=== PATIENT | female | born 1965 | race Caucasian/White ===

== ENCOUNTER 2020-09-08 09:57 | Emergency (ER) | payer OTHER, SELFPAY ==
[2020-09-08 10:03] VITALS: BP 136/60; PULSE 66; RESP 16; TEMP 36.6; O2SAT 100; BMI 30.4
--- NOTE | 2020-09-08 10:04 | ED.GENADULT ---
HPI - General Adult General Chief complaint: Extremity Problem Stated complaint: left side upper shoulder area pain s/p cleaning Time Seen by Provider: 09/08/20 10:04 Source: patient Mode of arrival: ambulatory Limitations: no limitations History of Present Illness HPI narrative: 55-year-old female with below past medical history presenting complaint of left-sided paraspinous muscle pain over the cervical trapezius area. No neck or head pain. Pain sometimes will shoot down the left arm. Pain started couple days ago after some ADLs. No known injury. No upper extremity or lower extremity weakness. Onset (ago): day(s) Location: neck Radiation: extremity Quality: aching Exacerbating factors: none Treatments prior to arrival: none Related Data Previous Rx's Medication Instructions Recorded cyclobenzaprine 10 mg PO TID PRN #20 tab 09/08/20 lidocaine 1 patch TOPICAL Q24H PRN #10 ea 09/08/20 Allergies Allergy/AdvReac Type Severity Reaction Status Date / Time aspirin [Aspirin] Allergy Mild ABDOMINAL Unverified 07/04/20 16:41 PAIN, upset stomach tramadol [TRAMADOL] Allergy Unknown TONGUE Unverified 07/04/20 16:41 NUMBNESS Review of Systems Review of Systems: Constitutional: No Weight loss, No Fever, No Chills, No Night Sweats, No Fatigue, No Malaise ENT/Mouth: No Hearing loss, No Ear Pain, No Nasal Congestion, No Sinus Pain, No Hoarseness, No sore throat, No Rhinorrhea, No Swallowing Difficulty Eyes: No Eye Pain, No Swelling, No Redness, No Foreign Body, No Discharge, No Vision Changes Cardiovascular: No Chest Pain, No SOB, No Dyspnea on Exertion, No Orthopnea, No Edema, No Palpitations Respiratory: No Cough, No Sputum, No Wheezing, No Smoke Exposure, No Dyspnea Gastrointestinal: No Nausea, No Vomiting, No Diarrhea, No Constipation, No abdominal Pain, No Hematochezia, No Melena Genitourinary: no irregular bleeding, No Dysuria, No Urinary Frequency, No Hematuria, No Urinary Incontinence, No Urgency, No Flank Pain, No Urinary Flow Changes, No Hesitancy Musculoskeletal: No joint pain, No Myalgias, No Joint Swelling Skin: No Skin Lesions, No rash Neuro: No Weakness, No Numbness, No Paresthesias, No Loss of Consciousness, No Dizziness, No Headache Heme/Lymph: No Bruising, No Bleeding,No Lymphadenopathy Endocrine: No Polyuria, No Polydipsia, No Temperature Intolerance Yes all other systems are reviewed and are negative [facility] Past Medical History Medical History (Updated 09/09/20 @ 00:00 by Background Daemon) Arthritis Hypertension Social History Social History Alcohol intake: never Smoking Status: Never smoker Use of substances other than those prescribed or required for medical reasons: No Advance Directives: No Advance Directives Information Provided: Yes Physical Exam Vital Signs: Vital Signs: Last Vital Signs Temp 97.8 F 09/08/20 10:03 Pulse 66 09/08/20 10:03 Resp 16 09/08/20 10:03 BP 136/60 09/08/20 10:03 Pulse Ox 100 09/08/20 10:03 Body Mass Index 30.4 Reviewed Const: General: cooperative and healthy appearing; No acute distress or intoxicated appearing Nutritional Appearance: average body habitus Orientation/consciousness: patient oriented x3 HENMT: Head: Yes normal to inspection Ears: hearing grossly normal bilaterally Eyes: General: appearance normal, both eyes and all related structures Visual Beltran: normal visual beltran by confrontation Neck: Other: Slight tender palpation over the upper trapezius. No anterior lateral care palpation. Negative Spurling test. Neck: Yes normal visual inspection, No positive Brudzinski's sign, No positive Kernig's sign and Yes tender Thyroid: Thyroid normal Chest: Chest palpation & inspection: normal inspection of the chest Resp: Effort & Inspection: normal respiratory effort Cardio: Jugular venous distension: no JVD : General: Yes no CVA tenderness Back/Spine/Pelvis: Back: no CVA tenderness Skin: General skin exam: no rashes or lesions noted Neuro: General: patient oriented x3 Extrem: General: Yes normal to inspection Discharge Plan Discharge Clinical Impression: Cervical muscle strain Patient Disposition: Home, Self-Care Instructions: Cervical Strain (ED) Prescriptions: New cyclobenzaprine 10 mg tablet 10 mg PO TID PRN (Reason: muscle spasm) Qty: 20 RF: 0 lidocaine 4 % adhesive patch,medicated 1 patch topical Q24H PRN (Reason: pain) Qty: 10 RF: 0 Referrals: Roxanna Davis DO [Primary Care Provider] - 1 week Interventions: ED Discharge Assessment Last Done: 11/22/20 10:23 Discharge Date/Time: 09/08/20 10:24
== END 2020-09-08 10:24 | disposition home or self-care (01) ==
PROVIDERS: Emergency Provider Emergency Medicine; PCP Internal Medicine
DX: S16.1XXA Strain of muscle, fascia and tendon at neck level, initial encounter (principal); M25.512 Pain in left shoulder; M54.2 Cervicalgia; I10 Essential (primary) hypertension; X58.XXXA Exposure to other specified factors, initial encounter; Y93.9 Activity, unspecified; Y92.9 Unspecified place or not applicable; Y99.9 Unspecified external cause status; Z79.899 Other long term (current) drug therapy
CPT/HCPCS: 99283

== ENCOUNTER 2020-10-16 19:12 | Emergency (ER) | payer OTHER, SELFPAY ==
--- NOTE | 2020-10-16 21:07 | PC.NURSE ---
Provider bedside seeing patient. Plan for covid test and d/c.
[2020-10-16 21:08] VITALS: BP 131/64; PULSE 62; RESP 16; TEMP 37.6; O2SAT 96; BMI 68.3
--- NOTE | 2020-10-16 21:09 | ED.URI ---
HPI - URI/Sore Throat General Chief Complaint: Medical Clearance Stated Complaint: Flu like symptoms Time Seen by Provider: 10/16/20 20:55 Source: patient History of Present Illness HPI Narrative: This is a 55-year-old female who presents with complaints of throat pain and discomfort when breathing but denies any shortness of breath. She states that this is been going on for 2 days and is not associated with headache, dizziness, fevers, nausea, vomiting, or urinary symptoms. She states she is concerned because her has diabetes Related Data Previous Rx's Medication Instructions Recorded cyclobenzaprine 10 mg PO TID PRN #20 tab 09/08/20 lidocaine 1 patch TOPICAL Q24H PRN #10 ea 09/08/20 Allergies Allergy/AdvReac Type Severity Reaction Status Date / Time aspirin [Aspirin] Allergy Mild ABDOMINAL Unverified 10/16/20 21:19 PAIN, upset stomach tramadol [TRAMADOL] Allergy Unknown TONGUE Unverified 10/16/20 21:19 NUMBNESS Review of Systems Review of Systems: Pertinent positives and negatives as stated in HPI 10 point review of systems otherwise negative PMFSH Past Medical History Source: nursing notes reviewed Medical History Arthritis Hypertension Migraine Surgical History History of rectal surgery Social History Social History Alcohol intake: never Smoking Status: Never smoker Advance Directives: No Advance Directives Information Provided: No Physical Exam Vital Signs: Vital Signs: Last Vital Signs Temp 99.6 F 10/16/20 21:08 Pulse 62 10/16/20 21:08 Resp 16 10/16/20 21:08 BP 131/64 10/16/20 21:08 Pulse Ox 96 10/16/20 21:08 Body Mass Index 68.3 VITAL SIGNS: Reviewed. GENERAL: Well developed, well nourished, in no acute distress. HEAD: Normocephalic/atraumatic, EYES: PERRLA, EOMI intact without pain, no nystagmus/pallor/icterus noted EARS: Ext canals without abnormality, TMs non-bulging and non-erythematous NOSE: Nares patent bilateral OROPHARYNX: no oral lesions noted, posterior pharynx clear NECK: Supple, no adenopathy LUNGS: Normal breath sounds. No adventitious sounds or accessory muscle use. SpO2<96> CARDIOVASCULAR: Regular rate and rhythm without noted murmurs, no JVD or lower extremity edema. ABDOMEN: Soft, non-tender, non-distended with bowel sounds. No rigidity. No guarding. No palpable masses or hernias noted NEUROLOGIC: Alert and oriented x 4. Course Course Course Narrative: This is a 55-year-old female with history and clinical presentation consistent with viral infection and no evidence of hypoxia, tachypnea, and currently not febrile. Patient will be COVID-19 tested and instructed to self quarantine until the results are called her. Discharge Plan Discharge Clinical Impression: Encounter for laboratory testing for COVID-19 virus Patient Disposition: Home, Self-Care Instructions: COVID-19 (Coronavirus Disease 2019) (ED) Additional Instructions: 1. Tylenol 1000 mg, por v?a oral, cada 6 horas seg?n sea necesario para el dolor de carlo, ronna corporales, temperaturas superiores a 100,4?C. No exceda los 4000 mg en 24 horas. 2. Incrementar la hidrataci?n de los fluidos especialmente con agua. 3. Debe ponerse en cuarentena de acuerdo con las pautas del estado de [place] hasta que reciba los resultados de de la torre prueba COVID-19. [place] significa que no debe salir de compras ni involucrarse en situaciones sociales. 4. Por favor, no dude en regresar a trevor departamento de emergencias si experimenta un empeoramiento de la dificultad para respirar, fiebre no controlada por Tylenol. Prescriptions: No Action cyclobenzaprine 10 mg tablet 10 mg PO TID PRN (Reason: muscle spasm) Qty: 20 RF: 0 lidocaine 4 % adhesive patch,medicated 1 patch topical Q24H PRN (Reason: pain) Qty: 10 RF: 0 Print Language: Portuguese
--- NOTE | 2020-10-16 21:22 | PC.NURSE ---
Patient swabbed. Will receive d/c instructions with service officer.
== END 2020-10-16 21:31 | disposition home or self-care (01) ==
PROVIDERS: Emergency Provider Student in an Organized Health Care Education/Training Program; PCP Internal Medicine
DX: U07.1 COVID-19 (principal); I10 Essential (primary) hypertension
CPT/HCPCS: 99283; U0003

== ENCOUNTER 2021-06-17 10:40 | Outpatient (REF) | payer OTHER, SELFPAY ==
--- NOTE | ~2021-06-17 | MM_ITS ---
EXAMINATION: MM SCREENING DIGITAL BREAST TOMOSYNTHESIS, BILATERAL CLINICAL INFORMATION: Screening. Asymptomatic. The lifetime risk of breast cancer based on the Tyrer-Cuzick Model is 19%. COMPARISON: Mammography: 06/13/2020, 01/10/2019, 01/04/2018 TECHNIQUE: Digital breast tomosynthesis is performed in both the craniocaudal and mediolateral oblique views along with computer-aided detection (CAD). Synthesized 2D images are generated from the tomosynthesis. Additional left MLO view is provided. FINDINGS: The breasts are almost entirely fatty (ACR BI-RADS breast composition Category a). There are no significant masses, abnormal calcifications, or other abnormalities. Background stromal markings are stable. Low right axillary tail node is stable. Skin contours are smooth. No significant changes. MM/MM tomosynthesis screening BI IMPRESSION: No mammographic evidence of malignancy. ASSESSMENT: BI-RADS 2: Benign RECOMMENDATION: Routine annual mammography screening. This patient's information was entered into a reminder system with a target due date for their next mammogram.
== END 2021-06-17 10:41 | disposition home or self-care (01) ==
LOC: HO.MAMMO 10:40
PROVIDERS: Absent Provider Obstetrics & Gynecology; PCP Internal Medicine; Visit Provider Internal Medicine
DX: Z12.31 Encounter for screening mammogram for malignant neoplasm of breast (principal)
CPT/HCPCS: 77063; 77067

== ENCOUNTER 2021-09-20 13:13 | Emergency (ER) | payer OTHER, SELFPAY ==
[2021-09-20 15:09] VITALS: BP 137/50; PULSE 62; RESP 18; TEMP 35.9; O2SAT 100; BMI 32.8
== END 2021-09-20 19:48 | disposition left against medical advice (07) ==
PROVIDERS: Emergency Provider Emergency Medicine; PCP Internal Medicine
DX: M79.604 Pain in right leg (principal)
CPT/HCPCS: 99281; 99282

== ENCOUNTER 2021-09-22 08:22 | Emergency (ER) | payer OTHER, SELFPAY ==
--- NOTE | ~2021-09-22 | XR_ITS ---
EXAMINATION: XR HIP, RIGHT CLINICAL INFORMATION: Pain COMPARISON: None TECHNIQUE: Two views of the right hip and one view of the pelvis. FINDINGS: Bone alignment is normal. No fracture or dislocation is seen. The joint spaces are normal. Bones of the pelvis are normal. Soft tissues are normal. XR/XR hip RT w PEL1V IMPRESSION: Normal right hip.
[2021-09-22 09:09] VITALS: BP 132/62; PULSE 64; RESP 18; TEMP 36.7; O2SAT 96; BMI 32.8
--- NOTE | 2021-09-22 10:29 | ED_ITS ---
HPI - General Adult General Chief complaint: Extremity Problem Stated complaint: R LEG PAIN Time Seen by Provider: 09/22/21 09:22 Source: patient Mode of arrival: ambulatory History of Present Illness HPI narrative: 56-year-old female with a past medical history of arthritis, HTN, migraines presenting to the ED complaining of right hip pain radiating down right lower extremity times 5-6 days. Denies known injury/trauma fall. Denies numbness, tingling, weakness, urinary incontinence/retention Onset (ago): day(s) Location: lower extremity Radiation: extremity Severity: mild Pain Consistency: constant Related Data Previous Rx's Medication Instructions Recorded cyclobenzaprine 10 mg tablet 10 mg PO TID PRN #20 tab 09/08/20 lidocaine 4 % topical patch 1 patch TOPICAL Q24H PRN #10 ea 09/08/20 acetaminophen 500 mg tablet 500 mg PO Q6H PRN #20 tab 09/22/21 (Tylenol Extra Strength) cyclobenzaprine 5 mg tablet 5 mg PO Q8H PRN 5 Days #14 tab 09/22/21 lidocaine 5 % topical patch 1 patch TOPICAL DAILY PRN #30 ea 09/22/21 (Lidoderm) MDD remove after 12 hours Allergies Allergy/AdvReac Type Severity Reaction Status Date / Time aspirin [Aspirin] Allergy Mild ABDOMINAL Verified 09/20/21 15:09 PAIN, upset stomach tramadol [TRAMADOL] Allergy Unknown TONGUE Verified 09/20/21 15:09 NUMBNESS Review of Systems Review of Systems: Constitutional:No Fever, No Chills ENT/Mouth: No Ear Pain, No Nasal Congestion, No sore throat, No Rhinorrhea Cardiovascular: No Chest Pain, No SOB Respiratory: No Cough Gastrointestinal: No Nausea, No Vomiting, No Abdominal pain Genitourinary:, No Dysuria, No Hematuria, No Urinary Incontinence/retentionNo Flank Pain Musculoskeletal: + joint pain, No Myalgias, No Joint Swelling Skin: No Skin Lesions, No rash Neuro: No Weakness, No Numbness, No Paresthesias Yes all other systems are reviewed and are negative Neurologic: Denies Sensory deficit (Neuro) PENDING SALE TO [facility] Past Medical History Attestation statement: The following information was validated with the patient. Medical History Arthritis Hypertension Migraine Surgical History History of rectal surgery Social History Social History Alcohol intake: never Advance Directives: No Advance Directives Information Provided: Yes Patient : No Physical Exam Vital Signs: Vital Signs: Last Vital Signs Temp 98.0 F 09/22/21 09:09 Pulse 64 09/22/21 09:09 Resp 18 09/22/21 09:09 BP 132/62 09/22/21 09:09 Pulse Ox 96 09/22/21 09:09 BMI result Body Mass Index 32.8 Const: General: cooperative, healthy appearing and no acute distress Orientation/consciousness: patient oriented x3 Limitations: no limitations HENMT: Head: Yes normal to inspection and Yes atraumatic Ears: hearing grossly normal bilaterally General nose exam: Normal external nose present Face and sinus: Yes normal facial exam Eyes: General: appearance normal, both eyes and all related structures EOM: EOMs intact bilaterally Neck: Neck: Yes normal visual inspection and Yes no meningeal signs Resp: Effort & Inspection: normal respiratory effort and no respiratory distress Cardio: Rate: regular rate Peripheral pulses: dorsalis pedis present GI: Inspection: Yes normal to inspection Palpation (GI): Soft to palpation, nontender and no guarding : General: Yes no CVA tenderness Back/Spine/Pelvis: Other: No midline thoracic/lumbar spinous tenderness/step- off or deformity. Right buttock tenderness to palpation Back: no CVA tenderness Skin: Rashes: no rashes Wounds: no wounds Neuro: General: patient oriented x3, gait normal, tone normal, moves all extremities, no meningeal signs and no focal motor deficits Gait exam (Neuro): Normal gait present Motor exam (neuro): 5/5 motor strength present throughout Sensory Exam: No Sensory deficit (Neuro) Extrem: Other: Right hip mildly tender. No appreciable deformity. Active and passive ROM intact with pain elicited. Neurovascular intact distally. General: Yes normal to inspection Course Course Course Narrative: XR hip RT w PEL1V IMPRESSION: Normal right hip. >> results discussed with patient Medical Decision Making MDM Narrative Medical decision making narrative: 56-year-old female with a past medical history of arthritis, HTN, migraines presenting to the ED complaining of right hip pain radiating down right lower extremity times 5-6 days. On exam vital signs stable, NAD/nontoxic appearing physical exam as above. Rule out fracture. Concern for arthritic flare vs sciatica/MSK pain/muscle spasming. Low concern for septic joint/arthritis Plan: X-rays Discharge Plan Discharge Clinical Impression: Acute hip pain Qualifiers: Laterality: right Qualified Code(s): M25.551 - Pain in right hip Patient Disposition: Home, Self-Care Instructions: Hip Pain (ED) Additional Instructions: Your x-ray was unremarkable Please follow-up with her doctor Your pain is likely musculoskeletal Flexeril is a muscle relaxer, take at night as it makes you drowsy, do not drive, drink alcohol, or operate machinery while taking it Lidoderm patches are numbing patches, apply to painful area In addition take Tylenol at home If symptoms persist or worsen, pain becomes unbearable, you developed urinary retention or incontinence, or weakness return to the ED Tu radiograf?a no tuvo nada especial Por favor, jd un seguimiento con de la torre m?dico. Es probable que de la torre dolor sea musculoesquel?atif Flexeril es un relajante muscular, t?springer por la noche ya que le produce somnolencia, no conduzca, no kai alcohol ni maneje maquinaria mientras lo gregory. Los parches de Lidoderm son parches que adormecen, se aplican al ?essence dolorida Adem?s, tome Tylenol en casa. Si los s?ntomas persisten o empeoran, el dolor se vuelve insoportable, desarroll? retenci?n urinaria o incontinencia, o debilidad regrese al servicio de urgencias Prescriptions: New acetaminophen [Tylenol Extra Strength] 500 mg tablet 500 mg PO Q6H PRN (Reason: pain or fever) Qty: 20 RF: 0 lidocaine [Lidoderm] 5 % adhesive patch,medicated 1 patch topical DAILY MDD remove after 12 hours PRN (Reason: pain) Qty: 30 RF: 0 cyclobenzaprine 5 mg tablet 5 mg PO Q8H PRN (Reason: pain (scale score 7-10)) 5 Days Qty: 14 RF: 0 No Action cyclobenzaprine 10 mg tablet 10 mg PO TID PRN (Reason: muscle spasm) Qty: 20 RF: 0 lidocaine 4 % adhesive patch,medicated 1 patch topical Q24H PRN (Reason: pain) Qty: 10 RF: 0 Referrals: Sammy Blue MD [Primary Care Provider] - 2 days Interventions: ED Discharge Assessment Last Done: 09/22/21 10:40 Discharge Date/Time: 09/22/21 10:41 Print Language: Azeri
== END 2021-09-22 10:41 | disposition home or self-care (01) ==
PROVIDERS: Emergency Provider Emergency Medicine; PCP Internal Medicine
DX: M25.551 Pain in right hip (principal); I10 Essential (primary) hypertension
CPT/HCPCS: 73502; 99283

== ENCOUNTER → 2022-03-03 11:13 | Outpatient (BNVA) | payer OTHER, SELFPAY | PROVIDERS: PCP Internal Medicine; Visit Provider Nurse Practitioner Family | DX: G47.9 Sleep disorder, unspecified (principal); G47.30 Sleep apnea, unspecified; G43.909 Migraine, unspecified, not intractable, without status migrainosus | CPT/HCPCS: 99202 ==

== ENCOUNTER 2022-03-09 17:32 | Emergency (ER) | payer OTHER, SELFPAY ==
[2022-03-09 17:41] VITALS: BP 137/65; PULSE 59; RESP 18; TEMP 37; O2SAT 98; BMI 30.9
--- NOTE | 2022-03-09 19:30 | ED_ITS ---
HPI - Extremity Problem General Chief complaint: Extremity Problem Stated complaint: ? Sprain R Neck/Shoulder Area Time Seen by Provider: 03/09/22 19:21 Source: patient Mode of arrival: ambulatory Limitations: no limitations History of Present Illness HPI Narrative: 56-year-old female here with 1 month of right-sided neck pain which radiates down the right arm. Patient taking Motrin and using heat with continued pain. No weakness, no chest pain, no shortness of breath, no nausea, no diaphoresis. No sensation change. No fevers or chills or headache. No known injury or trauma. Related Data Home Medications Medication Instructions Recorded Confirmed hydrochlorothiazide 25 mg tablet 25 mg PO DAILY 03/03/22 03/03/22 omeprazole 20 mg capsule,delayed 20 mg PO DAILY 03/03/22 03/03/22 release Previous Rx's Medication Instructions Recorded cyclobenzaprine 10 mg tablet 10 mg PO TID PRN #20 tab 09/08/20 lidocaine 4 % topical patch 1 patch TOPICAL Q24H PRN #10 ea 09/08/20 acetaminophen 500 mg tablet 500 mg PO Q6H PRN #20 tab 09/22/21 (Tylenol Extra Strength) cyclobenzaprine 5 mg tablet 5 mg PO Q8H PRN 5 Days #14 tab 09/22/21 lidocaine 5 % topical patch 1 patch TOPICAL DAILY PRN #30 ea 09/22/21 (Lidoderm) MDD remove after 12 hours erenumab-aooe 140 mg/mL 140 mg SUBCUT .COMPLEX 30 Days #1 03/03/22 subcutaneous auto-injector ml (Aimovig Autoinjector) propranolol 60 mg capsule,24 60 mg PO DAILY 30 Days #30 cap 03/03/22 hr,extended release rizatriptan 10 mg tablet 10 mg PO Q2H 30 Days #360 tab 03/03/22 cyclobenzaprine 10 mg tablet 10 mg PO TID PRN #14 tab 03/09/22 prednisone 20 mg tablet 40 mg PO DAILY #10 tab 03/09/22 Allergies Allergy/AdvReac Type Severity Reaction Status Date / Time aspirin [Aspirin] Allergy Mild ABDOMINAL Verified 03/09/22 18:33 PAIN, upset stomach tramadol [TRAMADOL] Allergy Unknown TONGUE Verified 03/09/22 18:33 NUMBNESS Review of Systems Review of Systems: Yes all other systems are reviewed and are negative Constitutional: Constitutional: Reports no additional constitutional complaints, Denies body ache(s), Denies chills, Denies fever(s), Denies headache(s) and Denies weakness Eyes: Eyes: Reports no additional eye complaints and Denies change in vision ENT: Reports system reviewed and no additional complaints, except as documented, Denies dizziness, Denies headache(s), Denies nasal congestion, Denies nasal discharge and Reports neck pain Cardiovascular: Cardiovascular: Reports no additional cardiovascular complaints, Denies chest pain, Denies leg edema and Denies dyspnea Respiratory: Respiratory: Reports no additional respiratory complaints, Denies cough and Denies dyspnea Gastrointestinal: Gastrointestinal: Reports no additional gastrointestinal complaints, Denies abdominal pain, Denies diarrhea, Denies nausea and Denies vomiting Genitourinary: Genitourinary: Reports no additional female genitourinary complaints and Denies urinary incontinence Musculoskeletal: Musculoskeletal: Reports no additional musculoskeletal complaints, Denies back pain, Denies arthralgias, Denies joint swelling, Reports neck pain, Denies numbness, Reports radiating pain into limb and Denies tingling Integumentary/Breasts: Skin/Breast: Reports system reviewed and no additional complaints, except as docu and Denies rash Neurologic: Reports system reviewed and no additional complaints, except as documented, Denies Abnormal speech present, Denies dizziness, Denies headache(s), Denies numbness, Denies tingling and Denies weakness PMFSH Past Medical History Attestation statement: The following information was validated with the patient. Source: old records reviewed and nursing notes reviewed Medical History Arthritis HLD (hyperlipidemia) Hypertension Migraine Surgical History History of rectal surgery Family History Family History (Updated 03/03/22 @ 11:31 by Becky Doty) Father Congestive heart failure Mother Diabetes HTN (hypertension) Migraine Brother HTN (hypertension) Diabetes Social History Social History Alcohol intake: never Patient Tobacco Use Status: Never used Tobacco Advance Directives: No Advance Directives Information Provided: No Patient : No Physical Exam Vital Signs: Vital Signs: Last Vital Signs Temp 98.6 F 03/09/22 17:41 Pulse 59 03/09/22 17:41 Resp 18 03/09/22 17:41 BP 137/65 03/09/22 17:41 Pulse Ox 98 03/09/22 17:41 BMI result Body Mass Index 30.9 Const: General: cooperative, healthy appearing, comfortable and no acute distress Orientation/consciousness: patient oriented x3 Limitations: no limitations HEENT: Head: Yes normal to inspection Ears: hearing grossly normal bilaterally General nose exam: Normal external nose present Face and sinus: Yes normal facial exam Mouth: Normal oral and palatal mucosa present Throat: Yes posterior oropharynx normal Eyes: General: appearance normal, both eyes and all related structures Pupils: Equal, round and reactive pupils present Neck: Other: To the right trapezius there is tenderness, swelling, palpable muscle spasm. No cervical midline tenderness, step-offs deformities Neck: Yes normal visual inspection, Yes full ROM, Yes no lymphadenopathy and Yes no meningeal signs Chest: Chest palpation & inspection: normal inspection of the chest Resp: Effort & Inspection: normal respiratory effort Auscultation: clear to auscultation bilaterally Cardio: Rate: regular rate Rhythm: regular rhythm Peripheral pulses: Peripheral pulses 2+ throughout GI: Inspection: Yes normal to inspection Palpation (GI): Soft to palpation and nontender Auscultation: normal bowel sounds Back/Spine/Pelvis: Thoracic/Lumbar Spine: thoracic and lumbar spine normal to inspection Skin: General skin exam: no rashes or lesions noted Neuro: General: patient oriented x3, no meningeal signs, no focal motor deficits and normal sensation to monofilament Cranial nerves: Yes Equal, round and reactive pupils present Cognition (Neuro): normal cognition Speech: No Abnormal speech present Gait exam (Neuro): Normal gait present Motor exam (neuro): 5/5 motor strength present throughout Extrem: Other: Right upper extremity is normal in appearance. There is normal strength and sen sation with. Palpable distal pulses noted General: Yes normal to inspection Course Course Course Narrative: 4 weeks of her right-sided neck pain with radiation down the right arm unrelieved with heat and Advil at home. Exam is consistent with cervical radiculopathy. No weakness or sensation change. Will add Flexeril, prednisone. Recommend continue heat and ibuprofen. Reviewed worrisome signs and symptoms of when to return to the emergency department. Comfortable discharge home. MDM - Extremity (Nontraumatic) MDM Narrative Medical decision making narrative: Low concern for ACS with atypical symptoms that are greater than 4 weeks Low concern for PE with no clinical findings concerning for DVT, no tachypnea, no hypoxia, no tachycardia Low concern for cord compression with no weakness or sensation change on exam in the upper extremities Medical Records Attestation: I reviewed the patient's medical records. Lab Data Attestation: I reviewed the patient's lab results. Discharge Plan Discharge Clinical Impression: Cervical radiculopathy Patient Disposition: Home, Self-Care Instructions: Cervical Radiculopathy (ED) Additional Instructions: Heat or ice Gentle stretching Continue ibuprofen Prescriptions: New cyclobenzaprine 10 mg tablet 10 mg PO TID PRN (Reason: muscle spasm) Qty: 14 0RF prednisone 20 mg tablet 40 mg PO DAILY Qty: 10 0RF No Action cyclobenzaprine 10 mg tablet 10 mg PO TID PRN (Reason: muscle spasm) Qty: 20 0RF lidocaine 4 % adhesive patch,medicated 1 patch topical Q24H PRN (Reason: pain) Qty: 10 0RF Rx Instructions: may leave on for up to 12 hrs acetaminophen [Tylenol Extra Strength] 500 mg tablet 500 mg PO Q6H PRN (Reason: pain or fever) Qty: 20 0RF lidocaine [Lidoderm] 5 % adhesive patch,medicated 1 patch topical DAILY MDD remove after 12 hours PRN (Reason: pain) Qty: 30 0RF Rx Instructions: leave on most painful area for up to 12 hrs cyclobenzaprine 5 mg tablet 5 mg PO Q8H PRN (Reason: pain (scale score 7-10)) 5 Days Qty: 14 0RF hydrochlorothiazide 25 mg tablet 25 mg PO DAILY 0RF omeprazole 20 mg capsule,delayed release(DR/EC) 20 mg PO DAILY 0RF Aimovig Autoinjector 140 mg/mL auto-injector 140 mg subcut .COMPLEX 30 Days Qty: 1 6RF Rx Instructions: 140 mg subcut monthly; propranolol 60 mg capsule,extended release 24 hr 60 mg PO DAILY 30 Days Qty: 30 6RF rizatriptan 10 mg tablet 10 mg PO Q2H 30 Days Qty: 360 6RF Rx Instructions: 1 tab at onset of migraine, may repeat in 2 hours, max 2 tabs per day or 4 tabs per week. Referrals: Sammy Blue III, MD [Primary Care Provider] - 1 week (for persistent symptoms ) Print Language: Citizen [place]
== END 2022-03-09 20:18 | disposition home or self-care (01) ==
PROVIDERS: Emergency Provider Emergency Medicine; PCP Internal Medicine
DX: M54.12 Radiculopathy, cervical region (principal); M54.2 Cervicalgia; I10 Essential (primary) hypertension; E78.5 Hyperlipidemia, unspecified
CPT/HCPCS: 99283

== ENCOUNTER 2022-03-27 10:57 | Emergency (ER) | payer OTHER, SELFPAY ==
--- NOTE | 2022-03-27 | ECG_ITS ---
Test Reason : cp Blood Pressure : / mmHG Vent. Rate : 063 BPM Atrial Rate : 063 BPM P-R Int : 186 ms QRS Dur : 082 ms QT Int : 410 ms P-R-T Axes : 023 -04 028 degrees QTc Int : 419 ms Normal sinus rhythm Minimal voltage criteria for LVH, may be normal variant ( R in aVL ) Borderline ECG When compared with ECG of 07-JUN-2016 16:49, AR interval has decreased Referred By: Generic ED Physician Electronically Signed By:AMPARO HILL
--- NOTE | ~2022-03-27 | XR_ITS ---
EXAMINATION: XR CHEST CLINICAL INFORMATION: Chest pain COMPARISON: Chest x-ray 12/17/2016 TECHNIQUE: 2 views of the chest were obtained. FINDINGS: Cardiac silhouette is normal in size. The lungs are mildly hypoinflated. There is asymmetric elevation of the right hemidiaphragm. No lobar consolidation. No pleural effusion or pneumothorax. Mild degenerative changes of the spine. XR/XR chest 2V IMPRESSION: No acute pulmonary pathology.
[2022-03-27 11:17] VITALS: BP 113/72; PULSE 73; RESP 18; TEMP 36.7; O2SAT 99; BMI 30.9
--- NOTE | 2022-03-27 12:42 | ED_ITS ---
HPI - Chest Pain General Chief Complaint: Chest Pain Stated Complaint: chest pain l arm pain sob Time Seen by Provider: 03/27/22 12:25 Source: patient Mode of arrival: ambulatory Limitations: language barrier ( Slovak-speaking certified medical dosimetrist utilized) History of Present Illness HPI narrative: patient presents emergency department for evaluation of chest pain. She reports left anterior chest pain radiating down her left arm since 13:00 yesterday afternoon. It is described as pinching/ sharp/ stabbing. She states that the pain is constant but is made worse with movement such as walking, moving the arm or exertion. Has shortness of breath when walking up stairs. Denies any prior history of similar pain like this. Denies any precipitating injury. Denies fevers, chills, upper respiratory symptoms, neck pain, palpitations, nausea, vomiting, abdominal pain, numbness or tingling of the extremities, generalized weakness. Related Data Home Medications Medication Instructions Recorded Confirmed hydrochlorothiazide 25 mg tablet 25 mg PO DAILY 03/03/22 03/03/22 omeprazole 20 mg capsule,delayed 20 mg PO DAILY 03/03/22 03/03/22 release Previous Rx's Medication Instructions Recorded cyclobenzaprine 10 mg tablet 10 mg PO TID PRN muscle spasm #20 09/08/20 tabs lidocaine 4 % topical patch 1 patch topical Q24H PRN pain #10 09/08/20 ea acetaminophen 500 mg tablet 500 mg PO Q6H PRN pain or fever 09/22/21 (Tylenol Extra Strength) #20 tabs cyclobenzaprine 5 mg tablet 5 mg PO Q8H PRN pain (scale score 09/22/21 7-10) 5 days #14 tabs lidocaine 5 % topical patch 1 patch topical DAILY PRN pain #30 09/22/21 (Lidoderm) ea erenumab-aooe 140 mg/mL 140 mg subcut .COMPLEX 30 days #1 03/03/22 subcutaneous auto-injector mL (Aimovig Autoinjector) propranolol 60 mg capsule,24 60 mg PO DAILY 30 days #30 caps 03/03/22 hr,extended release rizatriptan 10 mg tablet 10 mg PO Q2H 30 days #360 tabs 03/03/22 cyclobenzaprine 10 mg tablet 10 mg PO TID PRN muscle spasm #14 03/09/22 tabs prednisone 20 mg tablet 40 mg PO DAILY #10 tabs 03/09/22 Allergies Allergy/AdvReac Type Severity Reaction Status Date / Time aspirin [Aspirin] Allergy Mild ABDOMINAL Verified 03/09/22 18:33 PAIN, upset stomach tramadol [TRAMADOL] Allergy Unknown TONGUE Verified 03/09/22 18:33 NUMBNESS Review of Systems Review of Systems: Constitutional : No Weight loss, No Fever, No Chills ENT/Mouth :? No sore throat, No Rhinorrhea Eyes: No Eye Pain, No Swelling Cardiovascular : pos Chest Pain, pos SOB on Exertion, No Orthopnea, No Edema, No Palpitations Respiratory : No Cough, No Sputum Gastrointestinal : pos Nausea, No Vomiting, No Diarrhea, No abdominal Pain, No Hematochezia, No Melena Genitourinary : No Dysuria, No Urinary Frequency Musculoskeletal : No joint pain, No Myalgias, No Joint Swelling Skin : No Skin Lesions, No rash Neuro : No Weakness, No Numbness, No Dizziness, No Headache Psych : No Anxiety/Panic, No Depression Heme/Lymph: No Bruising, No Lymphadenopathy Endocrine : No Polyuria, No Polydipsia Yes all other systems are reviewed and are negative [facility] Past Medical History Attestation statement: The following information was validated with the patient. Source: old records reviewed Medical History Arthritis Axial spondyloarthritis HLD (hyperlipidemia) Hypertension Migraine Surgical History History of rectal surgery Family History Family History Father Congestive heart failure Mother Diabetes HTN (hypertension) Migraine Brother HTN (hypertension) Diabetes Social History Social History Alcohol intake: never Patient Tobacco Use Status: Never used Tobacco Use of substances other than those prescribed or required for medical reasons: No Advance Directives: No Advance Directives Information Provided: Yes Patient : No Physical Exam Vital Signs: Vital Signs: Last Vital Signs Temp 98.5 F 03/27/22 14:36 Pulse 56 03/27/22 14:36 Resp 18 03/27/22 14:36 BP 113/60 03/27/22 14:36 Pulse Ox 98 03/27/22 14:36 O2 Del Method 03/27/22 14:36 BMI result Body Mass Index 30.9 Vital signs have been reviewed as normal and appeared to be correct. Blood pressure normal.? Heart rate normal.? Respiration rate normal. Temperature normal.? Oxygen saturation normal. Appearance: Alert.?Oriented to person, place and time. No acute distress.?Normal affect. Eyes: Pupils equal, round and reactive to light.? ENT: Pharynx normal.?? Neck: Normal inspection.? Neck supple.?? CVS: Heart sounds normal. Normal heart rate and rhythm.? Pulses normal.?? Respiratory: No respiratory distress.? Lung sounds clear to auscultation bilaterally?? Abdomen: Soft and non-tender. Normoactive bowel sounds. No pulsatile mass.?? Skin: Skin warm and dry.? Normal skin color. Extremities: No lower extremity edema.? No calf ttp? Neuro: Moves all extremities spontaneously. Sensation intact bilaterally. CN II- XII intact. No focal neuro deficits. Ambulates with normal steady gait. Course Course Course Narrative: The patient is a 56-year-old female with past medical history of hypertension, hyperlipidemia, migraines presented to the emergency department for evaluation of chest pain. Pain is reproducible to palpation of the left upper chest movem ent of her arm. She is overall well-appearing, hemodynamically stable. She does have risk factors including obesity, hypertension, hyperlipidemia, family history of CAD. Will obtain CBC to evaluate for leukocytosis/ anemia, CMP to evaluate for abnormal electrolytes /abnormal renal function/ abnormal hepatic function, EKG and troponin to evaluate for ischemia/ACS. Chest x-ray to evaluate for consolidation/ infiltrate/ mass/ pulmonary congestion. Will trial nitro 0.5 in paste for pain at this time. Reevaluation(s) Reevaluation #1: CBC is unremarkable. CMP is overall unremarkable. Troponin <3.5, EKG reveals normal sinus rhythm no acute ischemic changes, will obtained delta troponin. chest x-ray reveals no acute findings. Time: 13:54 Reevaluation #2: delta troponin is flat, HEART Score 3, unlikely ACS. Discussed these findings with patient. Advised pain is most likely to be muscular in nature given it is reproducible with movement. She is hemodynamically stable, afebrile no tachycardia hypoxia tachypnea, perc negative, unlikely PE. discussed plan of care for discharge home, outpatient follow-up with her primary care provider within 1-2 days, discussed reasons to return back to the emergency department, all questions were answered and she was discharged home in stable condition. Time: 15:10 [facility] - Chest Pain Medical Records Data Attestation: I reviewed the patient's medical records. Lab Data Attestation: I reviewed the patient's lab results. Result diagrams: 03/27/22 13:02 03/27/22 13:02 Labs: Lab Results 03/27/22 03/27/22 03/27/22 Range/Units 12:51 13:02 13:02 WBC 8.0 (4.8-10.8) X10*3/uL RBC 4.86 (4.20-5.50) X10*6/uL Hgb 13.9 (12.0-16.0) g/dl Hct 41.9 (37.0-47.0) % MCV 86.2 (80.0-98.0) fL MCH 28.6 (27.0-33.0) pg MCHC 33.2 (31.0-35.0) g/dl RDW 13.2 (11.0-16.0) % Plt Count 327 (160-400) X10*3/uL MPV 10.8 (9.4-12.3) fL Immature Gran % (Auto) 0.3 (0.0-0.4) % Neut % (Auto) 57.8 (45-73) % Lymph % (Auto) 32.3 (20-40) % Sargent % (Auto) 7.1 (2-11) % Eos % (Auto) 1.9 (0-4) % Baso % (Auto) 0.6 (0-2) % Lymph # (Auto) 2.6 (1.2-4.9) X10*3/uL Sargent # (Auto) 0.6 (0.1-1.2) X10*3/uL Eos # (Auto) 0.2 (0.0-0.4) X10*3/uL Baso # (Auto) 0.1 (0.0-0.2) X10*3/uL Abs Immat Gran (auto) 0.02 (0.00-0.03) X10*3/uL Absolute Neuts (auto) 4.6 (2.0-8.3) x10*3/uL Absolute Nucleated RBC 0.000 (0.0-0.012) X10*3/uL Nucleated RBC % (auto) 0.0 (0.0-0.2) /100WBC Sodium 142 (135-145) mmol/L Potassium 4.1 (3.3-5.1) mmol/L Chloride 102 (96-108) mmol/L Carbon Dioxide 31 H (22-29) mmol/L Anion Gap 13 (12-20) BUN 11 (9-16) mg/dL Creatinine 0.69 (0.5-1.4) mg/dL Estim Creat Clear Calc 85.9 Estimated GFR > 60 Random Glucose 95 (60-115) mg/dL Calcium 9.8 (8.4-10.2) mg/dL Magnesium 2.1 (1.6-2.6) mg/dL Total Bilirubin 1.4 H (0.0-1.0) mg/dL AST 18 (5-31) U/L ALT 17 (0-31) U/L Alkaline Phosphatase 82 (39-117) U/L Troponin I High Sens (<3.5-17.0) ng/L Total Protein 7.1 (6.5-8.0) g/dL Albumin 4.2 (3.5-5.0) g/dL COVID-19 ([facility]) Negative (Negative) COVID-19 Clin Com See Note 03/27/22 03/27/22 Range/Units 13:02 14:43 WBC (4.8-10.8) X10*3/uL RBC (4.20-5.50) X10*6/uL Hgb (12.0-16.0) g/dl Hct (37.0-47.0) % MCV (80.0-98.0) fL MCH (27.0-33.0) pg MCHC (31.0-35.0) g/dl RDW (11.0-16.0) % Plt Count (160-400) X10*3/uL MPV (9.4-12.3) fL Immature Gran % (Auto) (0.0-0.4) % Neut % (Auto) (45-73) % Lymph % (Auto) (20-40) % Sargent % (Auto) (2-11) % Eos % (Auto) (0-4) % Baso % (Auto) (0-2) % Lymph # (Auto) (1.2-4.9) X10*3/uL Sargent # (Auto) (0.1-1.2) X10*3/uL Eos # (Auto) (0.0-0.4) X10*3/uL Baso # (Auto) (0.0-0.2) X10*3/uL Abs Immat Gran (auto) (0.00-0.03) X10*3/uL Absolute Neuts (auto) (2.0-8.3) x10*3/uL Absolute Nucleated RBC (0.0-0.012) X10*3/uL Nucleated RBC % (auto) (0.0-0.2) /100WBC Sodium (135-145) mmol/L Potassium (3.3-5.1) mmol/L Chloride (96-108) mmol/L Carbon Dioxide (22-29) mmol/L Anion Gap (12-20) BUN (9-16) mg/dL Creatinine (0.5-1.4) mg/dL Estim Creat Clear Calc Estimated GFR Random Glucose (60-115) mg/dL Calcium (8.4-10.2) mg/dL Magnesium (1.6-2.6) mg/dL Total Bilirubin (0.0-1.0) mg/dL AST (5-31) U/L ALT (0-31) U/L Alkaline Phosphatase (39-117) U/L Troponin I High Sens < 3.5 < 3.5 (<3.5-17.0) ng/L Total Protein (6.5-8.0) g/dL Albumin (3.5-5.0) g/dL COVID-19 ([facility]) (Negative) COVID-19 Clin Com Imaging Data Chest x-ray: Radiologist's impression: FINDINGS: Cardiac silhouette is normal in size. The lungs are mildly hypoinflated. There is asymmetric elevation of the right hemidiaphragm. No lobar consolidation. No pleural effusion or pneumothorax. Mild degenerative changes of the spine. XR/XR chest 2V IMPRESSION: No acute pulmonary pathology. ECG Data ECG #1: Attestation: I personally reviewed and interpreted this ECG as follows: ECG interpretation date: 03/27/22 Prior ECG tracings: available for review Interpretation: Rate: 64 Rhythm:? normal sinus rhythm [place]:? normal Normal P waves.? Normal [place].?? Normal QRS complex.?? ST T wave :?? no ST elevation, no ST depression, no T-wave inversion qTC: 419 prior studies:? May 2016 The study has been interpreted contemporaneously by me. Discharge Plan Discharge Clinical Impression: Atypical chest pain Patient Disposition: Home, Self-Care Instructions: Noncardiac Chest Pain (ED) Additional Instructions: As we discussed you may use Tylenol or ibuprofen as needed for your pain. Please contact your primary care provider and schedule a follow-up visit within 1-2 days. You can return to the emergency department any new or worsening symptoms or concerns. Prescriptions: No Action cyclobenzaprine 10 mg tablet 10 mg PO TID PRN (Reason: muscle spasm) Qty: 20 0RF lidocaine 4 % adhesive patch,medicated 1 patch topical Q24H PRN (Reason: pain) Qty: 10 0RF Rx Instructions: may leave on for up to 12 hrs cyclobenzaprine 10 mg tablet 10 mg PO TID PRN (Reason: muscle spasm) Qty: 14 0RF prednisone 20 mg tablet 40 mg PO DAILY Qty: 10 0RF acetaminophen [Tylenol Extra Strength] 500 mg tablet 500 mg PO Q6H PRN (Reason: pain or fever) Qty: 20 0RF lidocaine [Lidoderm] 5 % adhesive patch,medicated 1 patch topical DAILY MDD remove after 12 hours PRN (Reason: pain) Qty: 30 0RF Rx Instructions: leave on most painful area for up to 12 hrs cyclobenzaprine 5 mg tablet 5 mg PO Q8H PRN (Reason: pain (scale score 7-10)) 5 Days Qty: 14 0RF hydrochlorothiazide 25 mg tablet 25 mg PO DAILY omeprazole 20 mg capsule,delayed release(DR/EC) 20 mg PO DAILY Aimovig Autoinjector 140 mg/mL auto-injector 140 mg subcut .COMPLEX 30 Days Qty: 1 6RF Rx Instructions: 140 mg subcut monthly; propranolol 60 mg capsule,extended release 24 hr 60 mg PO DAILY 30 Days Qty: 30 6RF rizatriptan 10 mg tablet 10 mg PO Q2H 30 Days Qty: 360 6RF Rx Instructions: 1 tab at onset of migraine, may repeat in 2 hours, max 2 tabs per day or 4 tabs per week. Referrals: Sammy Blue III, MD [Primary Care Provider] - 2 days Interventions: ED Discharge Assessment Last Done: 03/27/22 15:44 Discharge Date/Time: 03/27/22 15:44
[2022-03-27 13:06] LABS: MANUAL DIFF FLAG NO
[2022-03-27 13:08] VITALS: BP 114/63; PULSE 53; RESP 15; TEMP 37.1; O2SAT 97
[2022-03-27] MEDS: Nitroglycerin 2 % Oint 1 GM Packet 0.5 INCH TRANSDERMA (13:12)
[2022-03-27 13:16] LABS: COVID-19 Test Negative (Negative); IDNOW Serial# 16C4AD1C
[2022-03-27 13:21] LABS: Alanine Aminotransferase 17 U/L (0-31); Albumin Level 4.2 g/dL (3.5-5.0); Alkaline Phosphatase 82 U/L (39-117); Anion Gap 13 (12-20); Aspartate Amino Transferase 18 U/L (5-31); Bilirubin Total 1.4 mg/dL (0.0-1.0); Blood Urea Nitrogen 11 mg/dL (9-16); Calcium 9.8 mg/dL (8.4-10.2); Carbon Dioxide 31 mmol/L (22-29); Chloride 102 mmol/L (96-108); Creatinine Clr Calc Pharmacy 85.9; Estimated Glomerular Filt Rate > 60; Glucose Random 95 mg/dL (60-115); Magnesium 2.1 mg/dL (1.6-2.6); Potassium 4.1 mmol/L (3.3-5.1); Sodium 142 mmol/L (135-145); Total Protein 7.1 g/dL (6.5-8.0)
[2022-03-27 13:24] LABS: Basophils Absolute Auto 0.1 X10*3/uL (0.0-0.2); Basophils Percent Auto 0.6 % (0-2); Eosinophils Absolute Auto 0.2 X10*3/uL (0.0-0.4); Eosinophils Percent Auto 1.9 % (0-4); Hematocrit 41.9 % (37.0-47.0); Hemoglobin 13.9 g/dl (12.0-16.0); Imm Gran Abs Auto 0.02 X10*3/uL (0.00-0.03); Imm Gran Pct Auto 0.3 % (0.0-0.4); Lymphocytes Absolute Auto 2.6 X10*3/uL (1.2-4.9); Lymphocytes Percent Auto 32.3 % (20-40); Mean Corpuscular HGB Conc 33.2 g/dl (31.0-35.0); Mean Corpuscular Hemoglobin 28.6 pg (27.0-33.0); Mean Corpuscular Volume 86.2 fL (80.0-98.0); Mean Platelet Volume 10.8 fL (9.4-12.3); Monocytes Absolute Auto 0.6 X10*3/uL (0.1-1.2); Monocytes Percent Auto 7.1 % (2-11); Neutrophils Absolute Auto 4.6 x10*3/uL (2.0-8.3); Neutrophils Percent Auto 57.8 % (45-73); Platelet Count 327 X10*3/uL (160-400); Red Blood Count 4.86 X10*6/uL (4.20-5.50); Red Cell Distribution Width 13.2 % (11.0-16.0)
[2022-03-27 13:27] LABS: Troponin-I High Sensitivity < 3.5 ng/L (<3.5-17.0)
[2022-03-27 14:36] VITALS: BP 113/60; PULSE 56; RESP 18; TEMP 36.9; O2SAT 98
[2022-03-27 15:07] LABS: Troponin-I High Sensitivity < 3.5 ng/L (<3.5-17.0)
== END 2022-03-27 15:44 | disposition home or self-care (01) ==
PROVIDERS: Nurse Practitioner Family; Emergency Provider Emergency Medicine; PCP Internal Medicine
DX: R07.89 Other chest pain (principal); I10 Essential (primary) hypertension; Z20.822 Contact with and (suspected) exposure to COVID-19
CPT/HCPCS: 36415; 71046; 80053; 83735; 84484; 85025; 87635; 93005; 99283; 99285

== ENCOUNTER → 2022-04-15 14:30 | Outpatient (REF) | payer OTHER, SELFPAY | LOC: HO.SL 14:30 | PROVIDERS: PCP Internal Medicine; Visit Provider Nurse Practitioner Family | DX: G47.19 Other hypersomnia (principal); G47.30 Sleep apnea, unspecified; G47.9 Sleep disorder, unspecified; R06.83 Snoring | CPT/HCPCS: 95806 ==

== ENCOUNTER → 2022-06-02 11:11 | Outpatient (BNVA) | payer OTHER, SELFPAY | PROVIDERS: PCP Internal Medicine; Visit Provider Nurse Practitioner Family | DX: G47.9 Sleep disorder, unspecified (principal) | CPT/HCPCS: 99212 ==

== ENCOUNTER 2022-06-19 08:55 | Outpatient (REF) | payer OTHER, SELFPAY ==
--- NOTE | ~2022-06-19 | MM_ITS ---
EXAMINATION: MM SCREENING DIGITAL BREAST TOMOSYNTHESIS, BILATERAL CLINICAL INFORMATION: Screening. Asymptomatic. Family history breast cancer, sister. The lifetime risk of breast cancer based on the Tyrer-Cuzick Model is 10%. COMPARISON: Mammography: 06/17/2021, 06/13/2020, 01/10/2019 TECHNIQUE: Digital breast tomosynthesis is performed in both the craniocaudal and mediolateral oblique views along with computer-aided detection (CAD). Synthesized 2D images are generated from the tomosynthesis. FINDINGS: The breasts are almost entirely fatty (ACR BI-RADS breast composition Category a). Background stromal markings are similar to prior studies. No architectural abnormality or developing density. Incidental low right axillary tail node is stable. There are no significant masses, abnormal calcifications, or other abnormalities. MM/MM tomosynthesis screening BI IMPRESSION: No mammographic evidence of malignancy. ASSESSMENT: BI-RADS 2: Benign RECOMMENDATION: Routine annual mammography screening. This patient's information was entered into a reminder system with a target due date for their next mammogram.
== END 2022-06-19 08:56 | disposition home or self-care (01) ==
LOC: HO.MAMMO 08:55
PROVIDERS: PCP Internal Medicine; Visit Provider Internal Medicine
DX: Z12.31 Encounter for screening mammogram for malignant neoplasm of breast (principal)
CPT/HCPCS: 77063; 77067

== ENCOUNTER 2022-07-02 08:56 | Outpatient (REF) | payer OTHER, SELFPAY ==
[2022-07-02 09:38] LABS: D Dimer High Sensitivity < 150 NG/ML
== END 2022-07-02 08:57 | disposition home or self-care (01) ==
LOC: HO.LAB 08:56
PROVIDERS: PCP Internal Medicine; Visit Provider Internal Medicine Cardiovascular Disease
DX: M79.606 Pain in leg, unspecified (principal)
CPT/HCPCS: 36415; 85379

== ENCOUNTER → 2022-07-15 20:30 | Outpatient (REF) | payer OTHER, SELFPAY | LOC: HO.SL 20:30 | PROVIDERS: PCP Internal Medicine; Visit Provider Nurse Practitioner Family | DX: G47.33 Obstructive sleep apnea (adult) (pediatric) (principal) | CPT/HCPCS: 95810 ==

== ENCOUNTER → 2022-09-08 08:36 | Outpatient (BNVA) | payer OTHER, SELFPAY | PROVIDERS: PCP Nurse Practitioner Family; Visit Provider Nurse Practitioner Family | DX: G43.909 Migraine, unspecified, not intractable, without status migrainosus (principal); G47.33 Obstructive sleep apnea (adult) (pediatric); Z79.899 Other long term (current) drug therapy | CPT/HCPCS: 99212 ==

== ENCOUNTER 2022-09-17 12:07 | Emergency (ER) | payer OTHER, SELFPAY ==
--- NOTE | ~2022-09-17 | US_ITS ---
EXAMINATION: US VENOUS ULTRASOUND WITH DOPPLER LOWER EXTREMITY, RIGHT CLINICAL INFORMATION: Right calf pain with question of DVT COMPARISON: Prior DVT exams in the left lower extremity TECHNIQUE: Ultrasound of the deep veins is performed from the hip to the calf with compression sonography and color and pulse Doppler assessment. Spectral analysis with color-flow imaging is performed. FINDINGS: There is normal venous compression and respiratory variation and augmented flow. The visualized common femoral vein, superficial femoral vein, profunda femoral vein, popliteal vein, and the trifurcation region shows no evidence of deep venous thrombosis. There is no significant popliteal fossa cyst. Left common femoral vein appears normal. If the patient's symptoms persist, followup ultrasound in 5 days 7 days might be of value to exclude proximal propagation from a non-visualized calf vein. US/US venous duplex LE RT IMPRESSION: No DVT demonstrated in the right lower extremity.
[2022-09-17 12:32] VITALS: BP 151/77; PULSE 57; RESP 16; TEMP 36.6; O2SAT 97; BMI 31.7
--- NOTE | 2022-09-17 12:41 | ED.GENADULT ---
HPI - General Adult General Chief complaint: Extremity Problem <GISELE Cody - Last Filed: 09/20/22 09:45> Stated complaint: r leg pain <GISELE Cody - Last Filed: 09/20/22 09:45> Time Seen by Provider: 09/17/22 15:30 <GISELE Cody - Last Filed: 09/20/22 09:45> Source: patient <Jennifer Howell CNP - Last Filed: 09/17/22 16:47> Mode of arrival: ambulatory <Jennifer Howell CNP - Last Filed: 09/17/22 16:47> Limitations: language barrier (Fijian-speaking medical records custodian utilized) <Jennifer Howell CNP - Last Filed: 09/17/22 16:47> History of Present Illness HPI narrative: Patient is a 57-year-old female who presents emergency department for evaluation of right calf pain and ankle swelling. She reports the onset of her symptoms to have been in June 2022. She was evaluated at [facility] in [facility] and was advised that she has thrombus to the right leg. At that time she was discharged and given a new prescription for meloxicam and compression stockings. She received an appointment with vascular, doctor Talat, for 11/02/2022. She has recently been having increased pain to the right calf and swelling side right lateral ankle. Denies any injury or fall that may have provoked this. She states she was advised by her doctor to come to the emergency department for evaluation. <Jennifer Howell CNP - Last Filed: 09/17/22 16:47> Related Data Home medications: Home Medications Medication Instructions Recorded Confirmed hydrochlorothiazide 25 mg tablet 25 mg PO DAILY 03/03/22 09/08/22 omeprazole 20 mg capsule,delayed 20 mg PO DAILY 03/03/22 09/08/22 release fluoride (sodium) 1.1 % dental 1 appl PO DAILY 09/08/22 09/08/22 cream (Denta 5000 Plus) meloxicam 7.5 mg tablet 7.5 mg PO DAILY 09/08/22 09/08/22 ondansetron HCl 4 mg tablet 4 - 8 mg PO Q8H PRN nausea 09/08/22 09/08/22 Previous Rx's Medication Instructions Recorded acetaminophen 500 mg tablet 500 mg PO Q6H PRN pain or fever 09/22/21 (Tylenol Extra Strength) #20 tabs lidocaine 5 % topical patch 1 patch topical DAILY PRN pain #30 09/22/21 (Lidoderm) ea rizatriptan 10 mg tablet 10 mg PO Q2H 30 days #360 tabs 04/27/22 erenumab-aooe 140 mg/mL 140 mg subcut .COMPLEX 30 days #1 05/11/22 subcutaneous auto-injector mL (Aimovig Autoinjector) propranolol 80 mg capsule,24 80 mg PO BEDTIME 30 days #30 caps 06/02/22 hr,extended release meloxicam 15 mg tablet 15 mg PO DAILY #14 tabs 09/17/22 <GISELE Cody - Last Filed: 09/20/22 09:45> Allergies/adverse reactions: Allergies Allergy/AdvReac Type Severity Reaction Status Date / Time aspirin [Aspirin] Allergy Mild ABDOMINAL Verified 09/08/22 08:44 PAIN, upset stomach tramadol [TRAMADOL] Allergy Unknown TONGUE Verified 09/08/22 08:44 NUMBNESS <GISELE Cody - Last Filed: 09/20/22 09:45> Review of Systems Review of Systems: Constitutional: No weight loss, fever, chills, weakness or fatigue. Skin: No rash or itching. Cardiovascular: No chest pain, chest pressure or chest discomfort. No palpitations. Positive edema as noted in HPI Respiratory: No shortness of breath, cough or sputum production. Gastrointestinal: No nausea, vomiting or diarrhea. No abdominal pain Genitourinary: No burning micturition. No urinary frequency or incontinence. Musculoskeletal: Positive leg pain as noted in HPI Psychiatric: No depression or anxiety. <Jennifer Howell CNP - Last Filed: 09/17/22 16:47> Yes all other systems are reviewed and are negative <Jennifer Howell CNP - Last Filed: 09/17/22 16:47> [facility] Past Medical History Attestation statement: The following information was validated with the patient. <Jennifer Howell CNP - Last Filed: 09/17/22 16:47> Source: old records reviewed <Jennifer Howell CNP - Last Filed: 09/17/22 16:47> Medical History: Medical History Arthritis Axial spondyloarthritis HLD (hyperlipidemia) Hypertension Migraine <GISELE Cody - Last Filed: 09/20/22 09:45> Surgical History: Surgical History History of rectal surgery <GISELE Cody - Last Filed: 09/20/22 09:45> Family History Family History: Family History Father Congestive heart failure Mother Diabetes HTN (hypertension) Migraine Brother HTN (hypertension) Diabetes <GISELE Cody - Last Filed: 09/20/22 09:45> Social History Social History: Social History Alcohol intake: never Patient Tobacco Use Status: Never used Tobacco <GISELE Cody - Last Filed: 09/20/22 09:45> Physical Exam ED Vital Signs: Vital Signs - 24 hr 09/17/22 12:32 Temperature 98 F Pulse Rate 57 Respiratory Rate 16 Blood Pressure 151/77 H Pulse Oximetry 97 Oxygen Delivery Method Room Air BMI result Body Mass Index 31.7 <GISELE Cody - Last Filed: 09/20/22 09:45> Vital Signs - 24 hr 09/17/22 12:32 Temperature 98 F Pulse Rate 57 Respiratory Rate 16 Blood Pressure 151/77 H Pulse Oximetry 97 Oxygen Delivery Method Room Air BMI result Body Mass Index 31.7 <Jennifer Howell CNP - Last Filed: 09/17/22 16:47> Appearance: Alert.?Oriented to person, place and time. No acute distress.?Normal affect. Eyes: Pupils equal, round and reactive to light.? ENT: Pharynx normal.?? Neck: Normal inspection.? Neck supple.?? CVS: Heart sounds normal. Normal heart rate and rhythm.? Pulses normal.?? Respiratory: No respiratory distress.? Lung sounds clear to auscultation bilaterally?? Abdomen: Soft and non-tender. Normoactive bowel sounds. ?? Skin: Skin warm and dry.? Normal skin color.? Extremities: Localized swelling to the right lateral malleolus, no pitting edema to the bilateral lower extremities. 2+ DP/PT pulse bilaterally. No deformity..? Positive right calf tenderness to palpation Neuro: Moves all extremities spontaneously. Sensation intact bilaterally. Ambulates with normal steady gait. <Jennifer Howell CNP - Last Filed: 09/17/22 16:47> Course Course Course Narrative: RME: presents to the ED for right leg/calf pain and slight right ankle swelling without trauma. Symptoms for 3 days. patient had pmh of DVT. patient states no chest pain or shortness of breath. <GISELE Cody - Last Filed: 09/20/22 09:45> Reevaluation(s) Reevaluation #1: Patient is a 57-year-old female with a past medical history of arthritis, axial spondyloarthritis, HLD, hypertension, migraine presents emergency department for evaluation of atraumatic right calf pain and ankle swelling. Given her history of ?thrombosis? and only being prescribed NSAID in compression stockings I suspect that this was not a DVT and rather more likely a superficial thrombosis/phlebitis. Reviewed RME above. CBC and CMP are overall unremarkable. Coag studies are within normal limits. Ultrasound of the right lower extremity reveals no DVT. She is without tachycardia, tachypnea, or hypoxia. No chest pain or shortness of breath. No respiratory distress. Bilateral lower extremities neurovascularly intact distally. 2+ DP/PT pulse bilaterally. Advised continued use of compression stockings, acetaminophen for pain, advised will increase dose of meloxicam to 15 mg daily, advised outpatient follow-up with her primary care provider/vascular doctor as scheduled. Reviewed worrisome signs and symptoms to return back to the emergency department for. All questions answered. She is discharged in stable condition ambulatory with a steady gait. <Jennifer Howell CNP - Last Filed: 09/17/22 16:47> Time: 15:41 <Jennifer Howell CNP - Last Filed: 09/17/22 16:47> Medical Decision Making Lab Data Result diagrams: : 09/17/22 13:48 09/17/22 13:48 <GISELE Cody - Last Filed: 09/20/22 09:45> Labs: Lab Results 09/17/22 09/17/22 09/17/22 Range/Units 13:48 13:48 13:48 WBC 8.4 (4.8-10.8) X10*3/uL RBC 4.82 (4.20-5.50) X10*6/uL Hgb 13.7 (12.0-16.0) g/dl Hct 41.1 (37.0-47.0) % MCV 85.3 (80.0-98.0) fL MCH 28.4 (27.0-33.0) pg MCHC 33.3 (31.0-35.0) g/dl RDW 12.8 (11.0-16.0) % Plt Count 335 (160-400) X10*3/uL MPV 10.2 (9.4-12.3) fL Immature Gran % (Auto) 0.4 (0.0-0.4) % Neut % (Auto) 55.1 (45-73) % Lymph % (Auto) 34.2 (20-40) % Henderson % (Auto) 6.0 (2-11) % Eos % (Auto) 3.7 (0-4) % Baso % (Auto) 0.6 (0-2) % Lymph # (Auto) 2.9 (1.2-4.9) X10*3/uL Henderson # (Auto) 0.5 (0.1-1.2) X10*3/uL Eos # (Auto) 0.3 (0.0-0.4) X10*3/uL Baso # (Auto) 0.1 (0.0-0.2) X10*3/uL Abs Immat Gran (auto) 0.03 (0.00-0.03) X10*3/uL Absolute Neuts (auto) 4.6 (2.0-8.3) x10*3/uL Absolute Nucleated RBC 0.000 (0.0-0.012) X10*3/uL Nucleated RBC % (auto) 0.0 (0.0-0.2) /100WBC PT 11.2 (10.0-13.1) SEC INR 1.0 (0.9-1.1) APTT 32.6 (26.0-36.4) SEC Sodium 137 (135-145) mmol/L Potassium 3.8 (3.3-5.1) mmol/L Chloride 100 (96-108) mmol/L Carbon Dioxide 30 H (22-29) mmol/L Anion Gap 11 L (12-20) BUN 16 (9-16) mg/dL Creatinine 0.77 (0.5-1.4) mg/dL Estim Creat Clear Calc 77.1 Estimated GFR > 60 Random Glucose 113 (60-115) mg/dL Calcium 9.9 (8.4-10.2) mg/dL Total Bilirubin 1.0 (0.0-1.0) mg/dL AST 20 (5-31) U/L ALT 19 (0-31) U/L Alkaline Phosphatase 78 (39-117) U/L Total Protein 7.0 (6.5-8.0) g/dL Albumin 4.3 (3.5-5.0) g/dL <GISELE Cody - Last Filed: 09/20/22 09:45> Lab Results 09/17/22 09/17/22 09/17/22 Range/Units 13:48 13:48 13:48 WBC 8.4 (4.8-10.8) X10*3/uL RBC 4.82 (4.20-5.50) X10*6/uL Hgb 13.7 (12.0-16.0) g/dl Hct 41.1 (37.0-47.0) % MCV 85.3 (80.0-98.0) fL MCH 28.4 (27.0-33.0) pg MCHC 33.3 (31.0-35.0) g/dl RDW 12.8 (11.0-16.0) % Plt Count 335 (160-400) X10*3/uL MPV 10.2 (9.4-12.3) fL Immature Gran % (Auto) 0.4 (0.0-0.4) % Neut % (Auto) 55.1 (45-73) % Lymph % (Auto) 34.2 (20-40) % Henderson % (Auto) 6.0 (2-11) % Eos % (Auto) 3.7 (0-4) % Baso % (Auto) 0.6 (0-2) % Lymph # (Auto) 2.9 (1.2-4.9) X10*3/uL Henderson # (Auto) 0.5 (0.1-1.2) X10*3/uL Eos # (Auto) 0.3 (0.0-0.4) X10*3/uL Baso # (Auto) 0.1 (0.0-0.2) X10*3/uL Abs Immat Gran (auto) 0.03 (0.00-0.03) X10*3/uL Absolute Neuts (auto) 4.6 (2.0-8.3) x10*3/uL Absolute Nucleated RBC 0.000 (0.0-0.012) X10*3/uL Nucleated RBC % (auto) 0.0 (0.0-0.2) /100WBC PT 11.2 (10.0-13.1) SEC INR 1.0 (0.9-1.1) APTT 32.6 (26.0-36.4) SEC Sodium 137 (135-145) mmol/L Potassium 3.8 (3.3-5.1) mmol/L Chloride 100 (96-108) mmol/L Carbon Dioxide 30 H (22-29) mmol/L Anion Gap 11 L (12-20) BUN 16 (9-16) mg/dL Creatinine 0.77 (0.5-1.4) mg/dL Estim Creat Clear Calc 77.1 Estimated GFR > 60 Random Glucose 113 (60-115) mg/dL Calcium 9.9 (8.4-10.2) mg/dL Total Bilirubin 1.0 (0.0-1.0) mg/dL AST 20 (5-31) U/L ALT 19 (0-31) U/L Alkaline Phosphatase 78 (39-117) U/L Total Protein 7.0 (6.5-8.0) g/dL Albumin 4.3 (3.5-5.0) g/dL <Jennifer Howell CNP - Last Filed: 09/17/22 16:47> Discharge Plan Discharge Clinical Impression: Pedal edema, Chronic leg pain <GISELE Cody - Last Filed: 09/20/22 09:45> Patient Disposition: Home, Self-Care <GISELE Cody - Last Filed: 09/20/22 09:45> Additional Instructions: As discussed, your blood work was overall normal today. The ultrasound did not reveal any evidence of a blood clot to your right leg. This is very reassuring. You can take Tylenol 500 mg, 2 tablets (1,000mg) every 4-6 hours as needed for pain, but not to exceed 3 doses daily (3,000mg).? Prescription for meloxicam 15 mg was sent to pharmacy, you may use your current meloxicam and take 2 tablets daily until this runs out. Contact your primary care provider to arrange for a follow-up visit, and follow-up with vascular as scheduled. Return to the emergency department with any new or worsening symptoms or concerns. <GISELE Cody - Last Filed: 09/20/22 09:45> Prescriptions: New meloxicam 15 mg tablet 15 mg PO DAILY Qty: 14 0RF No Action rizatriptan 10 mg tablet 10 mg PO Q2H 30 Days Qty: 360 6RF Rx Instructions: 1 tab at onset of migraine, may repeat in 2 hours, max 2 tabs per day or 4 tabs per week. Aimovig Autoinjector 140 mg/mL auto-injector 140 mg subcut .COMPLEX 30 Days Qty: 1 6RF Rx Instructions: 140 mg subcut monthly; acetaminophen [Tylenol Extra Strength] 500 mg tablet 500 mg PO Q6H PRN (Reason: pain or fever) Qty: 20 0RF lidocaine [Lidoderm] 5 % adhesive patch,medicated 1 patch topical DAILY MDD remove after 12 hours PRN (Reason: pain) Qty: 30 0RF Rx Instructions: leave on most painful area for up to 12 hrs propranolol 80 mg capsule,extended release 24 hr 80 mg PO BEDTIME 30 Days Qty: 30 3RF meloxicam 7.5 mg tablet 7.5 mg PO DAILY fluoride (sodium) [Denta 5000 Plus] 1.1 % cream 1 appl PO DAILY ondansetron HCl 4 mg tablet 4 - 8 mg PO Q8H PRN (Reason: nausea) hydrochlorothiazide 25 mg tablet 25 mg PO DAILY omeprazole 20 mg capsule,delayed release(DR/EC) 20 mg PO DAILY <GISELE Cody - Last Filed: 09/20/22 09:45> Referrals: Para,Lynsey, ADDRESS CHANGE CLERK [Primary Care Provider] - <GISELE Cody - Last Filed: 09/20/22 09:45> Interventions: ED Discharge Assessment Last Done: 09/17/22 16:20 <GISELE Cody - Last Filed: 09/20/22 09:45> Discharge Date/Time: 09/17/22 16:20 <GISELE Cody - Last Filed: 09/20/22 09:45> Print Language: Fijian <GISELE Cody - Last Filed: 09/20/22 09:45>
[2022-09-17 13:54] LABS: MANUAL DIFF FLAG NO
[2022-09-17 13:57] LABS: Basophils Absolute Auto 0.1 X10*3/uL (0.0-0.2); Basophils Percent Auto 0.6 % (0-2); Eosinophils Absolute Auto 0.3 X10*3/uL (0.0-0.4); Eosinophils Percent Auto 3.7 % (0-4); Hematocrit 41.1 % (37.0-47.0); Hemoglobin 13.7 g/dl (12.0-16.0); Imm Gran Abs Auto 0.03 X10*3/uL (0.00-0.03); Imm Gran Pct Auto 0.4 % (0.0-0.4); Lymphocytes Absolute Auto 2.9 X10*3/uL (1.2-4.9); Lymphocytes Percent Auto 34.2 % (20-40); Mean Corpuscular HGB Conc 33.3 g/dl (31.0-35.0); Mean Corpuscular Hemoglobin 28.4 pg (27.0-33.0); Mean Corpuscular Volume 85.3 fL (80.0-98.0); Mean Platelet Volume 10.2 fL (9.4-12.3); Monocytes Absolute Auto 0.5 X10*3/uL (0.1-1.2); Neutrophils Absolute Auto 4.6 x10*3/uL (2.0-8.3); Neutrophils Percent Auto 55.1 % (45-73); Platelet Count 335 X10*3/uL (160-400); Red Blood Count 4.82 X10*6/uL (4.20-5.50); Red Cell Distribution Width 12.8 % (11.0-16.0); White Blood Count 8.4 X10*3/uL (4.8-10.8)
[2022-09-17 14:04] LABS: Prothrombin Time 11.2 SEC (10.0-13.1)
[2022-09-17 14:07] LABS: Partial Thromboplastin Time 32.6 SEC (26.0-36.4)
[2022-09-17 14:14] LABS: Alanine Aminotransferase 19 U/L (0-31); Albumin Level 4.3 g/dL (3.5-5.0); Alkaline Phosphatase 78 U/L (39-117); Anion Gap 11 (12-20); Aspartate Amino Transferase 20 U/L (5-31); Blood Urea Nitrogen 16 mg/dL (9-16); Calcium 9.9 mg/dL (8.4-10.2); Carbon Dioxide 30 mmol/L (22-29); Chloride 100 mmol/L (96-108); Creatinine Clr Calc Pharmacy 77.1; Estimated Glomerular Filt Rate > 60; Glucose Random 113 mg/dL (60-115); Potassium 3.8 mmol/L (3.3-5.1); Sodium 137 mmol/L (135-145)
== END 2022-09-17 16:20 | disposition home or self-care (01) ==
PROVIDERS: Physician Assistant; Emergency Provider Emergency Medicine; PCP Nurse Practitioner Family
DX: R60.0 Localized edema (principal); G89.29 Other chronic pain; M79.604 Pain in right leg; I10 Essential (primary) hypertension; E78.5 Hyperlipidemia, unspecified; Z79.899 Other long term (current) drug therapy
CPT/HCPCS: 36415; 80053; 85025; 85610; 85730; 93971; 99282; 99284

== ENCOUNTER 2022-09-29 10:00 | Outpatient (RCR) | payer OTHER, SELFPAY | END 2022-10-14 12:49 | disposition home or self-care (01) | LOC: HO.PT 10:00 | PROVIDERS: PCP Internal Medicine; Visit Provider Nurse Practitioner Family | DX: M75.31 Calcific tendinitis of right shoulder (principal); M54.12 Radiculopathy, cervical region | CPT/HCPCS: 97110; 97112; 97140; 97150; 97162 ==

== ENCOUNTER 2023-01-26 08:53 | Outpatient (REF) | payer OTHER, SELFPAY ==
--- NOTE | ~2023-01-26 | XR_ITS ---
EXAMINATION: XR KNEE, RIGHT CLINICAL INFORMATION: Pain COMPARISON: Previous x-ray 1999 and TECHNIQUE: Three views of the right knee. FINDINGS: Bone alignment is normal. No acute fracture or dislocation. Small well-corticated ossification adjacent to the fibular head, question related to old trauma. small osteophytes at the patellofemoral joint. Joint spaces are otherwise normal. No joint effusion. XR/XR knee RT 3V IMPRESSION: Small well-corticated ossification adjacent to the fibular head, question related to old trauma. Mild degenerative changes at the patellofemoral joint.
--- NOTE | ~2023-01-26 | XR_ITS ---
EXAMINATION: Left foot and ankle x-ray CLINICAL INFORMATION: Pain COMPARISON: Previous left foot x-ray December 2010 TECHNIQUE: 3 views of the left ankle and 3 views of the left foot FINDINGS: Left ankle: Bone alignment is normal. No fracture or dislocation. The ankle mortise is normal. Soft tissues are normal. Left foot: Bone alignment is normal. No fracture or dislocation. Joint spaces are normal. Small calcaneal spurs. Soft tissues are otherwise normal. XR/XR ankle LT min 3V IMPRESSION: Small calcaneal spurs.
--- NOTE | ~2023-01-26 | XR_ITS ---
EXAMINATION: Left foot and ankle x-ray CLINICAL INFORMATION: Pain COMPARISON: Previous left foot x-ray December 2010 TECHNIQUE: 3 views of the left ankle and 3 views of the left foot FINDINGS: Left ankle: Bone alignment is normal. No fracture or dislocation. The ankle mortise is normal. Soft tissues are normal. Left foot: Bone alignment is normal. No fracture or dislocation. Joint spaces are normal. Small calcaneal spurs. Soft tissues are otherwise normal. XR/XR foot LT min 3V IMPRESSION: Small calcaneal spurs.
== END 2023-01-26 08:54 | disposition home or self-care (01) ==
LOC: HO.XRAY 08:53
PROVIDERS: PCP Nurse Practitioner Family; Visit Provider Internal Medicine Rheumatology
DX: M79.606 Pain in leg, unspecified (principal); G89.29 Other chronic pain; M79.672 Pain in left foot; M25.561 Pain in right knee
CPT/HCPCS: 73562; 73610; 73630; 99212

== ENCOUNTER 2023-01-26 10:14 | Outpatient (REF) | payer OTHER, SELFPAY ==
[2023-01-26 11:15] LABS: C Reactive Protein 0.35 mg/dL (< or = 0.50); Rheumatoid Factor < 13.0 IU/mL (<15.0)
[2023-01-26 11:52] LABS: Erythrocyte Sedimentation Rate 11 MM/HR (0-20)
[2023-01-28 15:54] LABS: Cyclic Citrullinated Peptide <16 UNITS
== END 2023-01-26 10:15 | disposition home or self-care (01) ==
LOC: HO.10HDL 10:14
PROVIDERS: Visit Provider Internal Medicine Rheumatology
DX: G89.29 Other chronic pain (principal); M79.672 Pain in left foot
CPT/HCPCS: 36415; 85652; 86140; 86200; 86431

== ENCOUNTER 2023-02-18 09:08 | Outpatient (REF) | payer OTHER, SELFPAY ==
--- NOTE | ~2023-02-18 | XR_ITS ---
EXAMINATION: LEFT KNEE 2 VIEW RIGHT KNEE 2 VIEWS BILATERAL KNEES STANDING 1VIEW INDICATION: Bilateral knee pain TECHNIQUE: Lateral and sunrise view of the left knee Lateral and sunrise view of the right knee Standing bilateral frontal view of the knees COMPARISON: 06/30/2018 FINDINGS: Alignment is anatomic. Mineralization is normal. No significant joint space narrowing. Mild degenerative spurring from the lateral condyles bilaterally. Mild lateral patellar osteophytes bilaterally. No significant joint effusion. XR/XR knee LT 2V IMPRESSION: Mild patellofemoral and lateral compartment degenerative spurring.
--- NOTE | ~2023-02-18 | XR_ITS ---
EXAMINATION: LEFT KNEE 2 VIEW RIGHT KNEE 2 VIEWS BILATERAL KNEES STANDING 1VIEW INDICATION: Bilateral knee pain TECHNIQUE: Lateral and sunrise view of the left knee Lateral and sunrise view of the right knee Standing bilateral frontal view of the knees COMPARISON: 06/30/2018 FINDINGS: Alignment is anatomic. Mineralization is normal. No significant joint space narrowing. Mild degenerative spurring from the lateral condyles bilaterally. Mild lateral patellar osteophytes bilaterally. No significant joint effusion. XR/XR knee standing BI IMPRESSION: Mild patellofemoral and lateral compartment degenerative spurring.
--- NOTE | ~2023-02-18 | XR_ITS ---
EXAMINATION: LEFT KNEE 2 VIEW RIGHT KNEE 2 VIEWS BILATERAL KNEES STANDING 1VIEW INDICATION: Bilateral knee pain TECHNIQUE: Lateral and sunrise view of the left knee Lateral and sunrise view of the right knee Standing bilateral frontal view of the knees COMPARISON: 06/30/2018 FINDINGS: Alignment is anatomic. Mineralization is normal. No significant joint space narrowing. Mild degenerative spurring from the lateral condyles bilaterally. Mild lateral patellar osteophytes bilaterally. No significant joint effusion. XR/XR knee RT 2V IMPRESSION: Mild patellofemoral and lateral compartment degenerative spurring.
== END 2023-02-18 09:09 | disposition home or self-care (01) ==
LOC: HO.HOSX 09:08
PROVIDERS: Visit Provider Orthopaedic Surgery
DX: M17.0 Bilateral primary osteoarthritis of knee (principal); M79.672 Pain in left foot; Z79.899 Other long term (current) drug therapy
CPT/HCPCS: 73560; 73565; 99202

== ENCOUNTER 2023-05-16 11:32 | Emergency (ER) | payer OTHER, SELFPAY ==
--- NOTE | 2023-05-16 | ECG_ITS ---
Test Reason : CP Blood Pressure : / mmHG Vent. Rate : 061 BPM Atrial Rate : 061 BPM P-R Int : 188 ms QRS Dur : 082 ms QT Int : 406 ms P-R-T Axes : 036 -02 032 degrees QTc Int : 408 ms Normal sinus rhythm Minimal voltage criteria for LVH, may be normal variant ( R in aVL ) Borderline ECG When compared with ECG of 27-MAR-2022 11:00, No significant change was found Referred By: Generic ED Physician Electronically Signed By:AMPARO HILL
--- NOTE | ~2023-05-16 | XR_ITS ---
EXAMINATION: XR CHEST CLINICAL INFORMATION: Reason for Exam cough, chest discomfort COMPARISON: Chest radiograph 03/27/2022 TECHNIQUE: 2 views of the chest FINDINGS: Lines and tubes: None. Clear lungs. No pleural effusion. No pneumothorax. Unchanged cardiomediastinal silhouette. XR/XR chest 2V IMPRESSION: * Clear lungs.
[2023-05-16 11:48] VITALS: BP 134/69; PULSE 60; RESP 18; TEMP 36.7; O2SAT 96; BMI 32.9
--- NOTE | 2023-05-16 11:49 | ED_ITS ---
HPI - General Adult General Chief complaint: Upper Respiratory Symptoms Stated complaint: Sore throat/Chest pain Time Seen by Provider: 05/16/23 12:53 Source: patient and old records reviewed Mode of arrival: ambulatory Limitations: language barrier History of Present Illness HPI narrative: This is a 59-mvnj-jhp-female, HTN, migraines, OA, presenting to the ER with complaints of dry cough, sore throat, chest pain w/ coughing x 4-5 days. Pt admits to having nasal congestion. She has been taking OTC cold medication without any relief. She denies any fevers, chills, ear pain, shortness of breath, abdominal pain, nausea, vomiting or diarrhea. No known sick contacts. No other complaints or concerns at this time. MD complaint: Upper respiratory infection Onset (ago): day(s) Radiation: non-radiation Quality: aching Pain Consistency: constant Relieving factors: none Exacerbating factors: none Associated symptoms: denies other symptoms Treatments prior to arrival: none Related Data Home Medications Medication Instructions Recorded Confirmed hydrochlorothiazide 25 mg tablet 25 mg PO DAILY 03/03/22 02/18/23 omeprazole 20 mg capsule,delayed 20 mg PO DAILY 03/03/22 02/18/23 release fluoride (sodium) 1.1 % dental 1 appl PO DAILY 09/08/22 09/08/22 cream (Denta 5000 Plus) atogepant 30 mg tablet (Qulipta) 30 mg PO DAILY 02/18/23 02/18/23 Previous Rx's Medication Instructions Recorded acetaminophen 500 mg tablet 500 mg PO Q6H PRN pain or fever 09/22/21 (Tylenol Extra Strength) #20 tabs lidocaine 5 % topical patch 1 patch topical DAILY PRN pain #30 09/22/21 (Lidoderm) ea rizatriptan 10 mg tablet 10 mg PO Q2H 30 days #360 tabs 04/27/22 ondansetron HCl 4 mg tablet 4 - 8 mg PO Q8H PRN nausea 20 days 01/15/23 #30 tabs rimegepant 75 mg disintegrating 75 mg PO Q OTHER DAY 30 days #15 01/21/23 tablet (Nurtec ODT) tabs amitriptyline 10 mg tablet 10 - 20 mg PO BEDTIME 30 days #60 02/12/23 tabs propranolol 80 mg capsule,24 80 mg PO BEDTIME 30 days #30 caps 04/06/23 hr,extended release atogepant 30 mg tablet 30 mg PO DAILY 30 days #30 tabs 04/21/23 naproxen 500 mg tablet,delayed 500 mg PO BID PRN for pain #60 tabs 05/13/23 release (EC-Naproxen) acetaminophen 325 mg tablet (Pain 650 mg PO Q6H PRN pain #45 tabs 05/16/23 Reliever (acetaminophen)) benzonatate 200 mg capsule 200 mg PO TID PRN cough #20 caps 05/16/23 Allergies Allergy/AdvReac Type Severity Reaction Status Date / Time aspirin [Aspirin] Allergy Mild ABDOMINAL Verified 05/16/23 11:52 PAIN, upset stomach tramadol [TRAMADOL] Allergy Unknown TONGUE Verified 05/16/23 11:52 NUMBNESS Review of Systems Review of Systems: Yes all other systems are reviewed and are negative Constitutional: Constitutional: Reports as per [facility] Past Medical History Attestation statement: The following information was validated with the patient. Medical History Arthritis Axial spondyloarthritis HLD (hyperlipidemia) Hypertension Migraine Surgical History History of rectal surgery Family History Family History Father Congestive heart failure Mother Diabetes HTN (hypertension) Migraine Brother HTN (hypertension) Diabetes Social History Social History Alcohol intake: never Patient Tobacco Use Status: Never used Tobacco Advance Directives: No Advance Directives Information Provided: Yes Physical Exam ED Vital Signs: Vital Signs - 24 hr 05/16/23 11:48 Temperature 98.1 F Pulse Rate 60 Respiratory Rate 18 Blood Pressure 134/69 Pulse Oximetry 96 Oxygen Delivery Method Room Air BMI result Body Mass Index 32.9 Const General: cooperative, comfortable and no acute distress Orientation/consciousness: patient oriented x3 Limitations: no limitations HENMT Other: No frontal, maxillary, or ethmoid sinus tenderness Head: Yes normal to inspection, Yes normocephalic and Yes atraumatic Ears: hearing grossly normal bilaterally and TM's normal bilaterally General nose exam: Normal external nose present Face and sinus: Yes normal facial exam Mouth: Normal oral and palatal mucosa present, oropharynx normal and moist mucous membranes Throat: Yes posterior oropharynx normal Eyes General: appearance normal, both eyes and all related structures Eyelids: Yes eyelids normal Conjunctivae: conjunctivae normal Sclerae: sclerae normal Pupils: Equal, round and reactive pupils present EOM: EOMs intact bilaterally Neck Neck: Yes normal visual inspection, Yes full ROM and Yes no lymphadenopathy Lymphatic: no lymphadenopathy noted Chest Other: TTP over anterior chest wall Chest palpation & inspection: normal inspection of the chest Resp Effort & Inspection: normal respiratory effort and able to speak in complete sentences Auscultation: clear to auscultation bilaterally, no crackles, no rales, no rhonchi and no wheezes Cardio Rate: regular rate Rhythm: regular rhythm Heart sounds: S1 normal heart sound present and S2 normal heart sound present GI Other: abdomen is soft, nontender, nondistended. Inspection: Yes normal to inspection Palpation (GI): Soft to palpation Skin General skin exam: no rashes or lesions noted Trauma: no lacerations or abrasions Wounds: no wounds Neuro General: patient oriented x3 and moves all extremities Cranial nerves: Yes Equal, round and reactive pupils present Extrem General: Yes normal to inspection Right upper extremity: normal to inspection Left upper extremity: normal to inspection Right lower extremity: normal to inspection Left lower extremity: normal to inspection Course Course Course Narrative: This is a rapid medical exam. Deferred additional HPI, ROS, PE to primary provider. 58 yo female with history HTN, migraines, OA here with cough, sore throat, chest pain w/ coughing x 4-5 days. Had EKG prior to triage. Will check covid/influenza/strep testing, CXR, VSS Reevaluation(s) Reevaluation #1: cxr normal, EKG nondiagnostic, viral swabs negative. VSS. SXS likely viral, will tx conservatively. D/C with tessalon. Hx of some opiate allergies - deferring hycodan rx at this time. Given return precautions. Pt understands and agrees with plan. Stable for d/c. Medical Decision Making Medical Decision Making MDM Narrative: This is a 58 y/o F presenting to the emergency department for evaluation of cough, reproducible chest wall pain, nasal congestion x 5 days - likely viral URI. Differential diagnosis includes viral URI, bronchitis, pneumonia, viral syndrome. Presentation not consistent with acute bacterial pneumonia, influenza, asthma. Presentation not consistent with chronic causes of cough (including GERD, asthma, postnasal discharge, medication side effect, CHF, lung cancer or mass). Lungs CTAB, vital signs stable. Anterior chest wall tenderness to palpaation, chest pain only with coughing - likely costochondritis. EKG NSR with no st elevation or depression. Plan: EKG, viral swabs, CXR Differential Diagnosis Differential Diagnoses: The differential diagnosis associated with the presentation includes See above Admission/Observation Consideration of admission/observation: Escalation of care including admission/observation considered Patient would have been admitted to the hospital had her work up had any findings where hospital admission was appropriate and her clinical presentation warranted hospital admission. Lab Data MDM Lab Attestation statement: I reviewed the patient's lab results. negative Labs: Lab Results 05/16/23 05/16/23 05/16/23 Range/Units 12:04 12:04 12:04 COVID-19 ([place]) Negative (Negative) COVID-19 Clin Com See Note Influenza Type A ([place]) Negative (Negative) Influenza Type B ([place]) Negative (Negative) Influenza A & B Note See Note S. pyogenes GrpA [place] Negative (Negative) Independent Interpretation I performed an independent interpretation of an: EKG Interpretation: EKG NSR at a ventricular rate of 61bpm, no st elevation or depression. [place] interval 188, QTC 408. Similar appearing EKG from previous 03/2022 Radiology Impression Discussion of test interpretation with radiology: I have reviewed the radiologist's reading. Radiologist Impression: [address] [address] XRay Report Signed Patient: Darcy Vides MR#: [id number] : 1965 Acct:[id number] Age/Sex: 58 / F ADM Date: 05/16/23 Loc: .ED Attending Dr: Ordering Physician: Jessica Hawkins NP Date of Service: 05/16/23 Procedure(s): XR chest 2V Accession Number(s): [id number] cc: Jessica Hawkins NP~ EXAMINATION: XR CHEST CLINICAL INFORMATION: Reason for Exam cough, chest discomfort COMPARISON: Chest radiograph? 03/27/2022 TECHNIQUE: 2 views of the chest FINDINGS: Lines and tubes: None. Clear lungs. No pleural effusion. No pneumothorax. Unchanged cardiomediastinal silhouette. XR/XR chest 2V IMPRESSION: ? *? Clear lungs. ? Dictated By: Fabiola Wilson MD External Record Review External record reviewed: Inpatient record, Office record, Outpatient record, Prior outpatient labs, Prior outpatient radiology, Primary care record and Outside ED record Discharge Plan Discharge Clinical Impression: Acute upper respiratory infection Patient Disposition: Home, Self-Care Instructions: Upper Respiratory Infection (ED) Additional Instructions: You tested negative for COVID today. You tested negative for strep throat today. You tested negative for flu today. Your chest x-ray was unremarkable. Your chest pain is likely due to a condition called costochondritis. This causes inflammation in between the rib cages. Take ibuprofen or Tylenol for relief. Please take prescribed medication as directed. Your EKG was reassuring. Please take prescribed medication as directed. Please be aware that the cough syrup I am prescribing you contains codeine, this will cause drowsiness, do not drink alcohol or drive while taking this med ication. Take this at bedtime. If any new or worsening symptoms occur please return for re-evaluation. Usted seng negativo para COVID hoy. Hoy diste negativo para faringitis estreptoc?cica. Usted seng negativo para la gripe hoy. Vragas radiograf?a de t?rax fue normal. Es probable que vargas dolor de pecho se deba a ceferino afecci?n llamada costocondritis. [place] causa inflamaci?n entre las marii tor?cicas. [place] ibuprofeno o Tylenol para aliviarse. [place] los medicamentos recetados seg?n las indicaciones. [place] electrocardiograma fue tranquilizador. [place] los medicamentos recetados seg?n las indicaciones. Tenga en cuenta que el jarabe para la tos que le estoy recetando contiene code?na, esto causar? somnolencia, no kai alcohol ni conduzca mientras gregory trevor medicamento. [place] esto a la hora de acostarse. Si se presentan s?ntomas nuevos o que empeoran, regrese para ceferino reevaluaci?n. Prescriptions: New benzonatate 200 mg capsule 200 mg PO TID PRN (Reason: cough) Qty: 20 0RF acetaminophen [Pain Reliever (acetaminophen)] 325 mg tablet 650 mg PO Q6H PRN (Reason: pain) Qty: 45 0RF No Action rizatriptan 10 mg tablet 10 mg PO Q2H 30 Days Qty: 360 6RF Rx Instructions: 1 tab at onset of migraine, may repeat in 2 hours, max 2 tabs per day or 4 tabs per week. ondansetron HCl 4 mg tablet 4 - 8 mg PO Q8H PRN (Reason: nausea) 20 Days Qty: 30 3RF Nurtec ODT 75 mg tablet,disintegrating 75 mg PO Q OTHER DAY 30 Days Qty: 15 6RF amitriptyline 10 mg tablet 10 - 20 mg PO BEDTIME 30 Days Qty: 60 3RF propranolol 80 mg capsule,extended release 24hr 80 mg PO BEDTIME 30 Days Qty: 30 3RF atogepant 30 mg tablet 30 mg PO DAILY 30 Days Qty: 30 6RF Rx Instructions: take at bedtime naproxen [EC-Naproxen] 500 mg tablet,delayed release (DR/EC) 500 mg PO BID PRN (Reason: for pain) Qty: 60 0RF acetaminophen [Tylenol Extra Strength] 500 mg tablet 500 mg PO Q6H PRN (Reason: pain or fever) Qty: 20 0RF lidocaine [Lidoderm] 5 % adhesive patch,medicated 1 patch topical DAILY MDD remove after 12 hours PRN (Reason: pain) Qty: 30 0RF Rx Instructions: leave on most painful area for up to 12 hrs fluoride (sodium) [Denta 5000 Plus] 1.1 % cream 1 appl PO DAILY hydrochlorothiazide 25 mg tablet 25 mg PO DAILY omeprazole 20 mg capsule,delayed release(DR/EC) 20 mg PO DAILY Qulipta 30 mg tablet 30 mg PO DAILY Interventions: ED Discharge Assessment Last Done: 05/16/23 15:04 Discharge Date/Time: 05/16/23 15:04
[2023-05-16 12:26] LABS: IDNOW Serial# 08D9AD1C; Strep A Nucleic Acid Negative (Negative)
[2023-05-16 12:33] LABS: COVID-19 Test Negative (Negative); IDNOW Serial# 9DD0AD1C; IDNOW Serial# BCCEAD1C; Influenza A Negative (Negative); Influenza B2 Negative (Negative)
== END 2023-05-16 15:04 | disposition home or self-care (01) ==
PROVIDERS: Nurse Practitioner Family; Emergency Provider Student in an Organized Health Care Education/Training Program; PCP Nurse Practitioner Family
DX: R07.89 Other chest pain (principal); J02.8 Acute pharyngitis due to other specified organisms; Z20.822 Contact with and (suspected) exposure to COVID-19; Z20.828 Contact with and (suspected) exposure to other viral communicable diseases; Z79.899 Other long term (current) drug therapy
CPT/HCPCS: 71046; 87502; 87635; 87651; 93005; 99284

== ENCOUNTER → 2023-05-16 11:44 | Outpatient (BNV) | payer OTHER, SELFPAY | PROVIDERS: Emergency Provider Student in an Organized Health Care Education/Training Program; PCP Nurse Practitioner Family; Visit Provider Internal Medicine | DX: R07.9 Chest pain, unspecified (principal) | CPT/HCPCS: 93010 ==

== ENCOUNTER 2023-06-25 08:58 | Outpatient (REF) | payer OTHER, SELFPAY | END 2023-06-25 08:59 | disposition home or self-care (01) | LOC: HO.MAMMO 08:58 | PROVIDERS: PCP Internal Medicine; Visit Provider Internal Medicine | DX: Z12.31 Encounter for screening mammogram for malignant neoplasm of breast (principal) | CPT/HCPCS: 77063; 77067 ==

== ENCOUNTER → 2023-06-25 09:15 | Outpatient (BNV) | payer OTHER, SELFPAY | PROVIDERS: PCP Internal Medicine; Visit Provider Radiology Diagnostic Radiology | DX: Z12.31 Encounter for screening mammogram for malignant neoplasm of breast (principal) | CPT/HCPCS: 77063; 77067 ==

== ENCOUNTER 2023-07-16 11:17 | Outpatient (AMB) | payer OTHER, SELFPAY ==
--- NOTE | 2023-07-16 11:24 | A.OFFVIS_ITS ---
Intake Vital Signs 07/16/23 11:41 Height 5 ft 1 in Weight 177 lb BMI 33.4 BP 100/62 Blood Pressure Location Lt brachial Position Sitting Pulse 68 Pulse Source Pulse Oximeter Pulse Oximetry (%) 98 Oxygen Delivery Method Room Air Intake Visit Reasons: 4 mnts f/u appt-LVM Intake Note: Patient presents for 4 month follow up. Patient states 2-3 headaches a week, normally in am Allergies aspirin [Aspirin] Allergy (Mild, Verified 07/16/23 11:43) ABDOMINAL PAIN, upset stomach tramadol [TRAMADOL] Allergy (Unknown, Verified 07/16/23 11:43) TONGUE NUMBNESS Medication List - Last Reconciled 07/18/23 by ELDER Sauceda acetaminophen (Pain Reliever (acetaminophen)) 650 mg (2 x 325 mg) PO Q6H PRN amitriptyline 10 - 20 mg (1 - 2 x 10 mg) PO BEDTIME 30 days atogepant 30 mg PO DAILY 30 days fluoride (sodium) 1.1% (Denta 5000 Plus) 1 appl PO DAILY hydrochlorothiazide 25 mg PO DAILY naproxen (EC-Naproxen) 500 mg PO BID PRN omeprazole 20 mg PO DAILY propranolol ER 80 mg PO BEDTIME 30 days rizatriptan 10 mg PO Q2H 30 days HPI HPI Comments History of Present Illness Details 58-yr-old female presents for f/u visit. Since the last visit, Aimovig became less effective. Pt was then tried on Nurtec 75mg qod, which was ineffective for rpevention. Then, as pt was having daily migraine attack, she was switched to Qulipta 30mg qhs. Since starting Qulipta, pt has had a decrease in her migraine days to 2-3 days per week. She is also concerned about her sleep. She is not sleeping well. Has sleep initiation and maintenance difficulties. Typically sleeps on her back but sometimes her side. Previous in-lab PSG showed AHI 12/hr, REM AHI 39/hr, O2 ishan 76%, PLMS 1/hr, PLMS arousal inex 0/hr. She did not toelrtae PAP tx during the study. [facility] Medical History Axial spondyloarthritis HLD (hyperlipidemia) Migraine Arthritis Hypertension Surgical History History of rectal surgery Family History Father Congestive heart failure Mother Diabetes HTN (hypertension) Migraine Brother HTN (hypertension) Diabetes Social History (Updated 07/16/23 @ 11:46 by Waleska Jameson) Alcohol intake: never Patient Tobacco Use Status: Never used Tobacco Review of Systems Const All systems reviewed & are unremarkable except as noted in HPI and below Physical Exam Vital Signs: Last Vital Signs Pulse 68 07/16/23 11:41 BP 100/62 07/16/23 11:41 Pulse Ox 98 07/16/23 11:41 Oxygen Delivery Method Room Air 07/16/23 11:41 BMI result Body Mass Index 33.4 Const General: cooperative and no acute distress Orientation/consciousness: patient oriented x3 HEENT Head: Yes normocephalic Resp Effort & Inspection: normal respiratory effort and able to speak in complete sentences Neuro General: patient oriented x3, gait normal and CN's II-XI intact bilaterally Cognition (Neuro): normal cognition Motor exam (neuro): 5/5 motor strength present throughout Psych Appearance: grossly normal Mental Status: mental status grossly normal Speech and movement: Normal speech and movement present Affect: normal affect Attitude: cooperative Thought process: Normal thought process present Thought content: Normal thought content present Insight: Good insight present (Psych) Judgement: Good judgement present (Psych) Assessment & Plan Assessment & Plan (1) Migraine: Code(s): G43.909 - Migraine, unspecified, not intractable, without status migrainosus (2) Sleep disorder, unspecified: Comment: ESS 10 Code(s): G47.9 - Sleep disorder, unspecified (3) Mild obstructive sleep apnea: Comment: 07/24/22: In-lab PSG: AHI 12/hr, REM AHI 39/hr with O2 ishan 76% (SpO2 < 88% for 4.5 min of study). Code(s): G47.33 - Obstructive sleep apnea (adult) (pediatric) Plan For GIGI: Reviewed In-lab PSG- Mild GIGI with severe REM stage sleep apnea and nocturnal hypoxemia. Pt did not tolerate CPAP during the sleep study. Pt is not interested in starting CPAP at this time. Pt does not meet criteria for Inspire at this time, as minimal AHI to qualify for Inspire is 15/hr. Sleep hygiene information shared w/ pt. Avoid sleeping supine. Increase physical activity. Pt advised to sleep on her side or head elevated slightly. Pt is not interested in mandibular device at this time Will refer to ENT to see if pt is a candidate for alternate GIGI tx. Could consider pulmonary consult in f/u. ? For migraine: Continue Qulipta 30mg qhs. Continue Amitriptyline 10-20mg qhs. Continue Propranolol ER 80mg qhs Continue prn Rizatriptan. Previous tx trials- Aimovig- lost effectiveness. Nurtec ODT qod for prevention- ineffective. Orders: Referrals Ear/Nose/Throat Referral G47.33 - Obstructive sleep apnea (adult) (pediatric) Coding Level of Care Code Est Pt Level 4 (03832) Diagnoses Migraine G43.909 Sleep disorder, unspecified G47.9 Mild obstructive sleep apnea G47.33
[2023-07-16 11:41] VITALS: BP 100/62; PULSE 68; O2SAT 98; BMI 33.4
== END 2023-07-16 12:17 | disposition home or self-care (01) ==
PROVIDERS: Visit Provider Nurse Practitioner Family
DX: G43.909 Migraine, unspecified, not intractable, without status migrainosus (principal); G47.9 Sleep disorder, unspecified; G47.33 Obstructive sleep apnea (adult) (pediatric)
CPT/HCPCS: 99214

== ENCOUNTER → 2023-07-16 11:17 | Outpatient (BNVA) | payer OTHER, SELFPAY | PROVIDERS: Visit Provider Nurse Practitioner Family | DX: G43.909 Migraine, unspecified, not intractable, without status migrainosus (principal); G47.9 Sleep disorder, unspecified; G47.33 Obstructive sleep apnea (adult) (pediatric) | CPT/HCPCS: 99212 ==

== ENCOUNTER 2023-11-11 10:42 | Outpatient (AMB) | payer OTHER, SELFPAY ==
--- NOTE | 2023-11-11 11:01 | A.OFFVIS_ITS ---
Intake Vital Signs 11/11/23 11:02 Height 5 ft 1 in Weight 176 lb BMI 33.3 Intake Visit Reasons: 4 mnts f/u appT - LVM Intake Note: Patient presents for 4 month follow up. She sent me to see ENT and I havent gotten a call yet. Allergies aspirin [Aspirin] Allergy (Mild, Verified 11/11/23 11:05) ABDOMINAL PAIN, upset stomach tramadol [TRAMADOL] Allergy (Unknown, Verified 11/11/23 11:05) TONGUE NUMBNESS Medication List - Last Reconciled 11/11/23 by ELDER Sauceda acetaminophen (Pain Reliever (acetaminophen)) 650 mg (2 x 325 mg) PO Q6H PRN amitriptyline 10 - 20 mg (1 - 2 x 10 mg) PO BEDTIME 30 days atogepant 30 mg PO DAILY 30 days fluoride (sodium) 1.1% (Denta 5000 Plus) 1 appl PO DAILY hydrochlorothiazide 25 mg PO DAILY naproxen (EC-Naproxen) 500 mg PO BID PRN omeprazole 20 mg PO DAILY propranolol ER 80 mg PO BEDTIME 30 days rizatriptan 10 mg PO Q2H 30 days HPI HPI Comments History of Present Illness Details 58-year-old female presents for f/u visi t of migraine and obstructive sleep apnea. Pt states she has not heard from the ENT office yet. She is not sleeping well overall. Has sleep initiation and maintenance difficulties. She has been having increasing headaches. Now almost daily again. Baseline headache characteristics: Aura- sees start. Mod-severe pulsating/pressure in bilateral temples a/w photophobia, phoniphobia, osmophobia, nausea, rarely vomiting, difficulty concentrating. AJ can also be a/w bilateral ear and neck pain, feeling of being off-balance. ] [facility] Medical History Axial spondyloarthritis HLD (hyperlipidemia) Migraine Arthritis Hypertension Surgical History History of rectal surgery Family History Father Congestive heart failure Mother Diabetes HTN (hypertension) Migraine Brother HTN (hypertension) Diabetes Social History (Reviewed 11/11/23 @ 11:06 by LOR Zarco Alcohol intake: never Patient Tobacco Use Status: Never used Tobacco Physical Exam Vital Signs: BMI result Body Mass Index 33.3 Const General: cooperative and no acute distress Orientation/consciousness: patient oriented x3 Resp Effort & Inspection: normal respiratory effort and able to speak in complete sentences Neuro General: patient oriented x3 Cranial nerves: Yes CN's II-XII intact bilaterally Cognition (Neuro): normal cognition Psych Appearance: grossly normal Mental Status: mental status grossly normal Speech and movement: Normal speech and movement present Affect: normal affect Attitude: cooperative Assessment & Plan Assessment & Plan (1) Migraine with aura: Code(s): G43.109 - Migraine with aura, not intractable, without status migrainosus (2) Mild obstructive sleep apnea: Comment: 07/24/22: In-lab PSG: AHI 12/hr, REM AHI 39/hr with O2 ishan 76% (SpO2 < 88% for 4.5 min of study). Code(s): G47.33 - Obstructive sleep apnea (adult) (pediatric) Plan ? For GIGI: Reviewed In-lab PSG- Mild GIGI with severe REM stage sleep apnea and nocturnal hypoxemia. Pt did not tolerate CPAP during the sleep study. Pt is not interested in starting CPAP at this time. Pt does not meet criteria for Inspire at this time, as minimal AHI to qualify for Inspire is 15/hr. Avoid sleeping supine. Sleep on her side or head elevated slightly. Increase physical activity. Pt is not interested in mandibular device at this time Patient is on wait list for ENT consult- to see if pt is a candidate for alternate GIGI tx. Future considerations: pulmonary consult in f/u. ? For migraine: Increase Qulipta from 30mg to 60mg qhs. Monitor constipation. Continue Amitriptyline 10-20mg qhs. Continue Propranolol ER 80mg qhs Continue prn Rizatriptan. Previous tx trials- Aimovig- lost effectiveness. Nurtec ODT qod for prevention- ineffective. Follow-up in 3 months or sooner as needed. This note is constructed using voice recognition software. While every effort has been made to ensure accuracy, bus and sys integration senior manager errors may have been included. Medications: New atogepant 60 mg PO DAILY 30 days 30 tabs 3RF Changed From propranolol ER 80 mg PO BEDTIME 30 days 30 caps 3RF To propranolol ER 80 mg PO DAILY 30 days 30 caps 3RF Refilled rizatriptan 1 tab at onset of migraine, may repeat in 2 hours, max 2 tabs per day or 4 tabs per week. 10 mg PO Q2H 30 days 21 tabs 6RF Discontinued atogepant take at bedtime Discontinued Reason: Doctor's Order 30 mg PO DAILY 30 days 30 tabs 6RF Coding Level of Care Code Est Pt Level 4 (11175) Diagnoses Migraine with aura G43.109 Mild obstructive sleep apnea G47.33
[2023-11-11 11:02] VITALS: BMI 33.3
== END 2023-11-11 11:57 | disposition home or self-care (01) ==
PROVIDERS: PCP Internal Medicine; Visit Provider Nurse Practitioner Family
DX: G43.109 Migraine with aura, not intractable, without status migrainosus (principal); G47.33 Obstructive sleep apnea (adult) (pediatric)
CPT/HCPCS: 99214

== ENCOUNTER → 2023-11-11 10:42 | Outpatient (BNVA) | payer OTHER, SELFPAY | PROVIDERS: PCP Internal Medicine; Visit Provider Nurse Practitioner Family | DX: G43.109 Migraine with aura, not intractable, without status migrainosus (principal); G47.33 Obstructive sleep apnea (adult) (pediatric) | CPT/HCPCS: 99212 ==

== ENCOUNTER 2024-01-13 14:07 | Outpatient (AMB) | payer OTHER, SELFPAY ==
[2024-01-13 14:12] VITALS: BP 114/68; PULSE 60; O2SAT 96; BMI 32.8
--- NOTE | 2024-01-13 14:12 | A.OFFVIS_ITS ---
Intake Vital Signs 01/13/24 14:12 Height 5 ft 1 in Weight 173 lb 8.061 oz BMI 32.8 BP 114/68 Blood Pressure Location Rt brachial Position Sitting Pulse 60 Pulse Source Pulse Oximeter Pulse Oximetry (%) 96 Intake Visit Reasons: Arthritis/CONFIRMED Intake Note: Patient last seen 01/26/23 presents today for follow up and test results. Pipe Smoking Machine Offbearer Required: Yes Pipe Smoking Machine Offbearer Name: Bang [id number] Accompanied by: Self / Same As Patient Allergies aspirin [Aspirin] Allergy (Mild, Verified 01/13/24 14:17) ABDOMINAL PAIN, upset stomach tramadol [TRAMADOL] Allergy (Unknown, Verified 01/13/24 14:17) TONGUE NUMBNESS Medication List - Last Reconciled 01/13/24 by Onel Cardenas MD acetaminophen (Pain Reliever (acetaminophen)) 650 mg (2 x 325 mg) PO Q6H PRN amitriptyline 10 - 20 mg (1 - 2 x 10 mg) PO BEDTIME 30 days atogepant 60 mg PO DAILY fluoride (sodium) 1.1% (Denta 5000 Plus) 1 appl PO DAILY hydrochlorothiazide 25 mg PO DAILY omeprazole 20 mg PO DAILY ondansetron HCl mg PO propranolol ER 80 mg PO DAILY 30 days rizatriptan 10 mg PO Q2H 30 days HPI HPI Comments History of Present Illness Details 58-year-old female previously diagnosed with axial spondyloarthropathy returns for follow-up. She was last seen by Dr. Meng 01/2023. She states that she continues to have low back pain and bilateral knee pain. She states that she received an injection by Pain Management about 14 years ago and it did not help. She has not been evaluated by pain management since then. She continues to have bilateral lower back pain radiating outwards. She was evaluated by Orthopedics for her patellofemoral arthritis and prescribed a knee brace. She stated that a knee brace was too big and did not fit. Most recent history by Dr. Meng 01/2023.: The patient presents with pain in the left foot and right knee. We used the [employer] translating service to joshua enrique. The knee has had off and on pain for a few months. There was no injury in involved. The foot has been hurting she says for about a week, again with no recent injury. I had seen her a couple of years ago at [place]. She had SI joint sclerosis and we trialed her with Humira. She said she took it for about 5 months without any improvement. Subsequent to that she had some neck pain that was accompanying some right shoulder pain. That was helped with a corticosteroid injection in the shoulder area apparently in Orthopedics. She was also on meloxicam for the shoulder. That did not seem to help the right knee. She has had problems with heartburn and stomach pain taking ibuprofen or Aleve in the past. She does not have any skin rash, eye pain or redness, diarrhea. [facility] Medical History (Updated 01/13/24 @ 14:58 by Onel Cardenas MD) Axial spondyloarthritis HLD (hyperlipidemia) Migraine Arthritis Hypertension Surgical History History of rectal surgery Family History Father Congestive heart failure Mother Diabetes HTN (hypertension) Migraine Brother HTN (hypertension) Diabetes Social History Alcohol intake: never Patient Tobacco Use Status: Never used Tobacco Review of Systems [facility] [place] and Reports arthralgias Physical Exam Vital Signs: Last Vital Signs Pulse 60 01/13/24 14:12 BP 114/68 01/13/24 14:12 Pulse Ox 96 01/13/24 14:12 BMI result Body Mass Index 32.8 Const General: cooperative, healthy appearing and comfortable Nutritional Appearance: obese Orientation/consciousness: patient oriented x3 Limitations: no limitations HEENT Head: Yes normocephalic and Yes atraumatic Resp Effort & Inspection: normal respiratory effort and able to speak in complete sentences Auscultation: clear to auscultation bilaterally Back/Spine/Pelvis Other: No paraspinal muscle tenderness elicited Bilateral positive straight leg raise test Michelle test 10-15 cm Normal lateral flexion test bilaterally Neuro General: patient oriented x3 Extrem Other: No active synovitis Results Reviewed Results Reviewed: [facility] Result Report Patient: Darcy Vides Date of Service: 03/06/20 ? ? Patient Gender: Female Ordering Provider: Mohsen Meng : 1965 ? ? ? Final MRI PELVIS; W/WO CONTRAST MAT Exam Date: 03/06/2020 10:44 AM Ordering Diagnosis: Chronic left-sided low back pain without sciaticaTeratomaCyst near coccyxSacroiliitis (HCC) Addendum to the report. ? MRI of the pelvis without and with intravenous contrast. ? Examination was performed on 1.5 Yamilka magnet without administration of intravenous contrast followed by postcontrast study after administration of 7.5 mL of GADAVIST. ? Addended by: Monica Garcia MD on 04/30/2020 7:22 PM ? MRI of the pelvis. ? History persistent back pain more to the right. 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 Personal history of hysterectomy.. ? Examination was performed on arm 1.5 Yamilka magnet with attention to the sacrum and sacroiliac joints. Anteriorly coronal images were conducted posterior to the level of aortic bifurcation examination. No prior images are available for comparison. Sagittal images were also note obtained. ? Sacral was visualized without evidence of focal signal abnormalities or abnormal enhancement. There are sclerotic changes in the SI joints without evidence of abnormal enhancement. There is no visible masses or abnormal enhancing lesions in the visualized portion of the pelvis. There is irregularity of the fat with some stranding and enhancement posterior to the rectosigmoid region of uncertain nature. Could be postsurgical There are hypertrophic degenerative changes in the. Facet joints at L4-5 and L5-S1 levels. There is no spinal stenosis or obvious nerve root compression. However evaluation of the lumbar spine is limited due to lack of sagittal images. Uterus is surgically absent ovaries were not visualized. Visualized portion of the bladder is unremarkable. ? CONCLUSIONS: Sclerotic lesions in the arm SI joints without evidence of enhancement. Stranding and thumb mild enhancement in the fat posterior to the rectosigmoid colon of uncertain nature. No visible masses or focal fluid collections. Degenerative changes in the low lumbar spine incompletely characterized on this study. ? ? Reading Radiologist: 0 Assessment & Plan Assessment & Plan (1) Lumbar degenerative disc disease: Comment: Sclerosis seen on SI joints on hip films and MRI Sulfasalazine started 06/06(insurance refused Humira) -patient decided against taking because of her frequent migraine headaches.2020 - Humira approved. Took it for 5 months without improvement Code(s): M51.36 - Other intervertebral disc degeneration, lumbar region Plan: This is a 58-year-old female previously diagnosed with axial spondyloarthropathy based on sclerosis seen on SI joints MRI. She has been on numerous NSAIDs in the past. She was also on Humira for about 5 months without improvement. Her clinical picture today's rather consistent with lumbar degenerative arthritis. Patient was evaluated by Pain Management about 14 years ago and received an injection that did not help. I suggested re-evaluation by Pain Management. Referred patient to pain management (2) Bilateral primary osteoarthritis of knee: Code(s): M17.0 - Bilateral primary osteoarthritis of knee Plan: Follow-up with orthopedics Plan I spent 35 minutes reviewing patient's chart, reviewing old records from the [place] chart, evaluating patient, placing orders, counseling patient and documenting in the chart Orders: Referrals Pain Management Referral M51.36 - Other intervertebral disc degeneration, lumbar region Coding Level of Care Code Est Pt Level 4 (77487) Diagnoses Lumbar degenerative disc disease M51.36 Bilateral primary osteoarthritis of knee M17.0
== END 2024-01-13 14:54 | disposition home or self-care (01) ==
PROVIDERS: PCP Internal Medicine; Visit Provider Student in an Organized Health Care Education/Training Program
DX: M51.36 Other intervertebral disc degeneration, lumbar region (principal); M17.0 Bilateral primary osteoarthritis of knee
CPT/HCPCS: 99214

== ENCOUNTER → 2024-01-13 14:07 | Outpatient (BNVA) | payer OTHER, SELFPAY | PROVIDERS: PCP Internal Medicine; Visit Provider Student in an Organized Health Care Education/Training Program | DX: M51.36 Other intervertebral disc degeneration, lumbar region (principal); M17.0 Bilateral primary osteoarthritis of knee | CPT/HCPCS: 99212 ==

== ENCOUNTER 2024-01-27 08:17 | Outpatient (REF) | payer OTHER, SELFPAY ==
--- NOTE | ~2024-01-27 | XR_ITS ---
EXAMINATION: XR CERVICAL SPINE XR THORACIC SPINE CLINICAL INFORMATION: Spondylosis unspecified. TECHNIQUE: 3 views of the thoracic spine. 8 views of the cervical spine inclusive of flexion and extension views. COMPARISON: Chest 05/16/2023. FINDINGS: THORACIC SPINE: Minimal dextroscoliosis of the thoracic spine. Multilevel degenerative changes with osteophyte formation in the thoracic spine. CERVICAL SPINE: Limited visualization of C7 due to overlying soft tissues. Cervical spondylosis with hypertrophic change most notable at C5-C6. Mild loss of disc space height at C6-C7. Alignment preserved on flexion and extension views. XR/XR cervical spine w flex/ext IMPRESSION: 1. Multilevel degenerative changes in the thoracic spine. 2. Cervical spondylosis most notable at C5-C6.
--- NOTE | ~2024-01-27 | XR_ITS ---
EXAMINATION: XR CERVICAL SPINE XR THORACIC SPINE CLINICAL INFORMATION: Spondylosis unspecified. TECHNIQUE: 3 views of the thoracic spine. 8 views of the cervical spine inclusive of flexion and extension views. COMPARISON: Chest 05/16/2023. FINDINGS: THORACIC SPINE: Minimal dextroscoliosis of the thoracic spine. Multilevel degenerative changes with osteophyte formation in the thoracic spine. CERVICAL SPINE: Limited visualization of C7 due to overlying soft tissues. Cervical spondylosis with hypertrophic change most notable at C5-C6. Mild loss of disc space height at C6-C7. Alignment preserved on flexion and extension views. XR/XR thoracic spine 3V IMPRESSION: 1. Multilevel degenerative changes in the thoracic spine. 2. Cervical spondylosis most notable at C5-C6.
== END 2024-01-27 08:18 | disposition home or self-care (01) ==
LOC: HO.XRAY 08:17
PROVIDERS: PCP Internal Medicine; Visit Provider Registered Nurse Emergency
DX: M47.9 Spondylosis, unspecified (principal); M54.50 Low back pain, unspecified; M54.2 Cervicalgia
CPT/HCPCS: 72052; 72072; 99202

== ENCOUNTER 2024-01-27 08:17 | Outpatient (AMB) | payer OTHER, SELFPAY ==
--- NOTE | 2024-01-27 08:19 | MHC.OFFVIS ---
Intake Vital Signs 01/27/24 08:32 Height 5 ft 1 in Weight 171 lb 2 oz BMI 32.3 BP 140/63 H Blood Pressure Location Rt brachial Position Sitting Pulse 57 Pulse Source Pulse Oximeter Pulse Oximetry (%) 99 Oxygen Delivery Method Room Air Intake Visit Reasons: Lumbar pain Intake Note: Pain today 04/26 Stacker Straightener Required: Yes Stacker Straightener Language: Capital Project Engineer Name: Mercy [id number] Accompanied by: Self / Same As Patient Allergies aspirin [Aspirin] Allergy (Mild, Verified 01/27/24 08:33) ABDOMINAL PAIN, upset stomach tramadol [TRAMADOL] Allergy (Unknown, Verified 01/27/24 08:33) TONGUE NUMBNESS HPI HPI Comments History of Present Illness Details Darcy is a very pleasant 58-year-old female who presented to the office today for evaluation management of her chronic back pain. Patient is Danish-speaking, visit was completed with parts washer Mercy #[id number]. She was referred to the office for 4 lower back but today she would like to focus on her neck pain. Reports pain midline cervical across the tops of both shoulders. Worse with movement and palpation. Denies radiation of the pain down either extremity. Denies burning, shooting pain down either upper extremity. Denies upper extremity weakness Recently completed physical therapy, she continues with home exercise program. This did not improve her pain. Patient has been to the chiropractor but this was many years ago. Has never tried acupuncture or massage. She has undergone previous steroid injections but this was greater than 10 years ago. Patient has also tried Motrin, naproxen, tramadol, Percocet and Tylenol without improvement of her pain Patient finds moderate relief with hot packs and hot showers. Pain today is rated as a 7/10, constant. In terms of muscle damage condition is described as stabbing and sharp. Pain is negatively impacting patient's enjoyment of life, general activity, recreational activities, work and mood [facility] Medical History (Updated 01/27/24 @ 15:22 by Georgie Santoyo APRN, RANGE MECHANIC) Axial spondyloarthritis HLD (hyperlipidemia) Migraine Arthritis Hypertension Surgical History History of rectal surgery Family History Father Congestive heart failure Mother Diabetes HTN (hypertension) Migraine Brother HTN (hypertension) Diabetes Social History Alcohol intake: never Patient Tobacco Use Status: Never used Tobacco Review of Systems Const All systems reviewed & are unremarkable except as noted in HPI and below Physical Exam Vital Signs: Last Vital Signs Pulse 57 01/27/24 08:32 BP 140/63 H 01/27/24 08:32 Pulse Ox 99 01/27/24 08:32 Oxygen Delivery Method Room Air 01/27/24 08:32 BMI result Body Mass Index 32.3 General: awake, alert, oriented. Answers questions appropriately. Fully engaged in examination. Skin: warm, dry, intact HEENT: Normocephalic. Hearing intact. Cardiac: External chest normal in appearance. Respiratory: No cough, audible wheezing or stridor. Abdomen: without gross distension. MS: No obvious swelling or deformities. Able to transition from scu-as-lorne unassisted Tenderness to palpation midline cervical vertebrae, cervical paraspinal muscles and trapezius bilaterally Spurling positive Decreased cervical range of motion in all planes Bilateral upper extremity strength 5/5, DTRs intact Neurological: Oriented to person, place, time and situation. Thought process intact. No gait abnormalities appreciated. Psychiatric: Appropriate mood and affect. Good judgment and insight. Assessment & Plan Assessment & Plan (1) Spondylosis: Code(s): M47.9 - Spondylosis, unspecified (2) Myofascial neck pain: Code(s): M54.2 - Cervicalgia Plan Patient presents the office today for evaluation management of her chronic back pain She requested to focus on her neck area History, physical exam and provocative testing consistent with cervical spondylosis and myofascial upper back pain X-ray thoracic spine, x-ray cervical spine ordered for evaluation She is unable to tolerate oral anti-inflammatory medications, will try diclofenac 3% topical apply to most painful area twice daily as needed Cyclobenzaprine 5 mg p.o. t.i.d. as needed Lidocaine 5% patches, on for 12 hours off for 12 hours do not use with the diclofenac gel Patient has recently completed PT and continues with home exercise program without improvement of her symptoms. She does not wish to retry physical therapy at this time She would like to start with conservative treatment, will follow up in 1 month and if pain persists will further discuss injections. Plan for bilateral C4-C5 C6 medial branch blocks with local anesthetic if patient does not find improvement with topical medications and muscle relaxers. All questions and concerns were answered, patient agrees to the plan. Follow up in 1 month, sooner if needed Orders: Orders XR thoracic spine 3V Today M47.9 - Spondylosis, unspecified XR cervical spine w flex/ext Today M47.9 - Spondylosis, unspecified Medications: New diclofenac sodium 3% apply to most painful area twice daily as needed for pain 1 appl topical BID 100 grams 0RF cyclobenzaprine 5 mg PO TID PRN 90 tabs 1RF muscle spasm lidocaine 5% leave on most painful area for up to 12 hrs 1 patch topical DAILY 30 ea 3RF pain Coding Level of Care Code New Pt Level 4 (67265) Diagnoses Spondylosis M47.9 Myofascial neck pain M54.2
[2024-01-27 08:32] VITALS: BP 140/63; PULSE 57; O2SAT 99; BMI 32.3
== END 2024-01-27 08:58 | disposition home or self-care (01) ==
PROVIDERS: PCP Internal Medicine; Visit Provider Registered Nurse Emergency
DX: M47.9 Spondylosis, unspecified (principal); M54.2 Cervicalgia
CPT/HCPCS: 99204

== ENCOUNTER 2024-02-24 08:57 | Outpatient (AMB) | payer OTHER, SELFPAY ==
--- NOTE | 2024-02-24 08:58 | MHC.OFFVIS ---
Vital Signs 02/24/24 09:03 Height 5 ft 1 in Weight 171 lb BMI 32.3 BP 122/71 Blood Pressure Location Rt brachial Position Sitting Pulse 64 Pulse Source Pulse Oximeter Pulse Oximetry (%) 97 Oxygen Delivery Method Room Air Intake Visit Reasons: 1 MONTH FOLLOW UP Intake Note: Pain today 810 Exceptional Children Teacher Assistant Required: Yes Exceptional Children Teacher Assistant Language: Delinquent Notice Machine Operator Name: Cindy # [id number] Accompanied by: Self / Same As Patient Allergies aspirin [Aspirin] Allergy (Mild, Verified 02/24/24 09:04) ABDOMINAL PAIN, upset stomach tramadol [TRAMADOL] Allergy (Unknown, Verified 02/24/24 09:04) TONGUE NUMBNESS HPI Comments Details: Patient presents back to the office today for follow up cervical neck pain. Cameroonian-speaking, visit was completed with account manager employee benefits Cindy #[id number]. She continues with pain. Has been doing HEP, taking muscle relaxant and using topical NSAIDs without improvement of her pain. Recent XR was reviewed, results as per below. Prior: Darcy is a very pleasant 58-year-old female who presented to the office today for evaluation management of her chronic back pain. Patient is Cameroonian-speaking, visit was completed with account manager employee benefits Mercy #[id number]. She was referred to the office for 4 lower back but today she would like to focus on her neck pain. Reports pain midline cervical across the tops of both shoulders. Worse with movement and palpation. Denies radiation of the pain down either extremity. Denies burning, shooting pain down either upper extremity. Denies upper extremity weakness Recently completed physical therapy, she continues with home exercise program. This did not improve her pain. Patient has been to the chiropractor but this was many years ago. Has never tried acupuncture or massage. She has undergone previous steroid injections but this was greater than 10 years ago. Patient has also tried Motrin, naproxen, tramadol, Percocet and Tylenol without improvement of her pain Patient finds moderate relief with hot packs and hot showers. Pain today is rated as a 7/10, constant. In terms of muscle damage condition is described as stabbing and sharp. Pain is negatively impacting patient's enjoyment of life, general activity, recreational activities, work and mood [facility] Medical History (Updated 02/24/24 @ 09:52 by Georgie Santoyo, RESIDENTIAL REAL ESTATE ASSISTANT, EQUIPMENT MAINTENANCE SUPERINTENDENT) Axial spondyloarthritis HLD (hyperlipidemia) Migraine Arthritis Hypertension Surgical History History of rectal surgery Family History Father Congestive heart failure Mother Diabetes HTN (hypertension) Migraine Brother HTN (hypertension) Diabetes Social History Alcohol intake: never Patient Tobacco Use Status: Never used Tobacco Review of Systems Const All systems reviewed & are unremarkable except as noted in HPI and below Physical Exam Vital Signs: Last Vital Signs Pulse 64 02/24/24 09:03 BP 122/71 02/24/24 09:03 Pulse Ox 97 02/24/24 09:03 Oxygen Delivery Method Room Air 02/24/24 09:03 BMI result Body Mass Index 32.3 General: awake, alert, oriented. Answers questions appropriately. Fully engaged in examination. Skin: warm, dry, intact HEENT: Normocephalic. Hearing intact. Cardiac: External chest normal in appearance. Respiratory: No cough, audible wheezing or stridor. Abdomen: without gross distension. MS: No obvious swelling or deformities. Able to transition from [id number] unassisted Tenderness to palpation midline cervical vertebrae, cervical paraspinal muscles and trapezius bilaterally Spurling positive Decreased cervical range of motion in all planes Bilateral upper extremity strength 5/5, DTRs intact Neurological: Oriented to person, place, time and situation. Thought process intact. No gait abnormalities appreciated. Psychiatric: Appropriate mood and affect. Good judgment and insight. Results Reviewed Results Reviewed: 01/27/24 THORACIC SPINE: Minimal dextroscoliosis of the thoracic spine. Multilevel degenerative changes with osteophyte formation in the thoracic spine. CERVICAL SPINE: Limited visualization of C7 due to overlying soft tissues. Cervical spondylosis with hypertrophic change most notable at C5-C6. Mild loss of disc space height at C6-C7. Alignment preserved on flexion and extension views. IMPRESSION: 1. Multilevel degenerative changes in the thoracic spine. 2. Cervical spondylosis most notable at C5-C6. Assessment & Plan Assessment & Plan (1) Spondylosis: Code(s): M47.9 - Spondylosis, unspecified Category: Medical (2) Myofascial neck pain: Code(s): M54.2 - Cervicalgia Category: Medical (3) Cervical spondylosis: Code(s): M47.812 - Spondylosis without myelopathy or radiculopathy, cervical region Category: Medical Plan Patient presents the office today for follow up cervical neck pain Recent xray reviewed, results as per above. Unable to tolerate oral anti-inflammatory medications, C/W diclofenac 3% topical apply to most painful area twice daily as needed New RX Gabapentin 100mg po TID, patient advised on cautions for use. Patient has exhausted conservative therapy including PT, home exercise program, nonsteroidal anti-inflammatory medications, muscle relaxers and lidocaine patches without improvement in her pain. Discussed options for treatment including diagnostic interventional testing, steroid injections, peripheral nerve stimulation with Sprint, RFA and more permanent neuromodulation. Informational pamphlets provided. Plan for bilateral C4-C5 C6 medial branch blocks with local anesthetic, she is requesting ativan prior to procedure. All questions and concerns have been answered and patient agrees with the plan. Follow up after injections and sooner if needed. Medications: New gabapentin 100 mg PO TID 90 caps 0RF Coding Level of Care Code Est Pt Level 4 (22232) Diagnoses Spondylosis M47.9 Myofascial neck pain M54.2 Cervical spondylosis M47.812
[2024-02-24 09:03] VITALS: BP 122/71; PULSE 64; O2SAT 97; BMI 32.3
== END 2024-02-24 09:26 | disposition home or self-care (01) ==
PROVIDERS: PCP Internal Medicine; Visit Provider Registered Nurse Emergency
DX: M47.9 Spondylosis, unspecified (principal); M54.2 Cervicalgia; M47.812 Spondylosis without myelopathy or radiculopathy, cervical region
CPT/HCPCS: 99214

== ENCOUNTER → 2024-02-24 08:57 | Outpatient (BNVA) | payer OTHER, SELFPAY | PROVIDERS: PCP Internal Medicine; Visit Provider Registered Nurse Emergency | DX: M47.9 Spondylosis, unspecified (principal); M54.2 Cervicalgia; M47.812 Spondylosis without myelopathy or radiculopathy, cervical region | CPT/HCPCS: 99212 ==

== ENCOUNTER 2024-05-12 10:00 | Outpatient (RCR) | payer OTHER, SELFPAY ==
--- NOTE | 2024-04-13 14:42 | MHC.PT.EP ---
[facility] [place] Office [place] Office [place] Office [address] Latonya Abreu [address] [phone] F: [phone] F: [phone] F: [phone] F: [phone] Physical Therapy Plan of Care Date of Evaluation: 04/13/24 Date of Surgery: N/A Diagnosis: midline cervical across the tops of both shoulder (RL) Assessment: pt is a 58 y/o female presenting to physical therapy w/ referring diagnosis of midline cervical across the tops of both shoulder. Impairments include pain, decreased range of motion, decreased strength, impaired functional mobility, impaired postural awareness, and altered ambulation mechanics. pt is a good candidate for skilled PT due to age, potential remediation of impairments, typical disease/condition progression and prognosis, comorbidities, and motivation. pt would benefit from skilled PT intervention to provide a tailored strengthening and stretching exercise program, functional training, gait training, postural re-training, neuromuscular re-education, modalities as needed for pain, equipment safety demonstration. Frequency and Duration: The patient will be seen 2x/wk for 4 wks Short Term Goals: pt will be I w/ HEP to promote self-management of condition. pt will improve B cervical rotation by at least 10 degrees to promote safety w/ head turns for driving. Household Appliance Installer Goals: pt will report a statistically significant improvement in self-reported outcome measure to promote return to PLOF. pt will report <3/10 neck pain w/ upper body ADLs to promote full return to self-care. Treatment Plan: Modalities to reduce pain, spasms and effusion. Manual therapy to restore motion and function. Therapeutic exercise to improve strength and flexibility. Neuromuscular re-education for posture and balance. Therapeutic activities to return to functional activities of daily living. Electronically signed by: Roberta Frost PT, DPT Please sign and return to therapist. Thank you for your referral.
--- NOTE | 2024-06-07 14:43 | MHC.PT.DC ---
[facility] [place] Office [place] Office [place] Office [address] Latonya Abreu [address] [phone] F: [phone] F: [phone] F: [phone] F: [phone] Physical Therapy Discharge Report Diagnosis: midline cervical across the tops of both shoulder (RL) Date of Surgery: N/A Date of Evaluation: 04/13/24 Date of Discharge: 06/07/24 Treatments to Date: 7 Cancellations to Date: 0 No Shows to Date: 0 Discharge Status: Improved Function Independent with HEP Visit Non-compliance Discharge Summary: Pt has not been seen in 26 days. Per last treatment note on 05/12, Darcy is presenting with reduction in tension in her cervical musculature and shows improving posture, remaining closer to neutral and her shoulder girdle is not elevated. She reports the most relief with manual cervical traction. May try mechanical traction next visit. Electronically signed by: Roberta Frost PT, DPT Please sign and return to therapist. Thank you for your referral.
== END 2024-06-07 14:43 | disposition home or self-care (01) ==
LOC: HO.PT 10:00
PROVIDERS: PCP Internal Medicine; Visit Provider Registered Nurse Emergency
DX: M47.812 Spondylosis without myelopathy or radiculopathy, cervical region (principal); M54.2 Cervicalgia
CPT/HCPCS: 97110; 97140; 97162

== ENCOUNTER 2024-06-15 11:40 | Outpatient (AMB) | payer OTHER, SELFPAY ==
--- NOTE | 2024-06-15 11:48 | MHC.OFFWIV ---
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 While every effort has been made to ensure accuracy, thread machine operator errors may have been included. The patient is a 59 year old female who presents to the clinic today with one-week history of rash. She notes small spots that start as slightly red, slightly raised, and itchy that dry out, flattened out, and go away. She has tried [id number] Neosporin, which seems to help moisturize the skin and help the rash to go away quicker. She has spots to her bilateral arms, and abdomen, and no other areas. Her 1st spot was on her left hand, and remain small throughout. She has no history of eczema. He has no new soaps, lotions, detergents, or other topical exposures. She has not had any new foods recently. She denies fever, chills, or other URI symptoms. [facility] Medical History (Updated 02/24/24 @ 09:52 by Georgie Santoyo, TOXICS PROGRAM OFFICER, COMBAT SYSTEMS OPERATOR) Axial spondyloarthritis HLD (hyperlipidemia) Migraine Arthritis Hypertension Surgical History History of rectal surgery Family History Father Congestive heart failure Mother Diabetes HTN (hypertension) Migraine Brother HTN (hypertension) Diabetes Social History Alcohol intake: never Patient Tobacco Use Status: Never used Tobacco Review of Systems Const All systems reviewed & are unremarkable except as noted in HPI and below Physical Exam Vital Signs: Last Vital Signs Pulse 56 06/15/24 11:49 BP 110/78 06/15/24 11:49 Pulse Ox 98 06/15/24 11:49 Oxygen Delivery Method Room Air 06/15/24 11:49 BMI result Body Mass Index 32.5 Const General: cooperative, healthy appearing, comfortable, no acute distress and well developed Orientation/consciousness: patient oriented x3 Limitations: no limitations Eyes General: appearance normal, both eyes and all related structures Resp Effort & Inspection: normal respiratory effort and able to speak in complete sentences Skin Other: Slightly raised erythematous plaques approximately 0.4 mm in diameter scattered on bilateral arms and abdomen, with no surrounding erythema, no discharge, no warmth. Neuro General: patient oriented x3 Assessment & Plan Assessment & Plan (1) Dermatitis: Code(s): L30.9 - Dermatitis, unspecified Plan: No signs of secondary bacterial infection. Etiology unclear, given response to ifzm-nwf-ztneoxy antibiotic ointment, likely responding to hydration. We will treat itch with hydroxyzine, and steroid topically for symptomatic management. Advised patient to follow up with worsening or failure to resolve including erythematous streaking. Plan See above for full details and plan. Medications: New hydroxyzine HCl 10 mg PO TID PRN 10 tabs 0RF itching triamcinolone acetonide 0.1% 1 appl topical BID 15 grams 0RF rash Coding Level of Care Code Est Pt Level 3 (05953) Diagnoses Dermatitis L30.9
[2024-06-15 11:49] VITALS: BP 110/78; PULSE 56; O2SAT 98; BMI 32.5
== END 2024-06-15 12:33 | disposition home or self-care (01) ==
PROVIDERS: PCP Internal Medicine; Visit Provider Registered Nurse
DX: L30.9 Dermatitis, unspecified (principal)
CPT/HCPCS: 99213

== ENCOUNTER 2024-06-30 09:08 | Outpatient (REF) | payer OTHER, SELFPAY ==
--- NOTE | ~2024-06-30 | MM_ITS ---
EXAMINATION: MM SCREENING DIGITAL BREAST TOMOSYNTHESIS, BILATERAL CLINICAL INFORMATION: Screening. Asymptomatic. COMPARISON: Mammography: Comparison is made with available priors TECHNIQUE: Digital breast mammography with tomosynthesis is performed in both the craniocaudal and mediolateral oblique views along with computer-aided detection (CAD). FINDINGS: There are scattered areas of fibroglandular density (ACR BI-RADS breast composition Category b). There are no significant masses, abnormal calcifications, or other abnormalities. MM/MM tomosynthesis screening BI IMPRESSION: No mammographic evidence of malignancy. ASSESSMENT: BI-RADS BI-RADS 1 - Negative RECOMMENDATION: Routine annual mammography screening. 1 year F/U This examination should not preclude the clinical evaluation of a suspicious palpable abnormality. This patient's information was entered into a reminder system with a target due date for their next mammogram. Electronically signed by: Elizabeth Mendes DO 07/13/2024 08:07 PM EDT
== END 2024-06-30 09:09 | disposition home or self-care (01) ==
LOC: HO.MAMMO 09:08
PROVIDERS: PCP Internal Medicine; Visit Provider Internal Medicine
DX: Z12.31 Encounter for screening mammogram for malignant neoplasm of breast (principal)
CPT/HCPCS: 77063; 77067

== ENCOUNTER → 2024-06-30 09:30 | Outpatient (BNV) | payer OTHER, SELFPAY | PROVIDERS: PCP Internal Medicine; Visit Provider Internal Medicine | DX: Z12.31 Encounter for screening mammogram for malignant neoplasm of breast (principal) | CPT/HCPCS: 77063; 77067 ==

== ENCOUNTER 2024-11-02 10:50 | Outpatient (AMB) | payer OTHER, SELFPAY ==
[2024-11-02 10:58] VITALS: BP 114/76; PULSE 56; O2SAT 97; BMI 31.6
--- NOTE | 2024-11-02 10:58 | MHC.OFFVIS ---
Vital Signs 11/02/24 10:58 Height 5 ft 1 in Weight 167 lb BMI 31.6 BP 114/76 Blood Pressure Location Rt brachial Position Sitting Pulse 56 Pulse Source Pulse Oximeter Pulse Oximetry (%) 97 Oxygen Delivery Method Room Air Intake Visit Reasons: Follow up Allergies aspirin [Aspirin] Allergy (Mild, Verified 11/02/24 11:06) ABDOMINAL PAIN, upset stomach tramadol [TRAMADOL] Allergy (Unknown, Verified 11/02/24 11:06) TONGUE NUMBNESS Medication List - Last Reconciled 11/02/24 by ELDER Sauceda acetaminophen (Pain Reliever (acetaminophen)) 650 mg (2 x 325 mg) PO Q6H PRN atogepant 60 mg PO DAILY 30 days diclofenac sodium 3% 1 appl topical BID estradiol (Vivelle-Dot) 1 patch transdermal 2XW estradiol 1 packet transdermal DAILY gabapentin 100 mg PO TID hydrochlorothiazide 25 mg PO DAILY hydroxyzine HCl 10 mg PO TID PRN lidocaine 5% 1 patch topical DAILY omeprazole 20 mg PO DAILY ondansetron HCl mg PO propranolol ER 80 mg PO DAILY 30 days rizatriptan 10 mg PO Q2H 30 days triamcinolone acetonide 0.1% 1 appl topical BID HPI Comments Details: 59-year-old female presents for f/u visit of migraine and obstructive sleep apnea. Pt reports she is feeling better overall. States this is likely because she is now sleeping better since she was started on HRT for management postmenopausal s/s, such as hot flashes. She does continue to snore. She states she has not heard from the ENT office yet. She has been having 2-3 migraines a week, usually this is a typical migraine which occurs in the middle of the night between 2-3am. Rizatriptan is helpful for this. Pt notes that the Rizatriptan helps but does cause increased urination. However, this is not bothersome enough to make her want to change it. She reports that atogepant 60 mg q.h.s. has been most effective in preventing frequent migraine attacks. She states she is tolerating atogepant well. Has baseline constipation at times, which is not any worse. Baseline headache characteristics: Aura- sees stars. Mod-severe pulsating/pressure in bilateral temples a/w photophobia, phonophobia, osmophobia, nausea, rarely vomiting, difficulty concentrating. AJ can also be a/w bilateral ear and neck pain, feeling of being off-balance. PFSH Medical History Axial spondyloarthritis HLD (hyperlipidemia) Migraine Arthritis Hypertension Surgical History History of rectal surgery Family History Father Congestive heart failure Mother Diabetes HTN (hypertension) Migraine Brother HTN (hypertension) Diabetes Social History Alcohol intake: never Patient Tobacco Use Status: Never used Tobacco Physical Exam Vital Signs: Last Vital Signs Pulse 56 11/02/24 10:58 BP 114/76 11/02/24 10:58 Pulse Ox 97 11/02/24 10:58 Oxygen Delivery Method Room Air 11/02/24 10:58 BMI result Body Mass Index 31.6 Const General: cooperative and no acute distress Orientation/consciousness: patient oriented x3 Resp Effort & Inspection: normal respiratory effort and able to speak in complete sentences Neuro General: patient oriented x3 Cranial nerves: Yes CN's II-XII intact bilaterally Cognition (Neuro): normal cognition Psych Appearance: grossly normal Mental Status: mental status grossly normal Speech and movement: Normal speech and movement present Affect: normal affect Attitude: cooperative Assessment & Plan Assessment & Plan (1) Migraine with aura: Code(s): G43.109 - Migraine with aura, not intractable, without status migrainosus Category: Medical (2) Snoring: Code(s): R06.83 - Snoring Category: Medical (3) Mild obstructive sleep apnea: Comment: 07/24/22: In-lab PSG: AHI 12/hr, REM AHI 39/hr with O2 ishan 76% (SpO2 < 88% for 4.5 min of study). Code(s): G47.33 - Obstructive sleep apnea (adult) (pediatric) Category: Medical Plan ? For GIGI: 07/15/2022 In-lab PSG- Mild GIGI with severe REM stage sleep apnea and nocturnal hypoxemia. Pt did not tolerate CPAP during the sleep study. Pt is not interested in starting CPAP or mandibular device. Pt his tremor Thedoes not meet criteria for Inspire at this time, as minimal AHI to qualify for Inspire is 15/hr. Avoid sleeping supine. Sleep on her side or head elevated slightly. We will follow-up on referral for ENT consult- to see if pt is a candidate for alternate GIGI and snoring tx intervention. Future considerations: pulmonary consult in f/u. ? For migraine: Continue Qulipta 60mg qhs, as patient, as patient has had greater than 50% reduction in migraine frequency from use. Continue to monitor constipation. Patient has stopped Amitriptyline 10-20mg qhs. Continue Propranolol ER 80mg qhs Continue prn Rizatriptan. Previous tx trials- Aimovig- lost effectiveness. Nurtec ODT qod for prevention- ineffective. Amitriptyline 10-20 mg q.h.s.-ineffective Follow-up in 6 months or sooner as needed. This note is constructed using voice recognition software. While every effort has been made to ensure accuracy, automobile club membership sales agent errors may have been included. Orders: Referrals Ear/Nose/Throat Referral G47.33 - Obstructive sleep apnea (adult) (pediatric), R06.83 - Snoring Coding Level of Care Code Est Pt Level 4 (08075) Diagnoses Migraine with aura G43.109 Snoring R06.83 Mild obstructive sleep apnea G47.33
== END 2024-11-02 11:51 | disposition home or self-care (01) ==
PROVIDERS: PCP Internal Medicine; Visit Provider Nurse Practitioner Family
DX: G43.109 Migraine with aura, not intractable, without status migrainosus (principal); R06.83 Snoring; G47.33 Obstructive sleep apnea (adult) (pediatric)
CPT/HCPCS: 99214

== ENCOUNTER → 2024-11-02 10:50 | Outpatient (BNVA) | payer OTHER, SELFPAY | PROVIDERS: PCP Internal Medicine; Visit Provider Nurse Practitioner Family | DX: G47.33 Obstructive sleep apnea (adult) (pediatric) (principal); G43.109 Migraine with aura, not intractable, without status migrainosus; R06.83 Snoring | CPT/HCPCS: 99212 ==

== ENCOUNTER 2025-05-11 08:16 | Outpatient (AMB) | payer OTHER, SELFPAY ==
[2025-05-11 08:16] VITALS: BP 120/78; PULSE 51; O2SAT 98; BMI 30.8
--- NOTE | 2025-05-11 08:16 | MHC.OFFVIS ---
Vital Signs 05/11/25 08:16 Height 5 ft 1 in Weight 163 lb BMI 30.8 BP 120/78 Blood Pressure Location Rt brachial Position Sitting Pulse 51 Pulse Source Pulse Oximeter Pulse Oximetry (%) 98 Oxygen Delivery Method Room Air Intake Visit Reasons: Follow Up 6mo Intake Note: Patient presents follow up migraine/GIGI. ENT booked 07/17/25 Natural History Collections Curator Required: Yes Natural History Collections Curator Name: Branden Accompanied by: Self / Same As Patient Allergies aspirin (Aspirin) Allergy (Mild, Verified 05/11/25 08:31) ABDOMINAL PAIN, upset stomach tramadol (TRAMADOL) Allergy (Unknown, Verified 05/11/25 08:31) TONGUE NUMBNESS Medication List - Last Reconciled 05/11/25 by ELDER Sauceda acetaminophen (Pain Reliever (acetaminophen)) 650 mg (2 x 325 mg) PO Q6H PRN amitriptyline 10 mg PO BEDTIME 90 days atogepant 60 mg PO DAILY 30 days diclofenac sodium 3% 1 appl topical BID estradiol (Vivelle-Dot) 1 patch transdermal 2XW estradiol 1 packet transdermal DAILY gabapentin 100 mg PO TID hydrochlorothiazide 25 mg PO DAILY hydroxyzine HCl 10 mg PO TID PRN lidocaine 5% 1 patch topical DAILY omeprazole 20 mg PO DAILY ondansetron HCl mg PO propranolol ER 80 mg PO DAILY 30 days rizatriptan 10 mg PO Q2H 30 days triamcinolone acetonide 0.1% 1 appl topical BID HPI Comments Details: 60-year-old female presents for f/u visit of migraine and obstructive sleep apnea. Patient is scheduled to see ENT for eval for alternate GIGI treatments in June. She notes, she is again not sleeping as well. Reports she is having arthritic pain in her neck shoulders and especially her right knee. She is scheduled to see Rheumatology in July. To previously had gastritis side effect from aspirin, but denies a true aspirin allergy. She believes in the past, she had tried Celebrex, this is not recall effect. She is having 2 migraine days per week, and is asking if there are additional treatment options that can help her to better manage her migraine attacks than her current Qulipta 60 mg and amitriptyline 10 mg q.h.s., and propranolol ER 80 mg daily preventative treatment. She expresses pill burden fatigue. She does continue to use rizatriptan 1st sign of an attack Baseline headache characteristics: Aura- sees stars. Mod-severe pulsating/pressure in bilateral temples a/w photophobia, phonophobia, osmophobia, nausea, rarely vomiting, difficulty concentrating. AJ can also be a/w bilateral ear and neck pain, feeling of being off-balance. [facility] Medical History Axial spondyloarthritis HLD (hyperlipidemia) Migraine Arthritis Hypertension Surgical History History of rectal surgery Family History Father Congestive heart failure Mother Diabetes HTN (hypertension) Migraine Brother HTN (hypertension) Diabetes Social History Alcohol intake: never Patient Tobacco Use Status: Never used Tobacco Physical Exam Vital Signs: Last Vital Signs Pulse 51 05/11/25 08:16 BP 120/78 05/11/25 08:16 Pulse Ox 98 05/11/25 08:16 Oxygen Delivery Method Room Air 05/11/25 08:16 BMI result Body Mass Index 30.8 Const General: cooperative and no acute distress Orientation/consciousness: patient oriented x3 Resp Effort & Inspection: normal respiratory effort and able to speak in complete sentences Neuro General: patient oriented x3 Cranial nerves: Yes CN's II-XII intact bilaterally Cognition (Neuro): normal cognition Psych Appearance: grossly normal Mental Status: mental status grossly normal Speech and movement: Normal speech and movement present Affect: normal affect Attitude: cooperative Assessment & Plan Assessment & Plan (1) Migraine with aura: Code(s): G43.109 - Migraine with aura, not intractable, without status migrainosus Category: Medical Qualifiers: Status migrainosus presence: without status migrainosus Intractability: not intractable Qualified Code(s): G43.109 - Migraine with aura, not intractable, without status migrainosus (2) Snoring: Code(s): R06.83 - Snoring Category: Medical (3) Mild obstructive sleep apnea: Comment: 07/24/22: In-lab PSG: AHI 12/hr, REM AHI 39/hr with O2 ishan 76% (SpO2 < 88% for 4.5 min of study). Code(s): G47.33 - Obstructive sleep apnea (adult) (pediatric) Category: Medical Plan ? For GIGI and sleep difficulties: Trial Celebrex 100 mg twice a day, as joint pain is interfering with sleep quality, until she is able to see rheumatology. 07/15/2022 In-lab PSG- Mild GIGI with severe REM stage sleep apnea and nocturnal hypoxemia. Pt did not tolerate CPAP during the sleep study. Pt is not interested in starting CPAP or mandibular device. Pt is not Inspire at this time, as minimal AHI to qualify for Inspire is 15/hr. Avoid sleeping supine. Sleep on her side or head elevated slightly. ENT consult as scheduled- to see if pt is a candidate for alternate GIGI and snoring tx intervention. Future considerations: pulmonary consult in f/u. ? For migraine: As patient continues to have 2 migraine days per week despite being on Qulipta, max tolerated dose of amitriptyline and propranolol, we will trial patient on Vyepti in place of Qulipta. Start Vyepti 100 mg IV infusion every 90 days. Vyepti is infused over 30 minutes at the [facility] infusion clinic Possible side effects of eptinezumab-jjmr (Vyepti) include but are not limited to: hypersensitivity reaction including: ?pruritus, flushing/hot flush, angioedema Nasopharyngitis Hypertension Raynaud's disease Vyepti will require insurance prior authorization prior to your 1st infusion appointment being scheduled. It is important that you update us with any change in your insurance between your clinic visits and/or infusion visits Prior to starting Vyepti, stop Qulipta 60mg qhs order. Continue amitriptyline 10 mg daily at bedtime-would not increase further as this causes residual daytime sleepiness. Continue Propranolol ER 80mg qhs- can not increase further due to patient already has bradycardia on current dose. Continue prn Rizatriptan. Previous tx trials- Aimovig- lost effectiveness. Nurtec ODT qod for prevention- ineffective. Amitriptyline 10-20 mg q.h.s.-ineffective Follow-up in 6 months or sooner as needed. Medications: New amitriptyline 10 mg PO BEDTIME 90 tabs 1RF 90 days eptinezumab-jjmr (Vyepti) administer over 30 mins 100 mg IV [id number] celecoxib (Celebrex) 100 mg PO BID PRN 60 caps 3RF pain 30 days Coding Level of Care Code Est Pt Level 4 (40633) Diagnoses Migraine with aura and without status migrainosus, not intractable G43.109 Status migrainosus presence: without status migrainosus Intractability: not intractable Snoring R06.83 Mild obstructive sleep apnea G47.33
--- OUTSIDE RECORDS SUMMARY | 2025-05-11 08:22 | XMS_ITS | Encounter Summary ---
Author Organization [facility] Address [address] [place] [address] Care Team Providers Care Sorter Pricer Name Role Phone Penny Olivas MD Primary Care Prov ider Reason for Referral * Consultation (Routine) - Authorized Specialty Diagnoses / Procedures Referred By Contac t Referred To Contact Orthopaedics / Orthopaedic Surgery Diagnoses Bilateral shoulder pain, unspecified chronicity Penny Olivas MD [address] [place] [address] Phone: tel: fax: Isaura Flynn MD [address] [place] [id number] Phone: tel: fax: Referral ID Status Reason Start Date Expiration Date Visits Requested Visits Authorized [id number] Authorized Specialty Services Required 05/05/2025 05/05/2026 1 1 Reason for Visit * Reason Onset Date Comments Referral 05/03/2025 Encounter Details Date Type Department Care Team ([facility] Contact Info) Description 05/03/2025 Telephone Adult Medicine [address] [phone] Penny Olivas MD [address] [place] [address] Referral Social History Tobacco Use Types Packs/Day Years Used Date Smoking Tobacco: Never Smokeless Tobacco: Never Alcohol Use Standard Drinks/Week Comments No 0 (1 standard drink = 0.6 oz pur e alcohol) Housing Instability Answer Date Recorde d Are you worried that in the next 2 months you may not have stable housing? No 04/05/2025 Food Access & Nutrition Answer Date Rec orded Do you have access to a vari ety of food including fruits and vegetables? Yes 04/05/2025 Health Literacy Answer Date Recorded How often do you need to hav e someone help you when you read instructions, pamphlets, or other written material from your doctor or pharmacy? Never 04/05/2025 Caregiver: How often do you need to have someone help you when you read instructions, pamphlets, or other written material from your doctor or pharmacy? Not on file 04/05/2025 Financial Risk Answer Date Recorded How hard is it for you to pa y for the very basics like food, housing, medical care, and air conditioning / heating? Not very hard 04/05/2025 Transportation Answer Date Recorded Has the lack of transportati on kept you from meetings, work, or from getting things needed for daily living? No Has the lack of transportati on kept you from medical appointments or from getting medications? No 04/05/2025 Social Isolation Answer Date Recorded How often do you feel lonely or isolated from th ose around you? Never 04/05/2025 Food Risk Answer Date Recorded Within the past 12 months we worried whether our food would run out before we got money to buy more. Never true 04/05/2025 Within the past 12 months th e food we bought just didn't last and we didn't have money to get more. Never true 04/05/2025 Dependent Care Answer Date Recorded Do you need help finding or paying for care for your loved ones. For example, attendant children's institution or elderly care for an older adult? No 04/05/2025 Education Answer Date Recorded Do you think completing more education or training, like finishing a GED, going to college, or learning a trade, would be helpful for you? No 04/05/2025 Employment and Income Answer Date Recor ded During the last four weeks, have you been actively looking for work? No 04/05/2025 Living Situation Answer Date Recorded What is your living situation? 0 04/05/2025 Comments No Sex and Gender Information Value Date Recorded Sex Assigned at Not on file Legal Sex Female 11:35 PM EST Gender Identity Not on file Sexual Orientation Not on file documented as of this encounter Progress Notes * Lynsey Emi - 05/03/2025 12:21 PM EDT Referral Request: What insurance does the patient have today? [facility] Referrals cannot be processed if the insurance is not accurate. If the insurance listed above in red is NO BILLING INFORMATION FOUND FOR THIS ENCOUTNER The patients correct insurance must be obtained and registered in [facility] or their referral can not be processed. Who is calling to request this referral? Patients Daughter If the caller is not the patient, what is their name? Delinet Ask the patient WHO referred them to this specialty: Patient self referred FIRST and LAST NAME of SPECIALIST PATIENT is seeing: Herb Flynn What specialty is this? Orthopedic DIAGNOSIS Patient is being seen for (Not a body part or a procedure): Both shoulder pain Have you seen this SPECIALIST for this PROBLEM/DX before? If YES, when? No Have you checked REVIEW or the APPT DESK to see if this referral has already been done or has visits left? yes Is this visit: Follow Up Address of Specialist: [address] [place] [address] Phone # of Specialist: [phone] Fax #: (if applicable): [phone] Does patient have an appointment scheduled?: no Date of appointment- (including a retro-request): Is this appointment related to: Not MVA, worker compensation, or surgery related documented in this encounter Plan of Treatment Upcoming Encounters Date Type Department Care Team (Late st Contact Info) Description 10/05/2025 9:30 AM EST Office Visit Adult Medicine [address] [phone] Penny Olivas MD [address] [place] [address] Scheduled Referrals Name Type Priority Associated Diagnoses Order Schedule Ambulatory referral to Orthopedic Outpatient Referral Routine Bilateral shoulder pain, unspecified chronicity 1 Occurrences starting 05/05/2025 until 05/03/2026 documented as of this encounter Visit Diagnoses Diagnosis Bilateral shoulder pain, unspecified chronicity- Primary documented in this encounter Additional Health Concerns Assessment Noted Time PHQ-9 Depression Total Score: 0 04/05/20 1:36 PM EDT documented as of this encounter Care Teams Sorter Pricer Relationship Specialty Start Date End Date Penny Olivas MD [address] [place] [id number] PCP - General Internal Medicine 04/05/25 documented as of this encounter
--- OUTSIDE RECORDS SUMMARY | 2025-05-11 08:22 | XMS_ITS | Patient Health Record ---
Demographics Address [address] [place] [address] Preferred Language Unknown Marital Status unmarried Hinduism Affiliation Unknown Race Unknown Ethnic Group Unknown Author Organization [facility] [employer] [facility] Address [address] [place] [address] Care Team Providers Care Director Of Parks And Recreation Name Role Phone Jerman Mcelroy Unavailable [phone] Reason For Referral No Information Plan Of Treatment No Information
--- OUTSIDE RECORDS SUMMARY | 2025-05-11 08:22 | XMS_ITS ---
Author Name [facility] Organization Unknown Care Team Organization Name Specialty Phone Email Start Date End Da te [facility] Penny Acosta Primary Care 03/26/2023 06/05/2024 [facility] ZAHRA SHEPHERD Primary Care 08/25/2022
== END 2025-05-11 09:07 | disposition home or self-care (01) ==
LOC: HO.HSMS 08:17
PROVIDERS: PCP Internal Medicine; Visit Provider Nurse Practitioner Family
DX: G43.109 Migraine with aura, not intractable, without status migrainosus (principal); R06.83 Snoring; G47.33 Obstructive sleep apnea (adult) (pediatric)
CPT/HCPCS: 99214

== ENCOUNTER → 2025-05-11 08:16 | Outpatient (BNVA) | payer OTHER, SELFPAY | PROVIDERS: PCP Internal Medicine; Visit Provider Nurse Practitioner Family | DX: G43.109 Migraine with aura, not intractable, without status migrainosus (principal); R06.83 Snoring; G47.33 Obstructive sleep apnea (adult) (pediatric) | CPT/HCPCS: 99212 ==

== ENCOUNTER 2025-08-02 08:07 | Outpatient (AMB) | payer OTHER, SELFPAY ==
--- OUTSIDE RECORDS SUMMARY | 2025-08-02 08:13 | XMS_ITS | Clinical Summary ---
Demographics Address [address] [facility] [place] [address] Home Phone Mobile Phone Home Phone Email Address Preferred Language es Marital Status Episcopalian Affiliation Unknown Race Unknown Ethnic Group or Author Organization [facility] [address] [facility] Address [address] [place] [address] Phone Care Team Providers Care Logistics Lead Name Role Phone Penny Olivas MD Primary Care Prov ider Allergies Active Allergy Reactions Criticality Noted Date Comments Aspirin 03/14/2015 Other Reaction(s): OTHER GI UPSET Atorvastatin 04/07/2018 Teeth pain Tramadol 03/14/2015 ITCH Medications gabapentin (NEURONTIN) 100 mg capsule TAKE 1 CAPSULE BY MOUTH THREE TIMES A DAY 4 Active amitriptyline (ELAVIL) 10 mg tablet TAKE 1 OR 2 TABLETS BY MOUTH EVERY DAY AT BEDTIME 3 Active atogepant (Qulipta) 30 mg tablet TAKE 1 TABLET BY MOUTH EVERYDAY AT BEDTIME 3 Active omeprazole (PriLOSEC) [address] capsule Take 1 Capsule by mouth daily. 3 Active rizatriptan (MAXALT) 10 mg tablet PLEASE SEE ATTACHED FOR DETAILED DIRECTIONS 2 Active propranolol LA (INDERAL LA) 80 mg 24 hr capsule TAKE 1 CAPSULE BY MOUTH EVERYDAY AT BEDTIME 2 Active Vivelle-Dot 0.0375 mg/[address] 1 patch on the skin 2 (two) times a week. 5 Active hydroCHLOROthia zide (HYDRODIURIL) 25 mg tablet Take 1 tablet (25 mg total) by mouth 1 (one) time each day. 90 tablet 1 5 Active baclofen (LIORESAL) 10 mg tablet Take 1 tablet (10 mg total) by mouth every 12 (twelve) hours if needed for muscle spasms. 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 Depression 03/14/2015 Back pain 03/14/2015 Encounters Date Type Department Care Team Description 05/03/2025 Telephone Adult Medicine [address] [phone] Penny Olivas MD from Last 3 Months Immunizations Immunization Administration Dates Next Due Influenza Quadravalent, MDCK , 0.5ml, preservative free (Flucelvax) 6mo and older 07/23/2020 MMR, measles mumps and rubel la Live (Priorix; M-M-R II) 12mo and older 09/27/1998 Td Tetanus diptheria (Tdvax) 7yo and older 09/17,06/16/2000 Tdap Tetanus diptheria acell ular pertussis (Boostrix; Adacel) 7yo and older 01/07/2017 Surgical History Surgery Date Site/Laterality Comments OTHER SURGICAL HISTORY PROCEDURE: UPPER GASTROINTESTINAL ENDOSCOPY, I; COMMENT: moderate gastritis with biopsy SECTION PROCEDURE: HISTORICAL DELIVERY TUBAL LIGATION PROCEDURE: HISTORICAL TUBAL LIGATION HYSTERECTOMY 2006 PROCEDURE: HISTORICAL HYSTERECTOMY; COMMENT: + left ooforectomy OTHER SURGICAL HISTORY PROCEDURE: ---- OTHER ----; COMMENT: history of teratoma resection x 2, last surgery 05/2017 CARPAL TUNNEL RELEASE Right PROCEDURE: HISTORICAL CARPAL TUNNEL REL Medical History Medical History Date Comments Tubular adenoma 03/14/2015 DX:Tubular adeno ma Migraine 03/14/2015 DX:Migraine; COM MENT: dr taylor mohan Depression 03/14/2015 DX:Depression Hyperlipemia 03/14/2015 DX:Hyperlipemia Hypertension 03/14/2015 DX:Hypertension Chronic low back pain 03/14/2015 DX:Chronic low back pain GERD (gastroesophageal reflu x disease) 03/14/2015 DX:GERD (gastroesophageal re flux disease) Prediabetes DX:Prediabetes GIGI on CPAP DX:GIGI on CPAP; COMMENT: [facility] ASCUS of cervix with negativ e high risk HPV 07/22/2016 DX:ASCUS of cervix with nega tive high risk HPV H/O bone density study 2015 DX:H/O yesi ne density study; COMMENT: normal History of colonoscopy 04/28/2017 DX:Histor y of colonoscopy; COMMENT: Dr. 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 DX:Neoplasm of uncertain beh avior of presacral region Teratoma 05/28/2017 DX:Teratoma; COM MENT: Presacral mass resected twice, last sx 05/2017 Endometriosis 04/07/2018 DX:Endometriosis Back pain 03/14/2015 DX:Back pain Axial spondyloarthritis (CMS /HCC V24, CMS/HCC V28) 05/21/2020 DX:Axial spondyloarthritis ( HCC) Family History Medical History Relation Name Comments Hypertension Brother x 7 HLD, seizures Heart failure Father CVA Diabetes Mother HLD, migraines Asthma Paternal Grandfather Breast cancer Sister x 5 unilateral Throat cancer Uncle maternal non-smoker Relation Name Status Comments Brother x 7 Alive Father Maternal Grandfather Maternal Grandmother Mother Paternal Grandfather Paternal Grandmother Sister x 5 Alive Uncle maternal Alive Social History Tobacco Use Types Packs/Day Years Used Date Smoking Tobacco: Never Smokeless Tobacco: Never Tobacco Cessation:Counseling Given: Not Answered Alcohol Use Standard Drinks/Week Comments No 0 [...] care for your loved ones. For example, children's tutor or elderly care for an older adult? [...] Date Recorded What is your living situation? Unrecognized valu e 04/05/2025 Comments No Sex and Gender Information Value Date Recorded Sex Assigned at Not on file Legal Sex Female 11:35 PM EST Gender Identity Not on file Sexual Orientation Not on file Obstetrics History Last Filed Vital Signs Vital Sign Reading Time Taken Comments Blood Pressure 100/60 04/05/2025 1:32 PM EDT Pulse 68 04/05/2025 1:32 PM EDT Temperature 36 C (96.8 F) 04/05/2025 1:32 PM EDT Respiratory Rate 13 04/05/2025 1:32 PM EDT Oxygen Saturation 97% 04/05/2025 1:32 PM EDT Inhaled Oxygen Concentration - - Weight 80.6 kg (177 lb 9.6 oz) 04/05/2025 1:32 P M EDT Height 154.9 cm (5' 1 ) 04/05/2025 1:32 PM EDT Body Mass Index 33.56 04/05/2025 1:32 PM EDT Plan of Treatment Upcoming Encounters Date Type Department Care Team (Late st Contact Info) Description 10/05/2025 9:30 AM EST Office Visit Adult Medicine [address] [phone] Penny Olivas MD [address] [place] [address] Health Maintenance Due Date Last Done Comments Breast Cancer Screening 1965 Cervical Cancer Screening: Pap Smear 07/16/2019 07/16/2016 Influenza Vaccine (#1) 2025 07/23/2020 Hepatitis B Vaccines (1 of 3 - 19+ 3-dose series) 04/05/2026 Postponed from 1986 (Patient Refused) Pneumococcal Vaccine: 50+ Years (1 of 1 - PCV) 04/05/2026 Postponed from 2017 (Patient Refused) Social Influencers of Health Screening 04/05/2026 04/05/2025 Zoster Vaccines (1 of 2) 04/05/2026 Pos tponed from 2017 (Patient Refused) Hypertension/CHF/CAD Annual BMP Blood Test 04/12/2026 04/12/2025, 09/02/2023 DTaP,Tdap,and Td Vaccines (4 - Td or Tdap) 01/07/2027 01/07/2017, 09/17/2013, 06/16/2000 Colorectal Cancer Screening: Colonoscopy 05/19/2029 05/19/2024, 04/28/2017 Cholesterol Screening (Lipid Panel) 04/12/2030 04/12/2025, 09/02/2023 RSV Immunization Adult Patients (1 - 1-dose 75+ series) 2042 MMR Vaccines Aged Out 09/27/1998 No longer eligi ble based on patient's age to complete this topic Hepatitis C Screening Completed 03/22/2020 COVID-19 Vaccine Discontinued 07/09/2021, 06/18/2021 Depression Screening Completed 04/05/2025, 03/30/2024 HIB Vaccines Aged Out No longer eligi ble based on patient's age to complete this topic HIV Screening Discontinued HPV Vaccines Aged Out No longer eligi ble based on patient's age to complete this topic Hepatitis A Vaccines Aged Out No long er eligible based on patient's age to complete this topic IPV Vaccines Aged Out No longer eligi ble based on patient's age to complete this topic Meningococcal ACWY Vaccine Aged Out N o longer eligible based on patient's age to complete this topic Meningococcal B Vaccine Aged Out No l onger eligible based on patient's age to complete this topic RSV Immunization Patients Under 20 months Aged Out No longer eligible b ased on patient's age to complete this topic Varicella Vaccines Aged Out No longer eligible based on patient's age to complete this topic Procedures Procedure Name Priority Date/Time Associated Diagnosis Comments COMPREHENSIVE METABOLIC PANEL Routine 04/12/2025 9:02 AM EDT Primary hypertension Mixed hyperlipidemia LIPID PANEL WITH REFLEX TO DIRECT LDL Routine 04/12/2025 9:02 AM EDT Primary hypertension Mixed hyperlipidemia COLONOSCOPY Routine 05/19/2024 2:16 PM EDT HM DEPRESSION SCREENING Routine 03/30/2024 HEPATITIS C SCREENING Routine 03/22/2020 PAP SMEAR Routine 07/16/2016 from Last 3 Months or Most Recently Relevant to Health Maintenance Results * (ABNORMAL) Lipid panel with reflex to direct LDL (04/12/2025 9:02 AM EDT) Cholesterol 240(H) 0 - 200 mg/dL LAB CHEMISTRY METHOD 04/12/2025 2:04 PM EDT [facility] Triglycerides 260(H) 0 - 150 mg/dL LAB CHEMISTRY METHOD 04/12/2025 2:04 PM EDT [facility] HDL 48 >=40 mg/dL LAB CHEMISTRY METHOD 04/12/2025 2:04 PM EDT [facility] LDL Calculated 140(H) 0 - 100 mg/dL LAB CHEMISTRY METHOD 04/12/2025 2:04 PM EDT [facility] VLDL Cholesterol Carlos Manuel 52 mg/dL LAB CHEMISTRY METHOD 04/12/2025 2:04 PM EDT [facility] Non HDL Chol. (LDL+VLDL) 192(H) <145 mg/dL LAB CHEMISTRY METHOD 04/12/2025 2:04 PM EDT [facility] Chol/HDL Ratio 5.0(H) 0.0 - 4.4 LAB CHEMISTRY METHOD 04/12/2025 2:04 PM EDT [facility] Blood Venous blood specimen / Unknown Venipuncture / Unknown 04/12/2025 9:02 AM EDT 04/12/2025 9:02 AM EDT us Lynsey JAQUEZ LAB BLOOD ORDERABLES Final Resu lt [facility] [address] [place] [address], * (ABNORMAL) Comprehensive metabolic panel (04/12/2025 9:02 AM EDT) Sodium 137 133 - 145 mmol/L LAB CHEMISTRY METHOD 04/12/2025 2:[address] [facility] Potassium 4.1 3.5 - 5.5 mmol/L LAB CHEMISTRY METHOD 04/12/2025 2:[address] [facility] Chloride 101 96 - 110 mmol/L LAB CHEMISTRY METHOD 04/12/2025 2:[address] [facility] CO2 27 21 - 32 mmol/L LAB CHEMISTRY METHOD 04/12/2025 2:[address] [facility] Anion Gap 9 3 - 11 LAB CHEMISTRY METHOD 04/12/2025 2:[address] [facility] Glucose 105(H) 70 - 100 mg/dL LAB CHEMISTRY METHOD 04/12/2025 2:[address] [facility] BUN 13 5 - 25 mg/dL LAB CHEMISTRY METHOD 04/12/2025 2:[address] [facility] Creatinine 0.74 0.50 - 1.10 mg/dL LAB CHEMISTRY METHOD 04/12/2025 2:[address] [facility] eGFR 95 >=60 mL/min/1. 73m2 LAB CHEMISTRY METHOD 04/12/2025 2:[address] [facility] Comment:Calculation based on the Chronic Kidney Disease Epidemiology Collaboration (CKD-EPI) equation refit without adjustment for race. BUN/Creatinine Ratio 17.6 LAB CHEMISTRY METHOD 04/12/2025 2:[address] [facility] Calcium 9.5 8.5 - 10.5 mg/dL LAB CHEMISTRY METHOD 04/12/2025 2:[address] [facility] AST (SGOT) 13 10 - 42 unit/L LAB CHEMISTRY METHOD 04/12/2025 2:04 PM EDT [facility] ALT (SGPT) 20 10 - 60 unit/L LAB CHEMISTRY METHOD 04/12/2025 2:04 PM EDT [facility] Alkaline Phosphatase 68 42 - 121 unit/L LAB CHEMISTRY METHOD 04/12/2025 2:04 PM EDT [facility] Total Protein 7.1 6.0 - 8.0 g/dL LAB CHEMISTRY METHOD 04/12/2025 2:04 PM EDT [facility] Albumin 4.1 3.2 - 5.0 g/dL LAB CHEMISTRY METHOD 04/12/2025 2:04 PM EDT [facility] Total Bilirubin 1.2 0.0 - 1.4 mg/dL LAB CHEMISTRY METHOD 04/12/2025 2:04 PM EDT [facility] Blood Venous blood specimen / Unknown Venipuncture / Unknown 04/12/2025 9:02 AM EDT 04/12/2025 9:02 AM EDT Lynsey JAQUEZ LAB BLOOD ORDERABLES Final Resu lt [facility] [address] [place] [address], * COLONOSCOPY (05/19/2024 2:16 PM EDT) Anatomical Region Laterality Modality Endoscopy Historical Provider GI~PROCEDURE ORDERABLES F inal Result * Depression Screening (03/30/2024) Depression Screening Abstracted Historical Provider HEALTH MAINTENANCE Final Result * Hepatitis C Screening (03/22/2020) Pathologist [facility] Hepatitis C Screening Abstracted Historical Provider HEALTH MAINTENANCE Final Result * Pap Smear (07/16/2016) HM Pap smear Abstracted, No interpretation us Historical Provider HEALTH MAINTENANCE Final Result from Last 3 Months or Most Recently Relevant to Health Maintenance Insurance * Guarantor: Darcy Dowling Account Type Relation to Patient Date of Phone Billing Address Personal/Family Self 1965 [address] [place] [address] [facility] Care Teams Logistics Lead Relationship Specialty Start Date End Date Penny Olivas MD [address] [place] [phone] PCP - General Internal Medicine 04/05/25
--- OUTSIDE RECORDS SUMMARY | 2025-08-02 08:13 | XMS_ITS | Patient Health Record ---
Demographics Address [address] [place] [address] Preferred Language Unknown Marital Status unmarried Baptism Affiliation Unknown Race Unknown Ethnic Group Unknown Author Organization [facility] Address [address] [place] [address] Care Team Providers Care Rn Pool Name Role Phone Jerman Mcelroy Unavailable [phone] Reason For Referral No Information Plan Of Treatment No Information
--- NOTE | 2025-08-02 08:24 | A.OFFVIS_ITS ---
Vital Signs 08/02/25 08:27 Height 5 ft 1 in Weight 173 lb 6 oz BMI 32.8 BP 127/67 Blood Pressure Location Rt brachial Position Sitting Pulse 59 Pulse Source Pulse Oximeter Pulse Oximetry (%) 100 Oxygen Delivery Method Room Air Intake Visit Reasons: Follow up/ Med refill Intake Note: Pain today 05/27 Environmental Health Safety Manager Required: Yes Environmental Health Safety Manager Language: Cylinder Valve Repairer Name: Kendrick #[id number] Accompanied by: Self / Same As Patient Allergies aspirin (Aspirin) Allergy (Mild, Verified 08/02/25 08:33) ABDOMINAL PAIN, upset stomach tramadol (TRAMADOL) Allergy (Unknown, Verified 08/02/25 08:33) TONGUE NUMBNESS HPI Comments Details: The patient is a 60-year-old female presenting with musculoskeletal pain. She reports experiencing pain in her shoulders which has been persistent despite previous interventions. The pain was initially managed with physical therapy, which provided minimal relief. Additionally, she was prescribed a topical cream and gabapentin, which offered limited benefit. The patient describes the pain as muscular in nature, likely exacerbated by activities such as cooking and cleaning. She has been advised to continue home exercises, including stretching with bands, and to apply ice and heat as needed. - Onset: Persistent pain in shoulders - Quality: Muscular pain - Exacerbating factors: Activities such as cooking and cleaning. Tenderness to palpation. - Relieving factors: Physical therapy, topical cream, gabapentin, ice, and heat - Affect: Pain impacts daily activities such as cooking and cleaning - Analgesia: Gabapentin 100 mg three times a day, Diclofenac Topical - Adverse Effects: Denies - Activities of Daily Living: Pain affects ability to perform household tasks - Aberrant Drug Related Behaviors: None reported [facility] Medical History Axial spondyloarthritis HLD (hyperlipidemia) Migraine Arthritis Hypertension Surgical History History of rectal surgery Family History Father Congestive heart failure Mother Diabetes HTN (hypertension) Migraine Brother HTN (hypertension) Diabetes Social History Alcohol intake: never Patient Tobacco Use Status: Never used Tobacco Review of Systems Const Details: - Musculoskeletal: Reports pain in shoulders Physical Exam Exam Exam: General: awake, alert, oriented. Answers questions appropriately. Fully engaged in examination. Skin: warm, dry, intact HEENT: Normocephalic. Hearing intact. Cardiac: External chest normal in appearance. Respiratory: No cough, audible wheezing or stridor. Abdomen: without gross distension. MS: No obvious swelling or deformities. Able to transition from [id number] unassisted Tenderness to palpation trapezius bilaterally Decreased cervical range of motion in all planes Bilateral upper extremity strength 5/5, DTRs intact Neurological: Oriented to person, place, time and situation. Thought process intact. No gait abnormalities appreciated. Psychiatric: Appropriate mood and affect. Good judgment and insight. Vital Signs: Last Vital Signs Pulse 59 08/02/25 08:27 BP 127/67 08/02/25 08:27 Pulse Ox 100 08/02/25 08:27 Oxygen Delivery Method Room Air 08/02/25 08:27 BMI result Body Mass Index 32.8 Results Reviewed Results Reviewed: 01/27/24 THORACIC SPINE: Minimal dextroscoliosis of the thoracic spine. Multilevel degenerative changes with osteophyte formation in the thoracic spine. CERVICAL SPINE: Limited visualization of C7 due to overlying soft tissues. Cervical spondylosis with hypertrophic change most notable at C5-C6. Mild loss of disc space height at C6-C7. Alignment preserved on flexion and extension views. IMPRESSION: 1. Multilevel degenerative changes in the thoracic spine. 2. Cervical spondylosis most notable at C5-C6. Assessment & Plan Assessment & Plan (1) Spondylosis: Code(s): M47.9 - Spondylosis, unspecified Category: Medical (2) Myofascial neck pain: Code(s): M54.2 - Cervicalgia Category: Medical (3) Cervical spondylosis: Code(s): M47.812 - Spondylosis without myelopathy or radiculopathy, cervical region Category: Medical Plan I discussed with the patient the nature of her musculoskeletal pain, emphasizing that it is muscular rather than arthritic in origin. We reviewed the treatment p nadiya, including the increase in gabapentin dosage and the continuation of HEP. I advised her on the potential side effects of the medication and the importance of monitoring her response, particularly regarding drowsiness. We agreed on a follow-up plan to reassess her condition in three months, with the option for an earlier visit if necessary. Offered option to schedule TPI but she would like to hold on injections at this time. The patient will continue with an increased dose of gabapentin, starting at 300 mg three times a day, with initial administration at bedtime to monitor tolerance. She is advised to avoid driving while taking this medication. Patient declined referral to repeat PT. HEP will be continued, focusing on exercises that do not exacerbate her symptoms, and she should maintain the use of ice and heat. Follow-up is scheduled in three months to assess the effectiveness of the treatment, with the option to return sooner if symptoms worsen or are intolerable. Patient was informed and verbally consented to the use of an ambient scribe for clinic note documentation during this visit. Medications: Changed From gabapentin 100 mg PO TID 90 caps 3RF To gabapentin 300 mg PO TID 90 caps 6RF Coding Level of Care Code Est Pt Level 3 (96567) Complex EM visit Add On G2211 Diagnoses Spondylosis M47.9 Myofascial neck pain M54.2 Cervical spondylosis M47.812
[2025-08-02 08:27] VITALS: BP 127/67; PULSE 59; O2SAT 100; BMI 32.8
== END 2025-08-02 08:54 | disposition home or self-care (01) ==
LOC: HO.PMC 08:07
PROVIDERS: PCP Internal Medicine; Visit Provider Registered Nurse Emergency
DX: M47.9 Spondylosis, unspecified (principal); M54.2 Cervicalgia; M47.812 Spondylosis without myelopathy or radiculopathy, cervical region
CPT/HCPCS: 99213

== ENCOUNTER → 2025-08-02 08:07 | Outpatient (BNVA) | payer OTHER, SELFPAY | PROVIDERS: PCP Internal Medicine; Visit Provider Registered Nurse Emergency | DX: Z76.0 Encounter for issue of repeat prescription (principal); M54.2 Cervicalgia; M47.812 Spondylosis without myelopathy or radiculopathy, cervical region | CPT/HCPCS: 99212 ==

== ENCOUNTER 2025-08-09 09:29 | Outpatient (REF) | payer OTHER, SELFPAY ==
--- OUTSIDE RECORDS SUMMARY | 2025-08-09 10:40 | XMS_ITS | Clinical Summary ---
Demographics Address [address] [facility] [address] Home Phone Mobile Phone Home Phone Email Address Preferred Language es Marital Status Pentecostal Affiliation Unknown Race Unknown Ethnic Group or Author Organization [facility] [address] [place] [address] [address] [place] [address] Phone Care Team Providers Care Peoplesoft Consultant Name Role Phone Penny Olivas MD Primary [...] Overview (07/21/2024): UNTREATED (Jul 2022) Axial spondyloarthritis (CMS/[facility] V24, CMS/[facility] V2 8) 05/21/2020 Overview (07/21/2024): Sclerosis seen [...] biopsy 03/29/2014. Depression 03/14/2015 Back pain 03/14/2015 Immunizations Immunization Administration Dates Next Due Influenza [...] care for your loved ones. For example, child specialist or elderly care for an older adult? [...] 9:30 AM EST Office Visit Adult Medicine [address] [phone] Penny Olivas MD [address] [place] [address] Health Maintenance Due Date Last Done Comments [...] hyperlipidemia COLONOSCOPY Routine 05/19/2024 2:16 PM EDT DEPRESSION SCREENING Routine 03/30/2024 HEPATITIS C SCREENING [...] 4.4 LAB CHEMISTRY METHOD 04/12/2025 2:04 PM [facility] Blood Venous blood specimen / Unknown Venipuncture / Unknown 04/12/2025 9:02 AM EDT 04/12/2025 9:02 AM EDT us Lynsey JAQUEZ LAB BLOOD ORDERABLES Final Resu lt [facility] [address] [place] [address], * (ABNORMAL) Comprehensive metabolic panel (04/12/2025 9:02 AM EDT) Sodium 137 133 - 145 mmol/L LAB CHEMISTRY METHOD 04/12/2025 2:04 PM [facility] Potassium 4.1 3.5 - 5.5 mmol/L LAB CHEMISTRY METHOD 04/12/2025 2:04 PM [facility] Chloride 101 96 - 110 mmol/L LAB CHEMISTRY METHOD 04/12/2025 2:04 PM [facility] CO2 27 21 - 32 mmol/L LAB CHEMISTRY METHOD 04/12/2025 2:04 PM [facility] Anion Gap 9 3 - 11 LAB CHEMISTRY METHOD 04/12/2025 2:04 PM [facility] Glucose 105(H) 70 - 100 mg/dL LAB CHEMISTRY METHOD 04/12/2025 2:04 PM [facility] BUN 13 5 - 25 mg/dL LAB CHEMISTRY METHOD 04/12/2025 2:04 PM [facility] Creatinine 0.74 0.50 - 1.10 mg/dL LAB CHEMISTRY METHOD 04/12/2025 2:04 PM [facility] eGFR 95 >=60 mL/min/1. 73m2 LAB CHEMISTRY METHOD 04/12/2025 2:04 PM [facility] Comment:Calculation based on the Chronic Kidney Disease Epidemiology Collaboration (CKD-EPI) equation refit without adjustment for race. BUN/Creatinine Ratio 17.6 LAB CHEMISTRY METHOD 04/12/2025 2:04 PM [facility] Calcium 9.5 8.5 - 10.5 mg/dL LAB CHEMISTRY METHOD 04/12/2025 2:04 PM [facility] AST (SGOT) 13 10 - 42 unit/L LAB CHEMISTRY METHOD 04/12/2025 2:04 PM [facility] ALT (SGPT) 20 10 - 60 unit/L LAB CHEMISTRY METHOD 04/12/2025 2:04 PM [facility] Alkaline Phosphatase 68 42 [...] 9:02 AM EDT 04/12/2025 9:02 AM EDT Result [facility] Lynsey JAQUEZ LAB BLOOD ORDERABLES Final Resu lt [facility] [address] [place] [address], [place] [phone] * COLONOSCOPY (05/19/2024 2:16 PM EDT) Anatomical Region Laterality Modality Endoscopy Result [facility] Provider GI~PROCEDURE ORDERABLES F inal Result * Depression Screening (03/30/2024) Pathologist [facility] Depression Screening Abstracted Result [facility] Historical Provider HEALTH MAINTENANCE Final Result * Hepatitis C Screening (03/22/2020) Pathologist [facility] Hepatitis C Screening Abstracted Historical Provider HEALTH MAINTENANCE Final Result * Pap Smear (07/16/2016) [facility] Pap smear Abstracted, No interpretation Historical Provider HEALTH MAINTENANCE Final Result from Last 3 Months or Most Recently Relevant to Health Maintenance Insurance * Guarantor: Darcy Dowling Account Type Relation to Patient Date of Phone Billing Address Personal/Family Self 1965 [address] [place] [address] [facility] Care Teams Peoplesoft Consultant Relationship Specialty Start Date End Date Penny Olivas MD [address] [place] [phone] PCP - General Internal Medicine 04/05/25
== END 2025-08-09 09:30 | disposition home or self-care (01) ==
LOC: HO.MAMMO 09:29
PROVIDERS: PCP Internal Medicine; Visit Provider Internal Medicine
DX: Z12.31 Encounter for screening mammogram for malignant neoplasm of breast (principal)
CPT/HCPCS: 77063; 77067

== ENCOUNTER → 2025-08-09 09:45 | Outpatient (BNV) | payer OTHER, SELFPAY | PROVIDERS: PCP Internal Medicine; Visit Provider Radiology Body Imaging | DX: Z12.31 Encounter for screening mammogram for malignant neoplasm of breast (principal) | CPT/HCPCS: 77063; 77067 ==

== ENCOUNTER 2025-08-20 09:25 | Emergency (ER) | payer OTHER, SELFPAY ==
--- NOTE | ~2025-08-20 | XR_ITS ---
EXAMINATION: XR KNEE, RIGHT CLINICAL INFORMATION: pain COMPARISON: None available. TECHNIQUE: Two views of the right knee. FINDINGS: Alignment is anatomic. No visible acute fracture or dislocation. No significant joint space narrowing. Small marginal spurring in the medial and lateral compartment. No suspicious bony lesion. No effusion. No abnormal soft tissue calcification. XR/XR knee RT 2V IMPRESSION: Mild medial and lateral compartment arthritis. Electronically signed by: Ari Butts MD 08/20/2025 12:37 PM DENISE
[2025-08-20 09:32] VITALS: BP 149/67; PULSE 62; RESP 16; TEMP 36.1; O2SAT 97; BMI 32.5
[2025-08-20 11:05] VITALS: BP 117/66; PULSE 85; RESP 18; TEMP 36.7; O2SAT 96
--- NOTE | 2025-08-20 11:19 | ED.GENADULT ---
HPI - General Adult General Chief complaint: General Medical Stated complaint: L eye pain Time Seen by Provider: 08/20/25 11:14 Source: patient and translator interpreter Mode of arrival: ambulatory Limitations: no limitations History of Present Illness ED Provider: DR. Barton HPI narrative: 60-year-old female came in for evaluation of multiple symptoms. Left eye pain from likely infected stye in the left upper eyelid, no photophobia, no eye discharge, no exposure to foreign body in the eye, no fever, no chills, no recent eye surgery, no blurry vision, no change vision. Patient also is complaining of right knee pain that is started 4 days ago, no trauma, no injury, no twisting to the right knee, patient is known to have arthritis, patient tried NSAIDs and gabapentin at home with no relief of the pain. Related Data Home Medications ?Medication ?Instructions ?Recorded ?Confirmed hydrochlorothiazide 25 mg tablet 25 mg PO DAILY 03/03/22 05/11/25 omeprazole 20 mg capsule,delayed 20 mg PO DAILY 03/03/22 05/11/25 release ondansetron HCl 4 mg tablet mg PO 01/13/24 05/11/25 estradiol 0.0375 mg/24 hr 1 patch transdermal 2XW 11/02/24 05/11/25 semiweekly transdermal patch (Vivelle-Dot) estradiol 1 mg/gram (0.1 %) 1 packet transdermal DAILY 11/02/24 05/11/25 transdermal gel packet Previous Rx's ?Medication ?Instructions ?Recorded acetaminophen 325 mg tablet (Pain 650 mg (2 x 325 mg) PO Q6H PRN 05/16/23 Reliever (acetaminophen)) pain #45 tabs lidocaine 5 % topical patch 1 patch topical DAILY pain #30 ea 01/27/24 hydroxyzine HCl 10 mg tablet 10 mg PO TID PRN itching #10 tabs 06/15/24 triamcinolone acetonide 0.1 % 1 appl topical BID rash #15 grams 06/15/24 topical cream rizatriptan 10 mg tablet 10 mg PO Q2H 30 days #21 tabs 12/15/24 amitriptyline 10 mg tablet 10 mg PO BEDTIME 90 days #90 tabs 05/11/25 celecoxib 100 mg capsule (Celebrex) 100 mg PO BID PRN pain 30 days #60 05/11/25 caps eptinezumab-jjmr 100 mg/mL 100 mg IV [id number] 05/11/25 intravenous solution (Vyepti) diclofenac sodium 3 % topical gel 1 appl topical BID #100 grams 08/02/25 gabapentin 300 mg capsule 300 mg PO TID #90 caps 08/02/25 propranolol 80 mg capsule,24 80 mg PO DAILY #90 caps 08/03/25 hr,extended release atogepant 60 mg tablet 60 mg PO DAILY 30 days #30 tabs 08/17/25 erythromycin 5 mg/gram (0.5 %) eye 0.5 inch ophthalmic (eye) QID #3.5 08/20/25 ointment grams Allergies Allergy/AdvReac Type Severity Reaction Status Date / Time aspirin (Aspirin) Allergy Mild ABDOMINAL Verified 08/20/25 09:35 PAIN, upset stomach tramadol (TRAMADOL) Allergy Unknown TONGUE Verified 08/20/25 09:35 NUMBNESS Review of Systems Review of Systems: all other systems are reviewed and are negative Constitutional: Reports as per HPI and Reports no additional constitutional complaints Eyes: Reports as per HPI and Reports no additional eye complaints Reports system reviewed and no additional complaints, except as documented Cardiovascular: Reports as per HPI and Reports no additional cardiovascular complaints Respiratory: Reports as per HPI and Reports no additional respiratory complaints Gastrointestinal: Reports as per HPI and Reports no additional gastrointestinal complaints Genitourinary: Reports no additional female genitourinary complaints Musculoskeletal: Reports no additional musculoskeletal complaints Skin/Breast: Reports system reviewed and no additional complaints, except as docu Psychiatric: Reports no additional psychiatric complaints Endocrine: Reports no additional endocrine complaints Hematologic/Lymphatic: Reports no additional hematologic/lymphatic complaints Allergic/Immunologic: Reports no additional allergic/immunologic complaints Reports system reviewed and no additional complaints, except as documented and Reports Abnormal speech present [facility] Past Medical History Medical History Axial spondyloarthritis HLD (hyperlipidemia) Migraine Arthritis Hypertension Surgical History History of rectal surgery Family History Family History Father Congestive heart failure Mother Diabetes HTN (hypertension) Migraine Brother HTN (hypertension) Diabetes Social History Social History Alcohol intake: never Patient Tobacco Use Status: Never used Tobacco Advance Directives: No Advance Directives Information Provided: Yes Physical Exam ED Vital Signs: Vital Signs - 24 hr 08/20/25 09:32 08/20/25 11:05 Temperature 96.9 F 98.1 F Pulse Rate 62 85 Respiratory Rate 16 18 Blood Pressure 149/67 H 117/66 Pulse Oximetry 97 96 Oxygen Delivery Method Room Air Room Air BMI result Body Mass Index 32.5 Vital signs have been reviewed and appear to be correct. Blood pressure elevated. Heart rate normal. Respiratory rate normal. Temperature normal. Oxygen saturation normal. Appearance: Alert. Oriented X3. No acute distress. Head: Normal external exam. Normocephalic. Atraumatic. No Edwards signs noted. No raccoon eyes noted Eyes: General: appearance normal, both eyes and all related structures Visual Solomon: normal visual solomon by confrontation Alignment and Position: alignment normal and position normal Periorbital: periorbital findings normal Eyelids: Left upper eyelid stye with redness and swelling, no fluctuation, no discharge. Conjunctivae: conjunctivae normal Sclerae: sclerae normal Corneas: corneas normal Pupils: Equal, round and reactive pupils present and Pupil accommodation reflex normal EOM: EOM abnormal (Limited abduction of right eye) and No Nystagmus present Direct Ophthalmoscopy: normal light reflex, no photophobia, no papilledema and fundi normal bilaterally ENT: TM's Normal. Pharynx normal. Uvula midline. Moist mucous membranes. No trismus noted. No drooling noted. No muffled voice noted. Neck: Normal inspection. Neck supple. FROM. No adenopathy. Thyroid Normal. No meningeal signs. No neck mass noted. CVS: Normal heart rate and rhythm. Heart sound normal. No murmurs noted. Pulses normal throughout. Respiratory: No respiratory distress. Painless inspiration. Breath sounds normal. No wheezes/rales/rhonchi noted. Chest nontender. No accessory muscle usage noted or decreased air movement noted. Abdomen: Soft and nontender. Bowel sounds normal in all 4 quadrants. No distention noted. No organomegaly noted. No visible injury noted. Back: No CVA tenderness. Full range of motion noted. Skin: Skin warm and dry. Normal skin color. Normal skin turgor. No rashes/lesions/lacerations noted. Extremities: No lower extremity edema. Extremities exhibit normal range of motion. Extremities nontender. Neuro: Oriented X 3. Cranial nerve exam: II-XII are grossly intact No motor deficit. No sensory deficit. Reflexes normal. Course Reevaluation(s) Reevaluation #1: This is a 60-year-old female came in for evaluation of multiple complaints left eye pain which is secondary to infected stye will start the patient on erythromycin patient was instructed to follow-up with her eye doctor. Right knee pain which is likely secondary to arthritis patient to continue rest NSAIDs PRN at home. Time: 12:51 Medications Administered Discontinued Medications Generic Name Dose Route Start Last Admin Trade Name Freq PRN Reason Stop Dose Admin Oxycodone HCl 5 mg 08/20/25 11:41 08/20/25 11:50 Oxycodone Hcl Immed Release 5 Mg Tablet PO 08/20/25 11:42 5 mg ONCE ONE Administration Medical Decision Making Differential Diagnosis Differential Diagnoses: The differential diagnosis associated with the presentation includes ( Blepharitis, infected stye right knee arthritis, right knee injury.) Admission/Observation Consideration of admission/observation: Escalation of care including admission/observation considered Independent Interpretation I performed an independent interpretation of an: Plain X-Ray ( Right knee x-ray: No acute fracture or dislocation.Mild medial and lateral compartment arthritis. ) Radiology Impression Discussion of test interpretation with radiology: I have reviewed the radiologist's reading. Discharge Plan Discharge Clinical Impression: Hordeolum externum left upper eyelid, Arthritis of right knee Patient Disposition: Home, Self-Care Instructions: Stye (ED), Osteoarthritis (ED) Prescriptions: New erythromycin 5 mg/gram (0.5 %) ointment 0.5 inch ophthalmic (eye) QID Qty: 3.5 0RF No Action rizatriptan 10 mg tablet 10 mg PO Q2H 30 Days Qty: 21 6RF Rx Instructions: 1 tab at onset of migraine, may repeat in 2 hours, max 2 tabs per day or 4 tabs per week. diclofenac sodium 3 % gel 1 appl topical BID Qty: 100 0RF Rx Instructions: apply to most painful area twice daily as needed for pain gabapentin 300 mg capsule 300 mg PO TID Qty: 90 6RF propranolol 80 mg capsule,extended release 24 hr 80 mg PO DAILY Qty: 90 2RF atogepant 60 mg tablet 60 mg PO DAILY 30 Days Qty: 30 6RF acetaminophen [Pain Reliever (acetaminophen)] 325 mg tablet 650 mg PO Q6H PRN (Reason: pain) Qty: 45 0RF hydroxyzine HCl 10 mg tablet 10 mg PO TID PRN (Reason: itching) Qty: 10 0RF triamcinolone acetonide 0.1 % cream 1 appl topical BID Qty: 15 0RF hydrochlorothiazide 25 mg tablet 25 mg PO DAILY omeprazole 20 mg capsule,delayed release(DR/EC) 20 mg PO DAILY ondansetron HCl 4 mg tablet PO lidocaine 5 % adhesive patch,medicated 1 patch topical DAILY Qty: 30 3RF Rx Instructions: leave on most painful area for up to 12 hrs estradiol [Vivelle-Dot] 0.0375 mg/24 hr patch semiweekly 1 patch transdermal 2XW Rx Instructions: apply 1 patch for 3 days alternating with 1 patch for 4 days each week for 3 wks per 4-wk cycle estradiol 1 mg/gram (0.1 %) gel in packet 1 packet transdermal DAILY amitriptyline 10 mg tablet 10 mg PO BEDTIME 90 Days Qty: 90 1RF celecoxib [Celebrex] 100 mg capsule 100 mg PO BID PRN (Reason: pain) 30 Days Qty: 60 3RF Vyepti 100 mg/mL solution 100 mg IV [id number] Rx Instructions: administer over 30 mins Referrals: Penny Acosta MD [Primary Care Provider, Internal Medicine] Print Language: Nepali
[2025-08-20] MEDS: oxyCODONE HCl Immed Release 5 MG TABLET PO (11:50)
--- OUTSIDE RECORDS SUMMARY | 2025-08-20 12:42 | XMS_ITS | Encounter Summary ---
Demographics Address [address] [place] [address] Mobile Phone Home Phone Work Phone Email Address Preferred Language Canadian Marital Status Uatsdin Affiliation Unknown Race Unknown Ethnic Group or Author Organization [facility] Address [address] [place] [address] Care Team Providers Care Wire Coiler Name Role Phone Roxanna Davis DO Primary Care Pro vider Unavailable Alison Andrews MD Primary Care Provider Un available Samym Blue MD Primary Care Provider [phone] Roxanna Davis DO Primary Care Pro vider Unavailable Sammy Blue MD Primary Care Provider [phone] Penny Acosta MD Primary Care Prov ider Gregory Go MD, PHD Unavailable Unava Charles Wong PA-C Unavailable [phone] Reason for Visit * Reason Comments E-prescribe Rx Request Encounter Details Date Type Department Care Team Description 05/28/2015 [place] [facility] [place] [place] [address] [place] [address] Roxanna Davis DO E-prescribe Rx Request Social History Tobacco Use Types Packs/Day Years Used Date Smoking Tobacco: Never Alcohol Use Standard Drinks/Week Comments Not Asked 0 (1 standard drink = 0.6 oz pur e alcohol) Sex Assigned at Date Recorded Female 09/04/2022 12:03 PM EST Job Start Date Occupation Industry Not on file Not on file Not on file documented as of this encounter Miscellaneous Notes * Telephone Encounter - Roxanna Ngo DO - 05/29/2015 9:16 AM EDT This isn't a keno terminal operator med * Telephone Encounter - Ernestina Romero M.A. - 05/29/2015 9:13 AM EDT Last refill 04/25/15 * Telephone Encounter - Priscilla Santos - 05/29/2015 8:14 AM EDT Patient would like script to be: E-PRESCRIBED/FAXED TO PHARMACY WHEN WAS THE PATIENT'S LAST APPOINTMENT IN ADULT MEDICINE? 04/25/15 WHEN WAS THE LAST TIME THE PATIENT SAW THEIR PCP? Same as above Does patient have an upcoming appointment? No-unable to reach left [facility] to call for appointment due to refill request. Appt due (THE MEDICATION REQUESTED IS ON THE MED LIST ABOVE) All of the medications requested were on the CURRENT MEDS list Did you check the Pharmacy information above?: YES Patient wants: 30 -day supply Is this a mail order prescription request ? NO Patients current insurance carrier is: Payor: [facility] MEDICAID / Plan: [facility] MEDICAID HMO $0 [place] / Product Type: HMO [id number] documented in this encounter Plan of Treatment Not on file documented as of this encounter Visit Diagnoses Not on filedocumented in this encounter Care Teams Wire Coiler Relationship Specialty Start Date End Date Roxanna Davis DO PCP - General Internal Medicine 03/05/15 04/25/18 Alison Andrews MD PCP - General Internal Medicine 04/26/1808/08 Sammy Blue MD [address] [place] [address] PCP - General Internal Medicine 08/09/19 02/12/20 Roxanna Davis DO PCP - General Internal Medicine 02/13/20 03/31/21 Sammy Blue MD [address] [place] [address] PCP - General Internal Medicine 04/01/21 08/10/22 Penny Acosta MD [address] [place] [address] PCP - General Internal Medicine 08/11/22 Gregory Go MD, PHD [address] [place] [address] 78017 Surgeon Neurosurgery 09/24/22 Charles Bravo PA-C [address] [place] [address] Specialist Neurosurgery 09/24/22 documented as of this encounter
--- OUTSIDE RECORDS SUMMARY | 2025-08-20 12:42 | XMS_ITS | Encounter Summary ---
Demographics Address [address] [place] [address] Mobile Phone Home Phone Work Phone Email Address Preferred Language Bermudian Marital Status Mormonism Affiliation Unknown Race Unknown Ethnic Group or Author Organization [facility] Address [address] [place] [address] Care Team Providers Care Valver Name Role Phone Sammy Blue MD Primary Care Provider [phone] Penny Acosta MD Primary Care Prov ider Gregory Go MD, PHD Unavailable Unava Charles Wong PA-C Unavailable [phone] Reason for Visit * Reason Comments E-prescribe Rx Request Encounter Details Date Type Department Care Team Description 09/19/2021 Refill Adult Medicine [address] [id number] Jennifer Rosales PA-C E-prescribe Rx Request Social History Tobacco Use Types Packs/Day Years Used Date Smoking Tobacco: Never Smokeless Tobacco: Never Alcohol Use Standard Drinks/Week Comments No 0 (1 standard drink = 0.6 oz pur e alcohol) Sex Assigned at Date Recorded Female 09/04/2022 12:03 PM EST Job Start Date Occupation Industry Not on file Not on file Not on file documented as of this encounter Plan of Treatment Not on file documented as of this encounter Visit Diagnoses Not on filedocumented in this encounter Care Teams Valver Relationship Specialty Start Date End Date Sammy Blue MD [address] [place] [address] [id number] PCP - General Internal Medicine 04/01/21 08/10/22 Penny Acosta MD [address] [place] [address]757 PCP - General Internal Medicine 08/11/22 Gregory Go MD, PHD [address] [place] [address] 8[address]26 Surgeon Neurosurgery 09/24/22 Charles Bravo PA-C [address] [place] [address] Specialist Neurosurgery 09/24/22 documented as of this encounter
--- OUTSIDE RECORDS SUMMARY | 2025-08-20 12:42 | XMS_ITS | Encounter Summary ---
Demographics Address [address] [place] [address] Mobile Phone Home Phone Work Phone Email Address Preferred Language Nauruan Marital Status Anabaptism Affiliation Unknown Race Unknown Ethnic Group or Author Organization [facility] Address [address] [place] [address] Care Team Providers Care Timber Selector Name Role Phone Alison Andrews MD Primary Care Provider Un available Sammy Blue MD Primary Care Provider [phone] Roxanna Davis DO Primary Care Pro vider Unavailable Sammy Blue MD Primary Care Provider [phone] Penny Acosta MD Primary Care Prov ider Gregory Go MD, PHD Unavailable Unava Charles Wong PA-C Unavailable [phone] Reason for Visit * Reason Comments E-prescribe Rx Request Encounter Details Date Type Department Care Team Description 09/11/2018 Refill Adult Medicine [address] [address] Nadiya Shah PA-C E-prescribe Rx Request Social History Tobacco [...] encounter Miscellaneous Notes * Telephone Encounter - Ansley Shore M.A. - 09/11/2018 2:03 PM EST Last rx 06/22/18 with Nadiya #30 with 1 refill please advise on refill request * Telephone Encounter - Shea Duran - 09/11/2018 10:58 AM EST Patient would like script to be: E-PRESCRIBED/FAXED TO PHARMACY WHEN WAS THE PATIENT'S LAST APPOINTMENT IN ADULT MEDICINE? 06/21/18 WHEN WAS THE LAST TIME THE PATIENT SAW THEIR PCP? 04/07/18 Does patient have an upcoming appointment? No-unable to reach left [facility] to call for appointment due to refill request. Appt due December (THE MEDICATION REQUESTED IS ON THE MED LIST ABOVE) All of the medications requested were on the CURRENT MEDS list Did you check the Pharmacy information above?: YES Patient wants: 30 -day supply Is this a mail order prescription request ? NO If the refill is from a FAXED refill request what is the RX # listed on the fax? N/A Patients current insurance carrier is: Payor: [employer] FFS / Plan: [email or web address]IANCE / Product Type: MEDICAID RISK documented in this encounter Plan of Treatment Not on file documented as of this encounter Visit Diagnoses Not on filedocumented in this encounter Care Teams Timber Selector Relationship Specialty Start Date End Date Alison Andrews MD PCP - General Internal Medicine 04/26/1808/08 Sammy Blue MD [address] [place] [address] PCP - General Internal Medicine 08/09/19 02/12/20 Roxanna Davis DO [address] [place] [address] PCP - General Internal Medicine 02/13/20 03/31/21 Sammy Blue MD [address] [place] [address] PCP - General Internal Medicine 04/01/21 08/10/22 Penny Acosta MD [address] [place] [address] PCP - General Internal Medicine 08/11/22 Gregory Go MD, PHD [address] [place] [address] 17162 Surgeon Neurosurgery 09/24/22 Charles Bravo PA-C [address] [place] [address] Specialist Neurosurgery 09/24/22 documented as of this encounter
--- OUTSIDE RECORDS SUMMARY | 2025-08-20 12:42 | XMS_ITS | Encounter Summary ---
Demographics Address [address] [place] [address] Mobile Phone Home Phone Work Phone Email Address Preferred Language Qatari Marital Status Druze Affiliation Unknown Race Unknown Ethnic Group or Author Organization [facility] Address [address] [place] [address] Care Team Providers Care Tube Rebuilder Name Role Phone Alison Andrews MD Primary Care Provider Un available Sammy Blue MD Primary Care Provider [phone] Roxanna Davis DO Primary Care Pro vider Unavailable Sammy Blue MD Primary Care Provider [phone] Penny Acosta MD Primary Care Prov ider Gregory Go MD, PHD Unavailable Unava Charles Wong PA-C Unavailable [phone] Encounter Details Date Type Department Care Team Description 09/27/2018 Collar Starcher Report Medical Records [address] [place] [address] Lynsey Adames Social History Tobacco Use Types Packs/Day Years [...] on filedocumented in this encounter Care Teams Tube Rebuilder Relationship Specialty Start Date End Date Alison Andrews MD PCP - General Internal Medicine 04/26/1808/08 Sammy Blue MD [address] [place], [place] [phone] PCP - General Internal Medicine 08/09/19 02/12/20 Roxanna Davis DO [address] [place] [address] PCP - General Internal Medicine 02/13/20 03/31/21 Sammy Blue MD [address] [place], [place] [phone] PCP - General Internal Medicine 04/01/21 08/10/22 Penny Acosta MD [address] [place] [address] PCP - General Internal Medicine 08/11/22 Gregory Go MD, PHD [address] [place] [address] 12482 Surgeon Neurosurgery 09/24/22 Charles Bravo PA-C [address] [place] [address] Specialist Neurosurgery 09/24/22 documented as of this encounter
--- OUTSIDE RECORDS SUMMARY | 2025-08-20 12:42 | XMS_ITS | Encounter Summary ---
Demographics Address [address] [address] [place] [address] Mobile Phone Home Phone Work Phone Email Address Preferred Language Tuvaluan Marital Status Yazdanism Affiliation Unknown Race Unknown Ethnic Group or Author Organization [facility] Address [address] [place] [address] Care Team Providers Care Manager Of Corporate Name Role Phone Sammy Blue MD Primary Care Provider [phone] Penny Acosta MD Primary Care Prov ider Gregory Go MD, PHD Unavailable Unava Charles Wong PA-C Unavailable [phone] Encounter Details Date Type Department Care Team Description 03/03/2022 Communications Engineering Technician Report Medical Records [address] [place] [address] Radha Leyva Social History Tobacco Use Types Packs/Day Years [...] on filedocumented in this encounter Care Teams Manager Of Corporate Relationship Specialty Start Date End Date Sammy Blue MD [address] [place] [address] PCP - General Internal Medicine 04/01/21 08/10/22 Penny Acosta MD [address] [place] [address] PCP - General Internal Medicine 08/11/22 Gregory Go MD, PHD [address] [place] [address] Surgeon Neurosurgery 09/24/22 Charles Bravo PA-C [address] [place] [address]365 Specialist Neurosurgery 09/24/22 documented as of this encounter
--- OUTSIDE RECORDS SUMMARY | 2025-08-20 12:42 | XMS_ITS | Encounter Summary ---
Demographics Address [address] [facility] [facility] [address] [place] [address] Mobile Phone Home Phone Work Phone Email Address Preferred Language East Timorese Marital Status Mosque Affiliation Unknown Race Unknown Ethnic Group or Author Organization [facility] Address [address] [place] [address] Care Team Providers Care Washer Off Name Role Phone Sammy Blue MD Primary Care Provider [phone] Penny Acosta MD Primary Care Prov ider Gregory Go MD, PHD Unavailable Unava Charles Wong PA-C Unavailable [phone] Reason for Visit * Reason Comments E-prescribe Rx Request Encounter Details Date Type Department Care Team Description 05/26/2022 Refill Adult Medicine [address] [phone] Jennifer Rosales PA-C E-prescribe Rx Request Social [...] on filedocumented in this encounter Care Teams Washer Off Relationship Specialty Start Date End Date Sammy Blue MD [address] [place] [address] [phone] PCP - General Internal Medicine 04/01/21 08/10/22 Penny Acosta MD [address] [place] [address] PCP - General Internal Medicine 08/11/22 Gregory Go MD, PHD [address] [place] [address] 65[address] Surgeon Neurosurgery 09/24/22 Charles Bravo PA-C [address] [place] [address] Specialist Neurosurgery 09/24/22 documented as of this encounter
--- OUTSIDE RECORDS SUMMARY | 2025-08-20 12:42 | XMS_ITS | Encounter Summary ---
Demographics Address [address] [facility] [place] [address] Mobile Phone Home Phone Work Phone Email Address Preferred Language Senegalese Marital Status Hinduism Affiliation Unknown Race Unknown Ethnic Group or Author Organization [facility] Address [address] [place] [address] Care Team Providers Care Ice Cream Machine Operator Name Role Phone Alison Andrews MD Primary Care Provider Un available Sammy Blue MD Primary Care Provider [phone] Roxanna Davis DO Primary Care Pro vider Unavailable Sammy Blue MD Primary Care Provider [phone] Penny Acosta MD Primary Care Prov ider Gregory Go MD, PHD Unavailable Unava Charles Wong PA-C Unavailable [phone] Reason for Visit * Reason Onset Date Comments Medication 02/09/2019 Encounter Details Date Type Department Care Team Description 02/09/2019 Telephone Adult Medicine [address] [address] Emily Bryson PA-C Medication Social History Tobacco Use Types Packs/Day Years [...] encounter Miscellaneous Notes * Telephone Encounter - Tiffany Batista M.A. - 02/09/2019 4:30 PM EDT Last seen 02/07/19, next OV 07/06/19 patient only receive 7 tablets on 02/06/19, so she only has a fewdays left. Please review. vf documented in this encounter Plan of Treatment Not on file documented as of this encounter Visit Diagnoses Not on filedocumented in this encounter Care Teams Ice Cream Machine Operator Relationship Specialty Start Date End Date Alison Andrews MD PCP - General Internal Medicine 04/26/1808/08 Sammy Blue MD [address] [place], [place] [id number] PCP - General Internal Medicine 08/09/19 02/12/20 Roxanna Davis DO [address] [place] [address] PCP - General Internal Medicine 02/13/20 03/31/21 Sammy Blue MD [address] [place] [address] PCP - General Internal Medicine 04/01/21 08/10/22 Penny Acosta MD [address] [place] [address] PCP - General Internal Medicine 08/11/22 Gregory Go MD, PHD [address] [place], [place] [phone] Surgeon Neurosurgery 09/24/22 Charles Bravo PA-C [address] [facility] [address] [place] [address] Specialist Neurosurgery 09/24/22 documented as of this encounter
--- OUTSIDE RECORDS SUMMARY | 2025-08-20 12:42 | XMS_ITS | Encounter Summary ---
Demographics Address [address] [place] [address] Mobile Phone Home Phone Work Phone Email Address Preferred Language Prydeinig Marital Status Latter Day Affiliation Unknown Race Unknown Ethnic Group or Author Organization [facility] Address [address] [place] [address] Care Team Providers Care Waiter Name Role Phone Penny Acosta MD Primary Care Prov ider Gregory Go MD, PHD Unavailable Unava ilable Charles Bravo PA-C Unavailable [phone] Reason for Referral * Non RUDI (Routine) - Authorized/Booked Specialty Diagnoses / Procedures Referred By Alejandro webber Referred To Contact Neurosurgery Procedures REFERRAL TO NEUROSURGERY Brittni Brunner APRN [address] [place] [address] Gregory Go MD, PHD [address] [place] [address] [place] [address] Referral ID Status Reason Start Date Expiration Date V isits Requested Visits Authorized [id number] Authorized/B ooked 08/11/2022 08/11/2023 1 1 Reason for Visit * Reason Onset Date Comments radiology 08/11/2022 Cspine MRI / Ref erral Neurosurgery Encounter Details Date Type Department Care Team Description 08/11/2022 Telephone [facility] [address] [place] [address] [place] [phone] Brittni Brunner APRN radiology (Cspine MRI / Referral Neurosurgery ) Social History Tobacco Use Types Packs/Day Years Used Date Smoking Tobacco: Never Smokeless Tobacco: Never Alcohol Use Standard Drinks/Week Comments No 0 (1 standard drink = 0.6 oz pur e alcohol) Education Answer Date Recorded What is the highest level of school you have completed or the highest degree you have received? 11th grade 08/11/2022 Sex Assigned at Date Recorded Female 09/04/2022 12:03 PM EST Job Start Date Occupation Industry Not on file Not on file Not on file COVID-19 Exposure Response Date Recorded In the last 10 days, have yo u been in contact with someone who was confirmed or suspected to have Coronavirus/COVID-19? No / Unsure 08/11/2022 10:52 AM EDT documented as of this encounter Plan of Treatment Not on file documented as of this encounter Visit Diagnoses Diagnosis Radicular pain in right arm- Primary Neuralgia, neuritis, and radiculitis, unspecified Cervical spinal stenosis Spinal stenosis in cervical region documented in this encounter Care Teams Waiter Relationship Specialty Start Date End Date Penny Acosta MD [address] [place] [address] PCP - General Internal Medicine 08/11/22 Gregory Go MD, PHD [address] [place] [address] Surgeon Neurosurgery 09/24/22 Charles Bravo PA-C [address] [place] [address] [place] [address] Specialist Neurosurgery 09/24/22 documented as of this encounter
--- OUTSIDE RECORDS SUMMARY | 2025-08-20 12:42 | XMS_ITS | Encounter Summary ---
Demographics Address [address] [place] [address] Mobile Phone Home Phone Work Phone Email Address Preferred Language Ugandan Marital Status Episcopal Affiliation Unknown Race Unknown Ethnic Group or Author Organization [facility] Address [address] [place] [address] Care Team Providers Care Web Programmer Name Role Phone Alison Andrews MD Primary Care Provider Un available Sammy lBue MD Primary Care Provider [phone] Roxanna Davis DO Primary Care Pro vider Unavailable Sammy Blue MD Primary Care Provider [phone] Penny Acosta MD Primary Care Prov ider Gregory Go MD, PHD Unavailable Unava Charles Wong PA-C Unavailable [phone] Reason for Visit * Reason Comments E-prescribe Rx Request Encounter Details Date Type Department Care Team Description 06/05/2018 Refill Adult Medicine [address] [address] Roxanna Davis DO E-prescribe Rx Request Social [...] encounter Miscellaneous Notes * Telephone Encounter - Sol Smith PA-C - 06/06/2018 6:22 PM EDT Ok to fill. Onur, Angelique * Telephone Encounter - Tierney Ivory - 06/06/2018 11:19 AM EDT Patient would like script to be: E-PRESCRIBED/FAXED TO PHARMACY WHEN WAS THE PATIENT'S LAST APPOINTMENT IN ADULT MEDICINE? 04/26/18 WHEN WAS THE LAST TIME THE PATIENT SAW THEIR PCP? 04/07/18 Does patient have an upcoming appointment? Will call to book (THE MEDICATION REQUESTED IS ON THE MED [...] N/A Patients current insurance carrier is: Payor: [employer] FFS / Plan: [employer] [facility] / Product Type: MEDICAID RISK documented in this encounter Plan of Treatment Not on file documented as of this encounter Visit Diagnoses Not on filedocumented in this encounter Care Teams Web Programmer Relationship Specialty Start Date End Date Alison Andrews MD PCP - General Internal Medicine 04/26/1808/08 Sammy Blue MD [address] [place] [address] PCP - General Internal Medicine 08/09/19 02/12/20 Roxanna Davis DO [address] [place] [address] PCP - General Internal Medicine 02/13/20 03/31/21 Sammy Blue MD [address] [place] [address] PCP - General Internal Medicine 04/01/21 08/10/22 Penny Acosta MD [address] [place] [address] PCP - General Internal Medicine 08/11/22 Gregory Go MD, PHD [address] [place] [address] Surgeon Neurosurgery 09/24/22 Charles Bravo PA-C [address] [place] [address] Specialist Neurosurgery 09/24/22 documented as of this encounter
--- OUTSIDE RECORDS SUMMARY | 2025-08-20 12:42 | XMS_ITS | Encounter Summary ---
Demographics Address [address] [facility] [address] [place] [address] Mobile Phone Home Phone Work Phone Email Address Preferred Language Algerian Marital Status Alevism Affiliation Unknown Race Unknown Ethnic Group or Author Organization [facility] Address [address] [place] [address] Care Team Providers Care Road Machine Runner Name Role Phone Alison Andrews MD Primary Care Provider Un available Sammy Blue MD Primary Care Provider [phone] Roxanna Davis DO Primary Care Pro vider Unavailable Sammy Blue MD Primary Care Provider [phone] Penny Acosta MD Primary Care Prov ider Gregory Go MD, PHD Unavailable Unava Charles Wong PA-C Unavailable [phone] Reason for Visit * Reason Onset Date Comments TEST RESULTS 06/26/2019 Encounter Details Date Type Department Care Team Description 06/26/2019 Telephone Adult Medicine [address] [address] Alison Andrews MD TEST RESULTS Social History Tobacco Use Types Packs/Day Years [...] encounter Miscellaneous Notes * Telephone Encounter - Sammy Blue MD - 06/28/2019 1:48 PM EDT Called juanita dtr (+) VR No answer left message Xray shows Degenerative discogenic disease and possible right neural foraminal narrowing at C5-6. Pt had noted numbness in the right arm Pt was rx'ed zanflex and diclofenac In message as for call back if no improvement as pt appears to have spinal stenosis we will need mri this may be a surgical issue * Telephone Encounter - Jaycee Walden - 06/28/2019 12:32 PM EDT Still waiting for response from dr blue [phone] (Juanita) daughter * Telephone Encounter - Vickie Hagan - 06/26/2019 4:24 PM EDT Inform patient: ANY URGENT OR ABNORMAL RESULTS WIILL RESULT IN A CALL BACK TO THE PATIENT PAULO. Type of test: : Xray of neck Date test was performed: 06/25/19 Where was the test performed: [facility] Who ordered this test?: Dr Blue Is the doctor here today?: YES Can the message wait until the doctor returns?: YES IF PATIENT'S PCP IS NOT IN INSTRUCT PATIENT THAT THEY WILL RECEIVE A CALL BACK WHEN THE PCP IS IN THE OFFICE NEXT. documented in this encounter Plan of Treatment Not on file documented as of this encounter Visit Diagnoses Not on filedocumented in this encounter Care Teams Road Machine Runner Relationship Specialty Start Date End Date Alison Andrews MD PCP - General Internal Medicine 04/26/1808/08 Sammy Blue MD [address] [place] [address] PCP - General Internal Medicine 08/09/19 02/12/20 Roxanna Davis DO [address] [place] [address] [place] [address] PCP - General Internal Medicine 02/13/20 03/31/21 Sammy Blue MD [address] [place] [address] PCP - General Internal Medicine 04/01/21 08/10/22 Penny Acosta MD [address] [place] [address] PCP - General Internal Medicine 08/11/22 Gregory Go MD, PHD [address] [place] [address] Surgeon Neurosurgery 09/24/22 Charles Bravo PA-C [address] [place] [address] Specialist Neurosurgery 09/24/22 documented as of this encounter
--- OUTSIDE RECORDS SUMMARY | 2025-08-20 12:42 | XMS_ITS | Encounter Summary ---
Demographics Address [address] [address] [place] [address] Mobile Phone Home Phone Work Phone Email Address Preferred Language Citizen Of [place] Marital Status Mormon Affiliation Unknown Race Unknown Ethnic Group or Author Organization [facility] Address [address] [place] [address] Care Team Providers Care Cognos Developer Name Role Phone Alison Andrews MD Primary Care Provider Un available Sammy Blue MD Primary Care Provider [phone] Roxanna Davis DO Primary Care Pro vider Unavailable Sammy Blue MD Primary Care Provider [phone] Penny Acosta MD Primary Care Prov ider Gregory Go MD, PHD Unavailable Unava Charles Wong PA-C Unavailable Encounter Details Date Type Department Care Team Description 05/27/2018 Appian Bpm Developer Report Medical Records [address] [place] [address] Nirav Carter MD Social History Tobacco Use Types Packs/Day Years [...] on filedocumented in this encounter Care Teams Cognos Developer Relationship Specialty Start Date End Date Alison Andrews MD PCP - General Internal Medicine 04/26/1808/08 Sammy Blue MD [address] [place], [place] [phone] PCP - General Internal Medicine 08/09/19 02/12/20 Roxanna Davis DO [address] [place] [address] PCP - General Internal Medicine 02/13/20 03/31/21 Sammy Blue MD [address] [place] [address] PCP - General Internal Medicine 04/01/21 08/10/22 Penny Acosta MD [address] [place] [address] PCP - General Internal Medicine 08/11/22 Gergory Go MD, PHD [address] [place] [address] Surgeon Neurosurgery 09/24/22 Charles Bravo PA-C [address] [place] [address] Specialist Neurosurgery 09/24/22 documented as of this encounter
--- OUTSIDE RECORDS SUMMARY | 2025-08-20 12:42 | XMS_ITS | Encounter Summary ---
Demographics Address [address] [facility] [address] [place] [address] Mobile Phone Home Phone Work Phone Email Address Preferred Language Gambian Marital Status Buddhist Affiliation Unknown Race Unknown Ethnic Group or Author Organization [facility] Address [address] [place] [address] Care Team Providers Care Finishing Supervisor Plastic Sheets Name Role Phone Sammy Blue MD Primary Care Provider [phone] Penny Acosta MD Primary Care Prov ider Gregory Go MD, PHD Unavailable Unava Charles Wong PA-C Unavailable [phone] Reason for Visit * Reason Comments E-prescribe Rx Request Encounter Details Date Type Department Care Team Description 04/16/2022 Refill Adult Medicine [address] [phone] Sammy Blue MD [address] [place] [id number] E-prescribe Rx Request Social History Tobacco Use [...] encounter Miscellaneous Notes * Telephone Encounter - Judy Qiu - 04/16/2022 3:15 PM EDT Bipin 08/05/21 Ov 07/24/22 * Telephone Encounter - Juanita Galvan - 04/16/2022 3:14 PM EDT Patient would like script to be: E-PRESCRIBED/FAXED TO PHARMACY WHEN WAS THE PATIENT'S LAST APPOINTMENT IN ADULT MEDICINE? 08/05/21 WHEN WAS THE LAST TIME THE PATIENT SAW THEIR PCP? Same as above Does patient have an upcoming appointment? Yes 07/24/22 (THE MEDICATION REQUESTED IS ON THE MED LIST ABOVE) All of the medications requested were on the CURRENT MEDS list Did you check the Pharmacy information above?: YES Patient wants: 90 -day supply Is this a mail order prescription request ? NO If the refill is from a FAXED refill request what is the RX # listed on the fax? N/A Patients current insurance carrier is: Payor: [employer] FFS / Plan: [facility] / Product Type: MEDICAID RISK documented in this encounter Plan of Treatment Not on file documented as of this encounter Visit Diagnoses Not on filedocumented in this encounter Care Teams Finishing Supervisor Plastic Sheets Relationship Specialty Start Date End Date Sammy Blue MD [address] [place] [address] PCP - General Internal Medicine 04/01/21 08/10/22 Penny Acosta MD [address] [place] [address] PCP - General Internal Medicine 08/11/22 Gregory Go MD, PHD [address] [place] [address] Surgeon Neurosurgery 09/24/22 Charles Bravo PA-C [address] [place] [address] Specialist Neurosurgery 09/24/22 documented as of this encounter
--- OUTSIDE RECORDS SUMMARY | 2025-08-20 12:42 | XMS_ITS | Encounter Summary ---
Demographics Address [address] [facility] [address] [place] [address] Mobile Phone Home Phone Work Phone Email Address Preferred Language Australian Marital Status Confucianist Affiliation Unknown Race Unknown Ethnic Group or Author Organization [facility] Address [address] [place] [address] Care Team Providers Care Asbestos Shingle Roofer Name Role Phone Sammy Blue MD Primary Care Provider Penny Acosta MD Primary Care Prov ider Gregory Go MD, PHD Unavailable Unava Charles Wong PA-C Unavailable Encounter Details Date Type Department Care Team Description 06/02/2022 Shirt Ironer Report Medical Records [address] [place] [address] Radha Leyva Social History Tobacco Use Types [...] on filedocumented in this encounter Care Teams Asbestos Shingle Roofer Relationship Specialty Start Date End Date Sammy Blue MD [address] [place] [address] PCP - General Internal Medicine 04/01/21 08/10/22 Penny Acosta MD [address] [place] [address] PCP - General Internal Medicine 08/11/22 Gregory Go MD, PHD [address] [place] [address] Surgeon Neurosurgery 09/24/22 Charles Bravo PA-C [address] [place] [address] Specialist Neurosurgery 09/24/22 documented as of this encounter
--- OUTSIDE RECORDS SUMMARY | 2025-08-20 12:42 | XMS_ITS | Encounter Summary ---
Demographics Address [address] [facility] [address] [place] [address] Mobile Phone Home Phone Work Phone Email Address Preferred Language Moldovan Marital Status Christian Affiliation Unknown Race Unknown Ethnic Group or Author Organization [facility] Address [address] [place] [address] Care Team Providers Care Fur Sewer Name Role Phone Sammy Blue MD Primary Care Provider [phone] Penny Acosta MD Primary Care Prov ider Gregory Go MD, PHD Unavailable Unava Charles Wong PA-C Unavailable [phone] Encounter Details Date Type Department Care Team Description 06/23/2022 Orders Only Medical Records [address] [place] [address] Sammy Blue MD [address] [place], [place] [phone] Social History Tobacco Use Types Packs/Day Years [...] suspected to have Coronavirus/COVID-19? No / Unsure 06/25/2022 3:04 PM EDT documented as of this encounter Plan of Treatment Not on file documented as of this encounter Procedures Procedure Name Priority Date/Time Associated Diagnosis Comments OUTSIDE MAMMO Routine 06/19/2022 documented in this encounter Results * OUTSIDE MAMMO (06/19/2022) Sammy Blue MD RADIOLOGY documented in this encounter Visit Diagnoses Not on filedocumented in this encounter Care Teams Fur Sewer Relationship Specialty Start Date End Date Sammy Blue MD [address] [place] [address] PCP - General Internal Medicine 04/01/21 08/10/22 Penny Acosta MD [address] [place] [address] PCP - General Internal Medicine 08/11/22 Gregory Go MD, PHD [address] [place] [address] Surgeon Neurosurgery 09/24/22 Charles Bravo PA-C [address] [place] [address] Specialist Neurosurgery 09/24/22 documented as of this encounter
--- OUTSIDE RECORDS SUMMARY | 2025-08-20 12:42 | XMS_ITS | Encounter Summary ---
Demographics Address [address] [facility] [address] [place] [address] Mobile Phone Home Phone Work Phone Email Address Preferred Language Tongan Marital Status Spiritism Affiliation Unknown Race Unknown Ethnic Group or Author Organization [facility] Address [address] [place] [address] Care Team Providers Care Grease Monkey Name Role Phone Alison Andrews MD Primary Care Provider Un available Sammy Blue MD Primary Care Provider [phone] Roxanna Davis DO Primary Care Pro vider Unavailable Sammy Blue MD Primary Care Provider [phone] Penny Acosta MD Primary Care Prov ider Gregory Go MD, PHD Unavailable Unava Charles Wong PA-C Unavailable [phone] Encounter Details Date Type Department Care Team Description 07/29/2018 Wire Bound Box Machine Helper Report Medical Records [address] [place] [address] Grayson Sunshine Social History Tobacco Use Types Packs/Day Years [...] on filedocumented in this encounter Care Teams Grease Monkey Relationship Specialty Start Date End Date Alison Andrews MD PCP - General Internal Medicine 04/26/1808/08 Sammy Blue MD [address] [place] [address] PCP - General Internal Medicine 08/09/19 02/12/20 Rxoanna Davis DO [address] [place] [address] PCP - General Internal Medicine 02/13/20 03/31/21 Sammy Blue MD [address] [place] [address] PCP - General Internal Medicine 04/01/21 08/10/22 Penny Acosta MD [address] [place] [address] PCP - General Internal Medicine 08/11/22 Gregory Go MD, PHD [address] [place] [address] Surgeon Neurosurgery 09/24/22 Charles Bravo PA-C [address] [place] [address] Specialist Neurosurgery 09/24/22 documented as of this encounter
--- OUTSIDE RECORDS SUMMARY | 2025-08-20 12:43 | XMS_ITS | Encounter Summary ---
Demographics Address [address] [facility] [address] [place] [address] Mobile Phone Home Phone Work Phone Email Address Preferred Language Guatemalan Marital Status Episcopalian Affiliation Unknown Race Unknown Ethnic Group or Author Organization [facility] Address [address] [place] [address] Care Team Providers Care Manufacturing Mechanic Name Role Phone Penny Acosta MD Primary Care Prov ider Gregory Go MD, PHD Unavailable Unava Charles Wong PA-C Unavailable [phone] Encounter Details Date Type Department Care Team Description 07/13/2023 Orders Only Medical Records [address] [place] [address] Abstract, Provider Social History Tobacco Use Types Packs/Day Years [...] Date/Time Associated Diagnosis Comments OUTSIDE MAMMO Routine 06/25/2023 documented in this encounter Results * OUTSIDE MAMMO (06/25/2023) Sammy Blue MD RADIOLOGY documented in this encounter Visit Diagnoses Not on filedocumented in this encounter Care Teams Manufacturing Mechanic Relationship Specialty Start Date End Date Penny Acosta MD [address] [place] [address] PCP - General Internal Medicine 08/11/22 Gregory Go MD, PHD [address] [place] [address] Surgeon Neurosurgery 09/24/22 Charles Bravo PA-C [address] [place] [address] Specialist Neurosurgery 09/24/22 documented as of this encounter
--- OUTSIDE RECORDS SUMMARY | 2025-08-20 12:43 | XMS_ITS | Encounter Summary ---
Demographics Address [address] [facility] [address] [place] [address] Mobile Phone Home Phone Work Phone Email Address Preferred Language Burmese Marital Status Christianity Affiliation Unknown Race Unknown Ethnic Group or Author Organization [facility] Address [address] [place] [address] Care Team Providers Care Adjuster Electrical Contacts Name Role Phone Alison Andrews MD Primary Care Provider Un available Sammy Blue MD Primary Care Provider [phone] Roxanna Davis DO Primary Care Pro vider Unavailable Sammy Blue MD Primary Care Provider [phone] Penny Acosta MD Primary Care Prov ider Gregory Go MD, PHD Unavailable Unava Charles Wong PA-C Unavailable [phone] Encounter Details Date Type Department Care Team Description 07/14/2019 Old Medical Records Medical Records [address] [place] [address] Abstract, Provider Social History Tobacco Use Types [...] on filedocumented in this encounter Care Teams Adjuster Electrical Contacts Relationship Specialty Start Date End Date Alison Andrews MD PCP - General Internal Medicine 04/26/1808/08 Sammy Blue MD [address] [place] [address] PCP - General Internal Medicine 08/09/19 02/12/20 Roxanna Davis DO [address] [place] [address] PCP - General Internal Medicine 02/13/20 03/31/21 Sammy Blue MD [address] [place] [address] PCP - General Internal Medicine 04/01/21 08/10/22 Penny Acosta MD [address] [place] [address] PCP - General Internal Medicine 08/11/22 Gregory Go MD, PHD [address] [place] [address] Surgeon Neurosurgery 09/24/22 Charles Bravo PA-C [address] [place] [address] [place] [address] Specialist Neurosurgery 09/24/22 documented as of this encounter
--- OUTSIDE RECORDS SUMMARY | 2025-08-20 12:43 | XMS_ITS | Patient Health Record ---
Demographics Address [address] [facility] [address] [place] [address] Preferred Language Unknown Marital Status unmarried Gnosticism Affiliation Unknown Race Unknown Ethnic Group Unknown Author Organization [facility] Address [address] [place] [address] Care Team Providers Care Desulphuring Operator Name Role Phone Jerman Mcelroy Unavailable [phone] Reason For Referral No Information Plan Of Treatment No Information
--- OUTSIDE RECORDS SUMMARY | 2025-08-20 12:43 | XMS_ITS | Encounter Summary ---
Demographics Address [address] [facility] [facility] [address] [place] [address] Mobile Phone Home Phone Work Phone Email Address Preferred Language Kosovan Marital Status Amish Affiliation Unknown Race Unknown Ethnic Group or Author Organization [facility] Address [address] [place] [address] Care Team Providers Care Blood Bank Calendar Control Clerk Name Role Phone Roxanna Davis DO Primary Care Pro vider Unavailable Sammy Blue MD Primary Care Provider [phone] Penny Acosta MD Primary Care Prov ider Gregory Go MD, PHD Unavailable Unava Charles Wong PA-C Unavailable [phone] Reason for Visit * Reason Comments E-prescribe Rx Request Encounter Details Date Type Department Care Team Description 04/27/2020 Refill Adult Medicine [address] [address] Ivette Reed PA-C E-prescribe Rx Request Social History Tobacco [...] encounter Miscellaneous Notes * Telephone Encounter - Lily Qiu - 04/29/2020 1:25 PM EDT Last office visit: 03.12.20 Lab Results Component Value Date NA 141 03/22/2020 K 3.4 03/22/2020 CO2 29 03/22/2020 CL 105 03/22/2020 BUN 18 03/22/2020 CREAT 0.75 03/22/2020 GLU 107 03/22/2020 CA 9.8 03/22/2020 GFR > 60 03/22/2020 * Telephone Encounter - Lory Galvan - 04/29/2020 9:42 AM EDT Patient would like script to be: E-PRESCRIBED/FAXED TO PHARMACY WHEN WAS THE PATIENT'S LAST APPOINTMENT IN ADULT MEDICINE? 03/12/20 WHEN WAS THE LAST TIME THE PATIENT SAW THEIR PCP? 01/09/20 Does patient have an upcoming appointment? Yes 06/18/20 (THE MEDICATION REQUESTED IS ON THE MED [...] N/A Patients current insurance carrier is: Payor: [employer] FFS / Plan: [employer] / Product Type: MEDICAID RISK documented in this encounter Plan of Treatment Not on file documented as of this encounter Visit Diagnoses Not on filedocumented in this encounter Care Teams Blood Bank Calendar Control Clerk Relationship Specialty Start Date End Date Roxanna Davis DO PCP - General Internal Medicine 02/13/20 03/31/21 Sammy Blue MD [address] [place] [address] PCP - General Internal Medicine 04/01/21 08/10/22 Penny Acosta MD [address] [place] [address] PCP - General Internal Medicine 08/11/22 Gregory Go MD, PHD [address] [place] [address] Surgeon Neurosurgery 09/24/22 Charles Bravo PA-C [address] [place] [address] Specialist Neurosurgery 09/24/22 documented as of this encounter
--- OUTSIDE RECORDS SUMMARY | 2025-08-20 12:43 | XMS_ITS | Encounter Summary ---
Demographics Address [address] [facility] [address] [place] [address] Mobile Phone Home Phone Work Phone Email Address Preferred Language Djiboutian Marital Status Church Affiliation Unknown Race Unknown Ethnic Group or Author Organization [facility] Address [address] [place] [address] Care Team Providers Care Linen Keeper Name Role Phone Penny Acosta MD Primary Care Prov ider Gregory Go MD, PHD Unavailable Unava Charles Wong PA-C Unavailable [phone] Encounter Details Date Type Department Care Team Description 01/13/2024 Botany Professor Report Medical Records [address] [place] [address] Onel Cardenas MD Social History Tobacco Use Types Packs/Day [...] on filedocumented in this encounter Care Teams Linen Keeper Relationship Specialty Start Date End Date Penny Acosta MD [address] [place], [place] [address] PCP - General Internal Medicine 08/11/22 Gregory Go MD, PHD [address] [place] [address] Surgeon Neurosurgery 09/24/22 Charles Bravo PA-C [address] [place] [address] Specialist Neurosurgery 09/24/22 documented as of this encounter
--- OUTSIDE RECORDS SUMMARY | 2025-08-20 12:43 | XMS_ITS | Encounter Summary ---
Demographics Address [address] [facility] [address] [place] [address] Mobile Phone Home Phone Work Phone Email Address Preferred Language Stateless Marital Status Cheondoism Affiliation Unknown Race Unknown Ethnic Group or Author Organization [facility] Address [address] [place] [address] Care Team Providers Care Accountant Auditor Name Role Phone Penny Acosta MD Primary Care Prov ider Gregory Go MD, PHD Unavailable Unava Charles Wong PA-C Unavailable [phone] Reason for Visit * Reason Comments E-prescribe Rx Request Encounter Details Date Type Department Care Team Description 09/29/2022 Refill Adult Medicine [address] [address] Monica Martinez PA-C E-prescribe Rx Request Social History Tobacco [...] suspected to have Coronavirus/COVID-19? No / Unsure 09/25/2022 9:35 AM EST documented as of this encounter Miscellaneous Notes * Telephone Encounter - Francisco Yang M.A. - 09/29/2022 2:52 PM EST Lab Results Component Value Date NA 138 08/28/2022 K 4.1 08/28/2022 CO2 30 08/28/2022 CL 103 08/28/2022 BUN 19 08/28/2022 CREAT 0.75 08/28/2022 GLU 110 08/28/2022 CA 9.4 08/28/2022 GFR 94 08/28/2022 ZHOU w/Gayle Becerril 08/11/2022 ZHOU w/PCP not on file Next OV w/PCP 02/09/2023 documented in this encounter Plan of Treatment Not on file documented as of this encounter Visit Diagnoses Not on filedocumented in this encounter Care Teams Accountant Auditor Relationship Specialty Start Date End Date Penny Acosta MD [address] [place] [address] PCP - General Internal Medicine 08/11/22 Gregory Go MD, PHD [address] [place] [address] Surgeon Neurosurgery 09/24/22 Charles Bravo PA-C [address] [facility] [address] [place] [address] Specialist Neurosurgery 09/24/22 documented as of this encounter
--- OUTSIDE RECORDS SUMMARY | 2025-08-20 12:43 | XMS_ITS | Encounter Summary ---
Demographics Address [address] [facility] [address] [place] [address] Mobile Phone Home Phone Work Phone Email Address Preferred Language Mauritanian Marital Status Rastafarian Affiliation Unknown Race Unknown Ethnic Group or Author Organization [facility] Address [address] [place] [address] Care Team Providers Care Environmental Specialist Name Role Phone Penny Acosta MD Primary Care Prov ider Gregory Go MD, PHD Unavailable Unava Charles Wong PA-C Unavailable [phone] Encounter Details Date Type Department Care Team Description 05/20/2023 Telephone Adult Medicine [facility] [address] [place] [address] Penny Acosta MD [address] [place], [place] [id number] Social History Tobacco Use Types Packs/Day Years [...] on filedocumented in this encounter Care Teams Environmental Specialist Relationship Specialty Start Date End Date Penny Acosta MD [address] [place] [address] PCP - General Internal Medicine 08/11/22 Gregory Go MD, PHD [address] [place] [address] Surgeon Neurosurgery 09/24/22 Charles Bravo PA-C [address] [place] [address] Specialist Neurosurgery 09/24/22 documented as of this encounter
--- OUTSIDE RECORDS SUMMARY | 2025-08-20 12:43 | XMS_ITS | Encounter Summary ---
Demographics Address [address] [facility] [place] [facility] [address] [place] [address] Mobile Phone Home Phone Work Phone Email Address Preferred Language Danish Marital Status Taoism Affiliation Unknown Race Unknown Ethnic Group or Author Organization [facility] Address [address] [place] [address] Care Team Providers Care Bullet Lubricating Machine Operator Name Role Phone Penny Acosta MD Primary Care Prov ider Gregory Go MD, PHD Unavailable Unava Charles Wong PA-C Unavailable [phone] Reason for Visit * Reason Onset Date Comments TEST RESULTS 09/04/2022 Encounter Details Date Type Department Care Team Description 09/04/2022 Pt. Non Urgent Medical Question Adult Medicine [facility] [address] [place] [address] Gayle Becerril PA-C [address] [place] [address] [id number] Social History Tobacco Use Types Packs/Day Years [...] suspected to have Coronavirus/COVID-19? No / Unsure 08/28/2022 8:05 AM EST documented as of this encounter Miscellaneous Notes * Telephone Encounter - Jeanine Boykin M.A. - 09/04/2022 11:42 AM ESTFrom: Darcy Vides To: Eduardo Becerril Sent: 09/04/2022 11:37 AM EST Subject: Cholesterol Med Good morning, This is Juanita Vides, daughter of Darcy Vides. I created this portal profile due to the fact that it is nearly impossible to reach the office and hold times are extremely unreasonable for things as simple as Rx refills. We ask that if in the future there are any abnormal results my motheris guille saravia by a Danish speaking staff member or translator and interpreter who can assist. She is not tech savvy and was only aware she had abnormal results because of a letter she just received. As noted in her lipid panel, you are wondering why she is no longer on cholesterol treating meds. Idiscussed this with her and she states she was told after previous lipid profile that her cholesterol levels were good and she no longer needed to continue her statin. If you feel otherwise she will need a new [place] [address]. If you have any further questions or concerns she can be reached at [phone]. If you do not have a Danish speakingperson available I can be reached at [phone]. Thank you. documented in this encounter Plan of Treatment Not on file documented as of this encounter Visit Diagnoses Not on filedocumented in this encounter Care Teams Bullet Lubricating Machine Operator Relationship Specialty Start Date End Date Penny Acosta MD [address] [place] [address] PCP - General Internal Medicine 08/11/22 Gregory Go MD, PHD [address] [place] [address] Surgeon Neurosurgery 09/24/22 Charles Bravo PA-C [address] [facility] [address] [place], [place] [address] Specialist Neurosurgery 09/24/22 documented as of this encounter
--- OUTSIDE RECORDS SUMMARY | 2025-08-20 12:43 | XMS_ITS | Encounter Summary ---
Demographics Address [address] [facility] [address] [place] [address] Mobile Phone Home Phone Work Phone Email Address Preferred Language Taiwanese Marital Status Scientologist Affiliation Unknown Race Unknown Ethnic Group or Author Organization [facility] Address [address] [place] [address] Care Team Providers Care Gumming Machine Operator Name Role Phone Sammy Blue MD Primary Care Provider [phone] Roxanna Davis DO Primary Care Pro vider Unavailable Sammy Blue MD Primary Care Provider [phone] Penny Acosta MD Primary Care Prov ider Gregory Go MD, PHD Unavailable Unava Charles Wong PA-C Unavailable [phone] Encounter Details Date Type Department Care Team Description 09/19/2019 Release of Information Medical Records [address] [place] [address] Abstract, Provider Social History Tobacco Use Types [...] on filedocumented in this encounter Care Teams Gumming Machine Operator Relationship Specialty Start Date End Date Sammy Blue MD [address] [place] [address] PCP - General Internal Medicine 08/09/19 02/12/20 Roxanna Davis DO [address] [place], [place] [phone] PCP - General Internal Medicine 02/13/20 03/31/21 Sammy Blue MD [address] [place] [address] PCP - General Internal Medicine 04/01/21 08/10/22 Penny Acosta MD [address] [place], [place] [address] PCP - General Internal Medicine 08/11/22 Gregory Go MD, PHD [address] [place], [place] [phone] Surgeon Neurosurgery 09/24/22 Charles Bravo PA-C [address] [place] [address] Specialist Neurosurgery 09/24/22 documented as of this encounter
--- OUTSIDE RECORDS SUMMARY | 2025-08-20 12:43 | XMS_ITS | Encounter Summary ---
Demographics Address [address] [facility] [address] [place] [address] Mobile Phone Home Phone Work Phone Email Address Preferred Language Hong Konger Marital Status Adventist Affiliation Unknown Race Unknown Ethnic Group or Author Organization [facility] Address [address] [place] [address] Care Team Providers Care Quality Assurance Intern Name Role Phone Penny Acosta MD Primary Care Prov ider Gregory Go MD, PHD Unavailable Unava Charles Wong PA-C Unavailable [phone] Encounter Details Date Type Department Care Team Description 09/25/2022 [facility] Medical [facility] Neurosurgery [place] [address] [place] [address] Gregory Go MD, PHD Social History Tobacco Use Types Packs/Day Years [...] AM EST documented as of this encounter Plan of Treatment Not on file documented as of this encounter Visit Diagnoses Not on filedocumented in this encounter Care Teams Quality Assurance Intern Relationship Specialty Start Date End Date Penny Acosta MD [address] [place] [address] PCP - General Internal Medicine 08/11/22 Gregory Go MD, PHD [address] [place] [address] Surgeon Neurosurgery 09/24/22 Charles Bravo PA-C [address] [place] [address] Specialist Neurosurgery 09/24/22 documented as of this encounter
--- OUTSIDE RECORDS SUMMARY | 2025-08-20 12:43 | XMS_ITS | Encounter Summary ---
Demographics Address [address] [facility] [address] [place] [address] Mobile Phone Home Phone Work Phone Email Address Preferred Language Iranian Marital Status Restorationist Affiliation Unknown Race Unknown Ethnic Group or Author Organization [facility] Address [address] [place] [address] Care Team Providers Care Seafood Fisherman Name Role Phone Roxanna Davis DO Primary Care Pro vider Unavailable Alison Andrews MD Primary Care Provider Un available Sammy Blue MD Primary Care Provider [phone] Roxanna Davis DO Primary Care Pro vider Unavailable Sammy Bleu MD Primary Care Provider Penny Acosta MD Primary Care Prov ider Gregory Go MD, PHD Unavailable Unava Charles Wong PA-C Unavailable [phone] Encounter Details Date Type Department Care Team Description 05/14/2017 Hospital Medical Records [address] [place] [address] Georige Carpenter MD Social History Tobacco Use Types Packs/Day [...] on filedocumented in this encounter Care Teams Seafood Fisherman Relationship Specialty Start Date End Date Roxanna Davis DO PCP - General Internal Medicine 03/05/15 04/25/18 Alison Andrews MD PCP - General Internal Medicine 04/26/1808/08 Sammy Blue MD [address] [place] [address] PCP - General Internal Medicine 08/09/19 02/12/20 Roxanna Davis DO PCP - General Internal Medicine 02/13/20 03/31/21 Sammy Blue MD [address] [place] [address] PCP - General Internal Medicine 04/01/21 08/10/22 Penny Acosta MD [address] [place] [address] PCP - General Internal Medicine 08/11/22 Gregory Go MD, PHD [address] [place] [address] Surgeon Neurosurgery 09/24/22 Charles Bravo PA-C [address] [place] [address] Specialist Neurosurgery 09/24/22 documented as of this encounter
--- OUTSIDE RECORDS SUMMARY | 2025-08-20 12:43 | XMS_ITS | Encounter Summary ---
Demographics Address [address] [facility] [address] [place] [address] Mobile Phone Home Phone Work Phone Email Address Preferred Language Tristanian Marital Status Faith Affiliation Unknown Race Unknown Ethnic Group or Author Organization [facility] Address [address] [place] [address] Care Team Providers Care Car Icer Name Role Phone Alison Andrews MD Primary Care Provider Un available Sammy Blue MD Primary Care Provider [phone] Roxanna Davis DO Primary Care Pro vider Unavailable Sammy Blue MD Primary Care Provider [phone] Penny Acosta MD Primary Care Prov ider Gregory Go MD, PHD Unavailable Unava Charles Wong PA-C Unavailable [phone] Reason for Visit * Reason Comments E-prescribe Rx Request Encounter Details Date Type Department Care Team Description 01/05/2019 Refill Adult Medicine [address] [address] Alison Andrews MD E-prescribe Rx Request Social History Tobacco Use [...] encounter Miscellaneous Notes * Telephone Encounter - Mariela Garcia C.M.A. - 01/05/2019 4:08 PM EDT Message left for patient to return my call. Overdue for visit, 7 days supply pending for approval. * Telephone Encounter - Tania Gutiérrez - 01/05/2019 9:57 AM EDT Patient would like script to be: E-PRESCRIBED/FAXED TO PHARMACY WHEN WAS THE PATIENT'S LAST APPOINTMENT IN ADULT MEDICINE? 06/21/2018 WHEN WAS THE LAST TIME THE PATIENT SAW THEIR PCP? 04/07/2018 Does patient have an upcoming appointment? No-unable to reach left voicemaill to call for appointment due to refill request. Appt due next available (THE MEDICATION REQUESTED IS ON THE MED [...] N/A Patients current insurance carrier is: [facility] / Plan: [employer] / Product Type: MEDICAID RISK documented in this encounter Plan of Treatment Not on file documented as of this encounter Visit Diagnoses Not on filedocumented in this encounter Care Teams Car Icer Relationship Specialty Start Date End Date Alison Andrews MD PCP - General Internal Medicine 04/26/1808/08 Sammy Blue MD [address] [place] [address] PCP - General Internal Medicine 08/09/19 02/12/20 Roxanna Davis DO [address] [place] [address] PCP - General Internal Medicine 02/13/20 03/31/21 Sammy Blue MD [address] [place] [address] PCP - General Internal Medicine 04/01/21 08/10/22 Penny Acosta MD [address] [place] [address] PCP - General Internal Medicine 08/11/22 Gregory Go MD, PHD [address] [place] [address] Surgeon Neurosurgery 09/24/22 Charles Bravo PA-C [address] [place] [address] Specialist Neurosurgery 09/24/22 documented as of this encounter
--- OUTSIDE RECORDS SUMMARY | 2025-08-20 12:43 | XMS_ITS | Encounter Summary ---
Demographics Address [address] [facility] [address] [place] [address] Mobile Phone Home Phone Work Phone Email Address Preferred Language Chadian Marital Status Scientologist Affiliation Unknown Race Unknown Ethnic Group or Author Organization [facility] Address [address] [place] [address] Care Team Providers Care Deburrer Machine Name Role Phone Roxanna Davis DO Primary Care Pro vider Unavailable Sammy Blue MD Primary Care Provider [phone] Penny Acosta MD Primary Care Prov ider Gregory Go MD, PHD Unavailable Unava Charles Wong PA-C Unavailable [phone] Encounter Details Date Type Department Care Team Description 05/16/2020 Structural Engineering Drafting Officer Report Medical Records [address] [place] [address] Nirav Carter MD Social History Tobacco Use [...] on filedocumented in this encounter Care Teams Deburrer Machine Relationship Specialty Start Date End Date Roxanna Davis DO PCP - General Internal Medicine 02/13/20 03/31/21 Sammy Blue MD [address] [place] [address] PCP - General Internal Medicine 04/01/21 08/10/22 Penny Acosta MD [address] [place] [address] PCP - General Internal Medicine 08/11/22 Gregory Go MD, PHD [address] [place] [address] Surgeon Neurosurgery 09/24/22 Charles Bravo PA-C [address] [place] [address] Specialist Neurosurgery 09/24/22 documented as of this encounter
--- OUTSIDE RECORDS SUMMARY | 2025-08-20 12:43 | XMS_ITS | Encounter Summary ---
Demographics Address [address] [facility] [address] [place] [address] Mobile Phone Home Phone Work Phone Email Address Preferred Language Bermudian Marital Status Islam Affiliation Unknown Race Unknown Ethnic Group or Author Organization [facility] Address [address] [place] [address] Care Team Providers Care Physician Vice President Name Role Phone Roxanna Davis DO Primary Care Pro vider Unavailable Alison Andrews MD Primary Care Provider Un available Sammy Blue MD Primary Care Provider [phone] Roxanna Davis DO Primary Care Pro vider Unavailable Sammy Blue MD Primary Care Provider [phone] Penny Acosta MD Primary Care Prov ider Gregory Go MD, PHD Unavailable Unava Charles Wong PA-C Unavailable [phone] Encounter Details Date Type Department Care Team Description 05/06/2016 Child Abuse Worker Report Medical Records [address] [place] [address] Jerman Villeda MD Social History Tobacco Use Types Packs/Day [...] on filedocumented in this encounter Care Teams Physician Vice President Relationship Specialty Start Date End Date Roxanna Davis DO PCP - General Internal Medicine 03/05/15 04/25/18 Alison Andrews MD PCP - General Internal Medicine 04/26/1808/08 Sammy Blue MD [address] [place] [address] PCP - General Internal Medicine 08/09/19 02/12/20 Roxanna Davis DO PCP - General Internal Medicine 02/13/20 03/31/21 Sammy Blue MD [address] [place] [phone] PCP - General Internal Medicine 04/01/21 08/10/22 Penny Acosta MD [address] [place] [address] PCP - General Internal Medicine 08/11/22 Gregory Go MD, PHD [address] [place] [address] Surgeon Neurosurgery 09/24/22 Charles Bravo PA-C [address] [place] [address] Specialist Neurosurgery 09/24/22 documented as of this encounter
--- OUTSIDE RECORDS SUMMARY | 2025-08-20 12:43 | XMS_ITS | Encounter Summary ---
Demographics Address [address] [facility] [address] [place] [address] Mobile Phone Home Phone Work Phone Email Address Preferred Language Rwandan Marital Status Religion Affiliation Unknown Race Unknown Ethnic Group or Author Organization [facility] Address [address] [place] [address] Care Team Providers Care Program Rep Name Role Phone Penny Acosta MD Primary Care Prov ider Gregory Go MD, PHD Unavailable Unava Charles Wong PA-C Unavailable [phone] Encounter Details Date Type Department Care Team Description 08/21/2022 [facility] FORMS Medical Records [address] [place] [address] Abstract, Provider Social History Tobacco Use Types [...] on filedocumented in this encounter Care Teams Program Rep Relationship Specialty Start Date End Date Penny Acosta MD [address] [place] [address] PCP - General Internal Medicine 08/11/22 Gregory Go MD, PHD [address] [place] [address] Surgeon Neurosurgery 09/24/22 Charles Bravo PA-C [address] [place] [address] Specialist Neurosurgery 09/24/22 documented as of this encounter
--- OUTSIDE RECORDS SUMMARY | 2025-08-20 12:43 | XMS_ITS | Encounter Summary ---
Demographics Address [address] [place] [address] Mobile Phone Home Phone Work Phone Email Address Preferred Language Lao Marital Status Yazidism Affiliation Unknown Race Unknown Ethnic Group or Author Organization [facility] Address [address] [place] [address] Care Team Providers Care Pharmacy Director Name Role Phone Penny Acosta MD Primary Care Prov ider Gregory Go MD, PHD Unavailable Unava Charles Wong PA-C Unavailable [phone] Reason for Visit * Reason Onset Date Comments refill request 10/01/2022 Encounter Details Date Type Department Care Team Description 10/01/2022 Telephone Adult Medicine [facility] [address] [place] [address] Penny Acosta MD [address] [place] [address] refill request Social History Tobacco Use Types Packs/Day Years [...] Recorded In the last 10 days, have maggie montana been in contact with someone who was confirmed or suspected to have Coronavirus/COVID-19? No / Unsure 09/25/2022 9:35 AM EST documented as of this encounter Miscellaneous Notes * Telephone Encounter - Ansley Shore M.A. - 10/01/2022 3:16 PM EST Refused already sent * Telephone Encounter - Lynsey Arthur - 10/01/2022 11:58 AM EST Patient would like script to be: E-PRESCRIBED/FAXED TO PHARMACY WHEN WAS THE PATIENT'S LAST APPOINTMENT IN ADULT MEDICINE? 08/11/22 WHEN WAS THE LAST TIME THE PATIENT SAW THEIR PCP? Does patient have an upcoming appointment? Yes 02/09/23 (THE MEDICATION REQUESTED IS ON THE MED [...] N/A Patients current insurance carrier is: Payor: [facility] FFS / Plan: [facility] / Product Type: MEDICAID RISK documented in this encounter Plan of Treatment Not on file documented as of this encounter Visit Diagnoses Not on filedocumented in this encounter Care Teams Pharmacy Director Relationship Specialty Start Date End Date Penny Acosta MD [address] [place] [address] PCP - General Internal Medicine 08/11/22 Gregory Go MD, PHD [address] [place] [address] Surgeon Neurosurgery 09/24/22 Charles Bravo PA-C [address] [place] [address] Specialist Neurosurgery 09/24/22 documented as of this encounter
--- OUTSIDE RECORDS SUMMARY | 2025-08-20 12:43 | XMS_ITS | Encounter Summary ---
Demographics Address [address] [facility] [address] [address] [place] [address] Mobile Phone Home Phone Work Phone Email Address Preferred Language Pitcairn Islander Marital Status Congregation Affiliation Unknown Race Unknown Ethnic Group or Author Organization [facility] Address [address] [place] [address] Care Team Providers Care Smoke Tester Name Role Phone Penny Acosta MD Primary Care Prov ider Gregory Go MD, PHD Unavailable Unava Charles Wong PA-C Unavailable [phone] Encounter Details Date Type Department Care Team Description 11/11/2023 Rhia Report Medical Records [address] [place] [address] Radha Leyva Social History Tobacco Use Types [...] on filedocumented in this encounter Care Teams Smoke Tester Relationship Specialty Start Date End Date Penny Acosta MD [address] [place], [place] [id number] PCP - General Internal Medicine 08/11/22 Gregory Go MD, PHD [address] [place] [address] Surgeon Neurosurgery 09/24/22 Charles Bravo PA-C [address] [place] [address] Specialist Neurosurgery 09/24/22 documented as of this encounter
--- OUTSIDE RECORDS SUMMARY | 2025-08-20 12:43 | XMS_ITS | Encounter Summary ---
Demographics Address [address] [address] [place] [address] Mobile Phone Home Phone Work Phone Email Address Preferred Language Malagasy Marital Status Gnosticist Affiliation Unknown Race Unknown Ethnic Group or Author Organization [facility] Address [address] [place] [address] Care Team Providers Care Vice Provost Name Role Phone Roxanna Davis DO Primary Care Pro vider Unavailable Alison Andrews MD Primary Care Provider Un available Sammy Blue MD Primary Care Provider [phone] Roxanna Davis DO Primary Care Pro vider Unavailable Sammy Blue MD Primary Care Provider [phone] Penny Acosta MD Primary Care Prov ider Gregory Go MD, PHD Unavailable Unava Charles Wong PA-C Unavailable [phone] Encounter Details Date Type Department Care Team Description 05/21/2017 Hospital Medical Records [address] [place] [address] Social History Tobacco Use Types Packs/Day Years [...] on filedocumented in this encounter Care Teams Vice Provost Relationship Specialty Start Date End Date Roxanna Davis DO PCP - General Internal Medicine 03/05/15 04/25/18 Alison Andrews MD PCP - General Internal Medicine 04/26/1808/08 Sammy Blue MD [address] [place] [address] PCP - General Internal Medicine 08/09/19 02/12/20 Roxanna Davis DO PCP - General Internal Medicine 02/13/20 03/31/21 Sammy Blue MD [address] [place] [address] PCP - General Internal Medicine 04/01/21 08/10/22 Penny Acosta MD [address] [place] [address] PCP - General Internal Medicine 08/11/22 Gregory Go MD, PHD [address] [place] [address] Surgeon Neurosurgery 09/24/22 Chrales Bravo PA-C [address] [place] [address] Specialist Neurosurgery 09/24/22 documented as of this encounter
--- OUTSIDE RECORDS SUMMARY | 2025-08-20 12:44 | XMS_ITS | Encounter Summary ---
Demographics Address [address] [facility] [address] [place] [address] Mobile Phone Home Phone Work Phone Email Address Preferred Language Citizen Of [place] Marital Status Restorationist Affiliation Unknown Race Unknown Ethnic Group or Author Organization [facility] Address [address] [place] [address] Care Team Providers Care Audiometrist Name Role Phone Roxanna Davis DO Primary Care Pro vider Unavailable Sammy Blue MD Primary Care Provider [phone] Penny Acosta MD Primary Care Prov ider Gregory Go MD, PHD Unavailable Unava Charles Wong PA-C Unavailable [phone] Reason for Visit * Reason Onset Date Comments Prior Authorization 01/09/2021 Encounter Details Date Type Department Care Team Description 01/09/2021 Telephone [facility] - [address] [address] Mohsen Meng MD Prior Authorization Social History Tobacco Use Types Packs/Day Years Used Date Smoking Tobacco: Never Smokeless Tobacco: Never Alcohol Use Standard Drinks/Week Comments No 0 (1 standard drink = 0.6 oz pur e alcohol) Sex Assigned at Date Recorded Female 09/04/2022 12:03 PM EST Job Start Date Occupation Industry Not on file Not on file Not on file COVID-19 Exposure Response Date Recorded In the last month, have you been in contact with someone who was confirmed or suspected to have Coronavirus / COVID-19? No / Unsure 01/09/2021 10:02 AM EDT documented as of this encounter Miscellaneous Notes * Telephone Encounter - Fariba Brandon L.P.N. - 02/06/2021 9:37 AM EDT Patient has been called, she has not received the medication as of yet and does not know what to do, informed her to call the pharmacy for Humira, phone number given so she can set up delivery I Called [facility] specialty pharmacy- they have tried to reach pt x 3 Requested they call her now since she is at home and a nigerien speaking senior mainframe developer would be helpful hr representative agreed and will have someone call her Message to Dr Meng * Telephone Encounter - Mohsen Meng MD - 02/06/2021 7:35 AM EDT Abida, please call patient [phone] (home) [phone] (work) Did she get the Humira yet? Dr. Meng * Telephone Encounter - Mohsen Meng MD - 02/05/2021 9:07 PM EDT Do we have confirmation she received the Humira yet? Does she need a teaching session? Mohsen Meng MD * Telephone Encounter - Fariba Brandon L.P.N. - 01/28/2021 2:41 PM EDT Spoke with patient, she has not received Humira from [facility] was told it was Refused Spoke with rep from [facility], Humira is approved, cost is $320.00 but is waived due to [facility] They cannot reach patient, confirmed phone number, they will have nigerien speaking hr representative call her to set up delivery I called pt back, explained all mentioned She will call me when she receives it / prn * Telephone Encounter - Fariba Roma Veloz - 01/09/2021 11:30 AM EDT Patient was seen today by Dr Meng She states she has not heard from [facility]acy for her Humira injections [facility] was notified , they were unable to contact pt, they suggested she call them to set up delivery Patient notified to call with phone number given She will call prn fyi to Dr Meng documented in this encounter Plan of Treatment Not on file documented as of this encounter Visit Diagnoses Not on filedocumented in this encounter Care Teams Audiometrist Relationship Specialty Start Date End Date Roxanna Davis DO PCP - General Internal Medicine 02/13/20 03/31/21 Sammy Blue MD [address] [place] [address] PCP - General Internal Medicine 04/01/21 08/10/22 Penny Acosta MD [address] [place] [address] PCP - General Internal Medicine 08/11/22 Gregory Go MD, PHD [address] [place] [address] Surgeon Neurosurgery 09/24/22 Charles Bravo PA-C [address] [place] [address] [place] [address] Specialist Neurosurgery 09/24/22 documented as of this encounter
--- OUTSIDE RECORDS SUMMARY | 2025-08-20 12:44 | XMS_ITS | Encounter Summary ---
Demographics Address [address] [facility] [address] [address] [place] [address] Mobile Phone Home Phone Work Phone Email Address Preferred Language Uzbek Marital Status Congregation Affiliation Unknown Race Unknown Ethnic Group or Author Organization [facility] Address [address] [place] [address] Care Team Providers Care Crayon Sorting Machine Feeder Name Role Phone Sammy Blue MD Primary Care Provider [phone] Penny Acosta MD Primary Care Prov ider Gregory Go MD, PHD Unavailable Unava Charles Wong PA-C Unavailable [phone] Reason for Visit * Reason Comments E-prescribe Rx Request Encounter Details Date Type Department Care Team Description 07/18/2021 Refill Adult Medicine [address] [phone] Sammy Blue MD [address] [place] [address] [phone] E-prescribe Rx Request Social History Tobacco Use [...] Telephone Encounter - Tiffany Batista M.A. - 07/18/2021 3:18 PM EDT Rx to pharmacy. vf * Telephone Encounter - Shaye Nassar M.A. - 07/18/2021 1:32 PM EDT Lab Results Component Value Date NA 141 03/22/2020 K 3.4 03/22/2020 CO2 29 03/22/2020 CL 105 03/22/2020 BUN 18 03/22/2020 CREAT 0.75 03/22/2020 GLU 107 03/22/2020 CA 9.8 03/22/2020 GFR > 60 03/22/2020 * Telephone Encounter - Aydin Payne - 07/18/2021 1:27 PM EDT Patient would like script to be: E-PRESCRIBED/FAXED TO PHARMACY WHEN WAS THE PATIENT'S LAST APPOINTMENT IN ADULT MEDICINE? 12/31/2020 WHEN WAS THE LAST TIME THE PATIENT SAW THEIR PCP? Not seen by new PCP Does patient have an upcoming appointment? Yes 08/05/2021 (THE MEDICATION REQUESTED IS ON THE MED [...] N/A Patients current insurance carrier is: Payor: [employer] FFS / Plan: [employer] / Product Type: MEDICAID RISK documented in this encounter Plan of Treatment Not on file documented as of this encounter Visit Diagnoses Not on filedocumented in this encounter Care Teams Crayon Sorting Machine Feeder Relationship Specialty Start Date End Date Sammy Blue MD [address] [place] [address] PCP - General Internal Medicine 04/01/21 08/10/22 Penny Acosta MD [address] [place] [address] PCP - General Internal Medicine 08/11/22 Gregory Go MD, PHD [address] [place] [address] Surgeon Neurosurgery 09/24/22 Charles Bravo PA-C [address] [place] [address] Specialist Neurosurgery 09/24/22 documented as of this encounter
--- OUTSIDE RECORDS SUMMARY | 2025-08-20 12:44 | XMS_ITS | Encounter Summary ---
Demographics Address [address] [facility] [address] [address] [place] [address] Mobile Phone Home Phone Work Phone Email Address Preferred Language Italian Marital Status Jewish Affiliation Unknown Race Unknown Ethnic Group or Author Organization [facility] Address [address] [place] [address] Care Team Providers Care Grief Counsellor Name Role Phone Sammy Blue MD Primary Care Provider [phone] Penny Acosta MD Primary Care Prov ider Gregory Go MD, PHD Unavailable Unava Charles Wong PA-C Unavailable [phone] Encounter Details Date Type Department Care Team Description 06/18/2021 Orders Only Medical Records [address] [place] [address] Sammy Blue MD [address] [place], [place] [phone] Social History Tobacco Use Types Packs/Day Years [...] Date/Time Associated Diagnosis Comments OUTSIDE MAMMO Routine 06/17/2021 documented in this encounter Results * OUTSIDE MAMMO (06/17/2021) Sammy Blue MD RADIOLOGY documented in this encounter Visit Diagnoses Not on filedocumented in this encounter Care Teams Grief Counsellor Relationship Specialty Start Date End Date Sammy Blue MD [address] [place] [address] PCP - General Internal Medicine 04/01/21 08/10/22 Penny Acosta MD [address] [place] [address] PCP - General Internal Medicine 08/11/22 Gregory Go MD, PHD [address] [place] [address] Surgeon Neurosurgery 09/24/22 Charles Bravo PA-C [address] [place] [address] Specialist Neurosurgery 09/24/22 documented as of this encounter
--- OUTSIDE RECORDS SUMMARY | 2025-08-20 12:44 | XMS_ITS | Encounter Summary ---
Demographics Address [address] [facility] [facility] [address] [place] [address] Mobile Phone Home Phone Work Phone Email Address Preferred Language South Korean Marital Status Church Affiliation Unknown Race Unknown Ethnic Group or Author Organization [facility] Address [address] [place] [address] Care Team Providers Care Churn Drill Operator Name Role Phone Roxanna Davis DO Primary Care Pro vider Unavailable Alison Andrews MD Primary Care Provider Un available Sammy Blue MD Primary Care Provider [phone] Roxanna Davis DO Primary Care Pro vider Unavailable Sammy Blue MD Primary Care Provider [phone] Penny Acosta MD Primary Care Prov ider Gregory Go MD, PHD Unavailable Unava Charles Wong PA-C Unavailable [phone] Encounter Details Date Type Department Care Team Description 06/08/2017 Valve Repairer Report Medical Records [address] [place] [address] Lynsey Adames Social History Tobacco Use Types [...] on filedocumented in this encounter Care Teams Churn Drill Operator Relationship Specialty Start Date End Date Roxanna Davis DO PCP - General Internal Medicine 03/05/15 04/25/18 Alison Andrews MD PCP - General Internal Medicine 04/26/1808/08 Sammy Blue MD [address] [place] [address] PCP - General Internal Medicine 08/09/19 02/12/20 Roxanna Davis DO PCP - General Internal Medicine 02/13/20 03/31/21 Sammy Blue MD [address] [place] [address] [id number] PCP - General Internal Medicine 04/01/21 08/10/22 Penny Acosta MD [address] [place] [address] PCP - General Internal Medicine 08/11/22 Gregory Go MD, PHD [address] [place] [address] Surgeon Neurosurgery 09/24/22 Charles Bravo PA-C [address] [place] [address] Specialist Neurosurgery 09/24/22 documented as of this encounter
--- OUTSIDE RECORDS SUMMARY | 2025-08-20 12:44 | XMS_ITS | Encounter Summary ---
Demographics Address [address] [facility] [address] [place] [address] Mobile Phone Home Phone Work Phone Email Address Preferred Language Yemeni Marital Status Shinto Affiliation Unknown Race Unknown Ethnic Group or Author Organization [facility] Address [address] [place] [address] Care Team Providers Care Public Health Epidemiologist Name Role Phone Roxanna Davis DO Primary Care Pro vider Unavailable Sammy Blue MD Primary Care Provider [phone] Penny Acosta MD Primary Care Prov ider Gregory Go MD, PHD Unavailable Unava Charles Wong PA-C Unavailable [phone] Encounter Details Date Type Department Care Team Description 11/27/2020 Transfer Records Medical Records [address] [place] [address] Abstract, Provider Social History Tobacco Use Types [...] on filedocumented in this encounter Care Teams Public Health Epidemiologist Relationship Specialty Start Date End Date Roxanna Davis DO PCP - General Internal Medicine 02/13/20 03/31/21 Sammy Blue MD [address] [place] [address] PCP - General Internal Medicine 04/01/21 08/10/22 Penny Acosta MD [address] [place] [address] PCP - General Internal Medicine 08/11/22 Gregory Go MD, PHD [address] [place] [address] Surgeon Neurosurgery 09/24/22 Charles Bravo PA-C [address] [place] [address] Specialist Neurosurgery 09/24/22 documented as of this encounter
--- OUTSIDE RECORDS SUMMARY | 2025-08-20 12:44 | XMS_ITS | Encounter Summary ---
Demographics Address [address] [facility] [address] [place] [address] Mobile Phone Home Phone Work Phone Email Address Preferred Language Vietnamese Marital Status Confucianist Affiliation Unknown Race Unknown Ethnic Group or Author Organization [facility] Address [address] [place] [address] Care Team Providers Care Stone Engraver Name Role Phone Sammy Blue MD Primary Care Provider [phone] Penny Acosta MD Primary Care Prov ider Gregory Go MD, PHD Unavailable Unava Charles Wong PA-C Unavailable [phone] Encounter Details Date Type Department Care Team Description 05/12/2021 Telephone Adult Medicine [address] [address] Sammy Blue MD [address] [place] [address] [phone] Social History Tobacco Use Types Packs/Day Years [...] on filedocumented in this encounter Care Teams Stone Engraver Relationship Specialty Start Date End Date Sammy Blue MD [address] [place] [address] PCP - General Internal Medicine 04/01/21 08/10/22 Penny Acosta MD [address] [place] [address] PCP - General Internal Medicine 08/11/22 Gregory Go MD, PHD [address] [place] [address] Surgeon Neurosurgery 09/24/22 Charles Bravo PA-C [address] [place] [address] Specialist Neurosurgery 09/24/22 documented as of this encounter
--- OUTSIDE RECORDS SUMMARY | 2025-08-20 12:44 | XMS_ITS | Encounter Summary ---
Demographics Address [address] [facility] [address] [place] [address] Mobile Phone Home Phone Work Phone Email Address Preferred Language Qatari Marital Status Congregational Affiliation Unknown Race Unknown Ethnic Group or Author Organization [facility] Address [address] [place] [address] Care Team Providers Care Military Administrative Technician Name Role Phone Roxanna Davis DO Primary Care Pro vider Unavailable Alison Andrews MD Primary Care Provider Un available Sammy Blue MD Primary Care Provider [phone] Roxanna Davis DO Primary Care Pro vider Unavailable Sammy Blue MD Primary Care Provider [phone] Penny Acosta MD Primary Care Prov ider Gregory Go MD, PHD Unavailable Unava Charles Wong PA-C Unavailable [phone] Encounter Details Date Type Department Care Team Description 09/25/2016 Adult Remedial Education Instructor Report Medical Records [address] [place] [address] Franco Mayer NP Social History Tobacco Use Types Packs/Day Years [...] on filedocumented in this encounter Care Teams Military Administrative Technician Relationship Specialty Start Date End Date Roxanna Davis DO PCP - General Internal Medicine 03/05/15 04/25/18 Alison Andrews MD PCP - General Internal Medicine 04/26/1808/08 Sammy Blue MD [address] [place] [address] PCP - General Internal Medicine 08/09/19 02/12/20 Roxanna Davis DO PCP - General Internal Medicine 02/13/20 03/31/21 Sammy Blue MD [address] [place] [address] [id number] PCP - General Internal Medicine 04/01/21 08/10/22 Penny Acosta MD [address] [place] [address] PCP - General Internal Medicine 08/11/22 Gregory Go MD, PHD [address] [place] [address] Surgeon Neurosurgery 09/24/22 Charles Bravo PA-C [address] [place] [address] Specialist Neurosurgery 09/24/22 documented as of this encounter
--- OUTSIDE RECORDS SUMMARY | 2025-08-20 12:44 | XMS_ITS | Encounter Summary ---
Demographics Address [address] [facility] [address] [place] [address] Mobile Phone Home Phone Work Phone Email Address Preferred Language Faroese Marital Status Moravian Affiliation Unknown Race Unknown Ethnic Group or Author Organization [facility] Address [address] [place] [address] Care Team Providers Care Manager Net Name Role Phone Roxanna Davis DO Primary Care Pro vider Unavailable Alison Andrews MD Primary Care Provider Un available Sammy Blue MD Primary Care Provider [phone] Roxanna Davis DO Primary Care Pro vider Unavailable Sammy Blue MD Primary Care Provider Penny Acosta MD Primary Care Prov ider Gregory Go MD, PHD Unavailable Unava Charles Wong PA-C Unavailable [phone] Reason for Referral * EXTERNAL (Routine) - Authorized/Booked Specialty Diagnoses / Procedures Referred By Contjasmyn t Referred To Contact Chiropractor / Chiropractic Procedures REFERRAL TO CHIROPRACTIC Alison Andrews MD [address] [place] [address] Default, Provider Referral ID Status Reason Start Date Expiration Date V isits Requested Visits Authorized SEE NOTE Authorized/B ooked 04/21/2018 07/22/2018 1 1 Reason for Visit * Reason Onset Date Comments Appointment-Internal Referral 04/21/2018 Encounter Details Date Type Department Care Team Description 04/21/2018 Telephone Chiropractic - [address] [address] Mohsen Velasquez D.C. Appointment-Internal Referral Social History Tobacco Use Types Packs/Day [...] encounter Miscellaneous Notes * Telephone Encounter - Alison Andrews MD - 04/21/2018 12:32 PM EDT Switched referral to chiro in [place] per pt request, thanks * Telephone Encounter - Magdalena Grimes - 04/21/2018 11:45 AM EDT After 3 calls and a letter with no response FYI to provider documented in this encounter Plan of Treatment Not on file documented as of this encounter Visit Diagnoses Not on filedocumented in this encounter Care Teams Manager Net Relationship Specialty Start Date End Date Roxanna Davis DO PCP - General Internal Medicine 03/05/15 04/25/18 Alison Andrews MD PCP - General Internal Medicine 04/26/1808/08 Sammy Blue MD [address] [place] [address] PCP - General Internal Medicine 08/09/19 02/12/20 Roxanna Davis DO PCP - General Internal Medicine 02/13/20 03/31/21 Sammy Blue MD [address] [place] [address] PCP - General Internal Medicine 04/01/21 08/10/22 Penny Acosta MD [address] [place] [address] PCP - General Internal Medicine 08/11/22 Gregory Go MD, PHD [address] [place] [address] Surgeon Neurosurgery 09/24/22 Charles Bravo PA-C [address] [place] [address] Specialist Neurosurgery 09/24/22 documented as of this encounter
--- OUTSIDE RECORDS SUMMARY | 2025-08-20 12:44 | XMS_ITS | Encounter Summary ---
Demographics Address [address] [facility] [address] [place] [address] Mobile Phone Home Phone Work Phone Email Address Preferred Language Mosotho Marital Status Mormon Affiliation Unknown Race Unknown Ethnic Group or Author Organization [facility] Address [address] [place] [address] Care Team Providers Care Land Surveyor Manager Name Role Phone Penny Acosta MD Primary Care Prov ider Gregory Go MD, PHD Unavailable Unava Charles Wong PA-C Unavailable [phone] Encounter Details Date Type Department Care Team Description 02/24/2024 Jig Grinder Set Up Operator Report Medical Records [address] [place] [address] [facility] Social History Tobacco Use Types Packs/Day Years [...] on filedocumented in this encounter Care Teams Land Surveyor Manager Relationship Specialty Start Date End Date Penny Acosta MD [address] [place] [address] PCP - General Internal Medicine 08/11/22 Gregory Go MD, PHD [address] [place] [address] Surgeon Neurosurgery 09/24/22 Charles Bravo PA-C [address] [place] [address] Specialist Neurosurgery 09/24/22 documented as of this encounter
--- OUTSIDE RECORDS SUMMARY | 2025-08-20 12:44 | XMS_ITS | Clinical Summary ---
Demographics Address [address] [place] [address] Home Phone Mobile Phone Home Phone Email Address Preferred Language es Marital Status Taoism Affiliation Unknown Race Unknown Ethnic Group or Author Organization [facility] [address] [place] [address] [address] [place] [address] Phone Care Team Providers Care Dynamite Reclaimer Name Role Phone Penny Olivas MD Primary [...] Overview (07/21/2024): UNTREATED (Jul 2022) Axial spondyloarthritis (CMS/[facility] V24, CMS/[facility] V2 8) 05/21/2020 Overview (07/21/2024): Sclerosis seen [...] care for your loved ones. For example, salesperson children's shoes or elderly care for an older adult? [...] Team (Late st Contact Info) Description 10/05/2025 11:30 AM EST Office Visit Adult Medicine [facility] [address], [place] [phone] Annamaria March PA [address] [place], [place] Health Maintenance Due Date Last Done Comments [...] Routine 03/30/2024 HEPATITIS C SCREENING Routine 03/22/2020 HM PAP SMEAR Routine 07/16/2016 from Last 3 Months or Most Recently Relevant to Health Maintenance Results * (ABNORMAL) Lipid panel with reflex to direct LDL (04/12/2025 9:02 AM EDT) Cholesterol 240(H) 0 - 200 mg/dL LAB CHEMISTRY METHOD 04/12/2025 2:[address] [facility] Triglycerides 260(H) 0 - 150 mg/dL LAB CHEMISTRY METHOD 04/12/2025 2:[address] [facility] HDL 48 >=40 mg/dL LAB CHEMISTRY METHOD 04/12/2025 2:[address] [facility] LDL Calculated 140(H) 0 - 100 mg/dL LAB CHEMISTRY METHOD 04/12/2025 2:[address] [facility] VLDL Cholesterol Carlos Manuel 52 mg/dL LAB CHEMISTRY METHOD 04/12/2025 2:[address] [facility] Non HDL Chol. (LDL+VLDL) 192(H) <145 mg/dL LAB CHEMISTRY METHOD 04/12/2025 2:[address] [facility] Chol/HDL Ratio 5.0(H) 0.0 - 4.4 LAB CHEMISTRY METHOD 04/12/2025 2:[address] [facility] Blood Venous blood specimen / Unknown Venipuncture / Unknown 04/12/2025 9:02 AM EDT 04/12/2025 9:02 AM EDT us Lynsey JAQUEZ LAB BLOOD ORDERABLES Final Resu lt [facility] [address] [place] [address], [place] [phone] * (ABNORMAL) Comprehensive metabolic panel (04/12/2025 9:02 AM EDT) Sodium 137 133 - 145 mmol/L LAB CHEMISTRY METHOD 04/12/2025 2:04 PM [facility] Potassium 4.1 3.5 - 5.5 mmol/L LAB CHEMISTRY METHOD 04/12/2025 2:04 PM [facility] Chloride 101 96 - 110 mmol/L LAB CHEMISTRY METHOD 04/12/2025 2:04 PM [facility] CO2 27 21 - 32 mmol/L LAB CHEMISTRY METHOD 04/12/2025 2:04 PM [facility] Anion Gap 9 3 - 11 LAB CHEMISTRY METHOD 04/12/2025 2:04 PM [facility] Glucose 105(H) 70 - 100 mg/dL LAB CHEMISTRY METHOD 04/12/2025 2:04 PM [facility] BUN 13 5 - 25 mg/dL LAB CHEMISTRY METHOD 04/12/2025 2:04 PM [facility] Creatinine 0.74 0.50 - 1.10 mg/dL LAB CHEMISTRY METHOD 04/12/2025 2:04 PM [facility] eGFR 95 >=60 mL/min/1. 73m2 LAB CHEMISTRY METHOD 04/12/2025 2:04 PM [facility] Comment:Calculation based on the Chronic Kidney Disease Epidemiology Collaboration (CKD-EPI) equation refit without adjustment for race. BUN/Creatinine Ratio 17.6 LAB CHEMISTRY METHOD 04/12/2025 2:04 PM [facility] Calcium 9.5 8.5 - 10.5 mg/dL LAB CHEMISTRY METHOD 04/12/2025 2:04 PM [facility] AST (SGOT) 13 10 - 42 unit/L LAB CHEMISTRY METHOD 04/12/2025 2:04 PM [facility] ALT (SGPT) 20 10 - 60 unit/L LAB CHEMISTRY METHOD 04/12/2025 2:04 PM [facility] Alkaline Phosphatase 68 42 - 121 unit/L LAB CHEMISTRY METHOD 04/12/2025 2:[address] [facility] Total Protein 7.1 6.0 - 8.0 g/dL LAB CHEMISTRY METHOD 04/12/2025 2:[address] [facility] Albumin 4.1 3.2 - 5.0 g/dL LAB CHEMISTRY METHOD 04/12/2025 2:[address] [facility] Total Bilirubin 1.2 0.0 - 1.4 mg/dL LAB CHEMISTRY METHOD 04/12/2025 2:[address] [facility] Blood Venous blood specimen / Unknown Venipuncture / Unknown 04/12/2025 9:02 AM EDT 04/12/2025 9:02 AM EDT Lynsey JAQUEZ LAB BLOOD ORDERABLES Final Resu lt [facility] [address] [place] [address], [place] [phone] * COLONOSCOPY (05/19/2024 2:16 PM EDT) Anatomical Region Laterality Modality Endoscopy [facility] Provider GI~PROCEDURE ORDERABLES F inal Result * Depression Screening (03/30/2024) Depression Screening Abstracted Historical Provider HEALTH MAINTENANCE Final Result * Hepatitis C Screening (03/22/2020) Pathologist [facility] Hepatitis C Screening Abstracted Historical Provider HEALTH MAINTENANCE Final Result * Pap Smear (07/16/2016) Pathologist [facility] Pap smear Abstracted, No interpretation Historical Provider HEALTH MAINTENANCE Final Result from Last 3 Months or Most Recently Relevant to Health Maintenance Insurance * Guarantor: Darcy Dowling Account Type Relation to Patient Date of Phone Billing Address Personal/Family Self 1965 [address] [place] [address] [facility] PLAN Care Teams Dynamite Reclaimer Relationship Specialty Start Date End Date Penny Olivas MD [address] [place] [phone] PCP - General Internal Medicine 04/05/25
--- OUTSIDE RECORDS SUMMARY | 2025-08-20 12:44 | XMS_ITS | Encounter Summary ---
Demographics Address [address] [place] [address] Mobile Phone Home Phone Work Phone Email Address Preferred Language Botswanan Marital Status Congregation Affiliation Unknown Race Unknown Ethnic Group or Author Organization [facility] Address [address] [place] [address] Care Team Providers Care Contact Centre Supervisor Name Role Phone Penny Acosta MD Primary Care Prov ider Gregory Go MD, PHD Unavailable Unava Charles Wong PA-C Unavailable [phone] Encounter Details Date Type Department Care Team Description 01/27/2024 Fly Fishing Guide Report Medical Records [address] [place] [address] [facility] Social History Tobacco Use Types Packs/Day Years [...] on filedocumented in this encounter Care Teams Contact Centre Supervisor Relationship Specialty Start Date End Date Penny Acosta MD [address] [place] [address] PCP - General Internal Medicine 08/11/22 Gregory Go MD, PHD [address] [place] [id number] Surgeon Neurosurgery 09/24/22 Charles Bravo PA-C [address] [place] [address] Specialist Neurosurgery 09/24/22 documented as of this encounter
--- OUTSIDE RECORDS SUMMARY | 2025-08-20 12:44 | XMS_ITS | Encounter Summary ---
Demographics Address [address] [place] [address] Mobile Phone Home Phone Work Phone Email Address Preferred Language Anguillan Marital Status Church Affiliation Unknown Race Unknown Ethnic Group or Author Organization [facility] Address [address] [place] [address] Care Team Providers Care Stereo Operator Name Role Phone Roxanna Davis DO Primary Care Pro vider Unavailable Alison Andrews MD Primary Care Provider Un available Sammy Blue MD Primary Care Provider [phone] Roxanna Davis DO Primary Care Pro vider Unavailable Sammy Blue MD Primary Care Provider [phone] Penny Acosta MD Primary Care Prov ider Gregory Go MD, PHD Unavailable Unava Charles Wong PA-C Unavailable [phone] Encounter Details Date Type Department Care Team Description 06/01/2017 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 Medical Records [address] [place] [address] Lynsey Adames Social History Tobacco Use Types [...] on filedocumented in this encounter Care Teams Stereo Operator Relationship Specialty Start Date End Date Roxanna Davis DO PCP - General Internal Medicine 03/05/15 04/25/18 Alison Andrews MD PCP - General Internal Medicine 04/26/1808/08 Sammy Blue MD [address] [place] [address] PCP - General Internal Medicine 08/09/19 02/12/20 Roxanna Davis DO PCP - General Internal Medicine 02/13/20 03/31/21 Sammy Blue MD [address] [place] [phone] PCP - General Internal Medicine 04/01/21 08/10/22 Penny Acosta MD [address] [place] [address] PCP - General Internal Medicine 08/11/22 Gregory Go MD, PHD [address] [place] [address] Surgeon Neurosurgery 09/24/22 Charles Bravo PA-C [address] [place] [address] Specialist Neurosurgery 09/24/22 documented as of this encounter
--- OUTSIDE RECORDS SUMMARY | 2025-08-20 12:44 | XMS_ITS | Encounter Summary ---
Demographics Address [address] [place] [address] Mobile Phone Home Phone Work Phone Email Address Preferred Language Swiss Marital Status Jain Affiliation Unknown Race Unknown Ethnic Group or Author Organization [facility] Address [address] [place] [address] Care Team Providers Care Director Of Undergraduate Admissions Name Role Phone Roxanna Davis DO Primary Care Pro vider Unavailable Sammy Blue MD Primary Care Provider [phone] Penny Acosta MD Primary Care Prov ider Gregory Go MD, PHD Unavailable Unava Charles Wong PA-C Unavailable [phone] Reason for Visit * Reason Onset Date Comments Medication 02/11/2021 Encounter Details Date Type Department Care Team Description 02/11/2021 Telephone Rheumatology - [address] [address] Mohsen Meng MD Medication Social History Tobacco Use Types Packs/Day [...] Telephone Encounter - Fariba Brandon L.P.N. - 02/11/2021 4:36 PM EDT Spoke with patients daughter re if Darcy received medication from the specialty pharmacy She did and received the first injection on 02/10/21 at home, her daughter is a [place] who knows how to give an injection Proper use was discussed re alcohol wipes, washing hands rotating skin area for injections, also donot give if she is not feeling well, elevated temp, anyinfection, sore throat, any planned surgeries etc [place] is leaving the country week of March 08 and returning 03/22/21 F/u appt with Dr Meng made She will be receiving Covid vaccine before her trip and was advised to hold the Humira for 7 days after the vaccine is given She will call prn. connie to Dr Meng documented in this encounter Plan of Treatment Not on file documented as of this encounter Visit Diagnoses Not on filedocumented in this encounter Care Teams Director Of Undergraduate Admissions Relationship Specialty Start Date End Date Roxanna Davis DO PCP - General Internal Medicine 02/13/20 03/31/21 Sammy Blue MD [address] [place] [id number] PCP - General Internal Medicine 04/01/21 08/10/22 Penny Acosta MD [address] [place] [address] PCP - General Internal Medicine 08/11/22 Gregory Go MD, PHD [address] [place] [address] Surgeon Neurosurgery 09/24/22 Charles Bravo PA-C [address] [place] [address] [place] [id number] Specialist Neurosurgery 09/24/22 documented as of this encounter
[2025-08-20 13:26] VITALS: BP 117/66; PULSE 85; RESP 18; TEMP 36.7; O2SAT 96
== END 2025-08-20 13:26 | disposition home or self-care (01) ==
PROVIDERS: Emergency Provider Emergency Medicine; PCP Internal Medicine
DX: H00.014 Hordeolum externum left upper eyelid (principal); M17.11 Unilateral primary osteoarthritis, right knee; I10 Essential (primary) hypertension; Z79.899 Other long term (current) drug therapy
CPT/HCPCS: 73560; 99283

== ENCOUNTER 2025-09-16 13:56 | Emergency (ER) | payer OTHER, SELFPAY ==
--- NOTE | ~2025-09-16 | CT_ITS ---
CLINICAL HISTORY: LLQ abd pain, n v CT abdomen and pelvis with contrast Comparison: None provided Findings: No consolidation or effusion. Unremarkable gallbladder and solid organs. No urolithiasis. No bowel obstruction, pneumoperitoneum, or pneumatosis. Pelvic contents unremarkable. Normal appendix. Scattered diverticulosis of the distal descending colon and sigmoid colon. Mild fat stranding surrounding distal descending colon diverticula consistent with acute uncomplicated diverticulitis. No acute fracture. IMPRESSION: Findings are consistent with distal descending colon acute uncomplicated diverticulitis. This document has been electronically signed by: Izzy Dent MD on 09/16/2025 19:21:39
[2025-09-16 14:16] VITALS: BP 115/68; PULSE 60; RESP 16; TEMP 37; O2SAT 98; BMI 32.2
--- NOTE | 2025-09-16 14:49 | ED.GENADULT ---
HPI - General Adult General Chief complaint: Abdominal Pain Stated complaint: Nausea Vomiting Diarrhea Time Seen by Provider: 09/16/25 17:03 History of Present Illness ED Provider: Ria Moore NP HPI narrative: 60-year-old primarily Lithuanian-speaking female presents to the ED with her daughter for evaluation of left lower quadrant pain that began acutely this morning, associated with nausea without vomiting. Denies any fever, chills. Does endorse some constipation, last BM was about 3 days ago. She took a Zofran ODT at home at around 10:00 a.m. this morning with no improvement. Denies any diarrhea. Otherwise tolerating p.o.. Denies any chest pain or pressure, shortness of breath. No urinary complaints, vaginal bleeding or abnormal discharge. Related Data Home Medications ?Medication ?Instructions ?Recorded ?Confirmed hydrochlorothiazide 25 mg tablet 25 mg PO DAILY 03/03/22 05/11/25 omeprazole 20 mg capsule,delayed 20 mg PO DAILY 03/03/22 05/11/25 release ondansetron HCl 4 mg tablet mg PO 01/13/24 05/11/25 estradiol 0.0375 mg/24 hr 1 patch transdermal 2XW 11/02/24 05/11/25 semiweekly transdermal patch (Vivelle-Dot) estradiol 1 mg/gram (0.1 %) 1 packet transdermal DAILY 11/02/24 05/11/25 transdermal gel packet Previous Rx's ?Medication ?Instructions ?Recorded acetaminophen 325 mg tablet (Pain 650 mg (2 x 325 mg) PO Q6H PRN 05/16/23 Reliever (acetaminophen)) pain #45 tabs lidocaine 5 % topical patch 1 patch topical DAILY pain #30 ea 01/27/24 hydroxyzine HCl 10 mg tablet 10 mg PO TID PRN itching #10 tabs 06/15/24 triamcinolone acetonide 0.1 % 1 appl topical BID rash #15 grams 06/15/24 topical cream rizatriptan 10 mg tablet 10 mg PO Q2H 30 days #21 tabs 12/15/24 amitriptyline 10 mg tablet 10 mg PO BEDTIME 90 days #90 tabs 05/11/25 celecoxib 100 mg capsule (Celebrex) 100 mg PO BID PRN pain 30 days #60 05/11/25 caps eptinezumab-jjmr 100 mg/mL 100 mg IV [id number] 05/11/25 intravenous solution (Vyepti) diclofenac sodium 3 % topical gel 1 appl topical BID #100 grams 08/02/25 gabapentin 300 mg capsule 300 mg PO TID #90 caps 08/02/25 propranolol 80 mg capsule,24 80 mg PO DAILY #90 caps 08/03/25 hr,extended release atogepant 60 mg tablet 60 mg PO DAILY 30 days #30 tabs 08/17/25 erythromycin 5 mg/gram (0.5 %) eye 0.5 inch ophthalmic (eye) QID #3.5 08/20/25 ointment grams amoxicillin 875 mg-potassium 1 tab PO BID 7 days #14 tabs 09/16/25 clavulanate 125 mg tablet ondansetron 4 mg disintegrating 4 mg PO Q8H PRN nausea and 09/16/25 tablet vomiting #14 tabs Allergies Allergy/AdvReac Type Severity Reaction Status Date / Time aspirin (Aspirin) Allergy Mild ABDOMINAL Verified 09/16/25 14:18 PAIN, upset stomach tramadol (TRAMADOL) Allergy Unknown TONGUE Verified 09/16/25 14:18 NUMBNESS Review of Systems Review of Systems: ROS is otherwise negative unless mentioned in HPI. [facility] Past Medical History Medical History Axial spondyloarthritis HLD (hyperlipidemia) Migraine Arthritis Hypertension Surgical History History of rectal surgery Family History Family History Father Congestive heart failure Mother Diabetes HTN (hypertension) Migraine Brother HTN (hypertension) Diabetes Social History Social History Alcohol intake: never Patient Tobacco Use Status: Never used Tobacco Advance Directives: No Advance Directives Information Provided: Yes Physical Exam ED Exam Exam: Nursing notes and vital signs reviewed. Constitutional: Well-appearing, NAD. Alert. Oriented X3. Eyes: Pupils equal, round and reactive to light. ENT: Pharynx normal. Neck: Normal inspection. Neck supple. CVS: Normal heart rate and rhythm. Pulses normal. Respiratory: No respiratory distress. Breath sounds normal. Abdomen: Soft, nondistended. Tenderness generalized. Skin: Skin warm and dry. Normal skin color. Extremities: No lower extremity edema. Neuro: Oriented X 3. No motor deficit. Vital Signs: Vital Signs - 24 hr 09/16/25 14:16 09/16/25 18:52 09/16/25 19:55 Temperature 98.6 F 97.8 F 97.8 F Pulse Rate 60 53 53 Respiratory Rate 16 14 14 Blood Pressure 115/68 107/43 L 107/43 L Pulse Oximetry 98 96 96 Oxygen Delivery Method Room Air Room Air Room Air BMI result Body Mass Index 32.2 Course Course Course Narrative: Medical screening exam performed. Please refer to detailed history, exam, evaluation, and management by primary provider. Left lower quadrant abdominal pain nausea and vomiting since this morning. No relief with Zofran. Check labs, CT. Medications Administered Discontinued Medications Generic Name Dose Route Start Last Admin Trade Name Freq PRN Reason Stop Dose Admin Amoxicillin/Clavulanate Potassium 875 mg 09/16/25 19:36 09/16/25 19:43 Amoxicillin/Potassium Clav 875 Mg Tablet PO 09/16/25 19:37 875 mg ONCE ONE Administration Sodium Chloride 1,000 mls @ 999 mls/hr 09/16/25 17:04 09/16/25 18:12 Ns IV 09/16/25 18:04 Infused .Q1H1M ONE Infusion Iohexol 85 ml 09/16/25 18:10 09/16/25 18:10 Iohexol 350 Mg/Ml 100 Ml Infus..Btl IV 09/16/25 18:11 85 ml ONCE ONE Administration Ketorolac Tromethamine 15 mg 09/16/25 17:04 09/16/25 17:12 Ketorolac Tromethamine 15 Mg/Ml Vial IVPUSH 09/16/25 17:05 15 mg ONCE ONE Administration Ondansetron HCl 4 mg 09/16/25 17:04 09/16/25 17:12 Ondansetron Hcl 4 Mg/2 Ml Vial IVPUSH 09/16/25 17:05 4 mg ONCE ONE Administration Medical Decision Making Medical Decision Making [facility] Narrative: Overall she does appear well. She has subjective generalized tenderness on the abdominal exam. Specifically she complains of left lower quadrant pain, concerning for diverticulitis, colitis, cystitis. Her lab work is reassuring, mild leukocytosis to 11.9, nonspecific. Currently pending CT imaging of the abdomen and pelvis, urinalysis also with no signs of infection or blood. We will administer fluid bolus, pain control and antiemetic and reassess. 193-- CT of the abdomen and pelvis has returned, showing acute uncomplicated diverticulitis of the distal descending colon. Will administer oral Augmentin here in PO trial and discharge home with this medication, as she is able to tolerate p.o. while in the ED. She is agreeable to this plan of care. Also instructed to use [id number] probiotics given the antibiotic use. Expressed understanding. Provided return precautions to the ED. Differential Diagnosis Differential Diagnoses: The differential diagnosis associated with the presentation includes Diverticulitis, colitis, cystitis, stone, constipation Admission/Observation Consideration of admission/observation: Escalation of care including admission/observation considered (Not indicated) Lab Data MDM Lab Attestation statement: I reviewed the patient's lab results. (Mild leukocytosis at 11.9, otherwise reassuring.) 09/16/25 15:17 09/16/25 15:17 Labs: Lab Results 09/16/25 09/16/25 Range/Units 15:17 16:51 WBC 11.9 H (4.8-10.8) X10*3/uL RBC 4.81 (4.20-5.50) X10*6/uL Hgb 13.8 (12.0-16.0) g/dl Hct 41.0 (37.0-47.0) % MCV 85.2 (80.0-98.0) fL MCH 28.7 (27.0-33.0) pg MCHC 33.7 (31.0-35.0) g/dl RDW 12.9 (11.0-16.0) % Plt Count 333 (160-400) X10*3/uL MPV 9.8 (9.4-12.3) fL Immature Gran % (Auto) 0.3 (0.0-0.4) % Neut % (Auto) 71.4 (45-73) % Lymph % (Auto) 21.2 (20-40) % [place] % (Auto) 6.3 (2-11) % Eos % (Auto) 0.3 (0-4) % Baso % (Auto) 0.5 (0-2) % Lymph # (Auto) 2.5 (1.2-4.9) X10*3/uL [place] # (Auto) 0.8 (0.1-1.2) X10*3/uL Eos # (Auto) 0.0 (0.0-0.4) X10*3/uL Baso # (Auto) 0.1 (0.0-0.2) X10*3/uL Abs Immat Gran (auto) 0.03 (0.00-0.03) X10*3/uL Absolute Neuts (auto) 8.5 H (2.0-8.3) x10*3/uL Absolute Nucleated RBC 0.000 (0.0-0.012) X10*3/uL Nucleated RBC % (auto) 0.0 (0.0-0.2) /100WBC Sodium 140 (135-145) mmol/L Potassium 3.8 (3.3-5.1) mmol/L Chloride 102 (96-108) mmol/L Carbon Dioxide 29 (22-29) mmol/L Anion Gap 13 (12-20) BUN 10 (9-16) mg/dL Creatinine 0.69 (0.5-1.4) mg/dL Estim Creat Clear Calc 83.6 Estimated GFR > 60 Random Glucose 103 (60-115) mg/dL Lactic Acid 1.2 (0.5-2.0) mmol/L Calcium 10.4 H (8.4-10.2) mg/dL Total Bilirubin 1.1 H (0.0-1.0) mg/dL AST 30 (5-31) U/L ALT 19 (0-31) U/L Alkaline Phosphatase 74 (39-117) U/L Total Protein 7.4 (6.5-8.0) g/dL Albumin 4.5 (3.5-5.0) g/dL Lipase 47 (8-78) U/L Urine Color Yellow Urine Appearance Clear Urine pH 6.5 (5.0-9.0) Ur Specific [place] 1.010 (1.005-1.025) Urine Protein Negative (Neg-Trace) mg/dL Urine Glucose (UA) Negative (Negative) mg/dL Urine Ketones Negative (Negative) mg/dL Urine Blood Negative (Negative) Urine Nitrite Negative (Negative) Ur Leukocyte Esterase Negative (Negative) Radiology Impression Discussion of test interpretation with radiology: I have reviewed the radiologist's reading. Radiologist Impression: CT Abdomen/Pelvis W IMPRESSION: Findings are consistent with distal descending colon acute uncomplicated diverticulitis. Independent Historian Clinical information obtained from an independent historian. History obtained from or confirmed by: Other (Daughter at bedside) External Record Review None Chronic Conditions Patient?s care impacted by: Other (Chronic constipation) Social Determinants Patient?s care significantly limited by Social Determinants of Health including: Problems related to primary support group Discharge Plan Discharge Clinical Impression: Diverticulitis Patient Disposition: Home, Self-Care Instructions: Diverticulitis (DC), Diverticulitis Diet (ED) Additional Instructions: As we discussed, you have acute uncomplicated diverticulitis, an infection causing some inflammation in the colon. To treat this, we gave the 1st dose in the ER of Augmentin, and antibiotic. Please complete the full course of the antibiotic as prescribed. I have also sent you with a prescription of Zofran, the dissolvable tablet under the tongue. You may use this up to 3 times per day as needed for nausea and/or vomiting. However as we discussed if you develop any fever, chills, the inability to tolerate any oral liquid or food, or worsening abdominal pain, it is very important that you return back to the ED for reassessment. Follow up with your primary care provider within 1 week. Prescriptions: New ondansetron 4 mg tablet,disintegrating 4 mg PO Q8H PRN (Reason: nausea and vomiting) Qty: 14 0RF amoxicillin-pot clavulanate 875-125 mg tablet 1 tab PO BID 7 Days Qty: 14 0RF No Action rizatriptan 10 mg tablet 10 mg PO Q2H 30 Days Qty: 21 6RF Rx Instructions: 1 tab at onset of migraine, may repeat in 2 hours, max 2 tabs per day or 4 tabs per week. diclofenac sodium 3 % gel 1 appl topical BID Qty: 100 0RF Rx Instructions: apply to most painful area twice daily as needed for pain gabapentin 300 mg capsule 300 mg PO TID Qty: 90 6RF propranolol 80 mg capsule,extended release 24 hr 80 mg PO DAILY Qty: 90 2RF atogepant 60 mg tablet 60 mg PO DAILY 30 Days Qty: 30 6RF acetaminophen [Pain Reliever (acetaminophen)] 325 mg tablet 650 mg PO Q6H PRN (Reason: pain) Qty: 45 0RF erythromycin 5 mg/gram (0.5 %) ointment 0.5 inch ophthalmic (eye) QID Qty: 3.5 0RF hydroxyzine HCl 10 mg tablet 10 mg PO TID PRN (Reason: itching) Qty: 10 0RF triamcinolone acetonide 0.1 % cream 1 appl topical BID Qty: 15 0RF hydrochlorothiazide 25 mg tablet 25 mg PO DAILY omeprazole 20 mg capsule,delayed release(DR/EC) 20 mg PO DAILY ondansetron HCl 4 mg tablet PO lidocaine 5 % adhesive patch,medicated 1 patch topical DAILY Qty: 30 3RF Rx Instructions: leave on most painful area for up to 12 hrs estradiol [Vivelle-Dot] 0.0375 mg/24 hr patch semiweekly 1 patch transdermal 2XW Rx Instructions: apply 1 patch for 3 days alternating with 1 patch for 4 days each week for 3 wks per 4-wk cycle estradiol 1 mg/gram (0.1 %) gel in packet 1 packet transdermal DAILY amitriptyline 10 mg tablet 10 mg PO BEDTIME 90 Days Qty: 90 1RF celecoxib [Celebrex] 100 mg capsule 100 mg PO BID PRN (Reason: pain) 30 Days Qty: 60 3RF Vyepti 100 mg/mL solution 100 mg IV [id number] Rx Instructions: administer over 30 mins Referrals: Penny Acosta MD [Primary Care Provider, Internal Medicine] Interventions: ED Discharge Assessment Last Done: 09/16/25 19:55 Discharge Date/Time: 09/16/25 19:55 Print Language: Lithuanian
[2025-09-16 15:24] LABS: MANUAL DIFF FLAG NO
[2025-09-16 15:25] LABS: Hematocrit 41.0 % (37.0-47.0); Hemoglobin 13.8 g/dl (12.0-16.0); Imm Gran Abs Auto 0.03 X10*3/uL (0.00-0.03); Imm Gran Pct Auto 0.3 % (0.0-0.4); Lymphocytes Absolute Auto 2.5 X10*3/uL (1.2-4.9); Mean Corpuscular HGB Conc 33.7 g/dl (31.0-35.0); Mean Corpuscular Hemoglobin 28.7 pg (27.0-33.0); Mean Corpuscular Volume 85.2 fL (80.0-98.0); NRBC Abs Auto 0.000 X10*3/uL (0.0-0.012); NRBC Pct Auto 0.0 /100WBC (0.0-0.2); Platelet Count 333 X10*3/uL (160-400); Red Blood Count 4.81 X10*6/uL (4.20-5.50); White Blood Count 11.9 X10*3/uL (4.8-10.8)
[2025-09-16 15:48] LABS: Alanine Aminotransferase 19 U/L (0-31); Albumin Level 4.5 g/dL (3.5-5.0); Alkaline Phosphatase 74 U/L (39-117); Anion Gap 13 (12-20); Aspartate Amino Transferase 30 U/L (5-31); Blood Urea Nitrogen 10 mg/dL (9-16); Calcium 10.4 mg/dL (8.4-10.2); Carbon Dioxide 29 mmol/L (22-29); Chloride 102 mmol/L (96-108); Creatinine Clr Calc Pharmacy 83.6; Estimated Glomerular Filt Rate > 60; Lipase 47 U/L (8-78); Potassium 3.8 mmol/L (3.3-5.1); Sodium 140 mmol/L (135-145); Total Protein 7.4 g/dL (6.5-8.0)
--- OUTSIDE RECORDS SUMMARY | 2025-09-16 17:13 | XMS_ITS | Encounter Summary ---
Demographics Address [address] [facility] [facility] [place] [address] Mobile Phone Home Phone Work Phone Email Address Preferred Language Azerbaijani Marital Status Baptism Affiliation Unknown Race Unknown Ethnic Group or Author Organization [facility] Address [address] [place] [address] Care Team Providers Care Joiner Name Role Phone Alison Andrews MD Primary Care Provider Un available Sammy Blue MD Primary Care Provider [phone] Roxanna Davis DO Primary Care Pro vider Unavailable Sammy Blue MD Primary Care Provider Penny Acosta MD Primary Care Prov ider Gregory Go MD, PHD Unavailable Unava Charles Wong PA-C Unavailable [phone] Encounter Details Date Type Department Care Team Description 10/21/2018 Conveyor Technician Report Medical Records [address] [place] [address] Grayson Sunshine Social History Tobacco Use Types [...] on filedocumented in this encounter Care Teams Joiner Relationship Specialty Start Date End Date Alison Andrews MD PCP - General Internal Medicine 04/26/1808/08 Sammy Blue MD [address] [place] [address] PCP - General Internal Medicine 08/09/19 02/12/20 Roxanna Davis DO [address] [place] [address] PCP - General Internal Medicine 02/13/20 03/31/21 Sammy Blue MD [address] [place] [address] PCP - General Internal Medicine 04/01/21 08/10/22 Penny Acosta MD [address] [place] [address] PCP - General Internal Medicine 08/11/22 Gregory Go MD, PHD [address] [place] [address] Surgeon Neurosurgery 09/24/22 Charles Bravo PA-C [address] [place] [address] Specialist Neurosurgery 09/24/22 documented as of this encounter
--- OUTSIDE RECORDS SUMMARY | 2025-09-16 17:13 | XMS_ITS | Encounter Summary ---
Demographics Address [address] [facility] [address] [place] [address] Mobile Phone Home Phone Work Phone Email Address Preferred Language Citizen Of [place] Marital Status Evangelical Affiliation Unknown Race Unknown Ethnic Group or Author Organization [facility] Address [address] [place] [address] Care Team Providers Care Trenching Machine Operator Name Role Phone Penny Acosta MD Primary Care Prov ider Gregory Go MD, PHD Unavailable Unava Charles Wong PA-C Unavailable [phone] Encounter Details Date Type Department Care Team Description 09/25/[address] [facility] Medical [facility] Neurosurgery [place] [address] [place] [address] Gregory Go MD, PHD Social [...] on filedocumented in this encounter Care Teams Trenching Machine Operator Relationship Specialty Start Date End Date Penny Acosta MD [address] [place] [address] PCP - General Internal Medicine 08/11/22 Gregory Go MD, PHD [address] [place] [address] Surgeon Neurosurgery 09/24/22 Charles Bravo PA-C [address] [place] [address] Specialist Neurosurgery 09/24/22 documented as of this encounter
--- OUTSIDE RECORDS SUMMARY | 2025-09-16 17:13 | XMS_ITS | Encounter Summary ---
Demographics Address [address] [facility] [address] [place] [address] Mobile Phone Home Phone Work Phone Email Address Preferred Language Mexican Marital Status Gnosticist Affiliation Unknown Race Unknown Ethnic Group or Author Organization [facility] Address [address] [place] [address] Care Team Providers Care Oracle Specialist Name Role Phone Penny Acosta MD Primary Care Prov ider Gregory Go MD, PHD Unavailable Unava Charles Wong PA-C Unavailable [phone] Reason for Visit * Reason Onset Date Comments TEST RESULTS 09/04/2022 Encounter Details Date Type Department Care Team Description 09/04/2022 Pt. Non Urgent Medical Question Adult Medicine [facility] [address] [place] [address] Gayle Becerril PA-C [address] [place] [address] [phone] Social History Tobacco Use Types Packs/Day Years [...] results my motheris guille saravia by a Mexican speaking staff member or lang interpreter who can assist. She is not [...] a [place] [address]. If you have any further questions or concerns she can be reached at [phone]. If you do not have a Mexican speakingperson available I can be reached at [phone]. Thank you. documented in this encounter Plan of Treatment Not on file documented as of this encounter Visit Diagnoses Not on filedocumented in this encounter Care Teams Oracle Specialist Relationship Specialty Start Date End Date Penny Acosta MD [address] [place] [address] PCP - General Internal Medicine 08/11/22 Gregory Go MD, PHD [address] [place] [address] Surgeon Neurosurgery 09/24/22 Charles Bravo PA-C [address] [facility] [address] [place], [place] [phone] Specialist Neurosurgery 09/24/22 documented as of this encounter
--- OUTSIDE RECORDS SUMMARY | 2025-09-16 17:13 | XMS_ITS | Encounter Summary ---
Demographics Address [address] [facility] [address] [place] [address] Mobile Phone Home Phone Work Phone Email Address Preferred Language Monegasque Marital Status Jewish Affiliation Unknown Race Unknown Ethnic Group or Author Organization [facility] Address [address] [place] [address] Care Team Providers Care Cub Reporter Name Role Phone Sammy Blue MD Primary Care Provider [phone] Penny Acosta MD Primary Care Prov ider Gregory Go MD, PHD Unavailable Unava Charles Wong PA-C Unavailable [phone] Reason for Visit * Reason Comments E-prescribe Rx Request Encounter Details Date Type Department Care Team Description 05/26/2022 Refill Adult Medicine [address] [id number] Jennifer Rosales PA-C E-prescribe Rx Request Social [...] on filedocumented in this encounter Care Teams Cub Reporter Relationship Specialty Start Date End Date Sammy Blue MD [address] [place] [address] [phone] PCP - General Internal Medicine 04/01/21 08/10/22 Penny Acosta MD [address] [place] [address] PCP - General Internal Medicine 08/11/22 Gregory Go MD, PHD [address] [place] [address] Surgeon Neurosurgery 09/24/22 Charles Bravo PA-C [address] [place] [address] Specialist Neurosurgery 09/24/22 documented as of this encounter
--- OUTSIDE RECORDS SUMMARY | 2025-09-16 17:13 | XMS_ITS | Encounter Summary ---
Demographics Address [address] [facility] [address] [place] [address] Mobile Phone Home Phone Work Phone Email Address Preferred Language Paraguayan Marital Status Muslim Affiliation Unknown Race Unknown Ethnic Group or Author Organization [facility] Address [address] [place] [address] Care Team Providers Care Housekeeping Manager Name Role Phone Roxanna Davis DO Primary Care Pro vider Unavailable aSmmy Blue MD Primary Care Provider [phone] Penny Acosta MD Primary Care Prov ider Gregory Go MD, PHD Unavailable Unava Charles Wong PA-C Unavailable [phone] Reason for Visit * Reason Comments E-prescribe Rx Request Encounter Details Date Type Department Care Team Description 01/28/2021 Refill Adult Medicine [address] [address] Roxanna Davis DO E-prescribe Rx Request Social [...] Telephone Encounter - Jeanine Boykin M.A. - 01/29/2021 3:37 PM EDT Last office visit 12/31/20 Next office visit 03/04/21 * Telephone Encounter - Socorro Espinal - 01/28/2021 1:54 PM EDT Patient would like script to be: E-PRESCRIBED/FAXED TO PHARMACY WHEN WAS THE PATIENT'S LAST APPOINTMENT IN ADULT MEDICINE? 12/31/20 WHEN WAS THE LAST TIME THE PATIENT SAW THEIR PCP? Same as above Does patient have an upcoming appointment? Yes 03/04/21 (THE MEDICATION REQUESTED IS ON THE MED [...] N/A Patients current insurance carrier is: Payor: Pull FFS / Plan: [employer] / Product Type: MEDICAID RISK documented in this encounter Plan of Treatment Not on file documented as of this encounter Visit Diagnoses Not on filedocumented in this encounter Care Teams Housekeeping Manager Relationship Specialty Start Date End Date Roxanna Davis DO PCP - General Internal Medicine 02/13/20 03/31/21 Sammy Blue MD [address] [place] [address] PCP - General Internal Medicine 04/01/21 08/10/22 Penny Acosta MD [address] [place] [address] PCP - General Internal Medicine 08/11/22 Gregory Go MD, PHD [address] [place] [address] Surgeon Neurosurgery 09/24/22 Charles Bravo PA-C [address] [place] [address] Specialist Neurosurgery 09/24/22 documented as of this encounter
--- OUTSIDE RECORDS SUMMARY | 2025-09-16 17:13 | XMS_ITS | Encounter Summary ---
Demographics Address [address] [facility] [address] [place] [address] Mobile Phone Home Phone Work Phone Email Address Preferred Language Prydeinig Marital Status Taoist Affiliation Unknown Race Unknown Ethnic Group or Author Organization [facility] Address [address] [place] [address] Care Team Providers Care Collator Hand Name Role Phone Roxanna Davis DO Primary Care Pro vider Unavailable Sammy Blue MD Primary Care Provider [phone] Penny Acosta MD Primary Care Prov ider Gregory Go MD, PHD Unavailable Unava Charles Wong PA-C Unavailable [phone] Encounter Details Date Type Department Care Team Description 09/17/2020 Line Assembly Utility Worker Report Medical Records [address] [place] [address] [facility] Urology [address] [place] [address] Social History Tobacco Use Types Packs/Day Years [...] on filedocumented in this encounter Care Teams Collator Hand Relationship Specialty Start Date End Date Roxanna Davis DO PCP - General Internal Medicine 4/28/20 6/14/21 Sammy Blue MD [address] [place] [address] PCP - General Internal Medicine 04/01/21 08/10/22 Penny Acosta MD [address] [place] [address] PCP - General Internal Medicine 08/11/22 Gregory Go MD, PHD [address] [place] [address] Surgeon Neurosurgery 09/24/22 Charles Bravo PA-C [address] [place] [address] Specialist Neurosurgery 09/24/22 documented as of this encounter
--- OUTSIDE RECORDS SUMMARY | 2025-09-16 17:13 | XMS_ITS | Encounter Summary ---
Demographics Address [address] [facility] [address] [place] [address] Mobile Phone Home Phone Work Phone Email Address Preferred Language Cook Islander Marital Status Anglican Affiliation Unknown Race Unknown Ethnic Group or Author Organization [facility] Address [address] [place] [address] Care Team Providers Care Beef Ribber Name Role Phone Roxanna Davis DO Primary Care Pro vider Unavailable Alison Andrews MD Primary Care Provider Un available Sammy Blue MD Primary Care Provider [phone] Roxanna Davis DO Primary Care Pro vider Unavailable Sammy Blue MD Primary Care Provider Penny Acosta MD Primary Care Prov ider Gregory Go MD, PHD Unavailable Unava Charles Wong PA-C Unavailable [phone] Reason for Referral * EXTERNAL (Routine) - Authorized/Booked Specialty Diagnoses / Procedures Referred By Contjasmyn t Referred To Contact Chiropractor / Chiropractic Procedures REFERRAL TO CHIROPRACTIC Alison Andrews MD [address] [place] [address] Default, Provider Referral ID Status Reason Start Date Expiration Date V isits Requested Visits Authorized SEE NOTE Authorized/B ooked 04/21/2018 07/22/2018 1 1 Reason for Visit * Reason Onset Date Comments Appointment-Internal Referral 04/21/2018 Encounter Details Date Type Department Care Team Description 04/21/2018 Telephone Chiropractic - [address] [address] Mohsen Velasquez D.C. Appointment-Internal Referral Social History [...] PM EDT Switched referral to chiro in [place] per pt request, thanks * Telephone Encounter - Magdalena Grimes - 04/21/2018 11:45 AM EDT After 3 calls and a letter with no response FYI to provider documented in this encounter Plan of Treatment Not on file documented as of this encounter Visit Diagnoses Not on filedocumented in this encounter Care Teams Beef Ribber Relationship Specialty Start Date End Date Roxanna Davis DO PCP - General Internal Medicine 03/05/15 04/25/18 Alison Andrews MD PCP - General Internal Medicine 04/26/1808/08 Sammy Blue MD [address] [place] [address] PCP - General Internal Medicine 08/09/19 02/12/20 Roxanna Davis DO PCP - General Internal Medicine 02/13/20 03/31/21 Sammy Blue MD [address] [place] [address] PCP - General Internal Medicine 04/01/21 08/10/22 Penny Acosta MD [address] [place] [address] PCP - General Internal Medicine 08/11/22 Gregory Go MD, PHD [address] [place] [address] Surgeon Neurosurgery 09/24/22 Charles Bravo PA-C [address] [place] [address] Specialist Neurosurgery 09/24/22 documented as of this encounter
--- OUTSIDE RECORDS SUMMARY | 2025-09-16 17:13 | XMS_ITS | Encounter Summary ---
Demographics Address [address] [facility] [address] [place] [address] Mobile Phone Home Phone Work Phone Email Address Preferred Language Sammarinese Marital Status Religion Affiliation Unknown Race Unknown Ethnic Group or Author Organization [facility] Address [address] [place] [address] Care Team Providers Care Finishing Range Supervisor Name Role Phone Penny Acosta MD Primary Care Prov ider Gregory Go MD, PHD Unavailable Unava Charles Wong PA-C Unavailable [phone] Encounter Details Date Type Department Care Team Description 08/02/2024 Orders Only Medical Records [address] [place] [address] Penny Acosta MD [address] [place] [address] Social History Tobacco Use Types Packs/Day Years [...] Date/Time Associated Diagnosis Comments OUTSIDE MAMMO Routine 06/30/2024 documented in this encounter Results * OUTSIDE MAMMO (06/30/2024) Penny Moore MD RADIOLOGY documented in this encounter Visit Diagnoses Not on filedocumented in this encounter Care Teams Finishing Range Supervisor Relationship Specialty Start Date End Date Penny Acosta MD [address] [place] [address] PCP - General Internal Medicine 08/11/22 Gregory Go MD, PHD [address] [place] [address] Surgeon Neurosurgery 09/24/22 Charles Bravo PA-C [address] [place] [address] [place] [address] Specialist Neurosurgery 09/24/22 documented as of this encounter
--- OUTSIDE RECORDS SUMMARY | 2025-09-16 17:13 | XMS_ITS | Encounter Summary ---
Demographics Address [address] [facility] [address] [place] [address] Mobile Phone Home Phone Work Phone Email Address Preferred Language Italian Marital Status Mosque Affiliation Unknown Race Unknown Ethnic Group or Author Organization [facility] Address [address] [place] [address] Care Team Providers Care Bulker Name Role Phone Sammy Blue MD Primary Care Provider [phone] Penny Acosta MD Primary Care Prov ider Gregory Go MD, PHD Unavailable Unava Charles Wong PA-C Unavailable [phone] Encounter Details Date Type Department Care Team Description 03/03/2022 After School Driver Report Medical Records [address] [place] [address] Radha Leyva Social History Tobacco Use Types [...] on filedocumented in this encounter Care Teams Bulker Relationship Specialty Start Date End Date Sammy Blue MD [address] [place] [address] PCP - General Internal Medicine 04/01/21 08/10/22 Penny Acosta MD [address] [place] [address] PCP - General Internal Medicine 08/11/22 Gregory Go MD, PHD [address] [place] [address] Surgeon Neurosurgery 09/24/22 Charles Bravo PA-C [address] [place] [address] Specialist Neurosurgery 09/24/22 documented as of this encounter
--- OUTSIDE RECORDS SUMMARY | 2025-09-16 17:13 | XMS_ITS | Encounter Summary ---
Demographics Address [address] [facility] [address] [place] [address] Mobile Phone Home Phone Work Phone Email Address Preferred Language Mozambican Marital Status Spiritism Affiliation Unknown Race Unknown Ethnic Group or Author Organization [facility] Address [address] [place] [address] Care Team Providers Care Felt Cementer Name Role Phone Penny Acosta MD Primary Care Prov ider Gregory Go MD, PHD Unavailable Unava Charles Wong PA-C Unavailable [phone] Encounter Details Date Type Department Care Team Description 09/04/2022 Pt. Referral Request [facility] MyChart [address] [place] [address] Md Beck Social History Tobacco Use Types Packs/Day Years [...] on filedocumented in this encounter Care Teams Felt Cementer Relationship Specialty Start Date End Date Penny Acosta MD [address] [place] [address] [phone] PCP - General Internal Medicine 08/11/22 Gregory Go MD, PHD [address] [place] [address] Surgeon Neurosurgery 09/24/22 Charles Bravo PA-C [address] [place] [address] Specialist Neurosurgery 09/24/22 documented as of this encounter
--- OUTSIDE RECORDS SUMMARY | 2025-09-16 17:13 | XMS_ITS | Encounter Summary ---
Demographics Address [address] [facility] [address] [place] [address] Mobile Phone Home Phone Work Phone Email Address Preferred Language Iranian Marital Status Rastafarian Affiliation Unknown Race Unknown Ethnic Group or Author Organization [facility] Address [address] [place] [address] Care Team Providers Care Agricultural Extension Specialist Name Role Phone Sammy Blue MD Primary Care Provider [phone] Penny Acosta MD Primary Care Prov ider Gregory Go MD, PHD Unavailable Unava Charles Wong PA-C Unavailable [phone] Reason for Visit * Reason Comments E-prescribe Rx Request Encounter Details Date Type Department Care Team Description 09/02/2021 Refill Adult Medicine [address] [phone] Sammy Blue MD [address] [place] [address] [phone] E-prescribe Rx Request Social History Tobacco Use [...] have Coronavirus / COVID-19? No / Unsure 08/05/2021 3:23 PM EDT documented as of this encounter Miscellaneous Notes * Telephone Encounter - Juanita Galvan - 09/03/2021 1:47 PM EST Patient would like script to be: E-PRESCRIBED/FAXED TO PHARMACY ?? WHEN WAS THE PATIENT'S LAST APPOINTMENT IN ADULT MEDICINE? 08/05/21 ?? WHEN WAS THE LAST TIME THE PATIENT SAW THEIR PCP? Same as above ?? Does patient have an upcoming appointment? Yes 12/12/21 ?? (THE MEDICATION REQUESTED IS ON THE MED LIST ABOVE) All of the medications requested were on the CURRENT MEDS list ?? Did you check the Pharmacy information above?: YES ?? Patient wants: 90 -day supply ?? Is this a mail order prescription request ? NO ?? If the refill is from a FAXED refill request what is the RX # listed on the fax? N/A ?? Patients current insurance carrier is: Payor: [employer] FFS / Plan: [employer] [facility] [employer] [place] / Product Type: MEDICAID RISK ?? documented in this encounter Plan of Treatment Not on file documented as of this encounter Visit Diagnoses Not on filedocumented in this encounter Care Teams Agricultural Extension Specialist Relationship Specialty Start Date End Date Sammy Blue MD [address] [place] [address] [phone] PCP - General Internal Medicine 04/01/21 08/10/22 Penny Acosta MD [address] [place] [address] PCP - General Internal Medicine 08/11/22 Gregory Go MD, PHD [address] [place] [address] Surgeon Neurosurgery 09/24/22 Charles Bravo PA-C [address] [place] [address] [place] [address] Specialist Neurosurgery 09/24/22 documented as of this encounter
--- OUTSIDE RECORDS SUMMARY | 2025-09-16 17:13 | XMS_ITS | Clinical Summary ---
Demographics Address [address] [place] [address] Mobile Phone Home Phone Work Phone Email Address Preferred Language Serbian Marital Status Episcopal Affiliation Unknown Race Unknown Ethnic Group or Author Organization [facility] Address [address] [place] [address] Care Team Providers Care Elementary Substitute Teacher Name Role Phone Penny Acosta MD Primary Care Prov ider Gregory Go MD, PHD Unavailable Unava Charles Wong PA-C Unavailable Allergies Active Allergy Reactions Severity Noted Date Comments Aspirin OTHER 03/14/2015 GI UPSET Atorvastatin 04/07/2018 Teeth pain Tramadol 03/14/2015 ITCH Medications Medication Sig Dispensed Refills Start Date End Date Status Propranolol HCl CR 80 MG CAPSULE SR 24 HR TAKE 1 CAPSULE BY MOUTH EVERYDAY AT BEDTIME 0 08/13/2022 Active rizatriptan (MAXALT) 10 MG tablet PLEASE SEE ATTACHED FOR DETAILED DIRECTIONS 0 09/23/2022 Active amitriptyline (ELAVIL) 10 MG tablet TAKE 1 OR 2 TABLETS BY MOUTH EVERY DAY AT BEDTIME 0 08/24/2023 Active Qulipta 30 MG Tab TAKE 1 TABLET BY MOUTH EVERYDAY AT BEDTIME 0 07/22/2023 Active omeprazole (PRILOSEC) 20 MG capsule Take 1 Capsule by mouth daily. 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 07/2020: Humira approved but did not get delivered to patient Endometriosis 04/07/2018 Teratoma 05/28/2017 Overview: Presacral mass resected twice, last sx 05/2017 Neck pain 02/03/2016 Tubular adenoma 03/14/2015 Migraine 03/14/2015 Depression 03/14/2015 Hyperlipemia 03/14/2015 Hypertension 03/14/2015 Back pain 03/14/2015 GERD (gastroesophageal reflux disease) 0 03/14/2015 Overview: Moderate active chronic gastritis GI biopsy 03/29/2014. Prediabetes GIGI on CPAP Overview: UNTREATED (Jul 2022) Immunizations Name Administration Dates Next Due COVID-19 (Pfizer) 07/09/2021,06/18/2021 COVID-19 (Pfizer) Pt Reported 07/09/2021, 021 Influenza Vaccine-preservati ve Free-quadrivalent 4 Years 07/23/2020 MMR (Eemcjds-Hdcjv-Nncfuzm) 09/27/1998 TD (STATE SUPPLIED FOR ADULTS AND CHILDREN) 10/2012,06/16/2000 Tdap 01/07/2017 Family History Medical History Relation Name Comments Hypertension Brother x 7 HLD, seizures CHF Father CVA Diabetes Mother HLD, migraines Asthma Paternal Grandfather Cancer of the Breast Sister x 5 unilate ral Throat Cancer Uncle maternal non-smoker Relation Name Status Comments [...] file Not on file Not on file Last Filed Vital Signs Vital Sign Reading Time Taken Comments Blood Pressure 120/80 01/26/2024 10:21 AM EDT Pulse 60 01/26/2024 10:21 AM EDT Temperature 35.9 C (96.6 F) 01/26/2024 10:21 AM EDT Respiratory Rate 16 01/26/2024 10:21 AM EDT Oxygen Saturation 95% 06/25/2022 3:25 PM EDT Inhaled Oxygen Concentration - - Weight 78.3 kg (172 lb 9.6 oz) 03/30/2024 12:38 PM EDT Height 154.9 cm (5' 1 ) 01/26/2024 10:21 AM EDT Body Mass Index 32.61 01/26/2024 10:21 AM EDT Plan of Treatment Health Maintenance Due Date Last Done Comments SHINGLES VACCINE (1 of 2) 2017 CERVICAL CANCER SCREENING 07/16/20192015, 03/18/2015 (External Completion) COLON CANCER SCREENING 04/28/2022 7 (Completed), 04/28/2017 BASELINE HEALTH EXAM 40-64 08/28/202408/28, 08/11/2022, 07/06/2019, Additional history exists BMI CHECK/ADVISE 10/18/2024 03/30/2024, , 02/09/2023, Additional history exists DEPRESSION SCREENING/FOLLOWUP 10/18/2024, 02/09/2023 (Completed), 06/25/2022, Additional history exists SOCIAL NEEDS SCREENING 10/18/2024 , 11/06/2022, 06/25/2022, Additional history exists Covid-19 Vaccine (2022- 4 season) 2025 07/09/2021, 07/09/2021, 06/18/2021, Additional history exists INFLUENZA (#1) 2025 07/23/2020, 10/20 (Refused) MAMMOGRAM 06/30/2025 06/30/2024, 05/2023, 06/19/2022, Additional history exists DTAP/TDAP/TD (2 - Td or Tdap) 01/07/2027, 09/17/2013, 06/16/2000 CHOLESTEROL SCREENING 09/02/2028 09/02/2023 , 08/28/2022, 04/07/2018, Additional history exists PNEUMOCOCCAL VACCINE FOR HIG H RISK PATIENTS (#1) 2032 HEPATITIS C SCREENING Completed 03/22/2020 Care Teams Elementary Substitute Teacher Relationship Specialty Start Date End Date Penny cAosta MD [address] [place] [address] [id number] PCP - General Internal Medicine 08/11/22 Gregory Go MD, PHD [address] [place] [address]272 Surgeon Neurosurgery 09/24/22 Charles Bravo PA-C [address] [place] [address] Specialist Neurosurgery 09/24/22
--- OUTSIDE RECORDS SUMMARY | 2025-09-16 17:13 | XMS_ITS | Encounter Summary ---
Demographics Address [address] [place] [address] Mobile Phone Home Phone Work Phone Email Address Preferred Language Swazi Marital Status Bahai Affiliation Unknown Race Unknown Ethnic Group or Author Organization [facility] Address [address] [place] [address] Care Team Providers Care Power Superintendent Name Role Phone Roxanna Davis DO Primary Care Pro vider Unavailable Alison Andrews MD Primary Care Provider Un available Sammy Blue MD Primary Care Provider [phone] Roxanna Davis DO Primary Care Pro vider Unavailable Sammy Blue MD Primary Care Provider [phone] Penny Acosta MD Primary Care Prov ider Gregory Go MD, PHD Unavailable Unava Charles Wong PA-C Unavailable [phone] Reason for Visit * Reason Onset Date Comments Provider Call Back 02/19/2017 Encounter Details Date Type Department Care Team Description 02/19/2017 Telephone Adult Medicine [address] [address] Roxanna Davis DO Provider Call Back Social History Tobacco Use Types Packs/Day Years [...] encounter Miscellaneous Notes * Telephone Encounter - Clara Lyons L.P.N. - 02/19/2017 4:52 PM EDT Pt has oxycodone but cannot tolerate too much of it. She has a lot of rectal discomfort. She sts she has a pending procedure but no definite outcome. Has difficult hx per her surgeon. Notes requested [facility] and from dr Abe Jaquez [address] romero. Pt was given appt with dr Song Wednesday. * Telephone Encounter - Jeanine Boykin M.A. - 02/19/2017 4:28 PM EDT Please triage, we did not have information of Hospital visit. * Telephone Encounter - Tania Gutiérrez - 02/19/2017 3:48 PM EDT Caller requesting call back from provider: Is the caller the patient? NO If caller is not the patient, what is the callers name? Feyanilda Callers relationship to patient? daughter If person calling is not the patient themselves, is there a verbal release in FYI or permanent comments for this person: YES Reason for call back: Daughter requesting pain medication for rectal mass that was diagnosed few weeks ago [facility]. Has not gotten in to see surgeon yet. Caller offered to speak with the nurse for assistance: YES Response: Patient offered to speak with nurse for assistance and patient agreed. Message forwarded to nurse. documented in this encounter Plan of Treatment Not on file documented as of this encounter Visit Diagnoses Not on filedocumented in this encounter Care Teams Power Superintendent Relationship Specialty Start Date End Date Roxanna Davis DO PCP - General Internal Medicine 03/05/15 04/25/18 Alison Andrews MD PCP - General Internal Medicine 04/26/1808/08 Sammy Blue MD [address] [place] [address] PCP - General Internal Medicine 08/09/19 02/12/20 Roxanna Davis DO PCP - General Internal Medicine 02/13/20 03/31/21 Sammy Blue MD [address] [place] [address] PCP - General Internal Medicine 04/01/21 08/10/22 Penny Acosta MD [address] [place] [address] PCP - General Internal Medicine 08/11/22 Gregory Go MD, PHD [address] [place] [address] Surgeon Neurosurgery 09/24/22 Charles Bravo PA-C [address] [place] [address] Specialist Neurosurgery 09/24/22 documented as of this encounter
--- OUTSIDE RECORDS SUMMARY | 2025-09-16 17:13 | XMS_ITS | Encounter Summary ---
Demographics Address [address] [place] [address] Mobile Phone Home Phone Work Phone Email Address Preferred Language Cayman Islander Marital Status Sikh Affiliation Unknown Race Unknown Ethnic Group or Author Organization [facility] Address [address] [place] [address] Care Team Providers Care Pulp Grinder Feeder Name Role Phone Penny Acosta MD Primary Care Prov ider Gregory Go MD, PHD Unavailable Unava Charles Wong PA-C Unavailable [phone] Reason for Visit * Reason Comments E-prescribe Rx Request Encounter Details Date Type Department Care Team Description 09/29/2022 Refill Adult Medicine [address] [address] Monica Martinez PA-C E-prescribe Rx Request Social [...] on filedocumented in this encounter Care Teams Pulp Grinder Feeder Relationship Specialty Start Date End Date Penny Acosta MD [address] [place] [address] PCP - General Internal Medicine 08/11/22 Gregory Go MD, PHD [address] [place] [address] Surgeon Neurosurgery 09/24/22 Charles Bravo PA-C [address] [facility] [address] [place] [address] Specialist Neurosurgery 09/24/22 documented as of this encounter
--- OUTSIDE RECORDS SUMMARY | 2025-09-16 17:13 | XMS_ITS | Encounter Summary ---
Demographics Address [address] [place] [address] Mobile Phone Home Phone Work Phone Email Address Preferred Language Kuwaiti Marital Status Evangelical Affiliation Unknown Race Unknown Ethnic Group or Author Organization [facility] Address [address] [place] [address] Care Team Providers Care Check Viewer Name Role Phone Sammy Blue MD Primary Care Provider [phone] Roxanna Davis DO Primary Care Pro vider Unavailable Sammy Blue MD Primary Care Provider [phone] Penny Acosta MD Primary Care Prov ider Gregory Go MD, PHD Unavailable Unava Charles Wong PA-C Unavailable [phone] Encounter Details Date Type Department Care Team Description 09/19/2019 Release of Information Medical Records [address] [place] [address] Abstract, Provider Social History Tobacco Use Types [...] on filedocumented in this encounter Care Teams Check Viewer Relationship Specialty Start Date End Date Sammy Blue MD [address] [place] [address] PCP - General Internal Medicine 08/09/19 02/12/20 Roxanna Davis DO [address] [place], [place] [phone] PCP - General Internal Medicine 02/13/20 03/31/21 Sammy Blue MD [address] [place] [address] PCP - General Internal Medicine 04/01/21 08/10/22 Penny Acosta MD [address] [place], [place] [phone] PCP - General Internal Medicine 08/11/22 Gregory oG MD, PHD [address] [place], [place] [phone] Surgeon Neurosurgery 09/24/22 Charles Bravo PA-C [address] [place] [address] Specialist Neurosurgery 09/24/22 documented as of this encounter
--- OUTSIDE RECORDS SUMMARY | 2025-09-16 17:13 | XMS_ITS | Encounter Summary ---
Demographics Address [address] [place] [address] Mobile Phone Home Phone Work Phone Email Address Preferred Language Croatian Marital Status Hoahaoism Affiliation Unknown Race Unknown Ethnic Group or Author Organization [facility] Address [address] [place] [address] Care Team Providers Care Drapery Installer Name Role Phone Roxanna Davis DO Primary Care Pro vider Unavailable Sammy Blue MD Primary Care Provider [phone] Penny Acosta MD Primary Care Prov ider Gregory Go MD, PHD Unavailable Unava Charles Wong PA-C Unavailable [phone] Reason for Visit * Reason Onset Date Comments refill request 04/11/2020 Encounter Details Date Type Department Care Team Description 04/11/2020 Refill Adult Medicine [address] [address] Roxanna Davis DO refill request Social History Tobacco Use Types [...] Telephone Encounter - Jeanine Boykin M.A. - 04/13/2020 11:14 AM EDT Last office visit 03/12/20 Next office visit 06/18/20 * Telephone Encounter - Quynh Owen - 04/11/2020 10:24 AM EDT Patient would like script to [...] N/A Patients current insurance carrier is: Payor: [employer] / Plan: [facility] [employer] / Product Type: MEDICAID RISK documented in this encounter Plan of Treatment Not on file documented as of this encounter Visit Diagnoses Not on filedocumented in this encounter Care Teams Drapery Installer Relationship Specialty Start Date End Date Roxanna Davis DO PCP - General Internal Medicine 02/13/20 03/31/21 Sammy Blue MD [address] [place] [address] PCP - General Internal Medicine 04/01/21 08/10/22 Penny Acosta MD [address] [place] [address] PCP - General Internal Medicine 08/11/22 Gregory Go MD, PHD [address] [place] [address] Surgeon Neurosurgery 09/24/22 Charles Bravo PA-C [address] [place] [address] Specialist Neurosurgery 09/24/22 documented as of this encounter
--- OUTSIDE RECORDS SUMMARY | 2025-09-16 17:13 | XMS_ITS | Encounter Summary ---
Demographics Address [address] [place] [address] Mobile Phone Home Phone Work Phone Email Address Preferred Language Citizen Of [place] Marital Status Bahai Affiliation Unknown Race Unknown Ethnic Group or Author Organization [facility] Address [address] [place] [address] Care Team Providers Care Instructor Correspondence School Name Role Phone Roxanna Davis DO Primary Care Pro vider Unavailable Alison Andrews MD Primary Care Provider Un available Sammy Blue MD Primary Care Provider [phone] Roxanna Davis DO Primary Care Pro vider Unavailable Sammy Blue MD Primary Care Provider [phone] Penny Acosta MD Primary Care Prov ider Gregory Go MD, PHD Unavailable Unava Charles Wong PA-C Unavailable [phone] Encounter Details Date Type Department Care Team Description 05/14/2017 Hospital Medical Records [address] [place] [address] Georgie Carpenter MD Social History Tobacco Use Types [...] on filedocumented in this encounter Care Teams Instructor Correspondence School Relationship Specialty Start Date End Date Roxanna Davis DO PCP - General Internal Medicine 03/05/15 04/25/18 Alison Andrews MD PCP - General Internal Medicine 04/26/1808/08 Sammy Blue MD [address] [place] [address] PCP - General Internal Medicine 08/09/19 02/12/20 Roxanna Davis DO PCP - General Internal Medicine 02/13/20 03/31/21 Sammy Blue MD [address] [place] [address] PCP - General Internal Medicine 04/01/21 08/10/22 Penny Acosta MD [address] [place] [address] PCP - General Internal Medicine 08/11/22 Gregory Go MD, PHD [address] [place] [address] Surgeon Neurosurgery 09/24/22 Charles Bravo PA-C [address] [place] [address] Specialist Neurosurgery 09/24/22 documented as of this encounter
--- OUTSIDE RECORDS SUMMARY | 2025-09-16 17:13 | XMS_ITS | Encounter Summary ---
Demographics Address [address] [place] [address] Mobile Phone Home Phone Work Phone Email Address Preferred Language Malagasy Marital Status Islam Affiliation Unknown Race Unknown Ethnic Group or Author Organization [facility] Address [address] [place] [address] Care Team Providers Care Workforce Management Analyst Name Role Phone Alison Andrews MD Primary Care Provider Un available Sammy Blue MD Primary Care Provider [phone] Roxanna Davis DO Primary Care Pro vider Unavailable Sammy Blue MD Primary Care Provider [phone] Penny Acosta MD Primary Care Prov ider Gregory Go MD, PHD Unavailable Unava Charles Wong PA-C Unavailable [phone] Reason for Visit * Reason Comments E-prescribe Rx Request Encounter Details Date Type Department Care Team Description 11/04/2018 Refill Adult Medicine [address] [address] Alison Andrews MD E-prescribe Rx Request Social [...] encounter Miscellaneous Notes * Telephone Encounter - Denice Gutierres M.A. - 11/04/2018 2:48 PM EST Lab Results Component Value Date NA 142 04/07/2018 K 4.0 04/07/2018 CO2 28.3 04/07/2018 CL 102 04/07/2018 BUN 15 04/07/2018 CREAT 0.8 04/07/2018 GLU 95 04/07/2018 CA 10.2 04/07/2018 GFR > 60 04/07/2018 * Telephone Encounter - Maral Low - 11/04/2018 11:56 AM EST Patient would like script to be: E-PRESCRIBED/FAXED TO PHARMACY WHEN WAS THE PATIENT'S LAST APPOINTMENT IN ADULT MEDICINE? 06/21/18 WHEN WAS THE LAST TIME THE PATIENT SAW THEIR PCP? 04/07/18 Does patient have an upcoming appointment? No-unable to reach [facility] to call for appointment due to refill [...] N/A Patients current insurance carrier is: Payor: [employer] FFS / Plan: [employer] / Product Type: MEDICAID RISK documented in this encounter Plan of Treatment Not on file documented as of this encounter Visit Diagnoses Not on filedocumented in this encounter Care Teams Workforce Management Analyst Relationship Specialty Start Date End Date Alison Andrews MD PCP - General Internal Medicine 04/26/1808/08 Sammy Blue MD [address] [place] [address] PCP - General Internal Medicine 08/09/19 02/12/20 Roxanna Davis DO [address] [place] [address] PCP - General Internal Medicine 02/13/20 03/31/21 Sammy Blue MD [address] [place] [address] PCP - General Internal Medicine 04/01/21 08/10/22 Penny Acosta MD [address] [place] [address] PCP - General Internal Medicine 08/11/22 Gregory Go MD, PHD [address] [place] [address] Surgeon Neurosurgery 09/24/22 Charles Bravo PA-C [address] [place] [address] Specialist Neurosurgery 09/24/22 documented as of this encounter
--- OUTSIDE RECORDS SUMMARY | 2025-09-16 17:13 | XMS_ITS | Encounter Summary ---
Demographics Address [address] [facility] [address] [address] [address] [place] [address] Mobile Phone Home Phone Work Phone Email Address Preferred Language Beninese Marital Status Yazidi Affiliation Unknown Race Unknown Ethnic Group or Author Organization [facility] Address [address] [place] [address] Care Team Providers Care Sewing Room Supervisor Name Role Phone Alison Andrews MD Primary Care Provider Un available Sammy Blue MD Primary Care Provider [phone] Roxanna Davis DO Primary Care Pro vider Unavailable Sammy Blue MD Primary Care Provider [phone] Penny Acosta MD Primary Care Prov ider Gregory Go MD, PHD Unavailable Unava Charles Wong PA-C Unavailable [phone] Encounter Details Date Type Department Care Team Description 07/12/2019 Night Triage Doc Medical Records [address] [place] [address] Abstract, Provider Social History Tobacco Use Types [...] on filedocumented in this encounter Care Teams Sewing Room Supervisor Relationship Specialty Start Date End Date Alison Andrews MD PCP - General Internal Medicine 04/26/1808/08 Sammy Blue MD [address] [place] [address] PCP - General Internal Medicine 08/09/19 02/12/20 Roxanna Davis DO [address] [place] [address] PCP - General Internal Medicine 02/13/20 03/31/21 Sammy Blue MD [address] [place] [address] PCP - General Internal Medicine 04/01/21 08/10/22 Penny Acosta MD [address] [place] [address] PCP - General Internal Medicine 08/11/22 Gregory Go MD, PHD [address] [place] [address] Surgeon Neurosurgery 09/24/22 Charles Bravo PA-C [address] [place] [address] [place] [address] Specialist Neurosurgery 09/24/22 documented as of this encounter
--- OUTSIDE RECORDS SUMMARY | 2025-09-16 17:13 | XMS_ITS | Encounter Summary ---
Demographics Address [address] [facility] [address] [place] [address] Mobile Phone Home Phone Work Phone Email Address Preferred Language East Timorese Marital Status Temple Affiliation Unknown Race Unknown Ethnic Group or Author Organization [facility] Address [address] [place] [address] Care Team Providers Care New Grad Rn Name Role Phone Roxanna Davis DO Primary Care Pro vider Unavailable Alison Andrews MD Primary Care Provider Un available Sammy Blue MD Primary Care Provider [phone] Roxanna Davis DO Primary Care Pro vider Unavailable Sammy Blue MD Primary Care Provider [phone] Penny Acosta MD Primary Care Prov ider Gregory Go MD, PHD Unavailable Unava Charles Wong PA-C Unavailable [phone] Encounter Details Date Type Department Care Team Description 05/06/2016 [employer] Repairer Report Medical Records [address] [place] [address] Jerman Villeda MD Social History Tobacco Use [...] on filedocumented in this encounter Care Teams New Grad Rn Relationship Specialty Start Date End Date Roxanna Davis DO PCP - General Internal Medicine 03/05/15 04/25/18 Alison Andrews MD PCP - General Internal Medicine 04/26/1808/08 Sammy Blue MD [address] [place] [address] PCP - General Internal Medicine 08/09/19 02/12/20 Roxanna Davis DO PCP - General Internal Medicine 02/13/20 03/31/21 Sammy Blue MD [address] [place] [address] [phone] PCP - General Internal Medicine 04/01/21 08/10/22 Penny Acosta MD [address] [place] [address] PCP - General Internal Medicine 08/11/22 Gregory Go MD, PHD [address] [place] [address] Surgeon Neurosurgery 09/24/22 Charles Bravo PA-C [address] [place] [address] Specialist Neurosurgery 09/24/22 documented as of this encounter
--- OUTSIDE RECORDS SUMMARY | 2025-09-16 17:13 | XMS_ITS | Encounter Summary ---
Demographics Address [address] [facility] [address] [place] [address] Mobile Phone Home Phone Work Phone Email Address Preferred Language Maltese Marital Status Sabianist Affiliation Unknown Race Unknown Ethnic Group or Author Organization [facility] Address [address] [place] [address] Care Team Providers Care Residence Leasing Agent Name Role Phone Alison Andrews MD Primary Care Provider Un available Sammy Blue MD Primary Care Provider [phone] Roxanna Davis DO Primary Care Pro vider Unavailable Sammy Blue MD Primary Care Provider [phone] Penny Acosta MD Primary Care Prov ider Gregory Go MD, PHD Unavailable Unava Charles Wong PA-C Unavailable [phone] Encounter Details Date Type Department Care Team Description 05/27/2018 Glass Cutting Machine Feeder Report Medical Records [address] [place] [address] Nirav Carter MD Social History Tobacco Use [...] on filedocumented in this encounter Care Teams Residence Leasing Agent Relationship Specialty Start Date End Date Alison Andrews MD PCP - General Internal Medicine 04/26/1808/08 Sammy Blue MD [address] [place], [place] [phone] PCP - General Internal Medicine 08/09/19 02/12/20 Roxanna Davis DO [address] [place] [address] PCP - General Internal Medicine 02/13/20 03/31/21 Sammy Blue MD [address] [place] [address] PCP - General Internal Medicine 04/01/21 08/10/22 Penny Acosta MD [address] [place] [address] PCP - General Internal Medicine 08/11/22 Gregory Go MD, PHD [address] [place] [address] Surgeon Neurosurgery 09/24/22 Charles Bravo PA-C [address] [place] [address] Specialist Neurosurgery 09/24/22 documented as of this encounter
--- OUTSIDE RECORDS SUMMARY | 2025-09-16 17:13 | XMS_ITS | Encounter Summary ---
Demographics Address [address] [place] [address] Mobile Phone Home Phone Work Phone Email Address Preferred Language Belarusian Marital Status Uatsdin Affiliation Unknown Race Unknown Ethnic Group or Author Organization [facility] Address [address] [place] [address] Care Team Providers Care Assembly Operator Name Role Phone Sammy Blue MD Primary Care Provider [phone] Penny Acosta MD Primary Care Prov ider Gregory Go MD, PHD Unavailable Unava Charles Wong PA-C Unavailable [phone] Reason for Visit * Reason Onset Date Comments medication problems 07/24/2021 Encounter Details Date Type Department Care Team Description 07/24/2021 Telephone Adult Medicine [address] [phone] Sammy Blue MD [address] [place] [address] [phone] medication problems Social History Tobacco Use Types Packs/Day Years [...] Telephone Encounter - Mariela Garcia C.M.A. - 08/01/2021 11:11 AM EDT 3rd call to pt, unable to leave a message, busy tone * Telephone Encounter - Tiffany Batista M.A. - 08/01/2021 9:27 AM EDT Called patient unable to leave message. Vf * Telephone Encounter - Sahra Russell - 07/31/2021 9:33 AM EDT Tried to call pt. No answer, was not able to leave a message. * Telephone Encounter - Sammy Blue MD - 07/30/2021 4:01 PM EDT Unfortunately I do not believe this will be approved if written by an internal medicine doctor she will have to wait until she has a new neurologist to write for this medication * Telephone Encounter - aMriya Putnam M.A. - 07/28/2021 11:09 AM EDT Please see msg below and advise ZHOU 12/31/2020 F/U appt 08/05/2021 w/new pcp * Telephone Encounter - Carlee Coles - 07/24/2021 12:59 PM EDT Who is calling? A pharmacist: [facility]: [facility] Pharmacist Name: Pharmacy Phone # [phone] Name of the medication Erenumab-aooe 140 MG/ML Solution Auto-injector What is the specific problem or interaction? Pt is asking for refill on medication originally prescribed by neurologist. Pt told pharmacy that her neurologist retired and she is in the process of looking for a new one. Pt requesting medication refill until she is set up with new provider. If the patient is having a problem with taking the med - how long has the problem been going on? N/A documented in this encounter Plan of Treatment Not on file documented as of this encounter Visit Diagnoses Not on filedocumented in this encounter Care Teams Assembly Operator Relationship Specialty Start Date End Date Sammy Blue MD [address] [place] [address] 609[address] PCP - General Internal Medicine 04/01/21 08/10/22 Penny Acosta MD [address] [place] [address] PCP - General Internal Medicine 08/11/22 Gregory Go MD, PHD [address] [place] [address] 41022 Surgeon Neurosurgery 09/24/22 Charles Bravo PA-C [address] [place] [address] Specialist Neurosurgery 09/24/22 documented as of this encounter
--- OUTSIDE RECORDS SUMMARY | 2025-09-16 17:13 | XMS_ITS | Encounter Summary ---
Demographics Address [address] [place] [address] Mobile Phone Home Phone Work Phone Email Address Preferred Language Algerian Marital Status Gnosticism Affiliation Unknown Race Unknown Ethnic Group or Author Organization [facility] Address [address] [place] [address] Care Team Providers Care Mill Attendant Name Role Phone Sammy Blue MD Primary Care Provider [phone] Roxanna Davis DO Primary Care Pro vider Unavailable Sammy Blue MD Primary Care Provider Penny Acosta MD Primary Care Prov ider Gregory Go MD, PHD Unavailable Unava Charles Wong PA-C Unavailable [phone] Reason for Visit * Reason Onset Date Comments Faxed Order 10/16/2019 Encounter Details Date Type Department Care Team Description 10/16/2019 Telephone Adult Medicine [address] [phone] Sammy Blue MD [address] [place] [address] [phone] Faxed Order Social History Tobacco Use Types Packs/Day Years [...] encounter Miscellaneous Notes * Telephone Encounter - Bren Cortez - 10/16/2019 4:03 PM EST Faxed orders received from [facility], please sign and fax back to [phone]. documented in this encounter Plan of Treatment Not on file documented as of this encounter Visit Diagnoses Not on filedocumented in this encounter Care Teams Mill Attendant Relationship Specialty Start Date End Date Sammy Blue MD [address] [place] [address] 234[address] PCP - General Internal Medicine 08/09/19 02/12/20 Roxanna Davis DO [address] [place] [address] 0[address] PCP - General Internal Medicine 02/13/20 03/31/21 Sammy Blue MD [address] [place] [address] PCP - General Internal Medicine 04/01/21 08/10/22 Penny Acosta MD [address] [place] [address] PCP - General Internal Medicine 08/11/22 Gregory Go MD, PHD [address] [place] [address] 520[address] Surgeon Neurosurgery 09/24/22 Charles Bravo PA-C [address] [place] [address] Specialist Neurosurgery 09/24/22 documented as of this encounter
--- OUTSIDE RECORDS SUMMARY | 2025-09-16 17:13 | XMS_ITS | Encounter Summary ---
Demographics Address [address] [place] [address] Mobile Phone Home Phone Work Phone Email Address Preferred Language Maldivian Marital Status Scientology Affiliation Unknown Race Unknown Ethnic Group or Author Organization [facility] Address [address] [place] [address] Care Team Providers Care Log Marker Name Role Phone Sammy Blue MD Primary Care Provider [phone] Penny Acosta MD Primary Care Prov ider Gregory Go MD, PHD Unavailable Unava Charles Wong PA-C Unavailable [phone] Encounter Details Date Type Department Care Team Description 08/03/2022 Release of Information Medical Records [address] [place] [address] [facility] Social History Tobacco Use Types Packs/Day Years [...] suspected to have Coronavirus/COVID-19? No / Unsure 08/06/2022 10:01 AM EDT documented as of this encounter Plan of Treatment Not on file documented as of this encounter Visit Diagnoses Not on filedocumented in this encounter Care Teams Log Marker Relationship Specialty Start Date End Date Sammy Blue MD [address] [place] [address] PCP - General Internal Medicine 04/01/21 08/10/22 Penny Acosta MD [address] [place] [address] PCP - General Internal Medicine 08/11/22 Gregory Go MD, PHD [address] [place] [address] 21289 Surgeon Neurosurgery 09/24/22 Charles Bravo PA-C [address] [place] [address] Specialist Neurosurgery 09/24/22 documented as of this encounter
--- OUTSIDE RECORDS SUMMARY | 2025-09-16 17:13 | XMS_ITS | Patient Health Record ---
Demographics Address [address] [place] [address] Preferred Language Unknown Marital Status unmarried Mormonism Affiliation Unknown Race Unknown Ethnic Group Unknown Author Organization [facility] Address [address] [place] [address] Care Team Providers Care Copyright Clerk Name Role Phone Jerman Mcelroy Unavailable [phone] Reason For Referral No Information Plan Of Treatment No Information
--- OUTSIDE RECORDS SUMMARY | 2025-09-16 17:13 | XMS_ITS | Clinical Summary ---
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 For example, child life therapist or elderly care for an older adult? [...] 11:30 AM EST Office Visit Adult Medicine [facility] [address] [place], [place] [phone] Annamaria March PA [address] [place], [place] Health Maintenance Due Date Last Done Comments Cervical Cancer Screening: Pap Smear 07/16/2019 07/16/2016 [...] Td or Tdap) 01/07/2027 01/07/2017, 09/17/2013, 06/16/2000 Breast Cancer Screening 08/09/2027 08/09/2025 Colorectal Cancer Screening: Colonoscopy 05/19/2029 05/19/2024, 04/28/2017 [...] Procedure Name Priority Date/Time Associated Diagnosis Comments XR KNEE 1-2 VIEWS RIGHT Routine 08/20/2025 9:19 AM EST MG MAMMO DIGITAL SCREENING W DANNY BILAT Routine 08/09/2025 9:29 AM EDT COMPREHENSIVE METABOLIC PANEL Routine 04/12/2025 9:02 AM EDT Primary hypertension Mixed hyperlipidemia LIPID PANEL WITH REFLEX TO DIRECT LDL Routine 04/12/2025 9:02 AM EDT Primary hypertension Mixed hyperlipidemia COLONOSCOPY Routine 05/19/2024 2:16 PM EDT DEPRESSION SCREENING Routine 03/30/2024 HEPATITIS C SCREENING Routine 03/22/2020 PAP SMEAR Routine 07/16/2016 from Last 3 Months or Most Recently Relevant to Health Maintenance Results * XR Knee 1-2 Views Right (08/20/2025 9:19 AM EST) Anatomical Region Laterality Modality Lower Extremities, Knee Right Radiogra phic Imaging us Historical Provider MD [facility] XR PROCEDURES Final R esult * MG Mammo Digital Screening w Danny bilat (08/09/2025 9:29 AM EDT) Anatomical Region Laterality Modality Breast Bilateral Mammography us Historical Provider MD [facility] BI PROCEDURES Final R esult * (ABNORMAL) Lipid panel with reflex to direct LDL (04/12/2025 9:02 AM EDT) Cholesterol 240(H) 0 - 200 mg/dL LAB CHEMISTRY METHOD 04/12/2025 2:04 PM EDT [facility] Triglycerides 260(H) 0 - 150 mg/dL LAB CHEMISTRY METHOD 04/12/2025 2:04 PM EDT [facility] HDL 48 >=40 mg/dL LAB CHEMISTRY METHOD 04/12/2025 2:04 PM EDT [facility] LDL Calculated 140(H) 0 - 100 mg/dL LAB CHEMISTRY METHOD 04/12/2025 2:04 PM EDT [facility] VLDL Cholesterol Carlos Manuel 52 mg/dL LAB CHEMISTRY METHOD [facility] Non HDL Chol. (LDL+VLDL) 192(H) <145 mg/dL LAB CHEMISTRY METHOD 04/12/2025 2:04 PM EDT [facility] Chol/HDL Ratio 5.0(H) 0.0 - 4.4 LAB CHEMISTRY METHOD 04/12/2025 2:04 PM [facility] Blood Venous blood specimen / Unknown Venipuncture / Unknown 04/12/2025 9:02 AM EDT 04/12/2025 9:02 AM EDT us Lynsey JAQUEZ LAB BLOOD ORDERABLES Final Resu lt [facility] [address] [place] [address], [place] [phone] * (ABNORMAL) Comprehensive metabolic panel (04/12/2025 9:02 AM EDT) Sodium 137 133 - 145 mmol/L LAB CHEMISTRY METHOD 04/12/2025 2:04 PM [facility] Potassium 4.1 3.5 - 5.5 mmol/L LAB CHEMISTRY METHOD 04/12/2025 2:04 PM [facility] Chloride 101 96 - 110 mmol/L LAB CHEMISTRY METHOD 04/12/2025 2:04 PM [facility] CO2 27 21 - 32 mmol/L LAB CHEMISTRY METHOD 04/12/2025 2:04 PM [facility] Anion Gap 9 3 - 11 LAB CHEMISTRY METHOD 04/12/2025 2:04 PM [facility] Glucose 105(H) 70 - 100 mg/dL LAB CHEMISTRY METHOD 04/12/2025 2:04 PM [facility] BUN 13 5 - 25 mg/dL LAB CHEMISTRY METHOD 04/12/2025 2:04 PM [facility] Creatinine 0.74 0.50 - 1.10 mg/dL LAB CHEMISTRY METHOD 04/12/2025 2:04 PM [facility] eGFR 95 >=60 mL/min/1. 73m2 LAB CHEMISTRY METHOD 04/12/2025 2:04 PM [facility] Comment:Calculation based on the Chronic Kidney Disease Epidemiology Collaboration (CKD-EPI) equation refit without adjustment for race. BUN/Creatinine Ratio 17.6 LAB CHEMISTRY METHOD 04/12/2025 2:04 PM T [facility] Calcium 9.5 8.5 - 10.5 mg/dL LAB CHEMISTRY METHOD 04/12/2025 2:04 PM [facility] AST (SGOT) 13 10 - 42 unit/L LAB CHEMISTRY METHOD 04/12/2025 2:04 PM [facility] ALT (SGPT) 20 10 - 60 unit/L LAB CHEMISTRY METHOD 04/12/2025 2:04 PM [facility] Alkaline Phosphatase 68 42 - 121 unit/L LAB CHEMISTRY METHOD 04/12/2025 2:04 PM [facility] Total Protein 7.1 6.0 - 8.0 g/dL LAB CHEMISTRY METHOD 04/12/2025 2:04 PM [facility] Albumin 4.1 3.2 - 5.0 g/dL LAB CHEMISTRY METHOD 04/12/2025 2:04 PM [facility] Total Bilirubin 1.2 0.0 - 1.4 mg/dL LAB CHEMISTRY METHOD 04/12/2025 2:04 PM [facility] Blood Venous blood specimen / Unknown Venipuncture / Unknown 04/12/2025 9:02 AM EDT 04/12/2025 9:02 AM EDT us Lynsey JAQUEZ LAB BLOOD ORDERABLES Final Resu lt [facility] [address] [place] [address], * COLONOSCOPY (05/19/2024 2:16 PM EDT) Anatomical Region Laterality Modality Endoscopy us Historical Provider GI~PROCEDURE ORDERABLES F inal Result * Hm Depression Screening (03/30/2024) Depression Screening Abstracted Historical Provider HEALTH MAINTENANCE Final Result * Hepatitis C Screening (03/22/2020) Hepatitis C Screening Abstracted Historical Provider HEALTH MAINTENANCE Final Result * Pap Smear (07/16/2016) Pap smear Abstracted, No interpretation Historical Provider HEALTH MAINTENANCE Final Result from Last 3 Months or Most Recently Relevant to Health Maintenance Insurance [facility] Care Teams Therapy Manager Relationship Specialty Start Date End Date Penny Olivas MD [address] [place] [address] PCP - General Internal Medicine 04/05/25
--- OUTSIDE RECORDS SUMMARY | 2025-09-16 17:13 | XMS_ITS | Encounter Summary ---
Demographics Address [address] [place] [address] Mobile Phone Home Phone Work Phone Email Address Preferred Language Bulgarian Marital Status Gnosticism Affiliation Unknown Race Unknown Ethnic Group or Author Organization [facility] Address [address] [place] [address] Care Team Providers Care Fur Feeder Name Role Phone Roaxnna Davis DO Primary Care Pro vider Unavailable Sammy Blue MD Primary Care Provider [phone] Penny Acosta MD Primary Care Prov ider Gregory Go MD, PHD Unavailable Unava Charles Wong PA-C Unavailable [phone] Reason for Visit * Reason Comments E-prescribe Rx Request Encounter Details Date Type Department Care Team Description 04/27/2020 Refill Adult Medicine [address] [address] Ivette Reed PA-C E-prescribe Rx Request Social [...] N/A Patients current insurance carrier is: Payor: [employer] FFS / Plan: [employer] ALLIANCE / Product Type: MEDICAID RISK documented in this encounter Plan of Treatment Not on file documented as of this encounter Visit Diagnoses Not on filedocumented in this encounter Care Teams Fur Feeder Relationship Specialty Start Date End Date Roxanna Davis DO PCP - General Internal Medicine 02/13/20 03/31/21 Sammy Blue MD [address] [place] [address] PCP - General Internal Medicine 04/01/21 08/10/22 Penny Acosta MD [address] [place] [address] PCP - General Internal Medicine 08/11/22 Gregory Go MD, PHD [address] [place] [address]59 Surgeon Neurosurgery 09/24/22 Charles Bravo PA-C [address] [place] [address] Specialist Neurosurgery 09/24/22 documented as of this encounter
--- OUTSIDE RECORDS SUMMARY | 2025-09-16 17:13 | XMS_ITS | Encounter Summary ---
Demographics Address [address] [place] [address] Mobile Phone Home Phone Work Phone Email Address Preferred Language Marshallese Marital Status Cheondoism Affiliation Unknown Race Unknown Ethnic Group or Author Organization [facility] Address [address] [place] [address] Care Team Providers Care Parking Cashier Name Role Phone Alison Andrews MD Primary Care Provider Un available Sammy Blue MD Primary Care Provider [phone] Roxanna Davis DO Primary Care Pro vider Unavailable Sammy Blue MD Primary Care Provider [phone] Penny Acosta MD Primary Care Prov ider Gregory Go MD, PHD Unavailable Unava Charles Wong PA-C Unavailable [phone] Reason for Visit * Reason Comments E-prescribe Rx Request Encounter Details Date Type Department Care Team Description 02/14/2019 Refill Adult Medicine [address] [phone] Sol Smith PA-C [address] [place] [address] [phone] E-prescribe Rx Request Social History Tobacco Use [...] Telephone Encounter - Mariela Garcia C.M.A. - 02/14/2019 3:25 PM EDT [facility] Appt 07/06/19 with PCP * Telephone Encounter - Leopoldo Birch - 02/14/2019 8:13 AM EDT Patient would like script to be: E-PRESCRIBED/FAXED TO PHARMACY WHEN WAS THE PATIENT'S LAST APPOINTMENT IN ADULT MEDICINE? 02/07/19 WHEN WAS THE LAST TIME THE PATIENT SAW THEIR PCP? 04/07/18 Does patient have an upcoming appointment? Yes 07/06/19 (THE MEDICATION REQUESTED IS ON THE MED [...] N/A Patients current insurance carrier is: Payor: [employer] FFS / Plan: [employer] ALLIANCE / Product Type: MEDICAID RISK documented in this encounter Plan of Treatment Not on file documented as of this encounter Visit Diagnoses Not on filedocumented in this encounter Care Teams Parking Cashier Relationship Specialty Start Date End Date Alison Andrews MD PCP - General Internal Medicine 04/26/1808/08 Sammy Blue MD [address] [place] [address] PCP - General Internal Medicine 08/09/19 02/12/20 Roxanna Davis DO [address] [place] [address] 7[address] PCP - General Internal Medicine 02/13/20 03/31/21 Sammy Blue MD [address] [place] [address] PCP - General Internal Medicine 04/01/21 08/10/22 Penny Acosta MD [address] [place] [address] PCP - General Internal Medicine 08/11/22 Gregory Go MD, PHD [address] [place] [address] Surgeon Neurosurgery 09/24/22 Charles Bravo PA-C [address] [place] [address] Specialist Neurosurgery 09/24/22 documented as of this encounter
--- OUTSIDE RECORDS SUMMARY | 2025-09-16 17:13 | XMS_ITS | Encounter Summary ---
Demographics Address [address] [facility] [place] [address] Mobile Phone Home Phone Work Phone Email Address Preferred Language Prydeinig Marital Status Presybeterian Affiliation Unknown Race Unknown Ethnic Group or Author Organization [facility] Address [address] [place] [address] Care Team Providers Care Ink Jet Operator Name Role Phone Roxanna Davis DO Primary Care Pro vider Unavailable Alison Andrews MD Primary Care Provider Un available Sammy Blue MD Primary Care Provider [phone] Roxanna Davis DO Primary Care Pro vider Unavailable Sammy Blue MD Primary Care Provider [phone] Penny Acosta MD Primary Care Prov ider Gregory Go MD, PHD Unavailable Unava Charles Wong PA-C Unavailable [phone] Encounter Details Date Type Department Care Team Description 07/02/2017 [employer] Report Medical Records [address] [place] [address] Georgie Carpenter MD Social History Tobacco Use [...] on filedocumented in this encounter Care Teams Ink Jet Operator Relationship Specialty Start Date End Date Roxanna Davis DO PCP - General Internal Medicine 03/05/15 04/25/18 Alison Andrews MD PCP - General Internal Medicine 04/26/1808/08 Sammy Blue MD [address] [place] [address] PCP - General Internal Medicine 08/09/19 02/12/20 Roxanna Davis DO PCP - General Internal Medicine 02/13/20 03/31/21 Sammy Blue MD [address] [place] [address] [phone] PCP - General Internal Medicine 04/01/21 08/10/22 Penny Acosta MD [address] [place] [address] PCP - General Internal Medicine 08/11/22 Gregory Go MD, PHD [address] [place] [address] Surgeon Neurosurgery 09/24/22 Charles Bravo PA-C [address] [place] [address] Specialist Neurosurgery 09/24/22 documented as of this encounter
--- OUTSIDE RECORDS SUMMARY | 2025-09-16 17:13 | XMS_ITS | Encounter Summary ---
Demographics Address [address] [facility] [facility] [facility] [facility] [address] [place] [address] Mobile Phone Home Phone Work Phone Email Address Preferred Language Hong Konger Marital Status Faith Affiliation Unknown Race Unknown Ethnic Group or Author Organization [facility] Address [address] [place] [address] Care Team Providers Care Mortgage Branch Manager Name Role Phone Roxanna Davis DO Primary Care Pro vider Unavailable Sammy Blue MD Primary Care Provider Penny Acosta MD Primary Care Prov ider Gregory Go MD, PHD Unavailable Unava Charles Wong PA-C Unavailable [phone] Reason for Visit * Reason Onset Date Comments Prior Authorization 07/23/2020 Humira-APPRO SUZANNE Encounter Details Date Type Department Care Team Description 07/23/2020 Telephone Rheumatology - [address] [address] Mohsen Meng MD Prior Authorization (Humira-APPROVED) Social History Tobacco Use Types Packs/Day Years [...] have Coronavirus / COVID-19? No / Unsure 07/23/2020 10:46 AM EDT documented as of this encounter Miscellaneous Notes * Telephone Encounter - Shala Garcia M.A. - 07/29/2020 9:50 AM EDT Detailed voicemail left regarding message below. * Telephone Encounter - Mohsen Meng MD - 07/29/2020 9:26 AM EDT Needs teach for Humira and then later f/u - 2 months with me Mohsen Meng MD * Telephone Encounter - Shala Garcia M.A. - 07/29/2020 8:30 AM EDT Humira pen approved from 07/27/20 to 07/27/21. PA # [id number] PA done through [facility] on paper form as it was cancelled on [employer]. ID# [id number] Script to [facility]. Papers filed. Patient will need teach. * Telephone Encounter - Shala Garcia M.A. - 07/26/2020 2:00 PM EDT Paper form completed and signed by Dr. Meng. Form faxed. * Telephone Encounter - Shala Garcia M.A. - 07/24/2020 11:41 AM EDT Submitted through Cover[employer]eds. * Telephone Encounter - Shala Garcia M.A. - 07/23/2020 11:26 AM EDT GISELE Ahn requested by Dr. Meng. 40mg every 14 days. 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) documented in this encounter Plan of Treatment Not on file documented as of this encounter Visit Diagnoses Diagnosis Axial spondyloarthritis (HCC)- Primary documented in this encounter Care Teams Mortgage Branch Manager Relationship Specialty Start Date End Date Roxanna Davis DO PCP - General Internal Medicine 02/13/20 03/31/21 Sammy Blue MD [address] [place] [address] PCP - General Internal Medicine 04/01/21 08/10/22 Penny Acosta MD [address] [place] [address] PCP - General Internal Medicine 08/11/22 Gregory Go MD, PHD [address] [place] [address] Surgeon Neurosurgery 09/24/22 Charles Bravo PA-C [address] [place] [address] [place] [address] Specialist Neurosurgery 09/24/22 documented as of this encounter
--- OUTSIDE RECORDS SUMMARY | 2025-09-16 17:13 | XMS_ITS | Encounter Summary ---
Demographics Address [address] [facility] [address] [address] [address] [place] [address] Mobile Phone Home Phone Work Phone Email Address Preferred Language Niuean Marital Status Restorationism Affiliation Unknown Race Unknown Ethnic Group or Author Organization [facility] Address [address] [place] [address] Care Team Providers Care Android Platform Developer Name Role Phone Roxanna Davis DO Primary Care Pro vider Unavailable Sammy Blue MD Primary Care Provider [phone] Penny Acosta MD Primary Care Prov ider Gregory Go MD, PHD Unavailable Unava Charles Wong PA-C Unavailable [phone] Reason for Visit * Reason Onset Date Comments Medication 02/11/2021 Encounter Details Date Type Department Care Team Description 02/11/2021 Telephone Rheumatology - [address] [address] Mohsen Meng MD Medication Social History Tobacco [...] on filedocumented in this encounter Care Teams Android Platform Developer Relationship Specialty Start Date End Date Roxanna Davis DO PCP - General Internal Medicine 02/13/20 03/31/21 Sammy Blue MD [address] [place] [address] PCP - General Internal Medicine 04/01/21 08/10/22 Penny Acosta MD [address] [place] [address] PCP - General Internal Medicine 08/11/22 Gregory Go MD, PHD [address] [place] [address] Surgeon Neurosurgery 09/24/22 Charles Bravo PA-C [address] [place] [address] [place] [address] Specialist Neurosurgery 09/24/22 documented as of this encounter
--- OUTSIDE RECORDS SUMMARY | 2025-09-16 17:13 | XMS_ITS | Encounter Summary ---
Demographics Address [address] [place] [address] Mobile Phone Home Phone Work Phone Email Address Preferred Language Slovenian Marital Status Congregational Affiliation Unknown Race Unknown Ethnic Group or Author Organization [facility] Address [address] [place] [address] Care Team Providers Care Impersonator Character Name Role Phone Alison Andrews MD Primary Care Provider Un available Sammy Blue MD Primary Care Provider Roxanna Davis DO Primary Care Pro vider Unavailable Sammy Blue MD Primary Care Provider [phone] Penny Acosta MD Primary Care Prov ider Gregory Go MD, PHD Unavailable Unava Charles Wong PA-C Unavailable Encounter Details Date Type Department Care Team Description 09/27/2018 [facility] Specialist Report Medical Records [address] [place] [address] Lynsey Adames Social History Tobacco Use Types [...] on filedocumented in this encounter Care Teams Impersonator Character Relationship Specialty Start Date End Date Alison Andrews MD PCP - General Internal Medicine 04/26/1808/08 Sammy Blue MD [address] [place], [place] [address] PCP - General Internal Medicine 08/09/19 02/12/20 Roxanna Davis DO [address] [place] [address] PCP - General Internal Medicine 02/13/20 03/31/21 Sammy Blue MD [address] [place], [place] [address] PCP - General Internal Medicine 04/01/21 08/10/22 Penny Acosta MD [address] [place] [address] PCP - General Internal Medicine 08/11/22 Gregory Go MD, PHD [address] [place] [address]861 Surgeon Neurosurgery 09/24/22 Charles Bravo PA-C [address] [place] [address] Specialist Neurosurgery 09/24/22 documented as of this encounter
--- OUTSIDE RECORDS SUMMARY | 2025-09-16 17:13 | XMS_ITS | Encounter Summary ---
Demographics Address [address] [place] [address] Mobile Phone Home Phone Work Phone Email Address Preferred Language Malagasy Marital Status Presybeterian Affiliation Unknown Race Unknown Ethnic Group or Author Organization [facility] Address [address] [place] [address] Care Team Providers Care Paint Maker Name Role Phone Alison Andrews MD Primary Care Provider Un available Sammy Blue MD Primary Care Provider [phone] Roxanna Davis DO Primary Care Pro vider Unavailable Sammy Blue MD Primary Care Provider [phone] Penny Acosta MD Primary Care Prov ider Gregory Go MD, PHD Unavailable Unava Charles Wong PA-C Unavailable [phone] Reason for Visit * Reason Comments E-prescribe Rx Request Encounter Details Date Type Department Care Team Description 09/11/2018 Refill Adult Medicine [address] [address] Nadiya Shah PA-C E-prescribe Rx Request Social [...] an upcoming appointment? No-unable to reach left [facility] to call for appointment due to [...] N/A Patients current insurance carrier is: Payor: [employer] FFS / Plan: [employer] / Product Type: MEDICAID RISK documented in this encounter Plan of Treatment Not on file documented as of this encounter Visit Diagnoses Not on filedocumented in this encounter Care Teams Paint Maker Relationship Specialty Start Date End Date Alison Andrews MD PCP - General Internal Medicine 04/26/1808/08 Sammy Blue MD [address] [place] [address] PCP - General Internal Medicine 08/09/19 02/12/20 Roxanna Davis DO [address] [place] [address] PCP - General Internal Medicine 02/13/20 03/31/21 Sammy Blue MD [address] [place] [address] PCP - General Internal Medicine 04/01/21 08/10/22 Penny Acosta MD [address] [place] [address] PCP - General Internal Medicine 08/11/22 Gregory Go MD, PHD [address] [place] [address] Surgeon Neurosurgery 09/24/22 Charles Bravo PA-C [address] [place] [address] Specialist Neurosurgery 09/24/22 documented as of this encounter
--- OUTSIDE RECORDS SUMMARY | 2025-09-16 17:13 | XMS_ITS | Encounter Summary ---
Demographics Address [address] [place] [address] Mobile Phone Home Phone Work Phone Email Address Preferred Language New Zealander Marital Status Roman Catholic Affiliation Unknown Race Unknown Ethnic Group or Author Organization [facility] Address [address] [place] [address] Care Team Providers Care Rehabilitator Name Role Phone Penny Acosta MD Primary Care Prov ider Gregory Go MD, PHD Unavailable Unava Charles Wong PA-C Unavailable [phone] Encounter Details Date Type Department Care Team Description 08/21/2022 Refill Adult Medicine [facility] [address] [place] [address] Penny Acosta MD [address] [place] [address] Social History Tobacco Use Types Packs/Day Years [...] on filedocumented in this encounter Care Teams Rehabilitator Relationship Specialty Start Date End Date Penny Acosta MD [address] [place] [address] PCP - General Internal Medicine 08/11/22 Gregory Go MD, PHD [address] [place] [address] Surgeon Neurosurgery 09/24/22 Charles Bravo PA-C [address] [place] [address] Specialist Neurosurgery 09/24/22 documented as of this encounter
--- OUTSIDE RECORDS SUMMARY | 2025-09-16 17:13 | XMS_ITS | Encounter Summary ---
Demographics Address [address] [place] [address] Mobile Phone Home Phone Work Phone Email Address Preferred Language Congolese Marital Status Quaker Affiliation Unknown Race Unknown Ethnic Group or Author Organization [facility] Address [address] [place] [address] Care Team Providers Care Senior Financial Reporting Analyst Name Role Phone Alison Andrews MD Primary Care Provider Un available Sammy Blue MD Primary Care Provider [phone] Roxanna Davis DO Primary Care Pro vider Unavailable Sammy Blue MD Primary Care Provider [phone] Penny Acosta MD Primary Care Prov ider Gregory Go MD, PHD Unavailable Unava Charles Wong PA-C Unavailable [phone] Encounter Details Date Type Department Care Team Description 11/22/2018 Hospital Medical Records [address] [place] [address] Grayson Sunshine Social History Tobacco Use Types [...] on filedocumented in this encounter Care Teams Senior Financial Reporting Analyst Relationship Specialty Start Date End Date Alison Andrews MD PCP - General Internal Medicine 04/26/1808/08 Sammy Blue MD [address] [place] [address] PCP - General Internal Medicine 08/09/19 02/12/20 Roxanna Davis DO [address] [place] [address] PCP - General Internal Medicine 02/13/20 03/31/21 Sammy Blue MD [address] [place] [address] PCP - General Internal Medicine 04/01/21 08/10/22 Penny Acosta MD [address] [place] [address] PCP - General Internal Medicine 08/11/22 Gregory Go MD, PHD [address] [place] [address] Surgeon Neurosurgery 09/24/22 Charles Bravo PA-C [address] [place] [address] Specialist Neurosurgery 09/24/22 documented as of this encounter
--- OUTSIDE RECORDS SUMMARY | 2025-09-16 17:13 | XMS_ITS | Encounter Summary ---
Demographics Address [address] [place] [address] Mobile Phone Home Phone Work Phone Email Address Preferred Language Nigerien Marital Status Yazidism Affiliation Unknown Race Unknown Ethnic Group or Author Organization [facility] Address [address] [place] [address] Care Team Providers Care Staff Nurse Name Role Phone Sammy Blue MD Primary Care Provider [phone] Penny Acosta MD Primary Care Prov ider Gregory Go MD, PHD Unavailable Unava Charles Wong PA-C Unavailable [phone] Reason for Visit * Reason Comments E-prescribe Rx Request Encounter Details Date Type Department Care Team Description 04/16/2022 Refill Adult Medicine [address] [phone] Sammy Blue MD [address] [place] [address] [id number] E-prescribe Rx Request Social History Tobacco Use [...] N/A Patients current insurance carrier is: Payor: [employer] FFS / Plan: [employer] [facility] / Product Type: MEDICAID RISK documented in this encounter Plan of Treatment Not on file documented as of this encounter Visit Diagnoses Not on filedocumented in this encounter Care Teams Staff Nurse Relationship Specialty Start Date End Date Sammy Blue MD [address] [place] [address] PCP - General Internal Medicine 04/01/21 08/10/22 Penny Acosta MD [address] [place] [address] PCP - General Internal Medicine 08/11/22 Gregory Go MD, PHD [address] [place] [address] Surgeon Neurosurgery 09/24/22 Charles Bravo PA-C [address] [place] [address] Specialist Neurosurgery 09/24/22 documented as of this encounter
--- OUTSIDE RECORDS SUMMARY | 2025-09-16 17:13 | XMS_ITS | Encounter Summary ---
Demographics Address [address] [place] [address] Mobile Phone Home Phone Work Phone Email Address Preferred Language East Timorese Marital Status Islam Affiliation Unknown Race Unknown Ethnic Group or Author Organization [facility] Address [address] [place] [address] Care Team Providers Care Carpenter Name Role Phone Roxanna Davis DO Primary Care Pro vider Unavailable Alison Andrews MD Primary Care Provider Un available Sammy Blue MD Primary Care Provider [phone] Roxanna Davis DO Primary Care Pro vider Unavailable Sammy Blue MD Primary Care Provider Penny Acosta MD Primary Care Prov ider Gregory Go MD, PHD Unavailable Unava Charles Wong PA-C Unavailable [phone] Encounter Details Date Type Department Care Team Description 07/06/2017 Wrapper Rewinder Report Medical Records [address] [place] [address] Mohsen Zendejas Social History Tobacco Use Types Packs/Day Years [...] on filedocumented in this encounter Care Teams Carpenter Relationship Specialty Start Date End Date Roxanna Davis DO PCP - General Internal Medicine 03/05/15 04/25/18 Alison Andrews MD PCP - General Internal Medicine 04/26/1808/08 Sammy Blue MD [address] [place] [address] PCP - General Internal Medicine 08/09/19 02/12/20 Roxanna Davis DO PCP - General Internal Medicine 02/13/20 03/31/21 Sammy Blue MD [address] [place] [address] [phone] PCP - General Internal Medicine 04/01/21 08/10/22 Penny Acosta MD [address] [place] [address] PCP - General Internal Medicine 08/11/22 Gregory Go MD, PHD [address] [place] [address] Surgeon Neurosurgery 09/24/22 Charles Bravo PA-C [address] [place] [address] Specialist Neurosurgery 09/24/22 documented as of this encounter
--- OUTSIDE RECORDS SUMMARY | 2025-09-16 17:13 | XMS_ITS | Encounter Summary ---
Demographics Address [address] [facility] [address] [place] [address] Mobile Phone Home Phone Work Phone Email Address Preferred Language Central African Marital Status Sabianist Affiliation Unknown Race Unknown Ethnic Group or Author Organization [facility] Address [address] [place] [address] Care Team Providers Care Digital Content Manager Name Role Phone Roxanna Davis DO Primary Care Pro vider Unavailable Sammy Blue MD Primary Care Provider [phone] Penny Acosta MD Primary Care Prov ider Gregory Go MD, PHD Unavailable Unava Charles Wong PA-C Unavailable Encounter Details Date Type Department Care Team Description 05/16/2020 Screen Printer Helper Report Medical Records [address] [place] [address] Nirav Carter MD Social History Tobacco Use [...] on filedocumented in this encounter Care Teams Digital Content Manager Relationship Specialty Start Date End Date Roxanna Davis DO PCP - General Internal Medicine 02/13/20 03/31/21 Sammy Blue MD [address] [place] [address] PCP - General Internal Medicine 04/01/21 08/10/22 Penny Acosta MD [address] [place] [address] PCP - General Internal Medicine 08/11/22 Gregory Go MD, PHD [address] [place] [address] Surgeon Neurosurgery 09/24/22 Charles Bravo PA-C [address] [place] [address] Specialist Neurosurgery 09/24/22 documented as of this encounter
--- OUTSIDE RECORDS SUMMARY | 2025-09-16 17:13 | XMS_ITS | Encounter Summary ---
Demographics Address [address] [place] [address] Mobile Phone Home Phone Work Phone Email Address Preferred Language Ivorian Marital Status Mormon Affiliation Unknown Race Unknown Ethnic Group or Author Organization [facility] Address [address] [place] [address] Care Team Providers Care Day Care Home Mother Name Role Phone Sammy Blue MD Primary Care Provider [phone] Penny Acosta MD Primary Care Prov ider Gregory Go MD, PHD Unavailable Unava Charles Wong PA-C Unavailable Encounter Details Date Type Department Care Team Description 06/18/2021 Orders Only Medical Records [address] [place] [address] Sammy Blue MD [address] [place], [place] [phone] Social History Tobacco Use Types Packs/Day Years [...] on filedocumented in this encounter Care Teams Day Care Home Mother Relationship Specialty Start Date End Date Sammy Blue MD [address] [place] [address] PCP - General Internal Medicine 04/01/21 08/10/22 Penny Acosta MD [address] [place] [address] PCP - General Internal Medicine 08/11/22 Gregory Go MD, PHD [address] [place] [address] Surgeon Neurosurgery 09/24/22 Charles Bravo PA-C [address] [place] [address] Specialist Neurosurgery 09/24/22 documented as of this encounter
--- OUTSIDE RECORDS SUMMARY | 2025-09-16 17:13 | XMS_ITS | Encounter Summary ---
Demographics Address [address] [place] [address] Mobile Phone Home Phone Work Phone Email Address Preferred Language Irish Marital Status Mormonism Affiliation Unknown Race Unknown Ethnic Group or Author Organization [facility] Address [address] [place] [address] Care Team Providers Care Foil Wrapper Name Role Phone Penny Acosta MD Primary Care Prov ider Gregory Go MD, PHD Unavailable Unava Charles Wong PA-C Unavailable [phone] Encounter Details Date Type Department Care Team Description 08/28/2022 Orders Only Adult Medicine [facility] [address] [place] [address] Gayle Becerril PA-C [address] [place], [place] [phone] Social History Tobacco Use Types Packs/Day Years [...] on filedocumented in this encounter Care Teams Foil Wrapper Relationship Specialty Start Date End Date Penny Acosta MD [address] [place] [address] PCP - General Internal Medicine 08/11/22 Gregory Go MD, PHD [address] [place] [address] Surgeon Neurosurgery 09/24/22 Charles Bravo PA-C [address] [place] [address] [place] [address] Specialist Neurosurgery 09/24/22 documented as of this encounter
--- OUTSIDE RECORDS SUMMARY | 2025-09-16 17:13 | XMS_ITS | Encounter Summary ---
Demographics Address [address] [facility] [address] [place] [address] Mobile Phone Home Phone Work Phone Email Address Preferred Language German Marital Status Islam Affiliation Unknown Race Unknown Ethnic Group or Author Organization [facility] Address [address] [place] [address] Care Team Providers Care Social Professionals Name Role Phone Roxanna Davis DO Primary Care Pro vider Unavailable Sammy Blue MD Primary Care Provider [phone] Penny Acosta MD Primary Care Prov ider Gregory Go MD, PHD Unavailable Unava Charles Wong PA-C Unavailable [phone] Reason for Visit * Reason Onset Date Comments TEST RESULTS 03/13/2020 mri results 03/06 Encounter Details Date Type Department Care Team Description 03/13/2020 Telephone Adult Medicine [address] [address] Roxanna Davis DO TEST RESULTS (mri results 03/06/20) Social History Tobacco Use Types Packs/Day Years [...] Telephone Encounter - Shala Garcia M.A. - 03/13/2020 11:38 AM EDT Patient looking for MRI results. * Telephone Encounter - Amber Nelsonane - 03/13/2020 11:03 AM EDT Inform patient: ANY URGENT OR ABNORMAL RESULTS WIILL RESULT IN A CALL BACK TO THE PATIENT PAULO. Type of test: :mri Date test was performed: 03/06/20 Where was the test performed: [place] Who ordered this test?: Dr Mohsen Meng Is the doctor here today?: YES Can the message wait until the doctor returns?: NO IF PATIENT'S PCP IS NOT IN INSTRUCT PATIENT THAT THEY WILL RECEIVE A CALL BACK WHEN THE PCP IS IN THE OFFICE NEXT. documented in this encounter Plan of Treatment Not on file documented as of this encounter Visit Diagnoses Not on filedocumented in this encounter Care Teams Social Professionals Relationship Specialty Start Date End Date Roxanna Davis DO PCP - General Internal Medicine 02/13/20 03/31/21 Sammy Blue MD [address] [place] [address] PCP - General Internal Medicine 04/01/21 08/10/22 Penny Acosta MD [address] [place] [address] PCP - General Internal Medicine 08/11/22 Gregory Go MD, PHD [address] [place] [address] Surgeon Neurosurgery 09/24/22 Charles Bravo PA-C [address] [place] [address] Specialist Neurosurgery 09/24/22 documented as of this encounter
--- OUTSIDE RECORDS SUMMARY | 2025-09-16 17:13 | XMS_ITS | Encounter Summary ---
Demographics Address [address] [place] [address] Mobile Phone Home Phone Work Phone Email Address Preferred Language Samoan Marital Status Rastafarian Affiliation Unknown Race Unknown Ethnic Group or Author Organization [facility] Address [address] [place] [address] Care Team Providers Care Oceanologist Name Role Phone Roxanna Davis DO Primary Care Pro vider Unavailable Sammy Blue MD Primary Care Provider [phone] Penny Acosta MD Primary Care Prov ider Gregory Go MD, PHD Unavailable Unava Charles Wong PA-C Unavailable Encounter Details Date Type Department Care Team Description 11/27/2020 Transfer Records Medical Records [address] [place] [address] Abstract, Provider Social History Tobacco Use Types [...] on filedocumented in this encounter Care Teams Oceanologist Relationship Specialty Start Date End Date Roxanna Davis DO PCP - General Internal Medicine 02/13/20 03/31/21 Sammy Blue MD [address] [place] [address] PCP - General Internal Medicine 04/01/21 08/10/22 Penny Acosta MD [address] [place] [address] PCP - General Internal Medicine 08/11/22 Gregory Go MD, PHD [address] [place] [address] Surgeon Neurosurgery 09/24/22 Charles Bravo PA-C [address] [place] [address] Specialist Neurosurgery 09/24/22 documented as of this encounter
--- OUTSIDE RECORDS SUMMARY | 2025-09-16 17:13 | XMS_ITS | Encounter Summary ---
Demographics Address [address] [facility] [address] [place] [address] Mobile Phone Home Phone Work Phone Email Address Preferred Language Ugandan Marital Status Caodaism Affiliation Unknown Race Unknown Ethnic Group or Author Organization [facility] Address [address] [place] [address] Care Team Providers Care Jet Pilot Name Role Phone Roxanna Davis DO Primary Care Pro vider Unavailable Alison Andrews MD Primary Care Provider Un available Sammy Blue MD Primary Care Provider [phone] Roxanna Davis DO Primary Care Pro vider Unavailable Sammy Blue MD Primary Care Provider [phone] Penny Acosta MD Primary Care Prov ider Gregory Go MD, PHD Unavailable Unava Charles Wong PA-C Unavailable [phone] Encounter Details Date Type Department Care Team Description 06/17/2017 Forest Nursery Supervisor Report Medical Records [address] [place] [address] Lynsey Adames Social History Tobacco Use Types [...] on filedocumented in this encounter Care Teams Jet Pilot Relationship Specialty Start Date End Date Roxanna Davis DO PCP - General Internal Medicine 03/05/15 04/25/18 Alison Andrews MD PCP - General Internal Medicine 04/26/1808/08 Sammy Blue MD [address] [place] [address] PCP - General Internal Medicine 08/09/19 02/12/20 Roxanna Davis DO PCP - General Internal Medicine 02/13/20 03/31/21 Sammy Blue MD [address] [place] [address] [phone] PCP - General Internal Medicine 04/01/21 08/10/22 Penny Acosta MD [address] [place] [address] PCP - General Internal Medicine 08/11/22 Gregory Go MD, PHD [address] [place] [address] Surgeon Neurosurgery 09/24/22 Charles Bravo PA-C [address] [place] [address] Specialist Neurosurgery 09/24/22 documented as of this encounter
--- OUTSIDE RECORDS SUMMARY | 2025-09-16 17:13 | XMS_ITS | Encounter Summary ---
Demographics Address [address] [facility] [address] [place] [address] Mobile Phone Home Phone Work Phone Email Address Preferred Language Belizean Marital Status Denominational Affiliation Unknown Race Unknown Ethnic Group or Author Organization [facility] Address [address] [place] [address] Care Team Providers Care Lieutenant General Name Role Phone Penny Acosta MD Primary Care Prov ider Gregory Go MD, PHD Unavailable Unava ilable Charles Bravo PA-C Unavailable [phone] Reason for Referral * Non RUDI (Routine) - Authorized/Booked Specialty Diagnoses / Procedures Referred By Alejandro webber Referred To Contact Neurosurgery Procedures REFERRAL TO NEUROSURGERY Brittni Brunner APRN [address] [place] [address] Gregory Go MD, PHD [address] [place] [address] [place] [address] Referral ID Status Reason Start Date Expiration Date V isits Requested Visits Authorized [id number] Authorized/B ooked 08/11/2022 08/11/2023 1 1 Reason for Visit * Reason Onset Date Comments radiology 08/11/2022 Cspine MRI / Ref erral Neurosurgery Encounter Details Date Type Department Care Team Description 08/11/2022 Telephone [facility] [address] [place] [address] [place] [phone] Brittni Brunner APRN radiology (Cspine MRI [...] region documented in this encounter Care Teams Lieutenant General Relationship Specialty Start Date End Date Penny Acosta MD [address] [place] [address] PCP - General Internal Medicine 08/11/22 Gregory Go MD, PHD [address] [place] [address] Surgeon Neurosurgery 09/24/22 Charels Bravo PA-C [address] [place] [address] [place] [address] Specialist Neurosurgery 09/24/22 documented as of this encounter
[2025-09-16 17:27] LABS: Appearance Urine Clear; Glucose Urine UA Negative (Negative); PH 6.5 (5.0-9.0); Specific Gravity - Urine 1.010 (1.005-1.025)
[2025-09-16] MEDS: iohexoL 350 MG/ML 100 ML INFUS..BTL 85 ML IV (18:10)
[2025-09-16 18:52] VITALS: BP 107/43; PULSE 53; RESP 14; TEMP 36.6; O2SAT 96
[2025-09-16 19:55] VITALS: BP 107/43; PULSE 53; RESP 14; TEMP 36.6; O2SAT 96
== END 2025-09-16 19:55 | disposition home or self-care (01) ==
PROVIDERS: Physician Assistant; Emergency Provider Emergency Medicine Emergency Medical Services; PCP Internal Medicine
DX: K57.32 Diverticulitis of large intestine without perforation or abscess without bleeding (principal); R10.32 Left lower quadrant pain; R11.2 Nausea with vomiting, unspecified; R19.7 Diarrhea, unspecified
CPT/HCPCS: 36415; 74177; 80053; 81003; 83605; 83690; 85025; 96361; 96374; 96375; 99284; 99285; J1885; J2405; Q9967

== ENCOUNTER → 2025-09-16 14:50 | Outpatient (BNV) | payer OTHER, SELFPAY | PROVIDERS: Emergency Provider Emergency Medicine Emergency Medical Services; PCP Internal Medicine; Visit Provider Student in an Organized Health Care Education/Training Program | DX: R10.32 Left lower quadrant pain (principal); R11.2 Nausea with vomiting, unspecified | CPT/HCPCS: 74177 ==

== ENCOUNTER 2025-10-05 12:39 | Emergency (ER) | payer OTHER, SELFPAY ==
--- NOTE | ~2025-10-05 | CT_ITS ---
CLINICAL HISTORY: rlq pain Exam: Contrast-enhanced CT abdomen and pelvis with multiplanar reformats. Comparison: 09/16/2025. Findings: CT abdomen: Lung bases are clear. Liver is free of gross focal lesions and ductal dilatation. Gallbladder is unremarkable. Spleen is unremarkable. Pancreas and adrenal glands appear unremarkable. Kidneys appear unremarkable. No free intraperitoneal fluid or retroperitoneal masses or adenopathy. Abdominal aorta is normal caliber. Bowel loops reveal no abnormal wall thickening or distention. Colonic diverticulosis is present, without CT evidence of diverticulitis. Previously noted descending colon diverticulitis has resolved. The appendix appears unremarkable. CT pelvis: Uterus is surgically absent. Urinary bladder is nondistended. No pelvic masses, fluid or adenopathy. Osseous structures reveal no destructive osseous lesions. Impression: 1. No acute abnormality or CT explanation for reported history of right lower quadrant pain. Specifically, unremarkable appendix. This document has been electronically signed by: Junior Gurrola MD on 10/05/2025 18:42:46
--- OUTSIDE RECORDS SUMMARY | 2025-10-05 11:30 | XMS_ITS | Encounter Summary ---
Author Organization [facility] Address [address] [place] [address] Care Team Providers Care Still Cleaner Name Role Phone Penny Olivas MD Primary Care Prov ider Reason for Visit * Reason Comments Abdominal Pain Encounter Details Date Type Department Care Team ([facility] st Contact Info) Description 10/05/2025 11:30 AM EST Office Visit Adult Medicine [facility] [address], [place] [phone] Annamaria March PA [address] [place], [place] RLQ abdominal pain (Primary Dx); S/P tubal ligation; Family history of tubular adenomatous polyp of colon; S/P hysterectomy Social History Tobacco Use Types Packs/Day Years [...] for your loved ones. For example, child support investigator or elderly care for an older adult? [...] on file documented as of this encounter Last Filed Vital Signs Vital Sign Reading Time Taken Comments Blood Pressure 121/59 10/05/2025 11:38 AM EST Pulse 54 10/05/2025 11:38 AM EST Temperature 35.8 C (96.4 F) 10/05/2025 11:38 AM EST Respiratory Rate 15 10/05/2025 11:38 AM EST Oxygen Saturation 97% 10/05/2025 11:38 AM EST Inhaled Oxygen Concentration - - Weight 77.6 kg (171 lb) 10/05/2025 11:38 AM EST Height 154.9 cm (5' 1 ) 10/05/2025 11:38 AM EST Body Mass Index 32.31 10/05/2025 11:38 AM EST documented in this encounter Progress Notes * GISELE Healy - 10/05/2025 11:30 AM EST CHIEF COMPLAINT: Abdominal Pain IDENTIFIER: Darcy Vides is a 60 y.o. old female. HPI: Patient presents to the office today initially scheduled for routine evaluation. She is primarily Cymraes-speaking. Video front desk associate machine is not available and is being used by another provider. Patient therefore opts to have Cymraes- speaking curator medical museum staff provide translation for today's visit which is provided by Debbie Lyons. Patient reports that she was seen at [facility] ER on 09/16/2025 for left lower quadrant abdominal pain and was diagnosed with acute appendicitis. She completed antibiotic with good improvement. Notes are not available at time of appointment. Patient states that 2 weeks ago she developed right lower quadrant abdominal pain that initially started off more mild. Is now constant and she is having episodes of stabbing pain that are 9 out of 10 in intensity and lasting for about an hour. No associated nausea or vomiting. She does have issueswith chronic constipation although denies worsening. Last bowel movement was yesterday and was soft. No diarrhea. No black or dark tarry stools. No blood- streaked stools. No urinary symptoms. She hasabdominal surgical history notable for tubal ligation, hysterectomy, teratoma resection x 2. History of tubular adenoma. She has tried heating pad and Tylenol without benefit. ROS: GENERAL: No fever or chills. RESPIRATORY: No cough, wheezing or shortness of breath CARDIOVASCULAR: No chest pain, leg swelling or palpitations GI: SEE HPI : SEE HPI ASSISTANT STORE MANAGER OPERATIONS: SEE HPI. 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 Endometriosis 04/07/2018 Teratoma 05/28/2017 Neck pain 02/03/2016 Tubular adenoma 03/14/2015 Migraine 03/14/2015 Hypertension 03/14/2015 Hyperlipemia 03/14/2015 GERD (gastroesophageal reflux disease) 03/14/2015 Depression 03/14/2015 Back pain 03/14/2015 SOCIAL HISTORY: Social History Tobacco Use Smoking status: Never Smokeless tobacco: Never Substance Use Topics Alcohol use: No FAMILY HISTORY: Family Status Relation Name Status PGF Mother Father Sister x 5 Alive Brother x 7 Alive Uncle maternal Alive MGM MGF PGM No partnership data on file Family History[1] ACTIVE MEDICATIONS: Medications Taking[2] ALLERGIES: Aspirin, Atorvastatin, and Tramadol PHYSICAL EXAM: Blood pressure 121/59, pulse 54, temperature 35.8 ??C (96.4 ??F), temperature source Temporal, resp. rate 15, height 1.549 m (61 ), weight 77.6 kg (171 lb), SpO2 97%. Body mass index is 32.31 kg/m??.Plan is deferred until next visit APPEARANCE: Alert and in no acute distress EYES: conjunctiva and sclera normal HEART: RRR with normal S1 and S2, no murmurs LUNG: clear to auscultation ABDOMEN: Bowel sounds normoactive, no bruits. Patient has tenderness at McBurney's point. Patient also with positive psoas and obturator. Equivocal Rovsing. No rebound, guarding, rigidity. BACK: No CVA tenderness EXTREMITIES: Extremities warm and well perfused without clubbing, cyanosis, or edema NEURO: Awake, alert and oriented x 3 SKIN: Skin color, texture, turgor normal. No rashes. IMPRESSION: 1. RLQ abdominal pain 2. S/P tubal ligation 3. Family history of tubular adenomatous polyp of colon 4. S/P hysterectomy PLAN: Patient with new onset progressive right lower quadrant abdominal pain that is now described as stabbing pain that can be up to a 9 out of 10 in intensity and last for up to an hour at this level of pain. She is tender on exam at McBurney's point. She also has positive psoas and obturator testing. Rovsing sign is equivocal. There is clinical suspicion for appendicitis and patient will acquire stat CT of abdomen and pelvis to rule this out. This cannot be accommodated in the outpatient setting. Patient is directed to the ER. Ops for [facility] ER. Expect called. Patient understands and agrees to plan. Patient will return to the office for close follow-up pending ER/hospital course. No orders of the defined types were placed in this encounter. ADDITIONAL ORDERS: None GISELE Healy on 10/05/2025 at 12:14 PM EST [1] Family History Problem Relation Name Age of Onset Asthma Paternal Grandfather Diabetes Mother HLD, migraines Heart failure Father CVA Breast cancer Sister x 5 40 unilateral Hypertension Brother x 7 HLD, seizures Throat cancer Uncle maternal non-smoker [2] Outpatient Medications Marked as Taking for the 10/05/25 encounter (Office Visit) with GISELE Healy Medication Sig Dispense Refill amitriptyline (ELAVIL) 10 mg tablet TAKE 1 OR 2 TABLETS BY MOUTH EVERY DAY AT BEDTIME atogepant (Qulipta) 30 mg tablet TAKE 1 TABLET BY MOUTH EVERYDAY AT BEDTIME gabapentin (NEURONTIN) 100 mg capsule TAKE 1 CAPSULE BY MOUTH THREE TIMES A DAY hydroCHLOROthiazide (HYDRODIURIL) 25 mg tablet Take 1 tablet (25 mg total) by mouth 1 (one) time each day. 90 tablet 1 lidocaine (LIDODERM) 5 % patch APPLY 1 PATCH TOPICALLY DAILY FOR PAIN LEAVE ON MOST PAINFUL AREA FOR UP TO 12 HRS 30 patch 5 omeprazole (PriLOSEC) [address] capsule Take 1 Capsule by mouth daily. propranolol LA (INDERAL LA) 80 mg 24 hr capsule TAKE 1 CAPSULE BY MOUTH EVERYDAY AT BEDTIME rizatriptan (MAXALT) 10 mg tablet PLEASE SEE ATTACHED FOR DETAILED DIRECTIONS Vivelle-Dot 0.0375 mg/[address] 1 patch on the skin 2 (two) times a week. documented in this encounter Plan of Treatment Not on file documented as of this encounter Visit Diagnoses Diagnosis RLQ abdominal pain- Primary Abdominal pain, right lower quadrant S/P tubal ligation Tubal ligation status Family history of tubular adenomatous polyp of colon S/P hysterectomy Acquired absence of both cervix and uterus documented in this encounter Additional Health Concerns Assessment Noted Time PHQ-9 Depression Total Score: 0 06/19/20 25 1:36 PM EDT documented as of this encounter Care Teams Still Cleaner Relationship Specialty Start Date End Date Penny Olivas MD [address] [place] [address] [phone] PCP - General Internal Medicine 04/05/25 documented as of this encounter
[2025-10-05 13:13] VITALS: BP 137/63; PULSE 56; RESP 18; TEMP 36.6; O2SAT 97; BMI 32.0
--- NOTE | 2025-10-05 15:53 | ED.ABDPAIN ---
HPI - Abdominal Pain General Chief Complaint: Abdominal Pain Stated Complaint: appendicitis per pcp Time Seen by Provider: 10/05/25 16:14 History of Present Illness HPI narrative: Patient is a 61-year-old female presents today with having abdominal pain. The pain was on the left side at the end of last month. She had a CT scan at that time shows diverticulitis. Was placed on antibiotics for about 1 week. Symptom improved. Over the last week patient is developing pain in the right lower quadrant. There is no fever no chills there is no nausea there is no vomiting. The pain is dull. Patient denies any change in bowel movement there is no skin rashes. From home. No chest pain or shortness of breath no diaphoresis Related Data Home Medications ?Medication ?Instructions ?Recorded ?Confirmed hydrochlorothiazide 25 mg tablet 25 mg PO DAILY 03/03/22 05/11/25 omeprazole 20 mg capsule,delayed 20 mg PO DAILY 03/03/22 05/11/25 release ondansetron HCl 4 mg tablet mg PO 01/13/24 05/11/25 estradiol 0.0375 mg/24 hr 1 patch transdermal 2XW 11/02/24 05/11/25 semiweekly transdermal patch (Vivelle-Dot) estradiol 1 mg/gram (0.1 %) 1 packet transdermal DAILY 11/02/24 05/11/25 transdermal gel packet Previous Rx's ?Medication ?Instructions ?Recorded acetaminophen 325 mg tablet (Pain 650 mg (2 x 325 mg) PO Q6H PRN 05/16/23 Reliever (acetaminophen)) pain #45 tabs lidocaine 5 % topical patch 1 patch topical DAILY pain #30 ea 01/27/24 hydroxyzine HCl 10 mg tablet 10 mg PO TID PRN itching #10 tabs 06/15/24 triamcinolone acetonide 0.1 % 1 appl topical BID rash #15 grams 06/15/24 topical cream rizatriptan 10 mg tablet 10 mg PO Q2H 30 days #21 tabs 12/15/24 amitriptyline 10 mg tablet 10 mg PO BEDTIME 90 days #90 tabs 05/11/25 celecoxib 100 mg capsule (Celebrex) 100 mg PO BID PRN pain 30 days #60 05/11/25 caps eptinezumab-jjmr 100 mg/mL 100 mg IV [id number] 05/11/25 intravenous solution (Vyepti) diclofenac sodium 3 % topical gel 1 appl topical BID #100 grams 08/02/25 gabapentin 300 mg capsule 300 mg PO TID #90 caps 08/02/25 propranolol 80 mg capsule,24 80 mg PO DAILY #90 caps 08/03/25 hr,extended release atogepant 60 mg tablet 60 mg PO DAILY 30 days #30 tabs 08/17/25 erythromycin 5 mg/gram (0.5 %) eye 0.5 inch ophthalmic (eye) QID #3.5 08/20/25 ointment grams amoxicillin 875 mg-potassium 1 tab PO BID 7 days #14 tabs 09/16/25 clavulanate 125 mg tablet ondansetron 4 mg disintegrating 4 mg PO Q8H PRN nausea and 09/16/25 tablet vomiting #14 tabs Allergies Allergy/AdvReac Type Severity Reaction Status Date / Time aspirin (Aspirin) Allergy Mild ABDOMINAL Verified 10/05/25 13:19 PAIN, upset stomach tramadol (TRAMADOL) Allergy Unknown TONGUE Verified 10/05/25 13:19 NUMBNESS Review of Systems Review of Systems Positive abdominal pain Yes all other systems are reviewed and are negative [facility] Past Medical History Attestation statement: The following information was validated with the patient. Medical History Axial spondyloarthritis HLD (hyperlipidemia) Migraine Arthritis Hypertension Surgical History History of rectal surgery Family History Family History Father Congestive heart failure Mother Diabetes HTN (hypertension) Migraine Brother HTN (hypertension) Diabetes Social History Social History Alcohol intake: never Patient Tobacco Use Status: Never used Tobacco Advance Directives: No Advance Directives Information Provided: No Do you have a plan to hurt others: No Plan Patient : No Physical Exam ED Exam Exam: Appearance: Alert. Oriented X3. No acute distress. Eyes: Pupils equal, round and reactive to light. ENT: Pharynx normal. Neck: Normal inspection. Neck supple. No lymph nodes noted. No crepitus CVS: Normal heart rate and rhythm. Pulses normal. Normal S1 and S2 Respiratory: No respiratory distress. Breath sounds normal. No Wheezing. No rales Abdomen: Soft and nontender. No rigidity. No distention. good BS x4 Skin: Skin warm and dry. Normal skin color. Normal skin turgor. Extremities: No lower extremity edema. Neurovascular intact to all extremities. No Lacerations. No Rash Neuro: Oriented X 3. No motor deficit. No sensory deficit. Moving all extermities. No slurred speech Vital Signs: Vital Signs - 24 hr 10/05/25 13:13 10/05/25 16:05 10/05/25 18:34 Temperature 97.9 F 97.2 F 98.1 F Pulse Rate 56 59 106 H Respiratory Rate 18 18 18 Blood Pressure 137/63 142/67 H 124/62 Pulse Oximetry 97 96 99 Oxygen Delivery Method Room Air Room Air Room Air BMI result Body Mass Index 32.0 Course Course Course Narrative: This is a Rapid Medical Exam performed in triage by Stephanie Villanueva PA-C. Full HPI, ROS and PE to be performed by primary ED provider. 60-year-old Swedish-speaking female with a past medical history diverticulitis presenting to the ED c/o right lower quadrant abdominal pain x 2 weeks. States she has had the pain since Dx of diverticulitis. denies fever, N/V PE: abdomen soft w/R sided ttp. no rebound or guarding Plan: Labs, UA, CT Medical Decision Making Medical Decision Making MDM Narrative: Patient is 60 years old presents today with having right-sided abdominal pain has a history of diverticulitis. Was given antibiotics at that time. Patient is white count was 8.3. Electrolytes are normal. Patient's urine showed no signs of infection. CT scan of the abdomen pelvis showed no obvious obstruction abscess perforation no appendicitis. Patient well-appearing no distress. Will discharge home. In stable condition Differential Diagnosis Differential Diagnoses: The differential diagnosis associated with the presentation includes Diverticulitis, can not kidney stone, obstruction, appendicitis Admission/Observation Consideration of admission/observation: Escalation of care including admission/observation considered Lab Data [facility] Lab Attestation statement: I reviewed the patient's lab results. 10/05/25 16:21 10/05/25 16:21 Labs: Lab Results 10/05/25 10/05/25 Range/Units 16:21 18:50 WBC 8.3 (4.8-10.8) X10*3/uL RBC 5.03 (4.20-5.50) X10*6/uL Hgb 14.3 (12.0-16.0) g/dl Hct 43.5 (37.0-47.0) % MCV 86.5 (80.0-98.0) fL MCH 28.4 (27.0-33.0) pg MCHC 32.9 (31.0-35.0) g/dl RDW 13.0 (11.0-16.0) % Plt Count 362 (160-400) X10*3/uL MPV 9.9 (9.4-12.3) fL Immature Gran % (Auto) 0.4 (0.0-0.4) % Neut % (Auto) 54.6 (45-73) % Lymph % (Auto) 37.3 (20-40) % [place] % (Auto) 5.2 (2-11) % Eos % (Auto) 1.9 (0-4) % Baso % (Auto) 0.6 (0-2) % Lymph # (Auto) 3.1 (1.2-4.9) X10*3/uL [place] # (Auto) 0.4 (0.1-1.2) X10*3/uL Eos # (Auto) 0.2 (0.0-0.4) X10*3/uL Baso # (Auto) 0.1 (0.0-0.2) X10*3/uL Abs Immat Gran (auto) 0.03 (0.00-0.03) X10*3/uL Absolute Neuts (auto) 4.5 (2.0-8.3) x10*3/uL Absolute Nucleated RBC 0.000 (0.0-0.012) X10*3/uL Nucleated RBC % (auto) 0.0 (0.0-0.2) /100WBC Sodium 140 (135-145) mmol/L Potassium 3.6 (3.3-5.1) mmol/L Chloride 103 (96-108) mmol/L Carbon Dioxide 30 H (22-29) mmol/L Anion Gap 11 L (12-20) BUN 16 (9-16) mg/dL Creatinine 0.64 (0.5-1.4) mg/dL Estim Creat Clear Calc 89.8 Estimated GFR > 60 Random Glucose 105 (60-115) mg/dL Calcium 10.0 (8.4-10.2) mg/dL Magnesium 2.1 (1.6-2.6) mg/dL Total Bilirubin 0.9 (0.0-1.0) mg/dL Direct Bilirubin 0.2 (0.0-0.5) mg/dL AST 25 (5-31) U/L ALT 17 (0-31) U/L Alkaline Phosphatase 69 (39-117) U/L Total Protein 7.4 (6.5-8.0) g/dL Albumin 4.6 (3.5-5.0) g/dL Lipase 34 (8-78) U/L Urine Color Yellow Urine Appearance Clear Urine pH 7.0 (5.0-9.0) Ur Specific [place] >= 1.030 H (1.005-1.025) Urine Protein Negative (Neg-Trace) mg/dL Urine Glucose (UA) Negative (Negative) mg/dL Urine Ketones Negative (Negative) mg/dL Urine Blood Negative (Negative) Urine Nitrite Negative (Negative) Ur Leukocyte Esterase Negative (Negative) Independent Interpretation I performed an independent interpretation of an: CT Scan (Grossly negative) Radiology Impression Discussion of test interpretation with radiology: I have reviewed the radiologist's reading. External Record Review External record reviewed: Office record Medications Administered Generic Name Dose Route Start Last Admin Trade Name Freq PRN Reason Stop Dose Admin Sodium Chloride 1,000 mls @ 999 mls/hr 10/05/25 18:45 10/05/25 18:48 Ns IV 10/05/25 19:45 999 mls/hr .Q1H1M ANTONIA Administration Discontinued Medications Generic Name Dose Route Start Last Admin Trade Name Freq PRN Reason Stop Dose Admin Iohexol 100 ml 10/05/25 17:47 10/05/25 17:47 Iohexol 350 Mg/Ml 100 Ml Infus..Btl IV 10/05/25 17:48 85 ml ONCE ONE Administration Discharge Plan Discharge Clinical Impression: Abdominal pain Patient Disposition: Home, Self-Care Instructions: Abdominal Pain (ED) Prescriptions: No Action rizatriptan 10 mg tablet 10 mg PO Q2H 30 Days Qty: 21 6RF Rx Instructions: 1 tab at onset of migraine, may repeat in 2 hours, max 2 tabs per day or 4 tabs per week. diclofenac sodium 3 % gel 1 appl topical BID Qty: 100 0RF Rx Instructions: apply to most painful area twice daily as needed for pain gabapentin 300 mg capsule 300 mg PO TID Qty: 90 6RF propranolol 80 mg capsule,extended release 24 hr 80 mg PO DAILY Qty: 90 2RF atogepant 60 mg tablet 60 mg PO DAILY 30 Days Qty: 30 6RF acetaminophen [Pain Reliever (acetaminophen)] 325 mg tablet 650 mg PO Q6H PRN (Reason: pain) Qty: 45 0RF ondansetron 4 mg tablet,disintegrating 4 mg PO Q8H PRN (Reason: nausea and vomiting) Qty: 14 0RF amoxicillin-pot clavulanate 875-125 mg tablet 1 tab PO BID 7 Days Qty: 14 0RF erythromycin 5 mg/gram (0.5 %) ointment 0.5 inch ophthalmic (eye) QID Qty: 3.5 0RF hydroxyzine HCl 10 mg tablet 10 mg PO TID PRN (Reason: itching) Qty: 10 0RF triamcinolone acetonide 0.1 % cream 1 appl topical BID Qty: 15 0RF hydrochlorothiazide 25 mg tablet 25 mg PO DAILY omeprazole 20 mg capsule,delayed release(DR/EC) 20 mg PO DAILY ondansetron HCl 4 mg tablet PO lidocaine 5 % adhesive patch,medicated 1 patch topical DAILY Qty: 30 3RF Rx Instructions: leave on most painful area for up to 12 hrs estradiol [Vivelle-Dot] 0.0375 mg/24 hr patch semiweekly 1 patch transdermal 2XW Rx Instructions: apply 1 patch for 3 days alternating with 1 patch for 4 days each week for 3 wks per 4-wk cycle estradiol 1 mg/gram (0.1 %) gel in packet 1 packet transdermal DAILY amitriptyline 10 mg tablet 10 mg PO BEDTIME 90 Days Qty: 90 1RF celecoxib [Celebrex] 100 mg capsule 100 mg PO BID PRN (Reason: pain) 30 Days Qty: 60 3RF Vyepti 100 mg/mL solution 100 mg IV [id number] Rx Instructions: administer over 30 mins Referrals: Penny Acosta MD [Primary Care Provider, Internal Medicine] - 10/08/25 Print Language: Swedish
[2025-10-05 16:05] VITALS: BP 142/67; PULSE 59; RESP 18; TEMP 36.2; O2SAT 96
[2025-10-05 16:24] LABS: MANUAL DIFF FLAG NO
[2025-10-05 16:26] LABS: Hematocrit 43.5 % (37.0-47.0); Hemoglobin 14.3 g/dl (12.0-16.0); Imm Gran Abs Auto 0.03 X10*3/uL (0.00-0.03); Imm Gran Pct Auto 0.4 % (0.0-0.4); Lymphocytes Absolute Auto 3.1 X10*3/uL (1.2-4.9); Mean Corpuscular HGB Conc 32.9 g/dl (31.0-35.0); Mean Corpuscular Hemoglobin 28.4 pg (27.0-33.0); Mean Corpuscular Volume 86.5 fL (80.0-98.0); NRBC Abs Auto 0.000 X10*3/uL (0.0-0.012); NRBC Pct Auto 0.0 /100WBC (0.0-0.2); Platelet Count 362 X10*3/uL (160-400); Red Blood Count 5.03 X10*6/uL (4.20-5.50); White Blood Count 8.3 X10*3/uL (4.8-10.8)
[2025-10-05 16:41] LABS: Alanine Aminotransferase 17 U/L (0-31); Albumin Level 4.6 g/dL (3.5-5.0); Alkaline Phosphatase 69 U/L (39-117); Anion Gap 11 (12-20); Aspartate Amino Transferase 25 U/L (5-31); Blood Urea Nitrogen 16 mg/dL (9-16); Calcium 10.0 mg/dL (8.4-10.2); Carbon Dioxide 30 mmol/L (22-29); Chloride 103 mmol/L (96-108); Creatinine Clr Calc Pharmacy 89.8; Estimated Glomerular Filt Rate > 60; Lipase 34 U/L (8-78); Magnesium 2.1 mg/dL (1.6-2.6); Potassium 3.6 mmol/L (3.3-5.1); Sodium 140 mmol/L (135-145); Total Protein 7.4 g/dL (6.5-8.0)
--- OUTSIDE RECORDS SUMMARY | 2025-10-05 16:47 | XMS_ITS | Patient Health Record ---
Demographics Address [address] [place] [address] Preferred Language Unknown Marital Status unmarried Buddhist Affiliation Unknown Race Unknown Ethnic Group Unknown Author Organization [facility] Address [address] [place] [address] Care Team Providers Care Food Service Steward Name Role Phone Jerman Mcelroy Unavailable [phone] Reason For Referral No Information Plan Of Treatment No Information
--- OUTSIDE RECORDS SUMMARY | 2025-10-05 16:47 | XMS_ITS | Clinical Summary ---
Author Organization [facility] [address] [place] [address] Address [address] [place] [address] Phone Care Team Providers Care Framing Inspector Name Role Phone Penny Olivas MD Primary [...] taking medication 20 tablet 1 5 Active Additional Information Patient not taking.Reported on 10/05/2025 lidocaine (LIDODERM) 5 % patch APPLY 1 [...] Overview (07/21/2024): UNTREATED (Jul 2022) Axial spondyloarthritis 05/21/2020 Overview (07/21/2024): Sclerosis seen on SI [...] Encounters Date Type Department Care Team Description 10/05/2025 11:30 AM EST Office Visit Adult Medicine [address] [phone] Annamaria March PA RLQ abdominal pain (Primary Dx); S/P tubal ligation; Family history of tubular adenomatous polyp of colon; S/P hysterectomy from Last 3 Months Immunizations Immunization Administration [...] TUBAL LIGATION PROCEDURE: HISTORICAL TUBAL LIGATION HYSTERECTOMY 2005 PROCEDURE: HISTORICAL HYSTERECTOMY; COMMENT: + left ooforectomy [...] GIGI on CPAP DX:GIGI on CPAP; COMMENT: grazyna neuro ASCUS of cervix with negativ e [...] DX:Back pain Axial spondyloarthritis (CMS /HCC V24, [facility] V28) 05/21/2020 DX:Axial spondyloarthritis ( HCC) Family [...] care for your loved ones. For example, childcare worker or elderly care for an older adult? [...] on file Sexual Orientation Not on file Last Filed Vital Signs [...] Mass Index 32.31 10/05/2025 11:38 AM EST Plan of Treatment Health Maintenance Due Date Last Done Comments Cervical Cancer Screening: Pap Smear 07/16/2019 07/16/2016 Hepatitis B Vaccines (1 of 3 - 19+ 3-dose series) 04/05/2026 Postponed from 1986 (Patient Refused) Pneumococcal Vaccine: 50+ Years (1 of 1 - PCV) 04/05/2026 Postponed from 2017 (Patient Refused) Social Influencers of Health Screening 04/05/2026 04/05/2025 Zoster Vaccines (1 of 2) 04/05/2026 Pos tponed from 2017 (Patient Refused) Hypertension/CHF/CAD Annual BMP Blood Test 04/12/2026 04/12/2025, 09/02/2023 Influenza Vaccine (#1) 2026 07/23/2020 Postp oned from 06/18/2025 (Patient Refused) DTaP,Tdap,and Td Vaccines (4 - Td or [...] Procedure Name Priority Date/Time Associated Diagnosis Comments CT ABDOMEN PELVIS W CONTRAST Routine 09/16/2025 2:10 PM EST XR KNEE 1-2 VIEWS RIGHT Routine 08/20/2025 [...] Recently Relevant to Health Maintenance Results * CT Abdomen Pelvis w Contrast (09/16/2025 2:10 PM EST) Anatomical Region Laterality Modality Body Computed Tomogra phy us Historical Provider MD [facility] CT PROCEDURES Final R esult * XR Knee 1-2 Views Right (08/20/2025 9:19 AM EST) Anatomical Region Laterality Modality Lower Extremities, Knee Right Radiogra phic Imaging Historical Provider IMSeth XR PROCEDURES Final R esult * MG Mammo Digital Screening w Danny bilat (08/09/2025 9:29 AM EDT) Anatomical Region Laterality Modality Breast Bilateral Mammography Historical Provider MD [facility] BI PROCEDURES Final R esult * (ABNORMAL) Lipid panel with reflex to direct LDL (04/12/2025 9:02 AM EDT) Cholesterol 240(H) 0 - 200 mg/dL LAB CHEMISTRY METHOD 04/12/2025 2:04 PM EDT [facility] Triglycerides 260(H) 0 - 150 mg/dL LAB CHEMISTRY METHOD 04/12/2025 2:04 PM EDT [facility] HDL 48 >=40 mg/dL LAB CHEMISTRY METHOD 04/12/2025 2:04 PM EDT [facility] LDL Calculated 140(H) 0 - 100 mg/dL LAB CHEMISTRY METHOD 04/12/2025 2:04 PM EDT [facility] VLDL Cholesterol Carlos Manuel 52 mg/dL LAB CHEMISTRY METHOD 04/12/2025 2:[address] [facility] Non HDL Chol. (LDL+VLDL) 192(H) <145 mg/dL LAB CHEMISTRY METHOD 04/12/2025 2:[address] [facility] Chol/HDL Ratio 5.0(H) 0.0 - 4.4 LAB CHEMISTRY METHOD 04/12/2025 2:[address] [facility] Blood Venous blood specimen / Unknown Venipuncture / Unknown 04/12/2025 9:02 AM EDT 04/12/2025 9:02 AM EDT us Lynsey JAQUEZ LAB BLOOD ORDERABLES Final Resu lt [facility] [address] [place] [address], [place] [phone] * (ABNORMAL) Comprehensive metabolic panel (04/12/2025 9:02 [...] unit/L LAB CHEMISTRY METHOD 04/12/2025 2:[address] [facility] ALT (SGPT) 20 10 - 60 unit/L LAB CHEMISTRY METHOD 04/12/2025 2:[address] [facility] Alkaline Phosphatase 68 42 - 121 unit/L LAB CHEMISTRY METHOD 04/12/2025 2:[address] [facility] Total Protein 7.1 6.0 - 8.0 g/dL LAB CHEMISTRY METHOD 04/12/2025 2:[address] [facility] Albumin 4.1 3.2 - 5.0 g/dL LAB CHEMISTRY METHOD 04/12/2025 2:[address] [facility] Total Bilirubin 1.2 0.0 - 1.4 mg/dL LAB CHEMISTRY METHOD 04/12/2025 2:[address] [facility] Blood Venous blood specimen / Unknown Venipuncture / Unknown 04/12/2025 9:02 AM EDT 04/12/2025 9:02 AM EDT us Lynsey JAQUEZ LAB BLOOD ORDERABLES Final Resu lt [facility] [address] [place] [address], * COLONOSCOPY (05/19/2024 2:16 PM EDT) Anatomical [...] Most Recently Relevant to Health Maintenance Insurance [facility] [facility] Care Teams Framing Inspector Relationship Specialty Start Date End Date Penny Olivas MD [address] [place] [address] PCP - General Internal Medicine 04/05/25
[2025-10-05] MEDS: iohexoL 350 MG/ML 100 ML INFUS..BTL IV (17:47)
[2025-10-05 18:34] VITALS: BP 124/62; PULSE 106; RESP 18; TEMP 36.7; O2SAT 99
[2025-10-05 18:55] LABS: Appearance Urine Clear; Glucose Urine UA Negative (Negative); PH 7.0 (5.0-9.0); Specific Gravity - Urine >= 1.030 (1.005-1.025)
[2025-10-05 20:01] VITALS: BP 124/62; PULSE 89; RESP 18; TEMP 36.7; O2SAT 99
== END 2025-10-05 20:01 | disposition home or self-care (01) ==
PROVIDERS: Physician Assistant; Emergency Provider Emergency Medicine Emergency Medical Services; PCP Internal Medicine
DX: R10.31 Right lower quadrant pain (principal); Z87.19 Personal history of other diseases of the digestive system
CPT/HCPCS: 36415; 74177; 80048; 80076; 81003; 83690; 83735; 85025; 96360; 99284; 99285; Q9967

== ENCOUNTER → 2025-10-05 16:29 | Outpatient (BNV) | payer OTHER, SELFPAY | PROVIDERS: Emergency Provider Emergency Medicine Emergency Medical Services; PCP Internal Medicine; Visit Provider Radiology Diagnostic Radiology | DX: R10.32 Left lower quadrant pain (principal) | CPT/HCPCS: 74177 ==